=== PATIENT | male | born 1945 | race African-American/Black ===

== ENCOUNTER 2017-12-16 19:40 | Inpatient (IN) | payer MEDICARE, MEDICAID ==
[~2017-12-16] VITALS: Ht 182.9 cm; Wt 73.5 kg
[2017-12-16] MEDS ORDERED: HYDRALAZINE HCL10 MG GT (19:55)
[2017-12-16] MEDS ORDERED: VITAMIN C500 M1 GT (19:55)
[2017-12-16] MEDS ORDERED: MILK OF MA400 MG/51 GT (19:55)
[2017-12-16] MEDS ORDERED: DEPAKENE250 MG/5 M GT (19:55)
[2017-12-16] MEDS ORDERED: OMEPRAZOLE20 M2 ORAL (19:55)
[2017-12-16] MEDS ORDERED: HEPARIN SO5000 UNIT2 SUBQ (19:55)
[2017-12-16] MEDS ORDERED: LEVETIRACE100 MG/1 M GT (19:55)
[2017-12-16] MEDS ORDERED: CARVEDILOL6.25 MG GT (19:55)
[2017-12-16] MEDS ORDERED: FERROUS SU325 MG/5 M GT (19:55)
[2017-12-16] MEDS ORDERED: CATAPRES0.1 MG GT (19:55)
[2017-12-16 20:54] LABS: HEMATOCRIT 22.8 % (42.0-52.0); HEMOGLOBIN 7.7 G/DL (14.2-18.0); MEAN CORPUSCULAR VOLUME 92 FL (80-99); PLATELET COUNT 199 K/UL (150-450); RED BLOOD COUNT 2.48 M/UL (4.70-6.10); WHITE BLOOD COUNT 7.1 K/UL (4.8-10.8)
[2017-12-16 21:00] LABS: ANION GAP 6 mmol/L (5-15); BLOOD UREA NITROGEN 28 mg/dL (7-18); CALCIUM 9.2 MG/DL (8.5-10.1); CARBON DIOXIDE 30 MMOL/L (21-32); CHLORIDE 93 MMOL/L (98-107); CREATININE 0.6 MG/DL (0.55-1.30); INR 0.9 (0.9-1.1); POTASSIUM 4.9 MMOL/L (3.5-5.1); SODIUM 129 MMOL/L (136-145)
[2017-12-16 21:15] LABS: ALANINE AMINOTRANSFERASE 27 U/L (12-78); ALBUMIN 2.5 G/DL (3.4-5.0); ALBUMIN/GLOBULIN RATIO 0.5 (1.0-2.7); ALKALINE PHOSPHATASE 175 U/L (46-116); ASPARTATE AMINO TRANSFERASE 17 U/L (15-37); BILIRUBIN,TOTAL 0.3 MG/DL (0.2-1.0); CKMB 2.8 NG/ML (0.0-3.6); CREATINE KINASE 39 U/L (26-308); PHOSPHORUS 5.1 MG/DL (2.5-4.9)
[2017-12-16] MEDS ORDERED: Miralax 17gm pkt ORAL PRN (22:00)
[2017-12-16] MEDS ORDERED: Zolpidem 5mg tab ORAL PRN (22:00)
[2017-12-16] MEDS ORDERED: LORazepam Inj 2mg/ml 1ml IV PRN (22:00)
[2017-12-16] MEDS ORDERED: Mylanta II UD 30ml ORAL PRN (22:00)
--- NOTE | 2017-12-16 22:43 | Emergency Room Report ---
History of Present Illness General Chief Complaint: Abnormal Labs Present Illness HPI Patient is 72-year-old male brought in by EMS after the decreased hemoglobin. Patient was noted to have hemoglobin less than 8 he is chronically vent dependent. The patient was noted to have small amount increased blood from his tracheostomy. Patient is G-tube dependent. There is no reported fever Allergies: Coded Allergies: ACETAMINOPHEN (Verified Allergy, Unknown, 12/16/17) Patient History Past Medical History: see triage record Reviewed Nursing Documentation: PMH: Agreed; PSxH: Agreed Nursing Documentation-PMH Hx Hypertension: Yes - GERD Hx COPD: Yes - Hypoxic ischemic encephalopothy Hx Diabetes: Yes - DM II Review of Systems All Other Systems: limited - by mental status Physical Exam Vital Signs Date Time Temp Pulse Resp B/P (MAP) Pulse Ox O2 Delivery O2 Flow Rate FiO2 12/16/17 19:32 95.8 60 12 100/64 99 Trach Collar 5.0 95.7 12/16/17 21:08 40 General Appearance: alert, thin, Chronically Ill Head: atraumatic Eyes: bilateral eye EOMI ENT: moist mucus membranes Neck: limited range of motion Respiratory: chest non-tender, lungs clear, decreased breath sounds - right side Cardiovascular #1: edema - trace Gastrointestinal: non tender, soft, other - gtube stoma, c/d/i Rectal: heme positive stool - brown stool Genitourinary: normal inspection Neurologic: motor weakness, other - contracted Psychiatric: other - aphasic Medical Decision Making Diagnostic Impression: Primary Impression: Symptomatic anemia Additional Impressions: Pleural effusion, right Ventilator dependent ER Course Patient presented for anemia. Differential diagnosis included was not limited to GI bleed, hemothorax, hemolysis, laboratory error among others.Because of complexity of patient's case laboratory testing and imaging studies were ordered. The patient was started on IV acid blockers. A chest x-ray one view interpreted by me showed large right pleural effusion Dr. Giana Diaz was contacted for inpatient managment due to primary care physician. Labs Test 12/16/17 20:25 12/16/17 20:29 Arterial Blood pH 7.418 (7.350-7.450) Arterial Blood Partial Pressure CO2 43.3 mmHg (35.0-45.0) Arterial Blood Partial Pressure O2 97.7 mmHg (75.0-100.0) Arterial Blood HCO3 27.3 mmol/L (22.0-26.0) Arterial Blood Oxygen Saturation 97.9 % (92.0-98.0) Arterial Blood Base Excess 2.5 Hector Test Positive White Blood Count 7.1 K/UL (4.8-10.8) Red Blood Count 2.48 M/UL (4.70-6.10) Hemoglobin 7.7 G/DL (14.2-18.0) Hematocrit 22.8 % (42.0-52.0) Mean Corpuscular Volume 92 FL (80-99) Mean Corpuscular Hemoglobin 30.9 PG (27.0-31.0) Mean Corpuscular Hemoglobin Concent 33.7 G/DL (32.0-36.0) Red Cell Distribution Width 15.0 % (11.6-14.8) Platelet Count 199 K/UL (150-450) Mean Platelet Volume 7.6 FL (6.5-10.1) Neutrophils (%) (Auto) % (45.0-75.0) Lymphocytes (%) (Auto) % (20.0-45.0) Monocytes (%) (Auto) % (1.0-10.0) Eosinophils (%) (Auto) % (0.0-3.0) Basophils (%) (Auto) % (0.0-2.0) Differential Total Cells Counted 100 Neutrophils % (Manual) 73 % (45-75) Lymphocytes % (Manual) 17 % (20-45) Monocytes % (Manual) 7 % (1-10) Eosinophils % (Manual) 3 % (0-3) Basophils % (Manual) 0 % (0-2) Band Neutrophils 0 % (0-8) Platelet Estimate Adequate Platelet Morphology Normal Hypochromasia 1+ Anisocytosis 1+ Prothrombin Time 9.6 SEC (9.30-11.50) Prothromb Time International Ratio 0.9 (0.9-1.1) Activated Partial Thromboplast Time 35 SEC (23-33) Sodium Level 129 MMOL/L (136-145) Potassium Level 4.9 MMOL/L (3.5-5.1) Chloride Level 93 MMOL/L (98-107) Carbon Dioxide Level 30 MMOL/L (21-32) Anion Gap 6 mmol/L (5-15) Blood Urea Nitrogen 28 mg/dL (7-18) Creatinine 0.6 MG/DL (0.55-1.30) Estimat Glomerular Filtration Rate > 60 mL/min (>60) Glucose Level 91 MG/DL (74-106) Lactic Acid Level 0.30 mmol/L (0.66-2.22) Calcium Level 9.2 MG/DL (8.5-10.1) Phosphorus Level 5.1 MG/DL (2.5-4.9) Magnesium Level 2.3 MG/DL (1.8-2.4) Total Bilirubin 0.3 MG/DL (0.2-1.0) Aspartate Amino Transf (AST/SGOT) 17 U/L (15-37) Alanine Aminotransferase (ALT/SGPT) 27 U/L (12-78) Alkaline Phosphatase 175 U/L (46-116) Total Creatine Kinase 39 U/L (26-308) Creatine Kinase MB 2.8 NG/ML (0.0-3.6) Creatine Kinase MB Relative Index 7.1 Troponin I 0.000 ng/mL (0.000-0.056) Total Protein 7.1 G/DL (6.4-8.2) Albumin 2.5 G/DL (3.4-5.0) Globulin 4.6 g/dL Albumin/Globulin Ratio 0.5 (1.0-2.7) EKG Diagnostic Results Rate: normal, other Rhythm: NSR ST Segments: other - low voltage Last Vital Signs Date Time Temp Pulse Resp B/P (MAP) Pulse Ox O2 Delivery O2 Flow Rate FiO2 12/16/17 21:08 81 27 40 12/16/17 19:32 95.8 100/64 99 Trach Collar 5.0 95.7 Status: unchanged Disposition: ADMITTED INPATIENT Condition: Serious Referrals: GIANA DIAZ (PCP) Jerel Morales Dec 16, 2017 22:43
[2017-12-16] MEDS ORDERED: Morphine Sulfate 4mg/ml Inj IVP PRN (22:45)
[2017-12-16 23:01] VITALS: BP 100/64
[2017-12-16 23:30] VITALS: BP 123/73
[2017-12-17] VITALS (12 sets, daily range): BP systolic 100–142; BP diastolic 50–95
[2017-12-17 06:25] LABS: BASOPHILS % (AUTO) 0.3 % (0.0-2.0); HEMOGLOBIN 8.7 G/DL (14.2-18.0); MEAN CORPUSCULAR VOLUME 90 FL (80-99); MONOCYTES % (AUTO) 6.7 % (1.0-10.0); PLATELET COUNT 180 K/UL (150-450); RED BLOOD COUNT 2.78 M/UL (4.70-6.10); RED CELL DISTRIBUTION WIDTH 14.7 % (11.6-14.8); WHITE BLOOD COUNT 8.1 K/UL (4.8-10.8)
[2017-12-17 07:06] LABS: ALANINE AMINOTRANSFERASE 25 U/L (12-78); ALBUMIN 2.6 G/DL (3.4-5.0); ALBUMIN/GLOBULIN RATIO 0.6 (1.0-2.7); ALKALINE PHOSPHATASE 172 U/L (46-116); ANION GAP 7 mmol/L (5-15); ASPARTATE AMINO TRANSFERASE 13 U/L (15-37); BILIRUBIN,TOTAL 0.5 MG/DL (0.2-1.0); BLOOD UREA NITROGEN 25 mg/dL (7-18); CALCIUM 9.4 MG/DL (8.5-10.1); CARBON DIOXIDE 28 MMOL/L (21-32); CHLORIDE 95 MMOL/L (98-107); CREATININE 0.6 MG/DL (0.55-1.30); POTASSIUM 4.6 MMOL/L (3.5-5.1); SODIUM 130 MMOL/L (136-145)
[2017-12-17 07:14] LABS: LACTATE DEHYDROGENASE 116 U/L (81-234)
[2017-12-17 07:31] LABS: INR 0.9 (0.9-1.1)
[2017-12-17 07:47] LABS: % IRON SATURATION 14 % (15-50); IRON 39 ug/dL (50-175); TOTAL IRON BINDING CAPACITY 280 ug/dL (250-450)
--- NOTE | 2017-12-17 09:04 | Diagnostic Imaging Report ---
Indication: Shortness of breath Technique: One view of the chest Comparison: none Findings: There is a large right pleural effusion, occupies over half of the right hemithorax. There is consolidation in the retrocardiac region with air bronchograms. There may be some pleural fluid on the left. There is a tracheostomy. Surgical clips are seen in the epigastric region Impression: Large right pleural effusion Left lower lobe consolidation possible left pleural effusion Tracheostomy
[2017-12-17] MEDS: Carvedilol 6.25mg Tab GT SCH ×2 (11:23→21:38)
[2017-12-17] MEDS: HydrALAZINE 10mg Tab GT SCH ×2 (11:23→19:58)
[2017-12-17] MEDS: levETIRAcetam 500mg/5ml Liquid GT SCH ×2 (11:24→19:59)
--- NOTE | 2017-12-17 11:26 | Consultation ---
History of Present Illness General Date patient seen: Dec 17, 2017 Chief Complaint: Abnormal Labs Present Illness HPI 72-year-old male with hx of vegetative state, s/p Trach/ PEG, bed bound, [facility] resident brought in by EMS with CC of the decreased hemoglobin. Patient was noted to have hemoglobin less than 8. . The patient was noted to have small amount increased blood from his tracheostomy. Initial evaluation revealed that pt also has large pleural effusion. Allergies: Coded Allergies: ACETAMINOPHEN (Verified Allergy, Unknown, 12/16/17) Medication History Scheduled Ascorbic Acid* (Vitamin C*), 500 MG GT DAILY, (Reported) Carvedilol* (Carvedilol*), 6.25 MG GT EVERY 12 HOURS, (Reported) Heparin Sod (Porcine) (Heparin Sodium*), 5,000 UNITS SUBQ EVERY 12 HOURS, ( Reported) Hydralazine Hcl* (Hydralazine Hcl*), 10 MG GT BID, (Reported) Levetiracetam* (Levetiracetam*), 1,000 MG GT BID, (Reported) Magnesium Hydroxide* (Milk Of Magnesia*), 30 ML GT DAILY, (Reported) Omeprazole (Omeprazole), Unknown Dose ORAL DAILY, (Reported) Valproate Sodium (Depakene), 250 MG GT BID, (Reported) Scheduled PRN Clonidine Hcl* (Catapres*), 0.1 MG GT EVERY 6 HOURS PRN for For High Blood Pressure, (Reported) Miscellaneous Medications Ferrous Sulfate (Ferrous Sulfate), 325 MG GT, (Reported) 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[employer] Resuscitation status Full Code Advanced Directive on File No Past Medical/Surgical History Past Medical/Surgical History: (1) Feeding by G-tube (2) Vegetative state (3) Ventilator dependent (4) Seizure disorder (5) Hypertension Review of Systems All Other Systems: negative except mentioned in HPI Physical Exam General Appearance: cachetic Lines, tubes and drains: peripheral HEENT: normocephalic, atraumatic Neck: non-tender, normal alignment, supple Respiratory/Chest: chest wall non-tender, lungs clear Breasts: no masses Cardiovascular/Chest: normal peripheral pulses, normal rate Abdomen: normal bowel sounds, non tender Genitourinary/Rectal: normal genital exam, normal rectal exam Extremities: normal range of motion, normal inspection Skin Exam: normal pigmentation Neurologic: tilting head band sawyer II-XII grossly normal Lymphatic: anterior cervical Last 24 Hour Vital Signs Date Time Temp Pulse Resp B/P (MAP) Pulse Ox O2 Delivery O2 Flow Rate FiO2 12/17/17 08:58 64 12 40 12/17/17 08:00 97.9 75 16 121/58 100 Mechanical Ventilator 40 97.9 12/17/17 07:00 97.5 73 16 112/64 96 Mechanical Ventilator 40 97.5 12/17/17 06:58 67 14 40 12/17/17 06:00 70 16 101/50 97 Mechanical Ventilator 40 12/17/17 05:00 73 18 102/56 98 Mechanical Ventilator 40 12/17/17 04:35 71 12 40 12/17/17 04:00 5.0 40 12/17/17 04:00 97.3 73 17 142/95 98 Mechanical Ventilator 40 97.3 12/17/17 04:00 69 12/17/17 03:30 79 19 40 12/17/17 03:00 65 17 109/62 98 Mechanical Ventilator 40 12/17/17 02:00 65 16 110/61 98 Mechanical Ventilator 40 12/17/17 01:47 66 14 Mechanical Ventilator 40 12/17/17 01:30 69 13 40 12/17/17 01:00 68 19 100/67 98 Mechanical Ventilator 40 12/17/17 00:00 95.0 67 19 110/57 98 Mechanical Ventilator 40 95.0 12/16/17 23:44 5.0 40 12/16/17 23:39 139/89 12/16/17 23:30 75 12/16/17 23:30 76 22 123/73 99 Mechanical Ventilator 40 12/16/17 23:01 95.7 27 100/64 99 Trach Collar 5.0 40 95.7 12/16/17 21:08 81 27 40 12/16/17 19:32 95.8 60 12 100/64 99 Trach Collar 5.0 95.7 Intake and Output 12/16/17 12/17/17 19:00 07:00 Intake Total 300 ml Output Total 300 ml Balance 0 ml Intake Oral 0 ml Blood Product 300 ml Output Urine Total 300 ml Laboratory Tests Test 12/16/17 20:25 12/16/17 20:29 12/17/17 06:00 Arterial Blood pH 7.418 (7.350-7.450) Arterial Blood Partial Pressure CO2 43.3 mmHg (35.0-45.0) Arterial Blood Partial Pressure O2 97.7 mmHg (75.0-100.0) Arterial Blood HCO3 27.3 mmol/L (22.0-26.0) H Arterial Blood Oxygen Saturation 97.9 % (92.0-98.0) Arterial Blood Base Excess 2.5 Hector Test Positive White Blood Count 7.1 K/UL (4.8-10.8) 8.1 K/UL (4.8-10.8) Red Blood Count 2.48 M/UL (4.70-6.10) L 2.78 M/UL (4.70-6.10) L Hemoglobin 7.7 G/DL (14.2-18.0) L 8.7 G/DL (14.2-18.0) L Hematocrit 22.8 % (42.0-52.0) L 25.0 % (42.0-52.0) L Mean Corpuscular Volume 92 FL (80-99) 90 FL (80-99) Mean Corpuscular Hemoglobin 30.9 PG (27.0-31.0) 31.3 PG (27.0-31.0) H Mean Corpuscular Hemoglobin Concent 33.7 G/DL (32.0-36.0) 34.8 G/DL (32.0-36.0) Red Cell Distribution Width 15.0 % (11.6-14.8) H 14.7 % (11.6-14.8) Platelet Count 199 K/UL (150-450) 180 K/UL (150-450) Mean Platelet Volume 7.6 FL (6.5-10.1) 7.0 FL (6.5-10.1) Neutrophils (%) (Auto) % (45.0-75.0) 80.0 % (45.0-75.0) H Lymphocytes (%) (Auto) % (20.0-45.0) 12.0 % (20.0-45.0) L Monocytes (%) (Auto) % (1.0-10.0) 6.7 % (1.0-10.0) Eosinophils (%) (Auto) % (0.0-3.0) 1.0 % (0.0-3.0) Basophils (%) (Auto) % (0.0-2.0) 0.3 % (0.0-2.0) Differential Total Cells Counted 100 100 Neutrophils % (Manual) 73 % (45-75) 77 % (45-75) H Lymphocytes % (Manual) 17 % (20-45) L 10 % (20-45) L Monocytes % (Manual) 7 % (1-10) 10 % (1-10) Eosinophils % (Manual) 3 % (0-3) 3 % (0-3) Basophils % (Manual) 0 % (0-2) 0 % (0-2) Band Neutrophils 0 % (0-8) 0 % (0-8) Platelet Estimate Adequate Adequate Platelet Morphology Normal Normal Hypochromasia 1+ 1+ Anisocytosis 1+ 1+ Prothrombin Time 9.6 SEC (9.30-11.50) 9.8 SEC (9.30-11.50) Prothromb Time International Ratio 0.9 (0.9-1.1) 0.9 (0.9-1.1) Activated Partial Thromboplast Time 35 SEC (23-33) H 35 SEC (23-33) H Sodium Level 129 MMOL/L (136-145) L 130 MMOL/L (136-145) L Potassium Level 4.9 MMOL/L (3.5-5.1) 4.6 MMOL/L (3.5-5.1) Chloride Level 93 MMOL/L (98-107) L 95 MMOL/L (98-107) L Carbon Dioxide Level 30 MMOL/L (21-32) 28 MMOL/L (21-32) Anion Gap 6 mmol/L (5-15) 7 mmol/L (5-15) Blood Urea Nitrogen 28 mg/dL (7-18) H 25 mg/dL (7-18) H Creatinine 0.6 MG/DL (0.55-1.30) 0.6 MG/DL (0.55-1.30) Estimat Glomerular Filtration Rate > 60 mL/min (>60) > 60 mL/min (>60) Glucose Level 91 MG/DL (74-106) 85 MG/DL (74-106) Lactic Acid Level 0.30 mmol/L (0.66-2.22) L Calcium Level 9.2 MG/DL (8.5-10.1) 9.4 MG/DL (8.5-10.1) Phosphorus Level 5.1 MG/DL (2.5-4.9) H Magnesium Level 2.3 MG/DL (1.8-2.4) Total Bilirubin 0.3 MG/DL (0.2-1.0) 0.5 MG/DL (0.2-1.0) Aspartate Amino Transf (AST/SGOT) 17 U/L (15-37) 13 U/L (15-37) L Alanine Aminotransferase (ALT/SGPT) 27 U/L (12-78) 25 U/L (12-78) Alkaline Phosphatase 175 U/L (46-116) H 172 U/L (46-116) H Total Creatine Kinase 39 U/L (26-308) Creatine Kinase MB 2.8 NG/ML (0.0-3.6) Creatine Kinase MB Relative Index 7.1 Troponin I 0.000 ng/mL (0.000-0.056) Total Protein 7.1 G/DL (6.4-8.2) 7.0 G/DL (6.4-8.2) Albumin 2.5 G/DL (3.4-5.0) L 2.6 G/DL (3.4-5.0) L Globulin 4.6 g/dL 4.4 g/dL Albumin/Globulin Ratio 0.5 (1.0-2.7) L 0.6 (1.0-2.7) L Erythrocyte Sedimentation Rate 124 MM/HR (0-20) H Reticulocyte Count 1.5 % (0.0-2.0) Iron Level 39 ug/dL (50-175) L Total Iron Binding Capacity 280 ug/dL (250-450) Percent Iron Saturation 14 % (15-50) L Unsaturated Iron Binding 241 ug/dL (112-346) Lactate Dehydrogenase 116 U/L (81-234) Folate 18.2 NG/ML (8.6-58.9) Thyroid Stimulating Hormone (TSH) 2.606 uiU/mL (0.358-3.740) Height (Feet): 6 Weight (Pounds): 162 Medications Current Medications Medications (Trade) Dose Ordered Sig/Marciano Route PRN Reason Start Time Stop Time Status Last Admin Dose Admin Acetaminophen (Tylenol) 650 mg Q4H PRN ORAL fever 12/16/17 22:00 01/15/18 21:59 Al Hydroxide/Mg Hydroxide (Mylanta II) 30 ml Q6H PRN ORAL dyspepsia 12/16/17 22:00 01/15/18 21:59 Carvedilol (Coreg) 6.25 mg EVERY 12 HOURS GT 12/17/17 09:00 01/16/18 08:59 Clonidine HCl (Catapres Tab) 0.1 mg EVERY 6 HOURS PRN GT For High Blood Pressure 12/16/17 22:00 01/15/18 21:59 Dextrose (Dextrose 50%) STAT PRN IV Hypoglycemia 12/16/17 22:00 01/15/18 21:59 Hydralazine HCl (Apresoline) 10 mg BID GT 12/17/17 09:00 01/16/18 08:59 Levetiracetam (Keppra) 1,000 mg BID GT 12/17/17 09:00 01/16/18 08:59 Lorazepam (Ativan 2mg/ml 1ml) 0.5 mg Q4H PRN IV For Anxiety 12/16/17 22:00 12/23/17 21:59 Morphine Sulfate (Morphine Sulfate) 1 mg Q4H PRN IVP For Pain 12/16/17 22:45 12/23/17 22:44 Ondansetron HCl (Zofran) 4 mg Q6H PRN IVP Nausea & Vomiting 12/16/17 22:00 01/15/18 21:59 Polyethylene Glycol (Miralax) 17 gm HSPRN PRN ORAL Constipation 12/16/17 22:00 01/15/18 21:59 Zolpidem Tartrate (Ambien) 5 mg HSPRN PRN ORAL Insomnia 12/16/17 22:00 12/23/17 21:59 Assessment/Plan Problem List: (1) Pleural effusion, right ICD Codes: J90 - Pleural effusion, not elsewhere classified SNOMED: 39197086 (2) Symptomatic anemia ICD Codes: D64.9 - Anemia, unspecified SNOMED: 887344133 (3) Ventilator dependent ICD Codes: Z99.11 - Dependence on respirator [ventilator] status SNOMED: 461370979 (4) Vegetative state ICD Codes: R40.3 - Persistent vegetative state SNOMED: 53681818 (5) Feeding by G-tube ICD Codes: Z93.1 - Gastrostomy status SNOMED: 826463309, 856866878 (6) Seizure disorder ICD Codes: G40.909 - Epilepsy, unspecified, not intractable, without status epilepticus SNOMED: 197947910 (7) Hypertension ICD Codes: I10 - Essential (primary) hypertension SNOMED: 24238588 Assessment/Plan anemia w/u prbc prn rule out GI loss thoracentesis echo to evaluate cardiac function continue gtube feeding dvt prophylaxis family called to obtain consent for thoracentesis. voice message left. Leodan Bojorquez MD Dec 17, 2017 11:26
[2017-12-17 13:10] LABS: INR 0.9 (0.9-1.1)
[2017-12-17] MEDS ORDERED: Tubing IV Blood Pump IV ONE (14:05)
[2017-12-17] MEDS: Lidocaine 1% Plain 30 ml INJ SCH (16:00)
--- NOTE | 2017-12-17 16:23 | Cardiology Report ---
APPROVED REPORT EXAM: Two-dimensional and M-mode echocardiogram with Doppler and color Doppler. INDICATION Left ventricular function M-Mode DIMENSIONS IVSd1.4 (0.7-1.1cm)Left Atrium (MM)4.3 (1.6-4.0cm) LVDd5.0 (3.5-5.6cm)Aortic Root2.7 (2.0-3.7cm) PWd0.8 (0.7-1.1cm)Aortic Cusp Exc.2.0 (1.5-2.0cm) LVDs2.5 (2.5-4.0cm) PWs1.8 cm Normal left ventricular chamber size, systolic function and wall motion. Left ventricular ejection fraction estimated to be 55 %. Mild left ventricular hypertrophy. Trivial pericardial effusion. Large posterior pleural effusion. Mild left atrial enlargement. Right cardiac chamber sizes are within normal limits. Focal aortic valve sclerosis with adequate cusp excursion. Mildly thickened mitral valve leaflets with normal excursion. Mild mitral annulus and aortic root calcification. Normal pulmonic valve structure. Normal tricuspid valve structure. IVC measures at 1.7 with physiological collapse. A color flow and spectral Doppler study was performed and revealed: Mild aortic insufficiency. Trace mitral regurgitation. Mitral diastolic velocities suggest mild left ventricular diastolic dysfunction (Grade I). Mild tricuspid regurgitation. Tricuspid systolic velocities suggests peak right ventricular systolic pressure of 33 mmHg. No pulmonic regurgitation present.
--- NOTE | 2017-12-17 17:41 | Cardiology Report ---
APPROVED REPORT EKG Measurement Heart [id number] Sinus rhythm with 1st degree AV block Low voltage QRS Borderline ECG
--- NOTE | 2017-12-17 21:01 | History and Physical Report ---
DATE OF ADMISSION: 12/16/2017 TIME: 4 p.m. ANALYTICAL RESEARCH PROGRAM MANAGER: Leodan Bojorquez M.D. CHIEF COMPLAINT: Respiratory failure, severe anemia and right pleural effusion. BRIEF HISTORY: The patient is a 72-year-old female from [facility] presented with above-mentioned diagnosis. Hemoglobin was found 7.4. The patient was admitted to [facility]. Currently, calm, lethargic in bed, trach , altered, lethargic in bed and nonverbal. PAST MEDICAL HISTORY: Respiratory failure, seizure and hypertension. PAST SURGICAL HISTORY: G-tube. MEDICATIONS: Coreg, Apresoline, Keppra, morphine, Catapres, Tylenol, MiraLAX, Zofran, Ativan, Ambien and Mylanta. ALLERGIES: Tylenol. SOCIAL HISTORY: No smoking. No alcohol. No intravenous drug abuse. FAMILY HISTORY: Noncontributory. REVIEW OF SYSTEMS: Unavailable. PHYSICAL EXAMINATION: GENERAL: Lethargic in bed, nonverbal, trach, vent. VITAL SIGNS: Temperature is 97 degrees, pulse 77, respiratory rate 15, and blood pressure 101/58. CARDIOVASCULAR: No murmur. LUNGS: Poor air exchange. ABDOMEN: Bowel sound distant. EXTREMITIES: No cyanosis or edema. NEUROLOGIC: The patient is lethargic in bed, not following directions. LABORATORY AND DIAGNOSTIC DATA: Initially, hemoglobin 7.7, now it is 8.7, otherwise CBC is normal. is 124. BMP shows sodium 130, hyponatremia and chloride 95, and BUN 25. INR is 0.9 and PTT is 31. ASSESSMENT: 1. Respiratory failure, trach vent. 2. Anemia. 3. Right pleural effusion. 4. Seizure. 5. Hypertension. 6. Hyponatremia. PLAN: Continue premedications. O2 and pulmonary treatment. Antibiotics per Infectious Disease. Transfuse p.r.n. Dr. Bojorquez and Dr. Kong to consult. We will continue to follow this patient medically. Yosef Garcia D.O. DR: MAIKEL JOB#: [id number] CC:
--- NOTE | 2017-12-17 23:02 | Consultation ---
DATE OF CONSULTATION: 12/17/2017 NEPHROLOGY CONSULTATION CONSULTING PHYSICIAN: Tonia Kong M.D. REFERRING PHYSICIAN: Yosef Garcia D.O. REASON FOR CONSULTATION: Hyponatremia. HISTORY OF PRESENT ILLNESS: The patient is an unfortunate 72-year-old male with past medical history significant for history of encephalopathy. As a result of that, the patient is being on trach and PEG and he is in halfway and bedbound. The patient found to have hemoglobin of less than 8 and was sent to emergency room at [facility]. Upon initial evaluation, the patient found to have hemoglobin of 7 and also found to have sodium of 129. The patient consequently was admitted in [facility] on monitored bed. I was called for management of renal disease and electrolyte imbalance. HOME MEDICATIONS: Includin. Ascorbic acid 500 mg daily. 2. Carvedilol 6.25. 3. Hydralazine 10 mg via G-tube b.i.d. 4. Levetiracetam 1000 mg b.i.d. 5. Milk of magnesia 30 mL. 6. Omeprazole 30 mg daily. 7. Valproic acid or Depakote 250 mg p.o. b.i.d. 8. Clonidine 0.1 mg p.r.n. PAST SURGICAL HISTORY: History of trach and PEG placement. PAST MEDICAL HISTORY: Includin. History of hypertension. 2. History of respiratory failure. 3. History of GERD. 4. History of seizure disorder. 5. History of encephalopathy. REVIEW OF SYSTEMS: Unable to obtain due to the patient's condition and mental status. PHYSICAL EXAMINATION: VITAL SIGNS: The patient had temperature of 97, pulse rate of 75, respiratory rate of 14, blood pressure 125/58, O2 saturation of 100%. GENERAL: The patient is a male, in no acute distress. HEAD AND NECK: ET tube is in place. Head is atraumatic and normocephalic. Extraocular movements intact. Pupils are reactive to light and accommodation. LUNGS: Decreased breathing sounds on both sides, right more than left. CARDIAC: Regular rate and rhythm. S1, S2. No murmur. No rub. ABDOMEN: Soft, nontender, nondistended. EXTREMITIES: A 1+ edema. No clubbing. No cyanosis. LABORATORY AND DIAGNOSTIC DATA: On admission, the patient had WBC count of 7.7, hemoglobin of 7.7, hematocrit of 22, platelet count was only 100,000. Chemistry reveals sodium 130, potassium 4.6, chloride 95, bicarbonate 25, BUN of 25, creatinine of 0.6, glucose of 85. The patient has an iron of 39 and saturation of 14%. AST of 13, ALT of 25, alkaline phosphatase of 172. The patient has total protein of 7, albumin of 2.6. TSH within normal limits. No UA. ASSESSMENT: 1. Isovolemic hyponatremia, most likely as a result of antiseizure medication. 2. Prerenal azotemia and elevation of BUN/creatinine ratio. 3. Asymptomatic anemia. 4. History of respiratory failure. 5. History of PEG placement. 6. History of hypertension. PLAN: 1. Obtain UA. 2. Check urine osmolality, serum osmolality. 3. Check TSH level. 4. Mix all IV piggyback with normal saline. 5. Free water restriction. 6. Avoid any NSAID and nephrotoxic. Again, I would like to thank Dr. Yosef Garcia for allowing me to participate in the care of this patient. Raj Ortega JOB#: [id number] CC:
[2017-12-18] VITALS (7 sets, daily range): BP systolic 95–119; BP diastolic 48–65
--- NOTE | 2017-12-18 07:56 | Nephrology Progress Note ---
Assessment/Plan Assessment 1. Isovolemic hyponatremia, most likely as a result of antiseizure medication. 2. Prerenal azotemia and elevation of BUN/creatinine ratio. 3. Asymptomatic anemia. 4. History of respiratory failure. 5. History of PEG placement. 6. History of hypertension. Plan plan to continue current iv monitoring renal function and electrolyte mix all ivpb with ns .9 fallow up with urine study Subjective ROS Limited/Unobtainable: Yes Constitutional: Reports: no symptoms HEENT: Reports: no symptoms Genitourinary: Reports: no symptoms Neurologic/Psychiatric: Reports: no symptoms Subjective no acute events Objective Objective Last 24 Hour Vital Signs Date Time Temp Pulse Resp B/P (MAP) Pulse Ox O2 Delivery O2 Flow Rate FiO2 12/18/17 06:54 72 6 40 12/18/17 05:20 66 12 40 12/18/17 04:00 97.5 70 19 106/57 97 Mechanical Ventilator 40 97.5 12/18/17 04:00 71 12/18/17 04:00 5.0 40 12/18/17 03:38 68 13 40 12/18/17 02:01 70 13 40 12/18/17 00:00 73 12/18/17 00:00 97.4 65 14 119/60 99 Mechanical Ventilator 40 97.4 12/18/17 00:00 5.0 40 12/18/17 00:00 65 13 40 12/17/17 21:38 67 111/61 12/17/17 21:29 71 12 40 12/17/17 20:00 60 12/17/17 20:00 5.0 40 12/17/17 20:00 97.9 67 14 111/61 99 Mechanical Ventilator 40 97.9 12/17/17 19:58 113/66 12/17/17 19:54 63 13 40 12/17/17 16:40 76 27 40 12/17/17 16:00 77 12/17/17 16:00 97.5 76 18 113/66 95 Mechanical Ventilator 40 97.5 12/17/17 16:00 5.0 40 12/17/17 15:04 77 15 40 12/17/17 12:53 71 20 40 12/17/17 12:00 5.0 40 12/17/17 12:00 97.5 75 14 101/58 96 Mechanical Ventilator 40 97.5 12/17/17 11:39 73 12/17/17 11:23 121/58 12/17/17 11:23 77 121/58 12/17/17 10:58 77 20 40 12/17/17 08:58 64 12 40 12/17/17 08:00 97.9 75 16 121/58 100 Mechanical Ventilator 40 97.9 12/17/17 08:00 5.0 40 Intake and Output 12/17/17 12/18/17 19:00 07:00 Intake Total 315 ml Output Total 600 ml 300 ml Balance -600 ml 15 ml Free Water 40 ml Tube Feeding 275 ml Output Urine Total 600 ml 300 ml # Bowel Movements 1 Laboratory Tests 12/17/17 12:45: Prothrombin Time 9.7, Prothromb Time International Ratio 0.9, Activated Partial Thromboplast Time 31 12/17/17 22:00: Urine Eosinophils [Pending], Urine Osmolality [Pending], Urine Random Sodium 97 , Urine Creatinine 89.3 Height (Feet): 6 Weight (Pounds): 162 Objective GENERAL: The patient is a chronic ill looking male, in no acute distress. HEAD AND NECK: ET tube is in place. Head is atraumatic and normocephalic. Extraocular movements intact. Pupils are reactive to light and accommodation. LUNGS: Decreased breathing sounds on both sides, right more than left. CARDIAC: Regular rate and rhythm. S1, S2. No murmur. No rub. ABDOMEN: Soft, nontender, nondistended. EXTREMITIES: A 1+ edema. No clubbing. No cyanosis. SANDRA RODRIGUEZ Dec 18, 2017 07:56
[2017-12-18] MEDS: HydrALAZINE 10mg Tab GT SCH ×2 (08:59→18:00)
[2017-12-18] MEDS: Carvedilol 6.25mg Tab GT SCH ×2 (08:59→20:09)
[2017-12-18] MEDS: levETIRAcetam 500mg/5ml Liquid GT SCH ×2 (09:00→18:27)
--- NOTE | 2017-12-18 10:30 | Diagnostic Imaging Report ---
Indication: Status post thoracentesis Comparison: 12/16/2017 A single view chest radiograph was obtained. Findings: No pneumothorax seen. Right pleural effusion appears resolved or nearly resolved. Heart is stable. Tracheostomy again noted. IMPRESSION: No pneumothorax seen following right-sided thoracentesis
--- NOTE | 2017-12-18 10:56 | Pulmonolgy Critical Care Note ---
Critical Care - Asmt/Plan Problems: (1) Pleural effusion, right (2) Symptomatic anemia (3) Seizure disorder (4) Hypertension (5) Ventilator dependent (6) Feeding by G-tube Respiratory: adjust tidal volume, monitor respiratory rate, adjust FIO2, other - cxr after thoracentesis, cleared Cardiac: continue to monitor HR/BP Renal: F/U I&O, keep IV fluid Infectious Disease: check cultures Gastrointestinal: continue feedings/current rate Endocrine: monitor blood sugar, check HgA1C, continue sliding scale insulin Hematologic: monitor H/H, transfuse if hgb<8.5 Neurologic: PRN Morphine, keep patient comfortable Affect: PRN ativan Prophylaxis: Protonix, Heparin Notes Reviewed: coil maker, cardio, 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 with: geriatric case managerabstract manager - Objective Last 24 Hour Vital Signs Date Time Temp Pulse Resp B/P (MAP) Pulse Ox O2 Delivery O2 Flow Rate FiO2 12/18/17 10:44 75 13 40 12/18/17 09:10 79 21 40 12/18/17 08:59 114/65 12/18/17 08:59 70 114/65 12/18/17 08:00 69 12/18/17 08:00 5.0 40 12/18/17 08:00 97.8 70 14 114/65 99 Mechanical Ventilator 40 97.8 12/18/17 06:54 72 6 40 12/18/17 05:20 66 12 40 12/18/17 04:00 97.5 70 19 106/57 97 Mechanical Ventilator 40 97.5 12/18/17 04:00 71 12/18/17 04:00 5.0 40 12/18/17 03:38 68 13 40 12/18/17 02:01 70 13 40 12/18/17 00:00 73 12/18/17 00:00 97.4 65 14 119/60 99 Mechanical Ventilator 40 97.4 12/18/17 00:00 5.0 40 12/18/17 00:00 65 13 40 12/17/17 21:38 67 111/61 12/17/17 21:29 71 12 40 12/17/17 20:00 60 12/17/17 20:00 5.0 40 12/17/17 20:00 97.9 67 14 111/61 99 Mechanical Ventilator 40 97.9 12/17/17 19:58 113/66 12/17/17 19:54 63 13 40 12/17/17 16:40 76 27 40 12/17/17 16:00 77 12/17/17 16:00 97.5 76 18 113/66 95 Mechanical Ventilator 40 97.5 12/17/17 16:00 5.0 40 12/17/17 15:04 77 15 40 12/17/17 12:53 71 20 40 12/17/17 12:00 5.0 40 12/17/17 12:00 97.5 75 14 101/58 96 Mechanical Ventilator 40 97.5 12/17/17 11:39 73 12/17/17 11:23 121/58 12/17/17 11:23 77 121/58 12/17/17 10:58 77 20 40 Status: awake Condition: critical Lungs: clear Heart: HR/BP stable, regular Abdomen: non-tender, feeding tube Extremities: no C/C/E Decubiti: location Micro: Microbiology Date/Time Source Procedure Growth Status 12/16/17 20:29 Blood Blood Culture - Preliminary NO GROWTH AFTER 24 HOURS Resulted Critical Care - Subjective ROS Limited/Unobtainable: Yes Intubation Day: chronic trach EKG Rhythm: V-Paced FI02: 40 Vent Support Breath Rate: 8 Vent Support Mode: IMV/SIMV Vent Tidal Volume: 450 Sputum Amount: Scant PEEP: 5.0 PIP: 20 Fluids: none Tube Feeding Amount: 35 I&O: Intake and Output 12/17/17 12/18/17 19:00 07:00 Intake Total 315 ml Output Total 600 ml 300 ml Balance -600 ml 15 ml Free Water 40 ml Tube Feeding 275 ml Output Urine Total 600 ml 300 ml # Bowel Movements 1 CXR: cxr, pleural effusion cleared. Labs: Laboratory Tests Test 12/17/17 12:45 12/17/17 22:00 12/18/17 09:36 Prothrombin Time 9.7 SEC (9.30-11.50) Prothromb Time International Ratio 0.9 (0.9-1.1) Activated Partial Thromboplast Time 31 SEC (23-33) Urine Eosinophils None seen Urine Osmolality 636 mOsm/kg (429-449) H Urine Random Sodium 97 mmol/L (20-110) Urine Creatinine 89.3 MG/DL (30.0-125.0) Body Fluid Source Pending Body Fluid Volume Pending Body Fluid Appearance Pending Body Fluid RBC Pending Body Fluid Total Nucleated Cells Pending Body Fluid Albumin Pending Leodan Bojorquez MD Dec 18, 2017 10:56
--- NOTE | 2017-12-18 12:11 | Diagnostic Imaging Report ---
Indications: Pleural effusion Technique: Ultrasound used to localize optimal puncture site. Sterile prepping and draping of the lower chest performed. Local anesthesia with 1% lidocaine. Dermatotomy made. Puncture of the pleural space using thoracentesis needle. Stylet removed. Catheter placed to vacuum bottle suction. Fluid was aspirated. Patient tolerated procedure well, without immediate complication. Fluid was sent for studies as requested. Findings: Followup sonography demonstrates complete resolution of pleural fluid. Followup chest x-ray is pending. Impression: Successful ultrasound-guided right thoracentesis, yielding 1.5 liters of fluid
--- NOTE | 2017-12-18 14:49 | General Progress Note ---
Assessment/Plan Problem List: (1) Ventilator dependent ICD Codes: Z99.11 - Dependence on respirator [ventilator] status SNOMED: 072545229 (2) Pleural effusion, right ICD Codes: J90 - Pleural effusion, not elsewhere classified SNOMED: 65631948 (3) Hypertension ICD Codes: I10 - Essential (primary) hypertension SNOMED: 70030351 (4) Seizure disorder ICD Codes: G40.909 - Epilepsy, unspecified, not intractable, without status epilepticus SNOMED: 558111872 (5) Symptomatic anemia ICD Codes: D64.9 - Anemia, unspecified SNOMED: 546284176 Status: unchanged Assessment/Plan vetn ot pt diet cbc bmp am Subjective Constitutional: Reports: weakness Allergies: Coded Allergies: ACETAMINOPHEN (Verified Allergy, Unknown, 12/16/17) All Systems: reviewed and negative except above Subjective trach vent altered calm Objective Last 24 Hour Vital Signs Date Time Temp Pulse Resp B/P (MAP) Pulse Ox O2 Delivery O2 Flow Rate FiO2 12/18/17 12:45 69 16 40 12/18/17 12:00 71 12/18/17 12:00 5.0 40 12/18/17 12:00 97.6 68 17 95/48 100 Mechanical Ventilator 40 97.6 12/18/17 10:44 75 13 40 12/18/17 09:10 79 21 40 12/18/17 08:59 114/65 12/18/17 08:59 70 114/65 12/18/17 08:00 69 12/18/17 08:00 5.0 40 12/18/17 08:00 97.8 70 14 114/65 99 Mechanical Ventilator 40 97.8 12/18/17 06:54 72 6 40 12/18/17 05:20 66 12 40 12/18/17 04:00 97.5 70 19 106/57 97 Mechanical Ventilator 40 97.5 12/18/17 04:00 71 12/18/17 04:00 5.0 40 12/18/17 03:38 68 13 40 12/18/17 02:01 70 13 40 12/18/17 00:00 73 12/18/17 00:00 97.4 65 14 119/60 99 Mechanical Ventilator 40 97.4 12/18/17 00:00 5.0 40 12/18/17 00:00 65 13 40 12/17/17 21:38 67 111/61 12/17/17 21:29 71 12 40 12/17/17 20:00 60 12/17/17 20:00 5.0 40 12/17/17 20:00 97.9 67 14 111/61 99 Mechanical Ventilator 40 97.9 12/17/17 19:58 113/66 12/17/17 19:54 63 13 40 12/17/17 16:40 76 27 40 12/17/17 16:00 77 12/17/17 16:00 97.5 76 18 113/66 95 Mechanical Ventilator 40 97.5 12/17/17 16:00 5.0 40 12/17/17 15:04 77 15 40 Intake and Output 12/17/17 12/18/17 19:00 07:00 Intake Total 315 ml Output Total 600 ml 300 ml Balance -600 ml 15 ml Free Water 40 ml Tube Feeding 275 ml Output Urine Total 600 ml 300 ml # Bowel Movements 1 Laboratory Tests 12/17/17 22:00: Urine Eosinophils None seen, Urine Osmolality 636H, Urine Random Sodium 97, Urine Creatinine 89.3 12/18/17 09:36: Body Fluid Source Thoracentesis, Body Fluid Volume 8, Body Fluid Appearance Slightly hazy, [place] [address], Body Fluid Total Nucleated Cells 625, Body Fluid Polynuclear WBCs (%) 3, Body Fluid Mononuclear WBCs (%) 89, Body Fluid Mesothelial Cells (%) 8, Body Fluid Albumin [Pending] Height (Feet): 6 Weight (Pounds): 162 General Appearance: lethargic EENT: normal ENT inspection Neck: normal alignment Cardiovascular: normal peripheral pulses, normal rate, regular rhythm Respiratory/Chest: chest wall non-tender, lungs clear, normal breath sounds Abdomen: normal bowel sounds, non tender, soft Extremities: normal inspection Edema: no edema noted Arm (L), no edema noted Arm (R), no edema noted Leg (L), no edema noted Leg (R), no edema noted Pedal (L), no edema noted Pedal (R), no edema noted Generalized Neurologic: motor weakness Skin: normal pigmentation, warm/dry GIANA DIAZ Dec 18, 2017 14:49
[2017-12-18] MEDS: Lidocaine 1% Plain 30 ml INJ SCH (16:00)
[2017-12-18] MEDS: Iron Sucrose 100 MG in NS 110 ML IV SCH (20:23)
[2017-12-18] MEDS ORDERED: NS 275ml ONE (22:06)
[2017-12-19] VITALS: BP 111/55
[2017-12-19 04:00] VITALS: BP 104/56
[2017-12-19 07:36] LABS: BASOPHILS % (AUTO) 0.8 % (0.0-2.0); HEMATOCRIT 24.7 % (42.0-52.0); HEMOGLOBIN 8.2 G/DL (14.2-18.0); MEAN CORPUSCULAR VOLUME 91 FL (80-99); MONOCYTES % (AUTO) 6.9 % (1.0-10.0); NEUTROPHILS % (AUTO) 81.2 % (45.0-75.0); PLATELET COUNT 238 K/UL (150-450); RED BLOOD COUNT 2.71 M/UL (4.70-6.10); RED CELL DISTRIBUTION WIDTH 14.6 % (11.6-14.8); WHITE BLOOD COUNT 11.4 K/UL (4.8-10.8)
[2017-12-19 07:49] LABS: ALANINE AMINOTRANSFERASE 23 U/L (12-78); ALBUMIN 2.5 G/DL (3.4-5.0); ALBUMIN/GLOBULIN RATIO 0.6 (1.0-2.7); ALKALINE PHOSPHATASE 177 U/L (46-116); ANION GAP 4 mmol/L (5-15); ASPARTATE AMINO TRANSFERASE 12 U/L (15-37); BILIRUBIN,TOTAL 0.3 MG/DL (0.2-1.0); BLOOD UREA NITROGEN 21 mg/dL (7-18); CALCIUM 9.3 MG/DL (8.5-10.1); CARBON DIOXIDE 29 MMOL/L (21-32); CHLORIDE 97 MMOL/L (98-107); CREATININE 0.7 MG/DL (0.55-1.30); POTASSIUM 4.9 MMOL/L (3.5-5.1); SODIUM 130 MMOL/L (136-145)
--- NOTE | 2017-12-19 08:12 | Diagnostic Imaging Report ---
APPROVED REPORT CPT Code: 62195 Present Symptoms Shortness of breath Comments: R/O DVT Comments Technically difficult study due to BLE contracture of hip and knee. BILATERAL: Imaging reveals a patent deep venous system bilaterally. There is no evidence of thrombus within the femoral, popliteal or tibial segments. The greater saphenous veins are also within normal limits. Doppler indicates normal spontaneous flow within these segments.
[2017-12-19 08:26] VITALS: BP 109/54
--- NOTE | 2017-12-19 08:47 | Nephrology Progress Note ---
Assessment/Plan Assessment 1. Isovolemic hyponatremia, most likely as a result of antiseizure medication. 2. Prerenal azotemia and elevation of BUN/creatinine ratio. 3. Asymptomatic anemia. 4. History of respiratory failure. 5. History of PEG placement. 6. History of hypertension. Plan plan start him on salt tab to continue current iv monitoring renal function and electrolyte mix all ivpb with ns .9 fallow up with urine study Subjective ROS Limited/Unobtainable: Yes Constitutional: Reports: no symptoms HEENT: Reports: no symptoms Neurologic/Psychiatric: Reports: no symptoms Subjective no acute events Objective Objective Last 24 Hour Vital Signs Date Time Temp Pulse Resp B/P (MAP) Pulse Ox O2 Delivery O2 Flow Rate FiO2 12/19/17 08:28 40 12/19/17 08:26 99.4 72 15 109/54 100 Mechanical Ventilator 40 99.4 12/19/17 06:55 74 18 40 12/19/17 04:47 75 20 40 12/19/17 04:00 71 12/19/17 04:00 98.3 79 19 104/56 100 Mechanical Ventilator 40 98.3 12/19/17 04:00 5.0 40 12/19/17 03:17 74 16 40 12/19/17 01:22 77 16 40 12/19/17 00:00 98.0 71 20 111/55 100 Mechanical Ventilator 40 98.0 12/19/17 00:00 5.0 40 12/19/17 00:00 70 12/18/17 23:25 71 16 40 12/18/17 21:12 71 17 40 12/18/17 20:09 71 107/73 12/18/17 20:00 5.0 40 12/18/17 20:00 67 12/18/17 20:00 98.6 71 18 107/53 100 Mechanical Ventilator 40 98.6 12/18/17 18:50 74 16 40 12/18/17 18:00 106/64 12/18/17 16:47 74 6 40 12/18/17 16:00 5.0 40 12/18/17 16:00 97.7 73 18 106/64 100 Mechanical Ventilator 40 97.7 12/18/17 16:00 73 12/18/17 14:50 68 12 40 12/18/17 12:45 69 16 40 12/18/17 12:00 71 12/18/17 12:00 5.0 40 12/18/17 12:00 97.6 68 17 95/48 100 Mechanical Ventilator 40 97.6 12/18/17 10:44 75 13 40 12/18/17 09:10 79 21 40 12/18/17 08:59 114/65 12/18/17 08:59 70 114/65 Intake and Output 12/18/17 12/19/17 19:00 07:00 Intake Total 675 ml 1315 ml Output Total 100 ml 1750 ml Balance 575 ml -435 ml Free Water 150 ml 90 ml IV Total 460 ml Tube Feeding 525 ml 765 ml Output Urine Total 100 ml 250 ml Other 1500 ml # Voids 1 # Bowel Movements 1 2 Laboratory Tests 12/18/17 09:36: Body Fluid Source Thoracentesis, Body Fluid Volume 8, Body Fluid Appearance Slightly hazy, [place] [address], Body Fluid Total Nucleated Cells 625, Body Fluid Polynuclear WBCs (%) 3, Body Fluid Mononuclear WBCs (%) 89, Body Fluid Mesothelial Cells (%) 8, Body Fluid Albumin [Pending] 12/18/17 19:00: Ferritin 333 12/19/17 06:00: White Blood Count 11.4H, Red Blood Count 2.71L, Hemoglobin 8.2L, Hematocrit 24.7L, Mean Corpuscular Volume 91, Mean Corpuscular Hemoglobin 30.3, Mean Corpuscular Hemoglobin Concent 33.2, Red Cell Distribution Width 14.6, Platelet Count 238, Mean Platelet Volume 6.8, Neutrophils (%) (Auto) 81.2H, Lymphocytes ( %) (Auto) 10.0L, Monocytes (%) (Auto) 6.9, Eosinophils (%) (Auto) 1.0, Basophils (%) (Auto) 0.8, Sodium Level 130L, Potassium Level 4.9, Chloride Level 97L, Carbon Dioxide Level 29, Anion Gap 4L, Blood Urea Nitrogen 21H, Creatinine 0.7, Estimat Glomerular Filtration Rate > 60, Glucose Level 112H, Calcium Level 9.3, Total Bilirubin 0.3, Aspartate Amino Transf (AST/SGOT) 12L, Alanine Aminotransferase (ALT/SGPT) 23, Alkaline Phosphatase 177H, Pro-B-Type Natriuretic Peptide 233H, Total Protein 7.0, Albumin 2.5L, Globulin 4.5, Albumin /Globulin Ratio 0.6L Height (Feet): 6 Weight (Pounds): 162 Objective GENERAL: The patient is a chronic ill looking male, in no acute distress. HEAD AND NECK: ET tube is in place. Head is atraumatic and normocephalic. Extraocular movements intact. Pupils are reactive to light and accommodation. LUNGS: Decreased breathing sounds on both sides, right more than left. CARDIAC: Regular rate and rhythm. S1, S2. No murmur. No rub. ABDOMEN: Soft, nontender, nondistended. EXTREMITIES: A 1+ edema. No clubbing. No cyanosis. SANDRA RODRIGUEZ Dec 19, 2017 08:47
[2017-12-19] MEDS: levETIRAcetam 500mg/5ml Liquid GT SCH ×2 (09:21→17:51)
[2017-12-19] MEDS: Carvedilol 6.25mg Tab GT SCH ×2 (09:22→20:52)
[2017-12-19] MEDS: HydrALAZINE 10mg Tab GT SCH ×2 (09:22→17:25)
[2017-12-19 12:00] VITALS: BP 100/49
--- NOTE | 2017-12-19 12:15 | Pulmonolgy Critical Care Note ---
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 - Objective Last 24 Hour Vital Signs Date Time Temp Pulse Resp B/P (MAP) Pulse Ox O2 Delivery O2 Flow Rate FiO2 12/19/17 11:48 72 12/19/17 11:07 80 15 40 12/19/17 09:22 109/54 12/19/17 09:22 67 109/54 12/19/17 08:51 67 15 40 12/19/17 08:28 40 12/19/17 08:26 99.4 72 15 109/54 100 Mechanical Ventilator 40 99.4 12/19/17 08:00 79 12/19/17 06:55 74 18 40 12/19/17 04:47 75 20 40 12/19/17 04:00 71 12/19/17 04:00 98.3 79 19 104/56 100 Mechanical Ventilator 40 98.3 12/19/17 04:00 5.0 40 12/19/17 03:17 74 16 40 12/19/17 01:22 77 16 40 12/19/17 00:00 98.0 71 20 111/55 100 Mechanical Ventilator 40 98.0 12/19/17 00:00 5.0 40 12/19/17 00:00 70 12/18/17 23:25 71 16 40 12/18/17 21:12 71 17 40 12/18/17 20:09 71 107/73 12/18/17 20:00 5.0 40 12/18/17 20:00 67 12/18/17 20:00 98.6 71 18 107/53 100 Mechanical Ventilator 40 98.6 12/18/17 18:50 74 16 40 12/18/17 18:00 106/64 12/18/17 16:47 74 6 40 12/18/17 16:00 5.0 40 12/18/17 16:00 97.7 73 18 106/64 100 Mechanical Ventilator 40 97.7 12/18/17 16:00 73 12/18/17 14:50 68 12 40 12/18/17 12:45 69 16 40 Status: somnolent Condition: critical Neck: full ROM Heart: HR/BP stable, HR/BP unstable Abdomen: soft, active bowel sounds, feeding tube Extremities: edema Decubiti: location, stage Micro: Microbiology Date/Time Source Procedure Growth Status 12/16/17 20:40 Blood Blood Culture - Preliminary Staphylococcus Species Resulted 12/16/17 20:29 Blood Blood Culture - Preliminary NO GROWTH AFTER 48 HOURS Resulted 12/17/17 06:00 Wound Gram Stain - Final Resulted 12/17/17 06:00 Wound Culture - Preliminary Gram Negative Bacillus 1 Gram Negative Bacillus 2 Gram Positive Cocci Resulted Critical Care - Subjective ROS Limited/Unobtainable: Yes Condition: critical FI02: 40 Vent Support Breath Rate: 8 Vent Support Mode: IMV/SIMV Vent Tidal Volume: 450 Sputum Amount: Small PEEP: 5.0 PIP: 29 Tube Feeding Amount: 75 I&O: Intake and Output 12/18/17 12/19/17 19:00 07:00 Intake Total 675 ml 1315 ml Output Total 100 ml 1750 ml Balance 575 ml -435 ml Free Water 150 ml 90 ml IV Total 460 ml Tube Feeding 525 ml 765 ml Output Urine Total 100 ml 250 ml Other 1500 ml # Voids 1 # Bowel Movements 1 2 CXR: trach intact, right chest clear Labs: Laboratory Tests Test 12/18/17 19:00 12/19/17 06:00 Ferritin 333 NG/ML (8-388) White Blood Count 11.4 K/UL (4.8-10.8) H Red Blood Count 2.71 M/UL (4.70-6.10) L Hemoglobin 8.2 G/DL (14.2-18.0) L Hematocrit 24.7 % (42.0-52.0) L Mean Corpuscular Volume 91 FL (80-99) Mean Corpuscular Hemoglobin 30.3 PG (27.0-31.0) Mean Corpuscular Hemoglobin Concent 33.2 G/DL (32.0-36.0) Red Cell Distribution Width 14.6 % (11.6-14.8) Platelet Count 238 K/UL (150-450) Mean Platelet Volume 6.8 FL (6.5-10.1) Neutrophils (%) (Auto) 81.2 % (45.0-75.0) H Lymphocytes (%) (Auto) 10.0 % (20.0-45.0) L Monocytes (%) (Auto) 6.9 % (1.0-10.0) Eosinophils (%) (Auto) 1.0 % (0.0-3.0) Basophils (%) (Auto) 0.8 % (0.0-2.0) Sodium Level 130 MMOL/L (136-145) L Potassium Level 4.9 MMOL/L (3.5-5.1) Chloride Level 97 MMOL/L (98-107) L Carbon Dioxide Level 29 MMOL/L (21-32) Anion Gap 4 mmol/L (5-15) L Blood Urea Nitrogen 21 mg/dL (7-18) H Creatinine 0.7 MG/DL (0.55-1.30) Estimat Glomerular Filtration Rate > 60 mL/min (>60) Glucose Level 112 MG/DL (74-106) H Calcium Level 9.3 MG/DL (8.5-10.1) Total Bilirubin 0.3 MG/DL (0.2-1.0) Aspartate Amino Transf (AST/SGOT) 12 U/L (15-37) L Alanine Aminotransferase (ALT/SGPT) 23 U/L (12-78) Alkaline Phosphatase 177 U/L (46-116) H Pro-B-Type Natriuretic Peptide 233 pg/mL (0-125) H Total Protein 7.0 G/DL (6.4-8.2) Albumin 2.5 G/DL (3.4-5.0) L Globulin 4.5 g/dL Albumin/Globulin Ratio 0.6 (1.0-2.7) L Leodan Bojorquez MD Dec 19, 2017 12:15
--- NOTE | 2017-12-19 13:05 | General Progress Note ---
Assessment/Plan Problem List: (1) Ventilator dependent ICD Codes: Z99.11 - Dependence on respirator [ventilator] status SNOMED: 770238256 (2) Pleural effusion, right ICD Codes: J90 - Pleural effusion, not elsewhere classified SNOMED: 66959786 (3) Hypertension ICD Codes: I10 - Essential (primary) hypertension SNOMED: 01044789 (4) Seizure disorder ICD Codes: G40.909 - Epilepsy, unspecified, not intractable, without status epilepticus SNOMED: 491899442 (5) Symptomatic anemia ICD Codes: D64.9 - Anemia, unspecified SNOMED: 799422652 Status: unchanged Assessment/Plan vetn ot pt diet cbc bmp am ltach eval Subjective Constitutional: Reports: weakness Allergies: Coded Allergies: ACETAMINOPHEN (Verified Allergy, Unknown, 12/16/17) All Systems: reviewed and negative except above Subjective trach vent altered calm Objective Last 24 Hour Vital Signs Date Time Temp Pulse Resp B/P (MAP) Pulse Ox O2 Delivery O2 Flow Rate FiO2 12/19/17 13:00 90 21 40 12/19/17 12:00 40 12/19/17 12:00 99.1 72 11 100/49 99 Mechanical Ventilator 40 99.1 12/19/17 11:48 72 12/19/17 11:07 80 15 40 12/19/17 09:22 109/54 12/19/17 09:22 67 109/54 12/19/17 08:51 67 15 40 12/19/17 08:28 40 12/19/17 08:26 99.4 72 15 109/54 100 Mechanical Ventilator 40 99.4 12/19/17 08:00 79 12/19/17 06:55 74 18 40 12/19/17 04:47 75 20 40 12/19/17 04:00 71 12/19/17 04:00 98.3 79 19 104/56 100 Mechanical Ventilator 40 98.3 12/19/17 04:00 5.0 40 12/19/17 03:17 74 16 40 12/19/17 01:22 77 16 40 12/19/17 00:00 98.0 71 20 111/55 100 Mechanical Ventilator 40 98.0 12/19/17 00:00 5.0 40 12/19/17 00:00 70 12/18/17 23:25 71 16 40 12/18/17 21:12 71 17 40 12/18/17 20:09 71 107/73 12/18/17 20:00 5.0 40 12/18/17 20:00 67 12/18/17 20:00 98.6 71 18 107/53 100 Mechanical Ventilator 40 98.6 12/18/17 18:50 74 16 40 12/18/17 18:00 106/64 12/18/17 16:47 74 6 40 12/18/17 16:00 5.0 40 12/18/17 16:00 97.7 73 18 106/64 100 Mechanical Ventilator 40 97.7 12/18/17 16:00 73 12/18/17 14:50 68 12 40 Intake and Output 12/18/17 12/19/17 19:00 07:00 Intake Total 675 ml 1315 ml Output Total 100 ml 1750 ml Balance 575 ml -435 ml Free Water 150 ml 90 ml IV Total 460 ml Tube Feeding 525 ml 765 ml Output Urine Total 100 ml 250 ml Other 1500 ml # Voids 1 # Bowel Movements 1 2 Laboratory Tests 12/18/17 19:00: Ferritin 333 12/19/17 06:00: White Blood Count 11.4H, Red Blood Count 2.71L, Hemoglobin 8.2L, Hematocrit 24.7L, Mean Corpuscular Volume 91, Mean Corpuscular Hemoglobin 30.3, Mean Corpuscular Hemoglobin Concent 33.2, Red Cell Distribution Width 14.6, Platelet Count 238, Mean Platelet Volume 6.8, Neutrophils (%) (Auto) 81.2H, Lymphocytes ( %) (Auto) 10.0L, Monocytes (%) (Auto) 6.9, Eosinophils (%) (Auto) 1.0, Basophils (%) (Auto) 0.8, Sodium Level 130L, Potassium Level 4.9, Chloride Level 97L, Carbon Dioxide Level 29, Anion Gap 4L, Blood Urea Nitrogen 21H, Creatinine 0.7, Estimat Glomerular Filtration Rate > 60, Glucose Level 112H, Calcium Level 9.3, Total Bilirubin 0.3, Aspartate Amino Transf (AST/SGOT) 12L, Alanine Aminotransferase (ALT/SGPT) 23, Alkaline Phosphatase 177H, Pro-B-Type Natriuretic Peptide 233H, Total Protein 7.0, Albumin 2.5L, Globulin 4.5, Albumin /Globulin Ratio 0.6L Height (Feet): 6 Weight (Pounds): 162 General Appearance: lethargic EENT: normal ENT inspection Neck: normal alignment Cardiovascular: normal peripheral pulses, normal rate, regular rhythm Respiratory/Chest: chest wall non-tender, lungs clear, normal breath sounds Abdomen: normal bowel sounds, non tender, soft Extremities: normal inspection Edema: no edema noted Arm (L), no edema noted Arm (R), no edema noted Leg (L), no edema noted Leg (R), no edema noted Pedal (L), no edema noted Pedal (R), no edema noted Generalized Neurologic: motor weakness Skin: normal pigmentation, warm/dry GIANA DIAZ Dec 19, 2017 13:05
--- NOTE | 2017-12-19 13:15 | Consultation ---
DATE OF CONSULTATION: 12/19/2017 GASTROENTEROLOGY CONSULTATION CONSULTING PHYSICIAN: Dago Coulter M.D. REFERRING PHYSICIAN: Yosef Garcia D.O. CHIEF COMPLAINT: Anemia. HISTORY OF PRESENT ILLNESS: Most of history per chart. The patient is intubated with chronic respiratory failure with trach and PEG, so he cannot give any history. prison patient, who was admitted to the hospital with profound anemia, hyponatremia, pleural effusions. GI consult requested for evaluation of anemia. According to the nursing at the bedside, the patient does not have any evidence of hematochezia or melena. The patient had thoracentesis yesterday. PAST MEDICAL HISTORY: 1. Respiratory failure with trach. 2. Dysphagia with PEG. 3. Hypertension. 4. Constipation. 5. Seizure. 6. GERD. 7. Encephalopathy. PAST SURGICAL HISTORY: Tracheostomy. SOCIAL HISTORY: Currently lives in a [place] [facility]. No recent history of tobacco, alcohol, or drug abuse. FAMILY HISTORY: Noncontributory. REVIEW OF SYSTEMS: Unable to obtain. MEDICATIONS: Please see medication reconciliation list. ALLERGIES: To acetaminophen. PHYSICAL EXAMINATION: VITAL SIGNS: Temperature is 99.4, pulse is 72, respirations 16, blood pressure is 109/54. HEENT: Normocephalic and atraumatic. Mildly pale conjunctivae. NECK: Supple. There is a trach in place. LUNGS: Decreased breath sounds bilaterally diffusely. CARDIOVASCULAR: Regular rhythm. Plus S1, S2. ABDOMEN: Positive bowel sounds. Soft. G-tube in place. No rebound. No guarding. No peritoneal sign. EXTREMITIES: No cyanosis, no clubbing, no edema. LABORATORY DATA: White count is at the time of admission 7.1, hemoglobin 7.7, hematocrit 22.8, platelet count is 199,000. Chem-7, sodium 130, potassium 4.9, BUN is 21, creatinine 0.7. Iron saturation 14%. ASSESSMENT: 1. Iron-deficiency anemia. 2. Respiratory failure, chronic. 3. Dysphagia with G-tube. 4. Pleural effusion, status post thoracentesis. PLAN: Start the patient on PPI daily. Monitor hemoglobin and hematocrit and transfuse as needed. Send stool for OB. Consider doing endoscopy if the stool OB comes back positive. I want to thank Dr. Yosef Garcia for this kind referral. Dagojewel Coulter M.D. DR: Ale JOB#: [id number] CC: Yosef Garcia D.O.
[2017-12-19 16:00] VITALS: BP 135/76
[2017-12-19] MEDS: Sodium Chloride 1gm Tab ORAL SCH (17:24)
--- NOTE | 2017-12-19 17:24 | Diagnostic Imaging Report ---
Indication: Dyspnea Technique: XRAY Chest 1v Comparison: One day prior Findings: Patient rotated and leaning to the left. Suggest made to place. Heart size and mediastinal contours are stable. Apparent increased opacity at the right base possibly related to increased pleural fluid. No definite pneumothorax. Osseous structures stable. Impression: Limited exam given patient rotation. Possible slight increase in right-sided basilar opacities possibly reflecting increased pleural fluid and/or atelectasis/consolidation. Follow-up exam recommended.
[2017-12-19] MEDS: Vancomycin 1gm in Dextrose 275ml IVPB SCH ×2 (17:25→23:27)
[2017-12-19 20:00] VITALS: BP 111/57
[2017-12-19] MEDS: Iron Sucrose 100 MG in NS 110 ML IV SCH (20:53)
--- NOTE | 2017-12-19 20:53 | Consultation ---
Consult Note Consult Note ID DI # [id number] Emery Mendez MD Dec 19, 2017 20:53
--- NOTE | 2017-12-19 21:05 | Wound Care Consultation ---
Wound Assessment Wound Assessment #1: Wound Number: 1 Wound Present on Admission: Yes New Wound: No Status Change of Wound: No Wound Location Body Site Modif: mid Wound Location Body Site: sacral Wound Type: pressure ulcer Carmen Test: Does not Carmen Pressure Ulcer Stage: Unstageable Wound Thickness: Full Thickness Wound Length: 3.0 Wound Width: 2.5 Wound Depth: utd Percent of Wound Bed Yellow/Wh: 100 Wound Drainage Description: Serosanguineous Wound Drainage Amount: Scant Wound Drainage Odor: None/Absent Tissue Surrounding Wound: Macerated Wound General Appearance: Reddened - yellow, Draining Wound Assessment #2: Wound Number: 2 Wound Present on Admission: Yes New Wound: No Status Change of Wound: No Wound Location Body Site Modif: right Wound Location Body Site: heel Wound Type: pressure ulcer Carmen Test: Does not Carmen Pressure Ulcer Stage: Unstageable Wound Thickness: Full Thickness Wound Length: 0.8 Wound Width: 0.8 Wound Depth: utd Percent of Wound Bed Yellow/Wh: 100 - dry scab Wound Drainage Amount: None Wound Drainage Odor: None/Absent Tissue Surrounding Wound: Intact Wound General Appearance: Asymptomatic Wound Comment #1 Mid sacral unstageable pressure ulcer #2 Right trochanter full thickness scar tissue #3 Right heel unstageable pressure ulcer. Wound bed dry yellow scab Recommendation -Local wound care per protocol -Offload both heels -Heel protector on both heels -Optimize nutrition -Low air loss mattress -Keep clean and dry -Turn and reposition -Assess and f/u accordingly for any changes RISA CANTU RN Dec 19, 2017 21:05
--- NOTE | 2017-12-19 21:30 | Consultation ---
DATE OF CONSULTATION: 12/19/2017 INFECTIOUS DISEASES CONSULTATION CONSULTING PHYSICIAN: Emery Mendez M.D. REFERRING PHYSICIAN: Yosef Garcia D.O. REASON FOR CONSULTATION: Evaluation of the patient for bacteremia, antibiotic management. HISTORY OF PRESENT ILLNESS: The patient is a 72-year-old male with multiple medical problems who was admitted through the emergency room to this medical center for anemia. The patient has PICC line at the time of admission, now the patient's blood cultures growing gram-positive cocci. Infectious Diseases consultation has been requested for further evaluation of the patient and antibiotic management PAST MEDICAL HISTORY: 1. Hypoxic encephalopathy. 2. History of cardiac arrest. 3. Hypertension. 4. COPD. 5. History of possible trach. 6. Status post G-tube placement. 7. History of contracture of extremities. 8. Diabetes. 9. Anemia. ALLERGIES: Acetaminophen. MEDICATIONS: The patient was on IV vancomycin today. FAMILY HISTORY: Not contributing. SOCIAL HISTORY: The patient lives in a fci. PHYSICAL EXAMINATION: VITAL SIGNS: Temperature 98 degrees, blood pressure 111/57, pulse 86, respiratory rate 18. HEENT: No pale conjunctivae. No icterus. NECK: No lymphadenopathy. CHEST: Clear. HEART: S1 and S2. ABDOMEN: Soft. G-tube in place. EXTREMITIES: No cyanosis. NEUROLOGIC: Nonverbal. SKIN: Stage II decubitus in sacral area. LABORATORY DATA: White blood cells 11, hemoglobin 8, platelets 237. Thoracocentesis show 625 white blood cells, 89% mononuclear, 8% mesothelial cells. BUN 21, creatinine 0.7. ALT and AST unremarkable, alkaline phosphatase 177. Wound culture is growing mixed organism. Blood culture growing Staphylococcus species, 2/2 sets. culture is pending. ASSESSMENT: The patient is a 72-year-old male with: 1. Mild leukocytosis. 2. Afebrile. 3. Positive blood culture growing gram-positive cocci, most likely due to PICC line infection(present at the time of admission). 4. status post thoracocentesis. 5. Anemia. 6. Wound culture is a colonizer. PLAN: 1. We will continue the patient on IV vancomycin. 2. Monitor CBC. 3. Monitor BMP. 4. Instructed the nurse to remove PICC line and send for culture. 5. We will insert a new PICC line. 6. Repeat two more sets of blood culture. 7. Based on patient's clinical course and labs, we will do further recommendations. Thank you, Dr. Yosef Garcia, for allowing me to participate in the care of this patient. I will follow the patient with you during this hospitalization. Emery Mendez M.D. DR: Terese JOB#: [id number] CC:
[2017-12-19] MEDS: Dyna-Hex 2% Top Sol 2oz TOPIC SCH (21:58)
[2017-12-20] VITALS: BP 116/58
[2017-12-20 04:00] VITALS: BP 139/69
[2017-12-20 05:27] LABS: BASOPHILS % (AUTO) 0.8 % (0.0-2.0); EOSINOPHILS % (AUTO) 1.8 % (0.0-3.0); HEMATOCRIT 24.2 % (42.0-52.0); HEMOGLOBIN 8.1 G/DL (14.2-18.0); LYMPHOCYTES % (AUTO) 14.6 % (20.0-45.0); MEAN CORPUSCULAR VOLUME 91 FL (80-99); NEUTROPHILS % (AUTO) 72.7 % (45.0-75.0); PLATELET COUNT 260 K/UL (150-450); RED BLOOD COUNT 2.65 M/UL (4.70-6.10); RED CELL DISTRIBUTION WIDTH 14.6 % (11.6-14.8); WHITE BLOOD COUNT 10.3 K/UL (4.8-10.8)
[2017-12-20 05:34] LABS: INR 0.9 (0.9-1.1)
[2017-12-20 05:38] LABS: ALANINE AMINOTRANSFERASE 23 U/L (12-78); ALBUMIN 2.6 G/DL (3.4-5.0); ALBUMIN/GLOBULIN RATIO 0.6 (1.0-2.7); ALKALINE PHOSPHATASE 176 U/L (46-116); ANION GAP 7 mmol/L (5-15); ASPARTATE AMINO TRANSFERASE 13 U/L (15-37); BILIRUBIN,TOTAL 0.3 MG/DL (0.2-1.0); BLOOD UREA NITROGEN 20 mg/dL (7-18); CALCIUM 9.3 MG/DL (8.5-10.1); CARBON DIOXIDE 26 MMOL/L (21-32); CHLORIDE 96 MMOL/L (98-107); CREATININE 0.7 MG/DL (0.55-1.30); POTASSIUM 4.9 MMOL/L (3.5-5.1); SODIUM 129 MMOL/L (136-145)
[2017-12-20] MEDS ORDERED: Lidocaine 1% Plain 30 ml INJ SCH (06:00)
[2017-12-20] MEDS ORDERED: Heparin 2000 units/Ns 1000ml INJ SCH (06:00)
[2017-12-20] MEDS: Sodium Chloride 1gm Tab ORAL SCH ×2 (06:29→16:41)
[2017-12-20 08:00] VITALS: BP 116/57
--- NOTE | 2017-12-20 08:15 | Consultation ---
DATE OF CONSULTATION: 12/18/2017 HEMATOLOGY ONCOLOGY CONSULTATION CONSULTING PHYSICIAN: Fermín Alberto MD REFERRING PHYSICIAN: Yosef Garcia D.O. REASON FOR CONSULTATION: Evaluation of ongoing anemia . IDENTIFICATION: Dear Dr. Yosef Garcia, The patient is a pleasant 72-year-old male with past medical history significant for encephalopathy, hypertension, and dysphagia, status post PEG tube, lives in alf, bedbound. Hemoglobin initially found to be less than 8 and that is why the patient was admitted to [facility]. Upon further workup, he was found to have sodium of 129, consequently admitted to [facility] to the monitored bed. Nephrology service as well as Pulmonary team was consulted for further evaluation and care. The patient's anemia currently approximately at 7 to 8 range, and I appreciate the consultation. PAST MEDICAL HISTORY: Respiratory failure, status post vent, trach, and PEG. PAST SURGICAL HISTORY: Status post G-tube. MEDICATIONS: Ferrous sulfate. ALLERGIES: Tylenol. REVIEW OF SYSTEMS: CONSTITUTIONAL: No fever, chills, or night sweats. SKIN: No rashes, bumps, or itching. HEENT: No headache, hearing or vision changes. Otherwise difficult to obtain given mental status. PHYSICAL EXAMINATION: VITAL SIGNS: Reviewed. GENERAL: No distress. HEAD AND NECK: ET tube in place. PULMONARY: Decreased breath sounds. CARDIOVASCULAR: Regular rate. No S3 or S4. ABDOMEN: Soft, nontender, and nondistended. Positive PEG tube. EXTREMITIES: No cyanosis, swelling, or edema. LABORATORY DATA: WBC 7.7, hemoglobin 7.7, hematocrit 22, and platelet count 100,000. BUN of 25 and creatinine 0.6. ASSESSMENT AND RECOMMENDATIONS: 1. Anemia due to underlying chronic disease. Continue to closely monitor. Monitor for improvement. Obtain anemia workup, which has been ordered. Appears to have anemia of iron deficiency as well. Will be started on IV iron. 2. Anemia of iron deficiency. We will begin the patient on IV iron at this time. 3. Coagulopathy, likely secondary to reactive process. Closely monitor. Administer vitamin K as needed. 4. potentially secondary to infection. Management per ID. infection noted. 5. Dysphagia, status post gastrostomy tube. 6. Respiratory failure, status post vent and trach. 7. Hypertension. Systolic blood pressure goal less than 140. 8. Pleural effusion, status post thoracentesis. Pulmonary evaluation. I appreciate the consultation. Fermín Alberto M.D. DR: Lucero JOB#: [id number] CC:
[2017-12-20] MEDS: Vancomycin 1gm in Dextrose 275ml IVPB SCH ×2 (08:16→21:40)
[2017-12-20] MEDS: Carvedilol 6.25mg Tab GT SCH ×2 (09:20→21:01)
[2017-12-20] MEDS: HydrALAZINE 10mg Tab GT SCH ×2 (09:20→18:03)
[2017-12-20] MEDS: Ascorbic Acid 500mg tab GT SCH (09:20)
[2017-12-20] MEDS: levETIRAcetam 500mg/5ml Liquid GT SCH ×2 (09:21→18:03)
--- NOTE | 2017-12-20 11:29 | General Progress Note ---
Assessment/Plan Problem List: (1) Anemia ICD Codes: D64.9 - Anemia, unspecified SNOMED: 751036378 (2) Iron deficiency anemia ICD Codes: D50.9 - Iron deficiency anemia, unspecified SNOMED: 55186771 (3) Hypertension ICD Codes: I10 - Essential (primary) hypertension SNOMED: 60208027 (4) Seizure disorder ICD Codes: G40.909 - Epilepsy, unspecified, not intractable, without status epilepticus SNOMED: 508672275 (5) Feeding by G-tube ICD Codes: Z93.1 - Gastrostomy status SNOMED: 588048960, 101535172 (6) Vegetative state ICD Codes: R40.3 - Persistent vegetative state SNOMED: 46104137 (7) Pleural effusion, right ICD Codes: J90 - Pleural effusion, not elsewhere classified SNOMED: 28404393 (8) Ventilator dependent ICD Codes: Z99.11 - Dependence on respirator [ventilator] status SNOMED: 290741453 Assessment/Plan iv iron GTF fu H&H ppi GI procedures on hold Subjective ROS Limited/Unobtainable: No Allergies: Coded Allergies: ACETAMINOPHEN (Verified Allergy, Unknown, 12/16/17) Objective Last 24 Hour Vital Signs Date Time Temp Pulse Resp B/P (MAP) Pulse Ox O2 Delivery O2 Flow Rate FiO2 12/20/17 09:20 116/57 12/20/17 09:20 65 116/57 12/20/17 09:19 79 20 40 12/20/17 08:00 40 12/20/17 08:00 57 12/20/17 08:00 97.9 65 20 116/57 100 Mechanical Ventilator 40 97.9 12/20/17 07:20 54 15 40 12/20/17 05:11 61 14 40 12/20/17 04:00 97.2 67 20 139/69 100 Mechanical Ventilator 40 97.2 12/20/17 04:00 61 12/20/17 04:00 40 12/20/17 03:02 72 17 40 12/20/17 01:16 71 18 40 12/20/17 00:00 69 12/20/17 00:00 97.2 71 20 116/58 100 Mechanical Ventilator 40 97.2 12/19/17 23:08 70 20 40 12/19/17 21:30 81 21 40 12/19/17 20:52 86 111/57 12/19/17 20:00 98.1 81 20 111/57 100 Mechanical Ventilator 40 98.1 12/19/17 20:00 40 12/19/17 20:00 86 12/19/17 19:25 79 21 40 12/19/17 19:20 78 12/19/17 17:25 136/69 12/19/17 16:54 81 17 40 12/19/17 16:00 97.7 97 18 135/76 100 Mechanical Ventilator 40 97.7 12/19/17 16:00 90 12/19/17 16:00 40 12/19/17 14:50 84 20 40 12/19/17 13:00 90 21 40 12/19/17 12:00 40 12/19/17 12:00 99.1 72 11 100/49 99 Mechanical Ventilator 40 99.1 12/19/17 11:48 72 Intake and Output 12/19/17 12/20/17 19:00 07:00 Intake Total 1295.000 ml 1430.000 ml Output Total 550 ml 500 ml Balance 745.000 ml 930.000 ml Free Water 40 ml 120 ml IV Total 275.000 ml 735.000 ml Tube Feeding 900 ml 525 ml Other 80 ml 50 ml Output Urine Total 550 ml 500 ml # Voids 1 1 Laboratory Tests 12/20/17 03:25: White Blood Count 10.3, Red Blood Count 2.65L, Hemoglobin 8.1L, Hematocrit 24.2L , Mean Corpuscular Volume 91, Mean Corpuscular Hemoglobin 30.5, Mean Corpuscular Hemoglobin Concent 33.5, Red Cell Distribution Width 14.6, Platelet Count 260, Mean Platelet Volume 7.2, Neutrophils (%) (Auto) 72.7, Lymphocytes (% ) (Auto) 14.6L, Monocytes (%) (Auto) 10.0, Eosinophils (%) (Auto) 1.8, Basophils (%) (Auto) 0.8, Prothrombin Time 9.9, Prothromb Time International Ratio 0.9, Sodium Level 129L, Potassium Level 4.9, Chloride Level 96L, Carbon Dioxide Level 26, Anion Gap 7, Blood Urea Nitrogen 20H, Creatinine 0.7, Estimat Glomerular Filtration Rate > 60, Glucose Level 94, Calcium Level 9.3, Phosphorus Level 4.0, Magnesium Level 1.8, Total Bilirubin 0.3, Aspartate Amino Transf (AST/SGOT) 13L, Alanine Aminotransferase (ALT/SGPT) 23, Alkaline Phosphatase 176H, Total Protein 7.2, Albumin 2.6L, Globulin 4.6, Albumin/ Globulin Ratio 0.6L Height (Feet): 6 Weight (Pounds): 162 General Appearance: lethargic EENT: normal ENT inspection Neck: supple Cardiovascular: normal rate Respiratory/Chest: decreased breath sounds Abdomen: normal bowel sounds, non tender, soft Extremities: non-tender ONEL ROGERS Dec 20, 2017 11:29
--- NOTE | 2017-12-20 11:34 | Nephrology Progress Note ---
Assessment/Plan Assessment 1. Isovolemic hyponatremia, most likely as a result of antiseizure medication. 2. Prerenal azotemia and elevation of BUN/creatinine ratio. 3. Asymptomatic anemia. 4. History of respiratory failure. 5. History of PEG placement. 6. History of hypertension. Plan plan start him on salt tab to continue current iv monitoring renal function and electrolyte mix all ivpb with ns .9 fallow up with urine study Subjective ROS Limited/Unobtainable: Yes Constitutional: Reports: no symptoms HEENT: Reports: no symptoms Genitourinary: Reports: no symptoms Neurologic/Psychiatric: Reports: no symptoms Subjective no acute events Objective Objective Last 24 Hour Vital Signs Date Time Temp Pulse Resp B/P (MAP) Pulse Ox O2 Delivery O2 Flow Rate FiO2 12/20/17 09:20 116/57 12/20/17 09:20 65 116/57 12/20/17 09:19 79 20 40 12/20/17 08:00 40 12/20/17 08:00 57 12/20/17 08:00 97.9 65 20 116/57 100 Mechanical Ventilator 40 97.9 12/20/17 07:20 54 15 40 12/20/17 05:11 61 14 40 12/20/17 04:00 97.2 67 20 139/69 100 Mechanical Ventilator 40 97.2 12/20/17 04:00 61 12/20/17 04:00 40 12/20/17 03:02 72 17 40 12/20/17 01:16 71 18 40 12/20/17 00:00 69 12/20/17 00:00 97.2 71 20 116/58 100 Mechanical Ventilator 40 97.2 12/19/17 23:08 70 20 40 12/19/17 21:30 81 21 40 12/19/17 20:52 86 111/57 12/19/17 20:00 98.1 81 20 111/57 100 Mechanical Ventilator 40 98.1 12/19/17 20:00 40 12/19/17 20:00 86 12/19/17 19:25 79 21 40 12/19/17 19:20 78 12/19/17 17:25 136/69 12/19/17 16:54 81 17 40 12/19/17 16:00 97.7 97 18 135/76 100 Mechanical Ventilator 40 97.7 12/19/17 16:00 90 12/19/17 16:00 40 12/19/17 14:50 84 20 40 12/19/17 13:00 90 21 40 12/19/17 12:00 40 12/19/17 12:00 99.1 72 11 100/49 99 Mechanical Ventilator 40 99.1 12/19/17 11:48 72 Intake and Output 12/19/17 12/20/17 19:00 07:00 Intake Total 1295.000 ml 1430.000 ml Output Total 550 ml 500 ml Balance 745.000 ml 930.000 ml Free Water 40 ml 120 ml IV Total 275.000 ml 735.000 ml Tube Feeding 900 ml 525 ml Other 80 ml 50 ml Output Urine Total 550 ml 500 ml # Voids 1 1 Laboratory Tests 12/20/17 03:25: White Blood Count 10.3, Red Blood Count 2.65L, Hemoglobin 8.1L, Hematocrit 24.2L , Mean Corpuscular Volume 91, Mean Corpuscular Hemoglobin 30.5, Mean Corpuscular Hemoglobin Concent 33.5, Red Cell Distribution Width 14.6, Platelet Count 260, Mean Platelet Volume 7.2, Neutrophils (%) (Auto) 72.7, Lymphocytes (% ) (Auto) 14.6L, Monocytes (%) (Auto) 10.0, Eosinophils (%) (Auto) 1.8, Basophils (%) (Auto) 0.8, Prothrombin Time 9.9, Prothromb Time International Ratio 0.9, Sodium Level 129L, Potassium Level 4.9, Chloride Level 96L, Carbon Dioxide Level 26, Anion Gap 7, Blood Urea Nitrogen 20H, Creatinine 0.7, Estimat Glomerular Filtration Rate > 60, Glucose Level 94, Calcium Level 9.3, Phosphorus Level 4.0, Magnesium Level 1.8, Total Bilirubin 0.3, Aspartate Amino Transf (AST/SGOT) 13L, Alanine Aminotransferase (ALT/SGPT) 23, Alkaline Phosphatase 176H, Total Protein 7.2, Albumin 2.6L, Globulin 4.6, Albumin/ Globulin Ratio 0.6L Height (Feet): 6 Weight (Pounds): 162 Objective GENERAL: The patient is a chronic ill looking male, in no acute distress. HEAD AND NECK: ET tube is in place. Head is atraumatic and normocephalic. Extraocular movements intact. Pupils are reactive to light and accommodation. LUNGS: Decreased breathing sounds on both sides, right more than left. CARDIAC: Regular rate and rhythm. S1, S2. No murmur. No rub. ABDOMEN: Soft, nontender, nondistended. EXTREMITIES: A 1+ edema. No clubbing. No cyanosis. SANDRA RODRIGUEZ Dec 20, 2017 11:34
--- NOTE | 2017-12-20 11:55 | Pulmonolgy Critical Care Note ---
Critical Care - Asmt/Plan Problems: (1) Pleural effusion, right (2) Symptomatic anemia (3) Seizure disorder (4) Hypertension (5) Ventilator dependent (6) Feeding by G-tube Respiratory: monitor respiratory rate, adjust FIO2, CXR Cardiac: continue to monitor HR/BP Renal: F/U I&O, check electrolytes Infectious Disease: check cultures, continue antibiotics Gastrointestinal: continue feedings/current rate Endocrine: monitor blood sugar, check HgA1C, continue sliding scale insulin Hematologic: transfuse if hgb<8.5 Neurologic: keep patient comfortable Prophylaxis: Protonix, Heparin Time Spent (Minutes): 40 Notes 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, ID Discussed with: nurses, consultants, renal case managerinformation security manager - Objective Last 24 Hour Vital Signs Date Time Temp Pulse Resp B/P (MAP) Pulse Ox O2 Delivery O2 Flow Rate FiO2 12/20/17 09:20 116/57 12/20/17 09:20 65 116/57 12/20/17 09:19 79 20 40 12/20/17 08:00 40 12/20/17 08:00 57 12/20/17 08:00 97.9 65 20 116/57 100 Mechanical Ventilator 40 97.9 12/20/17 07:20 54 15 40 12/20/17 05:11 61 14 40 12/20/17 04:00 97.2 67 20 139/69 100 Mechanical Ventilator 40 97.2 12/20/17 04:00 61 12/20/17 04:00 40 12/20/17 03:02 72 17 40 12/20/17 01:16 71 18 40 12/20/17 00:00 69 12/20/17 00:00 97.2 71 20 116/58 100 Mechanical Ventilator 40 97.2 12/19/17 23:08 70 20 40 12/19/17 21:30 81 21 40 12/19/17 20:52 86 111/57 12/19/17 20:00 98.1 81 20 111/57 100 Mechanical Ventilator 40 98.1 12/19/17 20:00 40 12/19/17 20:00 86 12/19/17 19:25 79 21 40 12/19/17 19:20 78 12/19/17 17:25 136/69 12/19/17 16:54 81 17 40 12/19/17 16:00 97.7 97 18 135/76 100 Mechanical Ventilator 40 97.7 12/19/17 16:00 90 12/19/17 16:00 40 12/19/17 14:50 84 20 40 12/19/17 13:00 90 21 40 12/19/17 12:00 40 12/19/17 12:00 99.1 72 11 100/49 99 Mechanical Ventilator 40 99.1 Status: awake Condition: critical HEENT: atraumatic Lungs: chest wall tender Heart: HR/BP stable, regular Abdomen: non-tender, active bowel sounds Extremities: no C/C/E, edema Micro: Microbiology Date/Time Source Procedure Growth Status 12/18/17 09:36 Ascities Fluid Gram Stain - Final Resulted 12/18/17 09:36 Ascities Fluid Body Fluid Culture Pending Resulted Critical Care - Subjective ROS Limited/Unobtainable: No Condition: critical EKG Rhythm: Sinus Rhythm FI02: 40 Vent Support Breath Rate: 8 Vent Support Mode: IMV/SIMV Vent Tidal Volume: 450 Sputum Amount: Small PEEP: 5.0 PIP: 19 Tube Feeding Amount: 75 I&O: Intake and Output 12/19/17 12/20/17 19:00 07:00 Intake Total 1295.000 ml 1430.000 ml Output Total 550 ml 500 ml Balance 745.000 ml 930.000 ml Free Water 40 ml 120 ml IV Total 275.000 ml 735.000 ml Tube Feeding 900 ml 525 ml Other 80 ml 50 ml Output Urine Total 550 ml 500 ml # Voids 1 1 CXR: RLL atelectasis Labs: Laboratory Tests Test 12/20/17 03:25 White Blood Count 10.3 K/UL (4.8-10.8) Red Blood Count 2.65 M/UL (4.70-6.10) L Hemoglobin 8.1 G/DL (14.2-18.0) L Hematocrit 24.2 % (42.0-52.0) L Mean Corpuscular Volume 91 FL (80-99) Mean Corpuscular Hemoglobin 30.5 PG (27.0-31.0) Mean Corpuscular Hemoglobin Concent 33.5 G/DL (32.0-36.0) Red Cell Distribution Width 14.6 % (11.6-14.8) Platelet Count 260 K/UL (150-450) Mean Platelet Volume 7.2 FL (6.5-10.1) Neutrophils (%) (Auto) 72.7 % (45.0-75.0) Lymphocytes (%) (Auto) 14.6 % (20.0-45.0) L Monocytes (%) (Auto) 10.0 % (1.0-10.0) Eosinophils (%) (Auto) 1.8 % (0.0-3.0) Basophils (%) (Auto) 0.8 % (0.0-2.0) Prothrombin Time 9.9 SEC (9.30-11.50) Prothromb Time International Ratio 0.9 (0.9-1.1) Sodium Level 129 MMOL/L (136-145) L Potassium Level 4.9 MMOL/L (3.5-5.1) Chloride Level 96 MMOL/L (98-107) L Carbon Dioxide Level 26 MMOL/L (21-32) Anion Gap 7 mmol/L (5-15) Blood Urea Nitrogen 20 mg/dL (7-18) H Creatinine 0.7 MG/DL (0.55-1.30) Estimat Glomerular Filtration Rate > 60 mL/min (>60) Glucose Level 94 MG/DL (74-106) Calcium Level 9.3 MG/DL (8.5-10.1) Phosphorus Level 4.0 MG/DL (2.5-4.9) Magnesium Level 1.8 MG/DL (1.8-2.4) Total Bilirubin 0.3 MG/DL (0.2-1.0) Aspartate Amino Transf (AST/SGOT) 13 U/L (15-37) L Alanine Aminotransferase (ALT/SGPT) 23 U/L (12-78) Alkaline Phosphatase 176 U/L (46-116) H Total Protein 7.2 G/DL (6.4-8.2) Albumin 2.6 G/DL (3.4-5.0) L Globulin 4.6 g/dL Albumin/Globulin Ratio 0.6 (1.0-2.7) L Leodan Bojorquez MD Dec 20, 2017 11:55
[2017-12-20 12:00] VITALS: BP 132/58
--- NOTE | 2017-12-20 12:56 | General Progress Note ---
Assessment/Plan Problem List: (1) Ventilator dependent ICD Codes: Z99.11 - Dependence on respirator [ventilator] status SNOMED: 565179399 (2) Pleural effusion, right ICD Codes: J90 - Pleural effusion, not elsewhere classified SNOMED: 47723175 (3) Hypertension ICD Codes: I10 - Essential (primary) hypertension SNOMED: 51999774 (4) Seizure disorder ICD Codes: G40.909 - Epilepsy, unspecified, not intractable, without status epilepticus SNOMED: 566205851 (5) Symptomatic anemia ICD Codes: D64.9 - Anemia, unspecified SNOMED: 544224407 Status: unchanged Assessment/Plan vetn ot pt diet cbc bmp am ltach eval Subjective Allergies: Coded Allergies: ACETAMINOPHEN (Verified Allergy, Unknown, 12/16/17) All Systems: reviewed and negative except above Subjective trach vent altered calm Objective Last 24 Hour Vital Signs Date Time Temp Pulse Resp B/P (MAP) Pulse Ox O2 Delivery O2 Flow Rate FiO2 12/20/17 09:20 116/57 12/20/17 09:20 65 116/57 12/20/17 09:19 79 20 40 12/20/17 08:00 40 12/20/17 08:00 57 12/20/17 08:00 97.9 65 20 116/57 100 Mechanical Ventilator 40 97.9 12/20/17 07:20 54 15 40 12/20/17 05:11 61 14 40 12/20/17 04:00 97.2 67 20 139/69 100 Mechanical Ventilator 40 97.2 12/20/17 04:00 61 12/20/17 04:00 40 12/20/17 03:02 72 17 40 12/20/17 01:16 71 18 40 12/20/17 00:00 69 12/20/17 00:00 97.2 71 20 116/58 100 Mechanical Ventilator 40 97.2 12/19/17 23:08 70 20 40 12/19/17 21:30 81 21 40 12/19/17 20:52 86 111/57 12/19/17 20:00 98.1 81 20 111/57 100 Mechanical Ventilator 40 98.1 12/19/17 20:00 40 12/19/17 20:00 86 12/19/17 19:25 79 21 40 12/19/17 19:20 78 12/19/17 17:25 136/69 12/19/17 16:54 81 17 40 12/19/17 16:00 97.7 97 18 135/76 100 Mechanical Ventilator 40 97.7 12/19/17 16:00 90 12/19/17 16:00 40 12/19/17 14:50 84 20 40 12/19/17 13:00 90 21 40 Intake and Output 12/19/17 12/20/17 19:00 07:00 Intake Total 1295.000 ml 1430.000 ml Output Total 550 ml 500 ml Balance 745.000 ml 930.000 ml Free Water 40 ml 120 ml IV Total 275.000 ml 735.000 ml Tube Feeding 900 ml 525 ml Other 80 ml 50 ml Output Urine Total 550 ml 500 ml # Voids 1 1 Laboratory Tests 12/20/17 03:25: White Blood Count 10.3, Red Blood Count 2.65L, Hemoglobin 8.1L, Hematocrit 24.2L , Mean Corpuscular Volume 91, Mean Corpuscular Hemoglobin 30.5, Mean Corpuscular Hemoglobin Concent 33.5, Red Cell Distribution Width 14.6, Platelet Count 260, Mean Platelet Volume 7.2, Neutrophils (%) (Auto) 72.7, Lymphocytes (% ) (Auto) 14.6L, Monocytes (%) (Auto) 10.0, Eosinophils (%) (Auto) 1.8, Basophils (%) (Auto) 0.8, Prothrombin Time 9.9, Prothromb Time International Ratio 0.9, Sodium Level 129L, Potassium Level 4.9, Chloride Level 96L, Carbon Dioxide Level 26, Anion Gap 7, Blood Urea Nitrogen 20H, Creatinine 0.7, Estimat Glomerular Filtration Rate > 60, Glucose Level 94, Calcium Level 9.3, Phosphorus Level 4.0, Magnesium Level 1.8, Total Bilirubin 0.3, Aspartate Amino Transf (AST/SGOT) 13L, Alanine Aminotransferase (ALT/SGPT) 23, Alkaline Phosphatase 176H, Total Protein 7.2, Albumin 2.6L, Globulin 4.6, Albumin/ Globulin Ratio 0.6L Height (Feet): 6 Weight (Pounds): 162 General Appearance: lethargic EENT: normal ENT inspection Neck: normal alignment Cardiovascular: normal peripheral pulses, normal rate, regular rhythm Respiratory/Chest: chest wall non-tender, lungs clear, normal breath sounds Abdomen: normal bowel sounds, non tender, soft Extremities: normal inspection Edema: no edema noted Arm (L), no edema noted Arm (R), no edema noted Leg (L), no edema noted Leg (R), no edema noted Pedal (L), no edema noted Pedal (R), no edema noted Generalized Neurologic: motor weakness Skin: normal pigmentation, warm/dry GIANA DIAZ Dec 20, 2017 12:56
--- NOTE | 2017-12-20 14:15 | Diagnostic Imaging Report ---
Indications: Needs long-term IV access Technique: Procedure performed at bedside. Procedural timeout performed. Ultrasound confirms patent compressible endotracheal vein. Total sterile technique, including sterile probe cover and sterile gel, sterile gloves, hand hygiene, hat, mask,, sterile gown, large sterile drape, and preparation with 2% chlorhexidine utilized. Local anesthesia with 1% lidocaine. Under real-time ultrasound guidance, puncture great vein using 21-gauge needle, passage 0.018 guidewire, exchange for 5 Polish peel-away sheath. 5 Polish Bard dual-lumen power PICC cut to 42 cm. It was inserted through the peel-away sheath. Peel-away sheath and guidewire removed. Catheter fixed to the skin. Both catheter ports aspirated and flushed. Patient tolerated procedure well, without immediate complication. Followup chest x-ray obtained, documents catheter tip position at the mid superior vena cava Impression: Successful bedside placement of right arm PICC under sonographic guidance, as described above.
[2017-12-20 16:00] VITALS: BP 136/68
[2017-12-20] MEDS: Dyna-Hex 2% Top Sol 2oz TOPIC SCH (19:59)
[2017-12-20 20:00] VITALS: BP 105/66
--- NOTE | 2017-12-20 20:43 | Infectious Diseases Prog Note ---
Assessment/Plan Assessment/Plan ASSESSMENT: The patient is a 72-year-old male with: Mild leukocytosis, SP Afebrile. Positive blood culture growing gram-positive cocci, most likely due to PICC line infection(present at the time of admission) , Cath tip 12/20 : P SP removal of PICC and insertion of new PICC 12/20 status post thoracocentesis: extubate no evid of infectious process ( doubt TB , [place] > 4% and low WBC count ) Wound culture: mixed growth : colonizer Anemia Hypoxic encephalopathy. History of cardiac arrest. Hypertension. COPD. History of possible trach. status post G-tube placement. History of contracture of extremities. Diabetes. Anemia. PLAN: continue the patient on IV vancomycin d# 2 Monitor CBC. Monitor BMP. Instructed the nurse to remove PICC line and send for culture. We will insert a new PICC line. Repeat blood culture ( blood) Subjective Allergies: Coded Allergies: ACETAMINOPHEN (Verified Allergy, Unknown, 12/16/17) Subjective Afebrile Objective Vital Signs Last 24 Hour Vital Signs Date Time Temp Pulse Resp B/P (MAP) Pulse Ox O2 Delivery O2 Flow Rate FiO2 12/20/17 20:00 97.6 64 14 105/66 100 Mechanical Ventilator 40 97.6 12/20/17 19:40 66 12 40 12/20/17 18:03 136/62 12/20/17 17:20 62 12 40 12/20/17 16:00 97.4 63 17 136/68 100 Mechanical Ventilator 40 97.4 12/20/17 16:00 60 12/20/17 16:00 40 12/20/17 12:00 40 12/20/17 12:00 97.4 69 16 132/58 97 Mechanical Ventilator 40 97.4 12/20/17 12:00 71 12/20/17 10:49 68 24 40 12/20/17 09:20 116/57 12/20/17 09:20 65 116/57 12/20/17 09:19 79 20 40 12/20/17 08:00 40 12/20/17 08:00 57 12/20/17 08:00 97.9 65 20 116/57 100 Mechanical Ventilator 40 97.9 12/20/17 07:20 54 15 40 12/20/17 05:11 61 14 40 12/20/17 04:00 97.2 67 20 139/69 100 Mechanical Ventilator 40 97.2 12/20/17 04:00 61 12/20/17 04:00 40 12/20/17 03:02 72 17 40 12/20/17 01:16 71 18 40 12/20/17 00:00 69 12/20/17 00:00 97.2 71 20 116/58 100 Mechanical Ventilator 40 97.2 12/19/17 23:08 70 20 40 12/19/17 21:30 81 21 40 12/19/17 20:52 86 111/57 Height (Feet): 6 Weight (Pounds): 162 HEENT: anicteric Respiratory/Chest: normal breath sounds Cardiovascular: normal rate Abdomen: no organomegaly Microbiology Date/Time Source Procedure Growth Status 12/18/17 09:36 Ascities Fluid Gram Stain - Final Resulted 12/18/17 09:36 Ascities Fluid Body Fluid Culture - Preliminary NO GROWTH AFTER 24 HOURS Resulted Laboratory Tests Test 12/20/17 03:25 12/20/17 15:00 12/20/17 18:00 White Blood Count 10.3 K/UL (4.8-10.8) Red Blood Count 2.65 M/UL (4.70-6.10) L Hemoglobin 8.1 G/DL (14.2-18.0) L Hematocrit 24.2 % (42.0-52.0) L Mean Corpuscular Volume 91 FL (80-99) Mean Corpuscular Hemoglobin 30.5 PG (27.0-31.0) Mean Corpuscular Hemoglobin Concent 33.5 G/DL (32.0-36.0) Red Cell Distribution Width 14.6 % (11.6-14.8) Platelet Count 260 K/UL (150-450) Mean Platelet Volume 7.2 FL (6.5-10.1) Neutrophils (%) (Auto) 72.7 % (45.0-75.0) Lymphocytes (%) (Auto) 14.6 % (20.0-45.0) L Monocytes (%) (Auto) 10.0 % (1.0-10.0) Eosinophils (%) (Auto) 1.8 % (0.0-3.0) Basophils (%) (Auto) 0.8 % (0.0-2.0) Prothrombin Time 9.9 SEC (9.30-11.50) Prothromb Time International Ratio 0.9 (0.9-1.1) Sodium Level 129 MMOL/L (136-145) L Potassium Level 4.9 MMOL/L (3.5-5.1) Chloride Level 96 MMOL/L (98-107) L Carbon Dioxide Level 26 MMOL/L (21-32) Anion Gap 7 mmol/L (5-15) Blood Urea Nitrogen 20 mg/dL (7-18) H Creatinine 0.7 MG/DL (0.55-1.30) Estimat Glomerular Filtration Rate > 60 mL/min (>60) Glucose Level 94 MG/DL (74-106) Calcium Level 9.3 MG/DL (8.5-10.1) Phosphorus Level 4.0 MG/DL (2.5-4.9) Magnesium Level 1.8 MG/DL (1.8-2.4) Total Bilirubin 0.3 MG/DL (0.2-1.0) Aspartate Amino Transf (AST/SGOT) 13 U/L (15-37) L Alanine Aminotransferase (ALT/SGPT) 23 U/L (12-78) Alkaline Phosphatase 176 U/L (46-116) H Total Protein 7.2 G/DL (6.4-8.2) Albumin 2.6 G/DL (3.4-5.0) L Globulin 4.6 g/dL Albumin/Globulin Ratio 0.6 (1.0-2.7) L Vancomycin Level Trough 25.9 ug/mL (5.0-12.0) H Urine Random Creatinine Pending Urine Random Microalbumin Pending Urine Microalbumin/Creatinine Ratio Pending Current Medications Medications (Trade) Dose Ordered Sig/Marciano Route PRN Reason Start Time Stop Time Status Last Admin Dose Admin Acetaminophen (Tylenol) 650 mg Q4H PRN ORAL fever 12/16/17 22:00 01/15/18 21:59 Al Hydroxide/Mg Hydroxide (Mylanta II) 30 ml Q6H PRN ORAL dyspepsia 12/16/17 22:00 01/15/18 21:59 Ascorbic Acid (Vitamin C) 500 mg DAILY GT 12/20/17 09:00 01/19/18 08:59 12/20/17 09:20 Carvedilol (Coreg) 6.25 mg EVERY 12 HOURS GT 12/17/17 09:00 01/16/18 08:59 12/20/17 09:20 Chlorhexidine Gluconate (Nancy-Hex 2%) 1 applic DAILY@2000 TOPIC 12/19/17 21:30 01/18/18 21:29 12/20/17 19:59 Clonidine HCl (Catapres Tab) 0.1 mg EVERY 6 HOURS PRN GT For High Blood Pressure 12/16/17 22:00 01/15/18 21:59 Dextrose (Dextrose 50%) 25 ml STAT PRN IV HYPOGLYCEMIA 12/18/17 08:45 01/17/18 08:44 Dextrose (Dextrose 50%) 50 ml STAT PRN IV Hypoglycemia 12/18/17 08:45 01/15/18 21:59 Heparin Sodium/ Sodium Chloride (Heparin 2000 units/Ns 1000ml premix) 2,000 unit ONCE INJ 12/20/17 06:00 12/20/17 23:59 Hydralazine HCl (Apresoline) 10 mg BID GT 12/17/17 09:00 01/16/18 08:59 12/20/17 18:03 Iron Sucrose 100 mg/Sodium Chloride 115 ml @ 460 mls/hr BEDTIME IV 12/18/17 21:00 12/22/17 21:14 12/19/17 20:53 Levetiracetam (Keppra) 1,000 mg BID GT 12/17/17 09:00 01/16/18 08:59 12/20/17 18:03 Lidocaine HCl (Xylocaine 1% 30ml) 30 ml ONCE INJ 12/20/17 06:00 12/20/17 23:59 Lorazepam (Ativan 2mg/ml 1ml) 0.5 mg Q4H PRN IV For Anxiety 12/16/17 22:00 12/23/17 21:59 Morphine Sulfate (Morphine Sulfate) 1 mg Q4H PRN IVP For Pain 12/16/17 22:45 12/23/17 22:44 Ondansetron HCl (Zofran) 4 mg Q6H PRN IVP Nausea & Vomiting 12/16/17 22:00 01/15/18 21:59 Pantoprazole (Protonix) 40 mg DAILY ORAL 12/20/17 09:00 01/19/18 08:59 12/20/17 09:20 Polyethylene Glycol (Miralax) 17 gm HSPRN PRN ORAL Constipation 12/16/17 22:00 01/15/18 21:59 Sodium Chloride (NaCl) 1 gm BIAC ORAL 12/19/17 16:30 01/18/18 16:29 12/20/17 16:41 Vancomycin HCl (Vanco rx to dose) 1 ea DAILYPRN PRN MISC Per rx protocol 12/19/17 13:30 01/18/18 13:29 Vancomycin HCl 1 gm/Dextrose 275 ml @ 183.708 mls/hr Q12HR IVPB 12/20/17 21:00 12/25/17 20:59 Zolpidem Tartrate (Ambien) 5 mg HSPRN PRN ORAL Insomnia 12/16/17 22:00 12/23/17 21:59 Emery Mendez MD Dec 20, 2017 20:43
[2017-12-20] MEDS: Iron Sucrose 100 MG in NS 110 ML IV SCH (20:51)
[2017-12-21] VITALS: BP 107/63
--- NOTE | 2017-12-21 01:42 | General Progress Note ---
Assessment/Plan Assessment/Plan 1. Anemia due to underlying chronic disease. --> Continue to closely monitor. Monitor for improvement. --> Anemia workup reviewed. Iron 39, TIBC 280, Ferritin 241, Folate 18.2, TSH 2.6 --> Appears to have anemia of iron deficiency as well. Will be started on IV iron. 2. Anemia of iron deficiency. We will begin the patient on IV iron at this time. 3. Coagulopathy, likely secondary to reactive process. --> Closely monitor. --> Administer vitamin K as needed. 4. Leukocytosis, potentially secondary to infection. --> Management per ID. --> On vancomycin. 5. Dysphagia, status post gastrostomy tube. 6. Respiratory failure, status post vent and trach. 7. Hypertension. Systolic blood pressure goal less than 140. 8. Pleural effusion, status post thoracentesis. Pulmonary evaluation. Subjective Date patient seen: Dec 19, 2017 Constitutional: Denies: no symptoms, chills, diaphoresis, fever, malaise, weakness, other HEENT: Denies: no symptoms, eye pain, blurred vision, tearing, double vision, ear pain, ear discharge, nose pain, nose congestion, throat pain, throat swelling, mouth pain, mouth swelling, other Cardiovascular: Denies: no symptoms, chest pain, edema, irregular heart rate, lightheadedness, palpitations, syncope, other Respiratory: Denies: no symptoms, cough, orthopnea, shortness of breath, SOB with excertion, SOB at rest, sputum, stridor, wheezing, other Gastrointestinal/Abdominal: Denies: no symptoms, abdomen distended, abdominal pain, black stools, tarry stools, blood in stool, constipated, diarrhea, difficulty swallowing, nausea, poor appetite, poor fluid intake, rectal bleeding , vomiting, other Genitourinary: Denies: no symptoms, burning, discharge, frequency, flank pain, hematuria, incontinence, pain, urgency, other Neurologic/Psychiatric: Denies: no symptoms, anxiety, depressed, emotional problems, headache, numbness, paresthesia, pre-existing deficit, seizure, tingling, tremors, weakness, other Hematologic/Lymphatic: Reports: anemia Allergies: Coded Allergies: ACETAMINOPHEN (Verified Allergy, Unknown, 12/16/17) Subjective On antibiotic treatment. No fever or chills. Objective Last 24 Hour Vital Signs Date Time Temp Pulse Resp B/P (MAP) Pulse Ox O2 Delivery O2 Flow Rate FiO2 12/21/17 00:43 68 18 40 12/21/17 00:00 97.5 62 14 107/63 100 Mechanical Ventilator 40 97.5 12/21/17 00:00 40 12/20/17 23:53 84 23 40 12/20/17 23:36 64 12/20/17 21:28 63 13 40 12/20/17 21:01 64 105/66 12/20/17 20:00 40 12/20/17 20:00 97.6 64 14 105/66 100 Mechanical Ventilator 40 97.6 12/20/17 19:44 61 12/20/17 19:40 66 12 40 12/20/17 18:03 136/62 12/20/17 17:20 62 12 40 12/20/17 16:00 97.4 63 17 136/68 100 Mechanical Ventilator 40 97.4 12/20/17 16:00 60 12/20/17 16:00 40 12/20/17 12:00 40 12/20/17 12:00 97.4 69 16 132/58 97 Mechanical Ventilator 40 97.4 12/20/17 12:00 71 12/20/17 10:49 68 24 40 12/20/17 09:20 116/57 12/20/17 09:20 65 116/57 12/20/17 09:19 79 20 40 12/20/17 08:00 40 12/20/17 08:00 57 12/20/17 08:00 97.9 65 20 116/57 100 Mechanical Ventilator 40 97.9 12/20/17 07:20 54 15 40 12/20/17 05:11 61 14 40 12/20/17 04:00 97.2 67 20 139/69 100 Mechanical Ventilator 40 97.2 12/20/17 04:00 61 12/20/17 04:00 40 12/20/17 03:02 72 17 40 Intake and Output 12/20/17 12/21/17 19:00 07:00 Intake Total 960 ml 235 ml Balance 960 ml 235 ml IV Total 235 ml Tube Feeding 900 ml Other 60 ml Laboratory Tests 12/20/17 03:25: White Blood Count 10.3, Red Blood Count 2.65L, Hemoglobin 8.1L, Hematocrit 24.2L , Mean Corpuscular Volume 91, Mean Corpuscular Hemoglobin 30.5, Mean Corpuscular Hemoglobin Concent 33.5, Red Cell Distribution Width 14.6, Platelet Count 260, Mean Platelet Volume 7.2, Neutrophils (%) (Auto) 72.7, Lymphocytes (% ) (Auto) 14.6L, Monocytes (%) (Auto) 10.0, Eosinophils (%) (Auto) 1.8, Basophils (%) (Auto) 0.8, Prothrombin Time 9.9, Prothromb Time International Ratio 0.9, Sodium Level 129L, Potassium Level 4.9, Chloride Level 96L, Carbon Dioxide Level 26, Anion Gap 7, Blood Urea Nitrogen 20H, Creatinine 0.7, Estimat Glomerular Filtration Rate > 60, Glucose Level 94, Calcium Level 9.3, Phosphorus Level 4.0, Magnesium Level 1.8, Total Bilirubin 0.3, Aspartate Amino Transf (AST/SGOT) 13L, Alanine Aminotransferase (ALT/SGPT) 23, Alkaline Phosphatase 176H, Total Protein 7.2, Albumin 2.6L, Globulin 4.6, Albumin/ Globulin Ratio 0.6L 12/20/17 15:00: Vancomycin Level Trough 25.9H 12/20/17 18:00: Urine Random Creatinine [Pending], Urine Random Microalbumin [Pending], Urine Microalbumin/Creatinine Ratio [Pending] Height (Feet): 6 Weight (Pounds): 162 General Appearance: no apparent distress EENT: normal ENT inspection Cardiovascular: normal rate Respiratory/Chest: lungs clear Fermín Alberto MD Dec 21, 2017 01:42
--- NOTE | 2017-12-21 01:43 | General Progress Note ---
Assessment/Plan Assessment/Plan 1. Anemia due to underlying chronic disease. --> Continue to closely monitor. Monitor for improvement. --> Anemia workup reviewed. Iron 39, TIBC 280, Ferritin 241, Folate 18.2, TSH 2.6 --> Appears to have anemia of iron deficiency as well. Will be started on IV iron. 2. Anemia of iron deficiency. --> We will begin the patient on IV iron at this time. --> Monitor and trend cbc. 3. Coagulopathy, likely secondary to reactive process. --> Closely monitor. --> Administer vitamin K as needed. 4. Leukocytosis, potentially secondary to infection. --> Management per ID. --> On vancomycin. 5. Dysphagia, status post gastrostomy tube. 6. Respiratory failure, status post vent and trach. 7. Hypertension. Systolic blood pressure goal less than 140. 8. Pleural effusion, status post thoracentesis. Pulmonary evaluation. Subjective Date patient seen: Dec 21, 2017 Constitutional: Denies: no symptoms, chills, diaphoresis, fever, malaise, weakness, other HEENT: Denies: no symptoms, eye pain, blurred vision, tearing, double vision, ear pain, ear discharge, nose pain, nose congestion, throat pain, throat swelling, mouth pain, mouth swelling, other Cardiovascular: Denies: no symptoms, chest pain, edema, irregular heart rate, lightheadedness, palpitations, syncope, other Respiratory: Denies: no symptoms, cough, orthopnea, shortness of breath, SOB with excertion, SOB at rest, sputum, stridor, wheezing, other Gastrointestinal/Abdominal: Denies: no symptoms, abdomen distended, abdominal pain, black stools, tarry stools, blood in stool, constipated, diarrhea, difficulty swallowing, nausea, poor appetite, poor fluid intake, rectal bleeding , vomiting, other Genitourinary: Denies: no symptoms, burning, discharge, frequency, flank pain, hematuria, incontinence, pain, urgency, other Neurologic/Psychiatric: Denies: no symptoms, anxiety, depressed, emotional problems, headache, numbness, paresthesia, pre-existing deficit, seizure, tingling, tremors, weakness, other Hematologic/Lymphatic: Reports: anemia Allergies: Coded Allergies: ACETAMINOPHEN (Verified Allergy, Unknown, 12/16/17) Subjective Leukocytosis improved. No acute events overnight. Objective Last 24 Hour Vital Signs Date Time Temp Pulse Resp B/P (MAP) Pulse Ox O2 Delivery O2 Flow Rate FiO2 12/21/17 00:43 68 18 40 12/21/17 00:00 97.5 62 14 107/63 100 Mechanical Ventilator 40 97.5 12/21/17 00:00 40 12/20/17 23:53 84 23 40 12/20/17 23:36 64 12/20/17 21:28 63 13 40 12/20/17 21:01 64 105/66 12/20/17 20:00 40 12/20/17 20:00 97.6 64 14 105/66 100 Mechanical Ventilator 40 97.6 12/20/17 19:44 61 12/20/17 19:40 66 12 40 12/20/17 18:03 136/62 12/20/17 17:20 62 12 40 12/20/17 16:00 97.4 63 17 136/68 100 Mechanical Ventilator 40 97.4 12/20/17 16:00 60 12/20/17 16:00 40 12/20/17 12:00 40 12/20/17 12:00 97.4 69 16 132/58 97 Mechanical Ventilator 40 97.4 12/20/17 12:00 71 12/20/17 10:49 68 24 40 12/20/17 09:20 116/57 12/20/17 09:20 65 116/57 12/20/17 09:19 79 20 40 12/20/17 08:00 40 12/20/17 08:00 57 12/20/17 08:00 97.9 65 20 116/57 100 Mechanical Ventilator 40 97.9 12/20/17 07:20 54 15 40 12/20/17 05:11 61 14 40 12/20/17 04:00 97.2 67 20 139/69 100 Mechanical Ventilator 40 97.2 12/20/17 04:00 61 12/20/17 04:00 40 12/20/17 03:02 72 17 40 Intake and Output 12/20/17 12/21/17 19:00 07:00 Intake Total 960 ml 235 ml Balance 960 ml 235 ml IV Total 235 ml Tube Feeding 900 ml Other 60 ml Laboratory Tests 12/20/17 03:25: White Blood Count 10.3, Red Blood Count 2.65L, Hemoglobin 8.1L, Hematocrit 24.2L , Mean Corpuscular Volume 91, Mean Corpuscular Hemoglobin 30.5, Mean Corpuscular Hemoglobin Concent 33.5, Red Cell Distribution Width 14.6, Platelet Count 260, Mean Platelet Volume 7.2, Neutrophils (%) (Auto) 72.7, Lymphocytes (% ) (Auto) 14.6L, Monocytes (%) (Auto) 10.0, Eosinophils (%) (Auto) 1.8, Basophils (%) (Auto) 0.8, Prothrombin Time 9.9, Prothromb Time International Ratio 0.9, Sodium Level 129L, Potassium Level 4.9, Chloride Level 96L, Carbon Dioxide Level 26, Anion Gap 7, Blood Urea Nitrogen 20H, Creatinine 0.7, Estimat Glomerular Filtration Rate > 60, Glucose Level 94, Calcium Level 9.3, Phosphorus Level 4.0, Magnesium Level 1.8, Total Bilirubin 0.3, Aspartate Amino Transf (AST/SGOT) 13L, Alanine Aminotransferase (ALT/SGPT) 23, Alkaline Phosphatase 176H, Total Protein 7.2, Albumin 2.6L, Globulin 4.6, Albumin/ Globulin Ratio 0.6L 12/20/17 15:00: Vancomycin Level Trough 25.9H 12/20/17 18:00: Urine Random Creatinine [Pending], Urine Random Microalbumin [Pending], Urine Microalbumin/Creatinine Ratio [Pending] Height (Feet): 6 Weight (Pounds): 162 General Appearance: no apparent distress Cardiovascular: normal rate Respiratory/Chest: lungs clear Abdomen: soft Skin: warm/dry Fermín Alberto MD Dec 21, 2017 01:43
[2017-12-21 04:00] VITALS: BP 111/69
[2017-12-21] MEDS: Sodium Chloride 1gm Tab ORAL SCH ×2 (05:47→17:53)
[2017-12-21 05:52] LABS: BASOPHILS % (AUTO) 0.6 % (0.0-2.0); EOSINOPHILS % (AUTO) 2.8 % (0.0-3.0); HEMOGLOBIN 8.2 G/DL (14.2-18.0); LYMPHOCYTES % (AUTO) 14.2 % (20.0-45.0); MEAN CORPUSCULAR VOLUME 91 FL (80-99); MONOCYTES % (AUTO) 8.6 % (1.0-10.0); NEUTROPHILS % (AUTO) 73.8 % (45.0-75.0); PLATELET COUNT 243 K/UL (150-450); RED BLOOD COUNT 2.62 M/UL (4.70-6.10); RED CELL DISTRIBUTION WIDTH 15.1 % (11.6-14.8); WHITE BLOOD COUNT 8.6 K/UL (4.8-10.8)
[2017-12-21 05:58] LABS: ALANINE AMINOTRANSFERASE 25 U/L (12-78); ALBUMIN 2.5 G/DL (3.4-5.0); ALBUMIN/GLOBULIN RATIO 0.6 (1.0-2.7); ALKALINE PHOSPHATASE 165 U/L (46-116); ANION GAP 5 mmol/L (5-15); ASPARTATE AMINO TRANSFERASE 16 U/L (15-37); BILIRUBIN,TOTAL 0.3 MG/DL (0.2-1.0); BLOOD UREA NITROGEN 16 mg/dL (7-18); CALCIUM 8.9 MG/DL (8.5-10.1); CARBON DIOXIDE 28 MMOL/L (21-32); CHLORIDE 96 MMOL/L (98-107); CREATININE 0.6 MG/DL (0.55-1.30); PHOSPHORUS 3.5 MG/DL (2.5-4.9); POTASSIUM 4.3 MMOL/L (3.5-5.1); SODIUM 129 MMOL/L (136-145)
[2017-12-21 08:00] VITALS: BP 135/60
[2017-12-21] MEDS: Carvedilol 6.25mg Tab GT SCH ×2 (09:45→21:14)
[2017-12-21] MEDS: HydrALAZINE 10mg Tab GT SCH ×2 (09:45→17:53)
[2017-12-21] MEDS: Ascorbic Acid 500mg tab GT SCH (09:47)
[2017-12-21] MEDS: levETIRAcetam 500mg/5ml Liquid GT SCH ×2 (09:47→17:53)
--- NOTE | 2017-12-21 10:02 | General Progress Note ---
Assessment/Plan Problem List: (1) Ventilator dependent ICD Codes: Z99.11 - Dependence on respirator [ventilator] status SNOMED: 168941504 (2) Pleural effusion, right ICD Codes: J90 - Pleural effusion, not elsewhere classified SNOMED: 41298417 (3) Hypertension ICD Codes: I10 - Essential (primary) hypertension SNOMED: 34687443 (4) Seizure disorder ICD Codes: G40.909 - Epilepsy, unspecified, not intractable, without status epilepticus SNOMED: 441754361 (5) Symptomatic anemia ICD Codes: D64.9 - Anemia, unspecified SNOMED: 624620640 Status: unchanged Assessment/Plan vetn ot pt diet cbc bmp am ltach eval Subjective Constitutional: Reports: weakness Allergies: Coded Allergies: ACETAMINOPHEN (Verified Allergy, Unknown, 12/16/17) All Systems: reviewed and negative except above Subjective trach vent altered calm Objective Last 24 Hour Vital Signs Date Time Temp Pulse Resp B/P (MAP) Pulse Ox O2 Delivery O2 Flow Rate FiO2 12/21/17 09:45 135/60 12/21/17 09:45 67 135/60 12/21/17 08:00 97.4 67 18 135/60 100 Mechanical Ventilator 40 97.4 12/21/17 07:09 65 11 40 12/21/17 05:21 70 12 40 12/21/17 04:00 40 12/21/17 04:00 97.0 68 15 111/69 100 Mechanical Ventilator 40 97.0 12/21/17 03:38 71 18 40 12/21/17 03:37 67 12/21/17 00:43 68 18 40 12/21/17 00:00 97.5 62 14 107/63 100 Mechanical Ventilator 40 97.5 12/21/17 00:00 40 12/20/17 23:53 84 23 40 12/20/17 23:36 64 12/20/17 21:28 63 13 40 12/20/17 21:01 64 105/66 12/20/17 20:00 40 12/20/17 20:00 97.6 64 14 105/66 100 Mechanical Ventilator 40 97.6 12/20/17 19:44 61 12/20/17 19:40 66 12 40 12/20/17 18:03 136/62 12/20/17 17:20 62 12 40 12/20/17 16:00 97.4 63 17 136/68 100 Mechanical Ventilator 40 97.4 12/20/17 16:00 60 12/20/17 16:00 40 12/20/17 12:00 40 12/20/17 12:00 97.4 69 16 132/58 97 Mechanical Ventilator 40 97.4 12/20/17 12:00 71 12/20/17 10:49 68 24 40 Intake and Output 12/20/17 12/21/17 19:00 07:00 Intake Total 960 ml 1030 ml Output Total 500 ml Balance 960 ml 530 ml Free Water 40 ml IV Total 390 ml Tube Feeding 900 ml 600 ml Other 60 ml Output Urine Total 500 ml Laboratory Tests 12/20/17 15:00: Vancomycin Level Trough 25.9H 12/20/17 18:00: Urine Random Creatinine [Pending], Urine Random Microalbumin [Pending], Urine Microalbumin/Creatinine Ratio [Pending] 12/21/17 03:40: White Blood Count 8.6, Red Blood Count 2.62L, Hemoglobin 8.2L, Hematocrit 24.0L , Mean Corpuscular Volume 91, Mean Corpuscular Hemoglobin 31.5H, Mean Corpuscular Hemoglobin Concent 34.4, Red Cell Distribution Width 15.1H, Platelet Count 243, Mean Platelet Volume 6.5, Neutrophils (%) (Auto) 73.8, Lymphocytes (%) (Auto) 14.2L, Monocytes (%) (Auto) 8.6, Eosinophils (%) (Auto) 2.8, Basophils (%) (Auto) 0.6, Sodium Level 129L, Potassium Level 4.3, Chloride Level 96L, Carbon Dioxide Level 28, Anion Gap 5, Blood Urea Nitrogen 16, Creatinine 0.6, Estimat Glomerular Filtration Rate > 60, Glucose Level 117H, Calcium Level 8.9, Phosphorus Level 3.5, Magnesium Level 1.6L, Total Bilirubin 0.3, Aspartate Amino Transf (AST/SGOT) 16, Alanine Aminotransferase (ALT/SGPT) 25, Alkaline Phosphatase 165H, Total Protein 6.8, Albumin 2.5L, Globulin 4.3, Albumin/Globulin Ratio 0.6L Height (Feet): 6 Weight (Pounds): 162 General Appearance: lethargic EENT: normal ENT inspection Neck: normal alignment Cardiovascular: normal peripheral pulses, normal rate, regular rhythm Respiratory/Chest: chest wall non-tender, lungs clear, normal breath sounds Abdomen: normal bowel sounds, non tender, soft Extremities: normal inspection Edema: no edema noted Arm (L), no edema noted Arm (R), no edema noted Leg (L), no edema noted Leg (R), no edema noted Pedal (L), no edema noted Pedal (R), no edema noted Generalized Neurologic: motor weakness Skin: normal pigmentation, warm/dry GIANA DIAZ Dec 21, 2017 10:02
[2017-12-21] MEDS: Vancomycin 1gm in Dextrose 275ml IVPB SCH ×2 (10:05→22:16)
--- NOTE | 2017-12-21 10:20 | Pulmonolgy Critical Care Note ---
Critical Care - Asmt/Plan Problems: (1) Acute on chronic respiratory failure (2) Aspiration pneumonia (3) Pleural effusion, right (4) Symptomatic anemia (5) Seizure disorder (6) Hypertension (7) Ventilator dependent (8) Feeding by G-tube Respiratory: monitor respiratory rate, adjust FIO2, CXR Cardiac: continue to monitor HR/BP Renal: F/U I&O, keep IV fluid, check electrolytes Infectious Disease: check cultures Gastrointestinal: continue feedings/current rate Endocrine: monitor blood sugar, continue sliding scale insulin Hematologic: monitor H/H, transfuse if hgb<8.5 Neurologic: PRN Ativan, PRN Morphine, keep patient comfortable Notes Reviewed: visual educator Discussed with: nurses, consultants, bilingual patient support caseworkerrecruitment advertising manager - Objective Last 24 Hour Vital Signs Date Time Temp Pulse Resp B/P (MAP) Pulse Ox O2 Delivery O2 Flow Rate FiO2 12/21/17 09:45 135/60 12/21/17 09:45 67 135/60 12/21/17 08:00 97.4 67 18 135/60 100 Mechanical Ventilator 40 97.4 12/21/17 07:09 65 11 40 12/21/17 05:21 70 12 40 12/21/17 04:00 40 12/21/17 04:00 97.0 68 15 111/69 100 Mechanical Ventilator 40 97.0 12/21/17 03:38 71 18 40 12/21/17 03:37 67 12/21/17 00:43 68 18 40 12/21/17 00:00 97.5 62 14 107/63 100 Mechanical Ventilator 40 97.5 12/21/17 00:00 40 12/20/17 23:53 84 23 40 12/20/17 23:36 64 12/20/17 21:28 63 13 40 12/20/17 21:01 64 105/66 12/20/17 20:00 40 12/20/17 20:00 97.6 64 14 105/66 100 Mechanical Ventilator 40 97.6 12/20/17 19:44 61 12/20/17 19:40 66 12 40 12/20/17 18:03 136/62 12/20/17 17:20 62 12 40 12/20/17 16:00 97.4 63 17 136/68 100 Mechanical Ventilator 40 97.4 12/20/17 16:00 60 12/20/17 16:00 40 12/20/17 12:00 40 12/20/17 12:00 97.4 69 16 132/58 97 Mechanical Ventilator 40 97.4 12/20/17 12:00 71 12/20/17 10:49 68 24 40 Status: awake Condition: critical HEENT: atraumatic Lungs: clear Heart: HR/BP stable, HR/BP unstable Abdomen: soft, active bowel sounds Extremities: no C/C/E, edema Decubiti: location, stage Micro: Microbiology Date/Time Source Procedure Growth Status 12/19/17 18:30 Blood Blood Culture - Preliminary NO GROWTH AFTER 24 HOURS Resulted 12/19/17 18:15 Blood Blood Culture - Preliminary NO GROWTH AFTER 24 HOURS Resulted 12/20/17 15:50 Arm Left Catheter Tip Culture - Preliminary NO GROWTH AFTER 24 HOURS Resulted Critical Care - Subjective ROS Limited/Unobtainable: Yes Condition: critical, improving EKG Rhythm: Sinus Rhythm FI02: 40 Vent Support Breath Rate: 8 Vent Support Mode: IMV/SIMV Vent Tidal Volume: 450 Sputum Amount: Small PEEP: 5.0 PIP: 24 Tube Feeding Amount: 75 I&O: Intake and Output 12/20/17 12/21/17 19:00 07:00 Intake Total 960 ml 1030 ml Output Total 500 ml Balance 960 ml 530 ml Free Water 40 ml IV Total 390 ml Tube Feeding 900 ml 600 ml Other 60 ml Output Urine Total 500 ml CXR: RLL infiltrate Labs: Laboratory Tests Test 12/20/17 15:00 12/20/17 18:00 12/21/17 03:40 Vancomycin Level Trough 25.9 ug/mL (5.0-12.0) H Urine Random Creatinine Pending Urine Random Microalbumin Pending Urine Microalbumin/Creatinine Ratio Pending White Blood Count 8.6 K/UL (4.8-10.8) Red Blood Count 2.62 M/UL (4.70-6.10) L Hemoglobin 8.2 G/DL (14.2-18.0) L Hematocrit 24.0 % (42.0-52.0) L Mean Corpuscular Volume 91 FL (80-99) Mean Corpuscular Hemoglobin 31.5 PG (27.0-31.0) H Mean Corpuscular Hemoglobin Concent 34.4 G/DL (32.0-36.0) Red Cell Distribution Width 15.1 % (11.6-14.8) H Platelet Count 243 K/UL (150-450) Mean Platelet Volume 6.5 FL (6.5-10.1) Neutrophils (%) (Auto) 73.8 % (45.0-75.0) Lymphocytes (%) (Auto) 14.2 % (20.0-45.0) L Monocytes (%) (Auto) 8.6 % (1.0-10.0) Eosinophils (%) (Auto) 2.8 % (0.0-3.0) Basophils (%) (Auto) 0.6 % (0.0-2.0) Sodium Level 129 MMOL/L (136-145) L Potassium Level 4.3 MMOL/L (3.5-5.1) Chloride Level 96 MMOL/L (98-107) L Carbon Dioxide Level 28 MMOL/L (21-32) Anion Gap 5 mmol/L (5-15) Blood Urea Nitrogen 16 mg/dL (7-18) Creatinine 0.6 MG/DL (0.55-1.30) Estimat Glomerular Filtration Rate > 60 mL/min (>60) Glucose Level 117 MG/DL (74-106) H Calcium Level 8.9 MG/DL (8.5-10.1) Phosphorus Level 3.5 MG/DL (2.5-4.9) Magnesium Level 1.6 MG/DL (1.8-2.4) L Total Bilirubin 0.3 MG/DL (0.2-1.0) Aspartate Amino Transf (AST/SGOT) 16 U/L (15-37) Alanine Aminotransferase (ALT/SGPT) 25 U/L (12-78) Alkaline Phosphatase 165 U/L (46-116) H Total Protein 6.8 G/DL (6.4-8.2) Albumin 2.5 G/DL (3.4-5.0) L Globulin 4.3 g/dL Albumin/Globulin Ratio 0.6 (1.0-2.7) L Leodan Bojorquez MD Dec 21, 2017 10:20
[2017-12-21 12:00] VITALS: BP 143/60
--- NOTE | 2017-12-21 14:26 | General Progress Note ---
Assessment/Plan Assessment/Plan Assessment (1) Anemia ICD Codes: D64.9 - Anemia, unspecified SNOMED: 552265680 (2) Iron deficiency anemia ICD Codes: D50.9 - Iron deficiency anemia, unspecified SNOMED: 37787303 (3) Hypertension ICD Codes: I10 - Essential (primary) hypertension SNOMED: 79225690 (4) Seizure disorder ICD Codes: G40.909 - Epilepsy, unspecified, not intractable, without status epilepticus SNOMED: 436351083 (5) Feeding by G-tube ICD Codes: Z93.1 - Gastrostomy status SNOMED: 196066371, 089987615 (6) Vegetative state ICD Codes: R40.3 - Persistent vegetative state SNOMED: 32865524 (7) Pleural effusion, right ICD Codes: J90 - Pleural effusion, not elsewhere classified SNOMED: 42051252 (8) Ventilator dependent ICD Codes: Z99.11 - Dependence on respirator [ventilator] status SNOMED: 721415042 Assessment/Plan iv iron GTF fu H&H ppi GI procedures on hold Subjective Allergies: Coded Allergies: ACETAMINOPHEN (Verified Allergy, Unknown, 12/16/17) Subjective Non verbal tolerting TF above noted Objective Last 24 Hour Vital Signs Date Time Temp Pulse Resp B/P (MAP) Pulse Ox O2 Delivery O2 Flow Rate FiO2 12/21/17 12:00 40 12/21/17 12:00 97.4 62 14 143/60 100 Mechanical Ventilator 40 97.4 12/21/17 11:06 62 13 40 12/21/17 09:45 135/60 12/21/17 09:45 67 135/60 12/21/17 08:59 69 14 40 12/21/17 08:00 40 12/21/17 08:00 97.4 67 18 135/60 100 Mechanical Ventilator 40 97.4 12/21/17 07:34 66 12/21/17 07:09 65 11 40 12/21/17 05:21 70 12 40 12/21/17 04:00 40 12/21/17 04:00 97.0 68 15 111/69 100 Mechanical Ventilator 40 97.0 12/21/17 03:38 71 18 40 12/21/17 03:37 67 12/21/17 00:43 68 18 40 12/21/17 00:00 97.5 62 14 107/63 100 Mechanical Ventilator 40 97.5 12/21/17 00:00 40 12/20/17 23:53 84 23 40 12/20/17 23:36 64 12/20/17 21:28 63 13 40 12/20/17 21:01 64 105/66 12/20/17 20:00 40 12/20/17 20:00 97.6 64 14 105/66 100 Mechanical Ventilator 40 97.6 12/20/17 19:44 61 12/20/17 19:40 66 12 40 12/20/17 18:03 136/62 12/20/17 17:20 62 12 40 12/20/17 16:00 97.4 63 17 136/68 100 Mechanical Ventilator 40 97.4 12/20/17 16:00 60 12/20/17 16:00 40 Intake and Output 12/20/17 12/21/17 19:00 07:00 Intake Total 960 ml 1030 ml Output Total 500 ml Balance 960 ml 530 ml Free Water 40 ml IV Total 390 ml Tube Feeding 900 ml 600 ml Other 60 ml Output Urine Total 500 ml Laboratory Tests 12/20/17 15:00: Vancomycin Level Trough 25.9H 12/20/17 18:00: Urine Random Creatinine [Pending], Urine Random Microalbumin [Pending], Urine Microalbumin/Creatinine Ratio [Pending] 12/21/17 03:40: White Blood Count 8.6, Red Blood Count 2.62L, Hemoglobin 8.2L, Hematocrit 24.0L , Mean Corpuscular Volume 91, Mean Corpuscular Hemoglobin 31.5H, Mean Corpuscular Hemoglobin Concent 34.4, Red Cell Distribution Width 15.1H, Platelet Count 243, Mean Platelet Volume 6.5, Neutrophils (%) (Auto) 73.8, Lymphocytes (%) (Auto) 14.2L, Monocytes (%) (Auto) 8.6, Eosinophils (%) (Auto) 2.8, Basophils (%) (Auto) 0.6, Sodium Level 129L, Potassium Level 4.3, Chloride Level 96L, Carbon Dioxide Level 28, Anion Gap 5, Blood Urea Nitrogen 16, Creatinine 0.6, Estimat Glomerular Filtration Rate > 60, Glucose Level 117H, Calcium Level 8.9, Phosphorus Level 3.5, Magnesium Level 1.6L, Total Bilirubin 0.3, Aspartate Amino Transf (AST/SGOT) 16, Alanine Aminotransferase (ALT/SGPT) 25, Alkaline Phosphatase 165H, Total Protein 6.8, Albumin 2.5L, Globulin 4.3, Albumin/Globulin Ratio 0.6L Height (Feet): 6 Weight (Pounds): 162 Objective Debilitated NCAT (+) Trach coarse BS RR soft NT ND no edema OBS CYNDI CRESPO Dec 21, 2017 14:26
--- NOTE | 2017-12-21 15:14 | Nephrology Progress Note ---
Assessment/Plan Assessment 1. Isovolemic hyponatremia, most likely as a result of antiseizure medication. 2. Prerenal azotemia and elevation of BUN/creatinine ratio. 3. Asymptomatic anemia. 4. History of respiratory failure. 5. History of PEG placement. 6. History of hypertension. Plan plan continue salt tab to continue current iv monitoring renal function and electrolyte mix all ivpb with ns .9 fallow up with urine study Subjective Constitutional: Reports: no symptoms HEENT: Reports: no symptoms Genitourinary: Reports: no symptoms Neurologic/Psychiatric: Reports: no symptoms Subjective no acute events Objective Objective Last 24 Hour Vital Signs Date Time Temp Pulse Resp B/P (MAP) Pulse Ox O2 Delivery O2 Flow Rate FiO2 12/21/17 13:10 64 11 40 12/21/17 12:00 40 12/21/17 12:00 97.4 62 14 143/60 100 Mechanical Ventilator 40 97.4 12/21/17 11:37 64 12/21/17 11:06 62 13 40 12/21/17 09:45 135/60 12/21/17 09:45 67 135/60 12/21/17 08:59 69 14 40 12/21/17 08:00 40 12/21/17 08:00 97.4 67 18 135/60 100 Mechanical Ventilator 40 97.4 12/21/17 07:34 66 12/21/17 07:09 65 11 40 12/21/17 05:21 70 12 40 12/21/17 04:00 40 12/21/17 04:00 97.0 68 15 111/69 100 Mechanical Ventilator 40 97.0 12/21/17 03:38 71 18 40 12/21/17 03:37 67 12/21/17 00:43 68 18 40 12/21/17 00:00 97.5 62 14 107/63 100 Mechanical Ventilator 40 97.5 12/21/17 00:00 40 12/20/17 23:53 84 23 40 12/20/17 23:36 64 12/20/17 21:28 63 13 40 12/20/17 21:01 64 105/66 12/20/17 20:00 40 12/20/17 20:00 97.6 64 14 105/66 100 Mechanical Ventilator 40 97.6 12/20/17 19:44 61 12/20/17 19:40 66 12 40 12/20/17 18:03 136/62 12/20/17 17:20 62 12 40 12/20/17 16:00 97.4 63 17 136/68 100 Mechanical Ventilator 40 97.4 12/20/17 16:00 60 12/20/17 16:00 40 Intake and Output 12/20/17 12/21/17 19:00 07:00 Intake Total 960 ml 1030 ml Output Total 500 ml Balance 960 ml 530 ml Free Water 40 ml IV Total 390 ml Tube Feeding 900 ml 600 ml Other 60 ml Output Urine Total 500 ml Laboratory Tests 12/20/17 18:00: Urine Random Creatinine [Pending], Urine Random Microalbumin [Pending], Urine Microalbumin/Creatinine Ratio [Pending] 12/21/17 03:40: White Blood Count 8.6, Red Blood Count 2.62L, Hemoglobin 8.2L, Hematocrit 24.0L , Mean Corpuscular Volume 91, Mean Corpuscular Hemoglobin 31.5H, Mean Corpuscular Hemoglobin Concent 34.4, Red Cell Distribution Width 15.1H, Platelet Count 243, Mean Platelet Volume 6.5, Neutrophils (%) (Auto) 73.8, Lymphocytes (%) (Auto) 14.2L, Monocytes (%) (Auto) 8.6, Eosinophils (%) (Auto) 2.8, Basophils (%) (Auto) 0.6, Sodium Level 129L, Potassium Level 4.3, Chloride Level 96L, Carbon Dioxide Level 28, Anion Gap 5, Blood Urea Nitrogen 16, Creatinine 0.6, Estimat Glomerular Filtration Rate > 60, Glucose Level 117H, Calcium Level 8.9, Phosphorus Level 3.5, Magnesium Level 1.6L, Total Bilirubin 0.3, Aspartate Amino Transf (AST/SGOT) 16, Alanine Aminotransferase (ALT/SGPT) 25, Alkaline Phosphatase 165H, Total Protein 6.8, Albumin 2.5L, Globulin 4.3, Albumin/Globulin Ratio 0.6L Height (Feet): 6 Weight (Pounds): 162 Objective GENERAL: The patient is a chronic ill looking male, in no acute distress. HEAD AND NECK: ET tube is in place. Head is atraumatic and normocephalic. Extraocular movements intact. Pupils are reactive to light and accommodation. LUNGS: Decreased breathing sounds on both sides, right more than left. CARDIAC: Regular rate and rhythm. S1, S2. No murmur. No rub. ABDOMEN: Soft, nontender, nondistended. EXTREMITIES: A 1+ edema. No clubbing. No cyanosis. SANDRA RODRIGUEZ Dec 21, 2017 15:14
[2017-12-21 16:00] VITALS: BP 107/46
[2017-12-21 20:00] VITALS: BP 117/63
[2017-12-21] MEDS: Dyna-Hex 2% Top Sol 2oz TOPIC SCH (21:14)
[2017-12-21] MEDS: Iron Sucrose 100 MG in NS 110 ML IV SCH (21:15)
[2017-12-22] VITALS: BP 111/63
--- NOTE | 2017-12-22 00:27 | General Progress Note ---
Assessment/Plan Assessment/Plan 1. Anemia due to underlying chronic disease. --> Continue to closely monitor. Monitor for improvement. --> Anemia workup reviewed. Iron 39, TIBC 280, Ferritin 241, Folate 18.2, TSH 2.6 --> Appears to have anemia of iron deficiency as well. Will be started on IV iron. --> Blood transfusion not needed unless symptomatic or hgb <7 2. Anemia of iron deficiency. --> We will begin the patient on IV iron at this time. --> Monitor and trend cbc. 3. Coagulopathy, likely secondary to reactive process. --> Closely monitor. --> Administer vitamin K as needed. 4. Leukocytosis, potentially secondary to infection. --> Management per ID. --> On vancomycin. Improved. 5. Dysphagia, status post gastrostomy tube. 6. Respiratory failure, status post vent and trach. 7. Hypertension. Systolic blood pressure goal less than 140. 8. Pleural effusion, status post thoracentesis. Pulmonary evaluation. Subjective Date patient seen: Dec 21, 2017 Constitutional: Denies: no symptoms, chills, diaphoresis, fever, malaise, weakness, other HEENT: Denies: no symptoms, eye pain, blurred vision, tearing, double vision, ear pain, ear discharge, nose pain, nose congestion, throat pain, throat swelling, mouth pain, mouth swelling, other Cardiovascular: Denies: no symptoms, chest pain, edema, irregular heart rate, lightheadedness, palpitations, syncope, other Respiratory: Denies: no symptoms, cough, orthopnea, shortness of breath, SOB with excertion, SOB at rest, sputum, stridor, wheezing, other Gastrointestinal/Abdominal: Denies: no symptoms, abdomen distended, abdominal pain, black stools, tarry stools, blood in stool, constipated, diarrhea, difficulty swallowing, nausea, poor appetite, poor fluid intake, rectal bleeding , vomiting, other Genitourinary: Denies: no symptoms, burning, discharge, frequency, flank pain, hematuria, incontinence, pain, urgency, other Neurologic/Psychiatric: Denies: no symptoms, anxiety, depressed, emotional problems, headache, numbness, paresthesia, pre-existing deficit, seizure, tingling, tremors, weakness, other Hematologic/Lymphatic: Reports: anemia Allergies: Coded Allergies: ACETAMINOPHEN (Verified Allergy, Unknown, 12/16/17) Subjective On vent. H/H stable. NAD. Objective Last 24 Hour Vital Signs Date Time Temp Pulse Resp B/P (MAP) Pulse Ox O2 Delivery O2 Flow Rate FiO2 12/21/17 23:20 91 15 60 12/21/17 21:20 88 22 60 12/21/17 21:20 60 12/21/17 21:14 75 117/63 12/21/17 20:00 98.1 75 12 117/63 100 Mechanical Ventilator 40 98.1 12/21/17 20:00 60 12/21/17 20:00 78 12/21/17 19:51 81 21 40 12/21/17 17:53 140/74 12/21/17 17:05 67 14 40 12/21/17 16:00 97.6 66 12 107/46 100 Mechanical Ventilator 40 97.6 12/21/17 16:00 40 12/21/17 16:00 70 12/21/17 15:15 64 14 40 12/21/17 13:10 64 11 40 12/21/17 12:00 40 12/21/17 12:00 97.4 62 14 143/60 100 Mechanical Ventilator 40 97.4 12/21/17 11:37 64 12/21/17 11:06 62 13 40 12/21/17 09:45 135/60 12/21/17 09:45 67 135/60 12/21/17 08:59 69 14 40 12/21/17 08:00 40 12/21/17 08:00 97.4 67 18 135/60 100 Mechanical Ventilator 40 97.4 12/21/17 07:34 66 12/21/17 07:09 65 11 40 12/21/17 05:21 70 12 40 12/21/17 04:00 40 12/21/17 04:00 97.0 68 15 111/69 100 Mechanical Ventilator 40 97.0 12/21/17 03:38 71 18 40 12/21/17 03:37 67 12/21/17 00:43 68 18 40 Intake and Output 12/21/17 12/22/17 19:00 07:00 Intake Total 1130.000 ml Output Total 600 ml Balance 530.000 ml IV Total 275.000 ml Tube Feeding 825 ml Other 30 ml Output Urine Total 600 ml # Voids 1 Laboratory Tests 12/21/17 03:40: White Blood Count 8.6, Red Blood Count 2.62L, Hemoglobin 8.2L, Hematocrit 24.0L , Mean Corpuscular Volume 91, Mean Corpuscular Hemoglobin 31.5H, Mean Corpuscular Hemoglobin Concent 34.4, Red Cell Distribution Width 15.1H, Platelet Count 243, Mean Platelet Volume 6.5, Neutrophils (%) (Auto) 73.8, Lymphocytes (%) (Auto) 14.2L, Monocytes (%) (Auto) 8.6, Eosinophils (%) (Auto) 2.8, Basophils (%) (Auto) 0.6, Sodium Level 129L, Potassium Level 4.3, Chloride Level 96L, Carbon Dioxide Level 28, Anion Gap 5, Blood Urea Nitrogen 16, Creatinine 0.6, Estimat Glomerular Filtration Rate > 60, Glucose Level 117H, Calcium Level 8.9, Phosphorus Level 3.5, Magnesium Level 1.6L, Total Bilirubin 0.3, Aspartate Amino Transf (AST/SGOT) 16, Alanine Aminotransferase (ALT/SGPT) 25, Alkaline Phosphatase 165H, Total Protein 6.8, Albumin 2.5L, Globulin 4.3, Albumin/Globulin Ratio 0.6L Height (Feet): 6 Weight (Pounds): 162 General Appearance: confused Respiratory/Chest: decreased breath sounds Edema: trace edema Fermín Alberto MD Dec 22, 2017 00:27
[2017-12-22 04:00] VITALS: BP 118/71
[2017-12-22 05:24] LABS: BASOPHILS % (AUTO) 0.6 % (0.0-2.0); EOSINOPHILS % (AUTO) 1.9 % (0.0-3.0); HEMATOCRIT 25.5 % (42.0-52.0); HEMOGLOBIN 8.4 G/DL (14.2-18.0); LYMPHOCYTES % (AUTO) 10.6 % (20.0-45.0); MEAN CORPUSCULAR VOLUME 92 FL (80-99); MONOCYTES % (AUTO) 7.2 % (1.0-10.0); NEUTROPHILS % (AUTO) 79.7 % (45.0-75.0); PLATELET COUNT 262 K/UL (150-450); RED BLOOD COUNT 2.76 M/UL (4.70-6.10); WHITE BLOOD COUNT 11.8 K/UL (4.8-10.8)
[2017-12-22 05:56] LABS: ALANINE AMINOTRANSFERASE 21 U/L (12-78); ALBUMIN 2.5 G/DL (3.4-5.0); ALBUMIN/GLOBULIN RATIO 0.6 (1.0-2.7); ALKALINE PHOSPHATASE 175 U/L (46-116); ANION GAP 5 mmol/L (5-15); ASPARTATE AMINO TRANSFERASE 13 U/L (15-37); BILIRUBIN,TOTAL 0.3 MG/DL (0.2-1.0); BLOOD UREA NITROGEN 13 mg/dL (7-18); CALCIUM 8.8 MG/DL (8.5-10.1); CARBON DIOXIDE 29 MMOL/L (21-32); CHLORIDE 95 MMOL/L (98-107); CREATININE 0.6 MG/DL (0.55-1.30); PHOSPHORUS 3.4 MG/DL (2.5-4.9); POTASSIUM 4.4 MMOL/L (3.5-5.1); SODIUM 129 MMOL/L (136-145)
[2017-12-22] MEDS: Sodium Chloride 1gm Tab ORAL SCH ×2 (06:36→16:21)
[2017-12-22 08:00] VITALS: BP 106/60
[2017-12-22] MEDS: Ascorbic Acid 500mg tab GT SCH (08:38)
[2017-12-22] MEDS: levETIRAcetam 500mg/5ml Liquid GT SCH ×2 (08:38→17:46)
[2017-12-22] MEDS: HydrALAZINE 10mg Tab GT SCH ×2 (08:38→17:46)
[2017-12-22] MEDS: Carvedilol 6.25mg Tab GT SCH ×2 (08:39→21:00)
--- NOTE | 2017-12-22 09:00 | General Progress Note ---
Assessment/Plan Problem List: (1) Ventilator dependent ICD Codes: Z99.11 - Dependence on respirator [ventilator] status SNOMED: 826129546 (2) Pleural effusion, right ICD Codes: J90 - Pleural effusion, not elsewhere classified SNOMED: 59933031 (3) Hypertension ICD Codes: I10 - Essential (primary) hypertension SNOMED: 70851859 (4) Seizure disorder ICD Codes: G40.909 - Epilepsy, unspecified, not intractable, without status epilepticus SNOMED: 569817787 (5) Symptomatic anemia ICD Codes: D64.9 - Anemia, unspecified SNOMED: 261025567 Status: unchanged Assessment/Plan vetn ot pt diet cbc bmp am ltach eval Subjective Constitutional: Reports: weakness Allergies: Coded Allergies: ACETAMINOPHEN (Verified Allergy, Unknown, 12/16/17) All Systems: reviewed and negative except above Subjective trach vent altered calm Objective Last 24 Hour Vital Signs Date Time Temp Pulse Resp B/P (MAP) Pulse Ox O2 Delivery O2 Flow Rate FiO2 12/22/17 08:39 86 106/60 12/22/17 08:38 106/60 12/22/17 08:00 98.2 86 25 106/60 100 Mechanical Ventilator 60 98.2 12/22/17 07:28 99 21 60 12/22/17 05:31 104 22 60 12/22/17 04:00 97.5 96 21 118/71 94 Mechanical Ventilator 60 97.5 12/22/17 04:00 60 12/22/17 04:00 88 12/22/17 03:23 89 19 60 12/22/17 01:29 96 22 60 12/22/17 00:00 98.1 92 21 111/63 100 Mechanical Ventilator 60 98.1 12/22/17 00:00 60 12/21/17 23:20 91 15 60 12/21/17 23:16 89 12/21/17 21:20 88 22 60 12/21/17 21:20 60 12/21/17 21:14 75 117/63 12/21/17 20:00 98.1 75 12 117/63 100 Mechanical Ventilator 40 98.1 12/21/17 20:00 60 12/21/17 20:00 78 12/21/17 19:51 81 21 40 12/21/17 17:53 140/74 12/21/17 17:05 67 14 40 12/21/17 16:00 97.6 66 12 107/46 100 Mechanical Ventilator 40 97.6 12/21/17 16:00 40 12/21/17 16:00 70 12/21/17 15:15 64 14 40 12/21/17 13:10 64 11 40 12/21/17 12:00 40 12/21/17 12:00 97.4 62 14 143/60 100 Mechanical Ventilator 40 97.4 12/21/17 11:37 64 12/21/17 11:06 62 13 40 12/21/17 09:45 135/60 12/21/17 09:45 67 135/60 Intake and Output 12/21/17 12/22/17 19:00 07:00 Intake Total 1130.000 ml 1100.00 ml Output Total 600 ml 700 ml Balance 530.000 ml 400.00 ml Free Water 80 ml IV Total 275.000 ml 390.00 ml Tube Feeding 825 ml 600 ml Other 30 ml 30 ml Output Urine Total 600 ml 700 ml # Voids 1 1 Laboratory Tests 12/22/17 04:15: White Blood Count 11.8H, Red Blood Count 2.76L, Hemoglobin 8.4L, Hematocrit 25.5L, Mean Corpuscular Volume 92, Mean Corpuscular Hemoglobin 30.5, Mean Corpuscular Hemoglobin Concent 33.1, Red Cell Distribution Width 15.0H, Platelet Count 262, Mean Platelet Volume 6.2L, Neutrophils (%) (Auto) 79.7H, Lymphocytes (%) (Auto) 10.6L, Monocytes (%) (Auto) 7.2, Eosinophils (%) (Auto) 1.9, Basophils (%) (Auto) 0.6, Sodium Level 129L, Potassium Level 4.4, Chloride Level 95L, Carbon Dioxide Level 29, Anion Gap 5, Blood Urea Nitrogen 13, Creatinine 0.6, Estimat Glomerular Filtration Rate > 60, Glucose Level 112H, Calcium Level 8.8, Phosphorus Level 3.4, Magnesium Level 1.6L, Total Bilirubin 0.3, Aspartate Amino Transf (AST/SGOT) 13L, Alanine Aminotransferase (ALT/SGPT) 21, Alkaline Phosphatase 175H, Total Protein 6.8, Albumin 2.5L, Globulin 4.3, Albumin/Globulin Ratio 0.6L 12/22/17 08:30: Vancomycin Level Trough [Pending] Height (Feet): 6 Weight (Pounds): 162 General Appearance: lethargic EENT: normal ENT inspection Neck: normal alignment Cardiovascular: normal peripheral pulses, normal rate, regular rhythm Respiratory/Chest: chest wall non-tender, lungs clear, normal breath sounds Abdomen: normal bowel sounds, non tender, soft Extremities: normal inspection Edema: no edema noted Arm (L), no edema noted Arm (R), no edema noted Leg (L), no edema noted Leg (R), no edema noted Pedal (L), no edema noted Pedal (R), no edema noted Generalized Neurologic: motor weakness Skin: normal pigmentation, warm/dry GIANA DIAZ Dec 22, 2017 09:00
--- NOTE | 2017-12-22 09:41 | Pulmonolgy Critical Care Note ---
Critical Care - Asmt/Plan Problems: (1) Acute on chronic respiratory failure (2) Aspiration pneumonia (3) Pleural effusion, right (4) Symptomatic anemia (5) Seizure disorder (6) Hypertension (7) Ventilator dependent (8) Feeding by G-tube Respiratory: monitor respiratory rate, adjust FIO2 Cardiac: continue to monitor HR/BP Renal: F/U I&O, keep IV fluid, increase IV fluid Infectious Disease: check cultures, continue antibiotics Gastrointestinal: continue feedings/current rate Endocrine: monitor blood sugar, continue sliding scale insulin Hematologic: monitor H/H, transfuse if hgb<8.5 Neurologic: PRN Ativan, keep patient comfortable Affect: PRN ativan Prophylaxis: Protonix Notes 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, 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 with: 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, 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 - Objective Last 24 Hour Vital Signs Date Time Temp Pulse Resp B/P (MAP) Pulse Ox O2 Delivery O2 Flow Rate FiO2 12/22/17 09:09 99 19 60 12/22/17 09:08 98 12/22/17 08:39 86 106/60 12/22/17 08:38 106/60 12/22/17 08:00 60 12/22/17 08:00 98.2 86 25 106/60 100 Mechanical Ventilator 60 98.2 12/22/17 07:28 99 21 60 12/22/17 05:31 104 22 60 12/22/17 04:00 97.5 96 21 118/71 94 Mechanical Ventilator 60 97.5 12/22/17 04:00 60 12/22/17 04:00 88 12/22/17 03:23 89 19 60 12/22/17 01:29 96 22 60 12/22/17 00:00 98.1 92 21 111/63 100 Mechanical Ventilator 60 98.1 12/22/17 00:00 60 12/21/17 23:20 91 15 60 12/21/17 23:16 89 12/21/17 21:20 88 22 60 12/21/17 21:20 60 12/21/17 21:14 75 117/63 12/21/17 20:00 98.1 75 12 117/63 100 Mechanical Ventilator 40 98.1 12/21/17 20:00 60 12/21/17 20:00 78 12/21/17 19:51 81 21 40 12/21/17 17:53 140/74 12/21/17 17:05 67 14 40 12/21/17 16:00 97.6 66 12 107/46 100 Mechanical Ventilator 40 97.6 12/21/17 16:00 40 12/21/17 16:00 70 12/21/17 15:15 64 14 40 12/21/17 13:10 64 11 40 12/21/17 12:00 40 12/21/17 12:00 97.4 62 14 143/60 100 Mechanical Ventilator 40 97.4 12/21/17 11:37 64 12/21/17 11:06 62 13 40 12/21/17 09:45 135/60 12/21/17 09:45 67 135/60 Status: somnolent Condition: critical Neck: full ROM Lungs: clear Heart: HR/BP stable, regular Abdomen: non-tender, active bowel sounds, feeding tube Extremities: edema Decubiti: location, stage Micro: Microbiology Date/Time Source Procedure Growth Status 12/19/17 18:30 Blood Blood Culture - Preliminary NO GROWTH AFTER 48 HOURS Resulted 12/19/17 18:15 Blood Blood Culture - Preliminary NO GROWTH AFTER 48 HOURS Resulted 12/20/17 15:50 Arm Left Catheter Tip Culture - Preliminary NO GROWTH AFTER 24 HOURS Resulted Critical Care - Subjective ROS Limited/Unobtainable: No Condition: critical EKG Rhythm: Sinus Rhythm FI02: 60 Vent Support Breath Rate: 8 Vent Support Mode: IMV/SIMV Vent Tidal Volume: 450 Sputum Amount: Moderate PEEP: 5.0 PIP: 27 Tube Feeding Amount: 75 I&O: Intake and Output 12/21/17 12/22/17 18:59 06:59 Intake Total 1205.000 ml 1025.00 ml Output Total 600 ml 700 ml Balance 605.000 ml 325.00 ml Free Water 80 ml IV Total 275.000 ml 390.00 ml Tube Feeding 900 ml 525 ml Other 30 ml 30 ml Output Urine Total 600 ml 700 ml # Voids 1 1 CXR: no change Labs: Laboratory Tests Test 12/22/17 04:15 12/22/17 08:30 White Blood Count 11.8 K/UL (4.8-10.8) H Red Blood Count 2.76 M/UL (4.70-6.10) L Hemoglobin 8.4 G/DL (14.2-18.0) L Hematocrit 25.5 % (42.0-52.0) L Mean Corpuscular Volume 92 FL (80-99) Mean Corpuscular Hemoglobin 30.5 PG (27.0-31.0) Mean Corpuscular Hemoglobin Concent 33.1 G/DL (32.0-36.0) Red Cell Distribution Width 15.0 % (11.6-14.8) H Platelet Count 262 K/UL (150-450) Mean Platelet Volume 6.2 FL (6.5-10.1) L Neutrophils (%) (Auto) 79.7 % (45.0-75.0) H Lymphocytes (%) (Auto) 10.6 % (20.0-45.0) L Monocytes (%) (Auto) 7.2 % (1.0-10.0) Eosinophils (%) (Auto) 1.9 % (0.0-3.0) Basophils (%) (Auto) 0.6 % (0.0-2.0) Sodium Level 129 MMOL/L (136-145) L Potassium Level 4.4 MMOL/L (3.5-5.1) Chloride Level 95 MMOL/L (98-107) L Carbon Dioxide Level 29 MMOL/L (21-32) Anion Gap 5 mmol/L (5-15) Blood Urea Nitrogen 13 mg/dL (7-18) Creatinine 0.6 MG/DL (0.55-1.30) Estimat Glomerular Filtration Rate > 60 mL/min (>60) Glucose Level 112 MG/DL (74-106) H Calcium Level 8.8 MG/DL (8.5-10.1) Phosphorus Level 3.4 MG/DL (2.5-4.9) Magnesium Level 1.6 MG/DL (1.8-2.4) L Total Bilirubin 0.3 MG/DL (0.2-1.0) Aspartate Amino Transf (AST/SGOT) 13 U/L (15-37) L Alanine Aminotransferase (ALT/SGPT) 21 U/L (12-78) Alkaline Phosphatase 175 U/L (46-116) H Total Protein 6.8 G/DL (6.4-8.2) Albumin 2.5 G/DL (3.4-5.0) L Globulin 4.3 g/dL Albumin/Globulin Ratio 0.6 (1.0-2.7) L Vancomycin Level Trough 21.7 ug/mL (5.0-12.0) H Leodan Bojorquez MD Dec 22, 2017 09:41
[2017-12-22 12:00] VITALS: BP 122/74
[2017-12-22] MEDS: Vancomycin 750mg/NS 250ml IVPB SCH ×2 (12:01→23:38)
--- NOTE | 2017-12-22 13:43 | General Progress Note ---
Assessment/Plan Assessment/Plan Assessment (1) Anemia ICD Codes: D64.9 - Anemia, unspecified SNOMED: 016647472 (2) Iron deficiency anemia ICD Codes: D50.9 - Iron deficiency anemia, unspecified SNOMED: 09931838 (3) Hypertension ICD Codes: I10 - Essential (primary) hypertension SNOMED: 53323362 (4) Seizure disorder ICD Codes: G40.909 - Epilepsy, unspecified, not intractable, without status epilepticus SNOMED: 450992100 (5) Feeding by G-tube ICD Codes: Z93.1 - Gastrostomy status SNOMED: 982603943, 631764764 (6) Vegetative state ICD Codes: R40.3 - Persistent vegetative state SNOMED: 15917416 (7) Pleural effusion, right ICD Codes: J90 - Pleural effusion, not elsewhere classified SNOMED: 72754879 (8) Ventilator dependent ICD Codes: Z99.11 - Dependence on respirator [ventilator] status SNOMED: 074496571 Assessment/Plan iv iron GTF fu H&H ppi GI procedures on hold Subjective Allergies: Coded Allergies: ACETAMINOPHEN (Verified Allergy, Unknown, 12/16/17) Subjective Non verbal tolerting TF above noted Objective Last 24 Hour Vital Signs Date Time Temp Pulse Resp B/P (MAP) Pulse Ox O2 Delivery O2 Flow Rate FiO2 12/22/17 13:28 79 21 40 12/22/17 12:00 50 12/22/17 12:00 97.9 81 24 122/74 99 Mechanical Ventilator 50 97.9 12/22/17 10:54 92 26 50 12/22/17 09:09 99 19 60 12/22/17 09:08 98 12/22/17 08:39 86 106/60 12/22/17 08:38 106/60 12/22/17 08:00 60 12/22/17 08:00 84 12/22/17 08:00 98.2 86 25 106/60 100 Mechanical Ventilator 60 98.2 12/22/17 07:28 99 21 60 12/22/17 05:31 104 22 60 12/22/17 04:00 97.5 96 21 118/71 94 Mechanical Ventilator 60 97.5 12/22/17 04:00 60 12/22/17 04:00 88 12/22/17 03:23 89 19 60 12/22/17 01:29 96 22 60 12/22/17 00:00 98.1 92 21 111/63 100 Mechanical Ventilator 60 98.1 12/22/17 00:00 60 12/21/17 23:20 91 15 60 12/21/17 23:16 89 12/21/17 21:20 88 22 60 12/21/17 21:20 60 12/21/17 21:14 75 117/63 12/21/17 20:00 98.1 75 12 117/63 100 Mechanical Ventilator 40 98.1 12/21/17 20:00 60 12/21/17 20:00 78 12/21/17 19:51 81 21 40 12/21/17 17:53 140/74 12/21/17 17:05 67 14 40 12/21/17 16:00 97.6 66 12 107/46 100 Mechanical Ventilator 40 97.6 12/21/17 16:00 40 12/21/17 16:00 70 12/21/17 15:15 64 14 40 Intake and Output 12/21/17 12/22/17 19:00 07:00 Intake Total 1130.000 ml 1100.00 ml Output Total 600 ml 700 ml Balance 530.000 ml 400.00 ml Free Water 80 ml IV Total 275.000 ml 390.00 ml Tube Feeding 825 ml 600 ml Other 30 ml 30 ml Output Urine Total 600 ml 700 ml # Voids 1 1 Laboratory Tests 12/22/17 04:15: White Blood Count 11.8H, Red Blood Count 2.76L, Hemoglobin 8.4L, Hematocrit 25.5L, Mean Corpuscular Volume 92, Mean Corpuscular Hemoglobin 30.5, Mean Corpuscular Hemoglobin Concent 33.1, Red Cell Distribution Width 15.0H, Platelet Count 262, Mean Platelet Volume 6.2L, Neutrophils (%) (Auto) 79.7H, Lymphocytes (%) (Auto) 10.6L, Monocytes (%) (Auto) 7.2, Eosinophils (%) (Auto) 1.9, Basophils (%) (Auto) 0.6, Sodium Level 129L, Potassium Level 4.4, Chloride Level 95L, Carbon Dioxide Level 29, Anion Gap 5, Blood Urea Nitrogen 13, Creatinine 0.6, Estimat Glomerular Filtration Rate > 60, Glucose Level 112H, Calcium Level 8.8, Phosphorus Level 3.4, Magnesium Level 1.6L, Total Bilirubin 0.3, Aspartate Amino Transf (AST/SGOT) 13L, Alanine Aminotransferase (ALT/SGPT) 21, Alkaline Phosphatase 175H, Total Protein 6.8, Albumin 2.5L, Globulin 4.3, Albumin/Globulin Ratio 0.6L 12/22/17 08:30: Vancomycin Level Trough 21.7H Height (Feet): 6 Weight (Pounds): 162 Objective Debilitated NCAT (+) Trach coarse BS RR soft NT ND no edema OBS CYNDI CRESPO Dec 22, 2017 13:43
--- NOTE | 2017-12-22 13:57 | Infectious Diseases Prog Note ---
Assessment/Plan Assessment/Plan ASSESSMENT: The patient is a 72-year-old male with: Mild leukocytosis, SP Afebrile. Bacteremia CoNS , most likely due to PICC line infection(present at the time of admission) , Cath tip 12/20 : P , 12/19 BCx :GPC SP removal of PICC and insertion of new PICC 12/20 status post thoracocentesis: extubate no evid of infectious process ( doubt TB , [place] > 4% and low WBC count ) Wound culture: mixed growth : colonizer Anemia Hypoxic encephalopathy. History of cardiac arrest. Hypertension. COPD. History of possible trach. status post G-tube placement. History of contracture of extremities. Diabetes. Anemia. PLAN: continue the patient on IV vancomycin d# 4 Monitor CBC. Monitor BMP Repeat blood culture ( blood) in AM Cath tip Cx : P Subjective Allergies: Coded Allergies: ACETAMINOPHEN (Verified Allergy, Unknown, 12/16/17) Subjective Afebrile Objective Vital Signs Last 24 Hour Vital Signs Date Time Temp Pulse Resp B/P (MAP) Pulse Ox O2 Delivery O2 Flow Rate FiO2 12/22/17 13:28 79 21 40 12/22/17 12:00 50 12/22/17 12:00 97.9 81 24 122/74 99 Mechanical Ventilator 50 97.9 12/22/17 10:54 92 26 50 12/22/17 09:09 99 19 60 12/22/17 09:08 98 12/22/17 08:39 86 106/60 12/22/17 08:38 106/60 12/22/17 08:00 60 12/22/17 08:00 84 12/22/17 08:00 98.2 86 25 106/60 100 Mechanical Ventilator 60 98.2 12/22/17 07:28 99 21 60 12/22/17 05:31 104 22 60 12/22/17 04:00 97.5 96 21 118/71 94 Mechanical Ventilator 60 97.5 12/22/17 04:00 60 12/22/17 04:00 88 12/22/17 03:23 89 19 60 12/22/17 01:29 96 22 60 12/22/17 00:00 98.1 92 21 111/63 100 Mechanical Ventilator 60 98.1 12/22/17 00:00 60 12/21/17 23:20 91 15 60 12/21/17 23:16 89 12/21/17 21:20 88 22 60 12/21/17 21:20 60 12/21/17 21:14 75 117/63 12/21/17 20:00 98.1 75 12 117/63 100 Mechanical Ventilator 40 98.1 12/21/17 20:00 60 12/21/17 20:00 78 12/21/17 19:51 81 21 40 12/21/17 17:53 140/74 12/21/17 17:05 67 14 40 12/21/17 16:00 97.6 66 12 107/46 100 Mechanical Ventilator 40 97.6 12/21/17 16:00 40 12/21/17 16:00 70 12/21/17 15:15 64 14 40 Height (Feet): 6 Weight (Pounds): 162 HEENT: anicteric Respiratory/Chest: no respiratory distress Cardiovascular: regular rhythm Abdomen: no organomegaly Microbiology Date/Time Source Procedure Growth Status 12/19/17 18:30 Blood Blood Culture - Preliminary Resulted 12/19/17 18:15 Blood Blood Culture - Preliminary NO GROWTH AFTER 48 HOURS Resulted 12/20/17 15:50 Arm Left Catheter Tip Culture - Preliminary NO GROWTH AFTER 24 HOURS Resulted Laboratory Tests Test 12/22/17 04:15 12/22/17 08:30 White Blood Count 11.8 K/UL (4.8-10.8) H Red Blood Count 2.76 M/UL (4.70-6.10) L Hemoglobin 8.4 G/DL (14.2-18.0) L Hematocrit 25.5 % (42.0-52.0) L Mean Corpuscular Volume 92 FL (80-99) Mean Corpuscular Hemoglobin 30.5 PG (27.0-31.0) Mean Corpuscular Hemoglobin Concent 33.1 G/DL (32.0-36.0) Red Cell Distribution Width 15.0 % (11.6-14.8) H Platelet Count 262 K/UL (150-450) Mean Platelet Volume 6.2 FL (6.5-10.1) L Neutrophils (%) (Auto) 79.7 % (45.0-75.0) H Lymphocytes (%) (Auto) 10.6 % (20.0-45.0) L Monocytes (%) (Auto) 7.2 % (1.0-10.0) Eosinophils (%) (Auto) 1.9 % (0.0-3.0) Basophils (%) (Auto) 0.6 % (0.0-2.0) Sodium Level 129 MMOL/L (136-145) L Potassium Level 4.4 MMOL/L (3.5-5.1) Chloride Level 95 MMOL/L (98-107) L Carbon Dioxide Level 29 MMOL/L (21-32) Anion Gap 5 mmol/L (5-15) Blood Urea Nitrogen 13 mg/dL (7-18) Creatinine 0.6 MG/DL (0.55-1.30) Estimat Glomerular Filtration Rate > 60 mL/min (>60) Glucose Level 112 MG/DL (74-106) H Calcium Level 8.8 MG/DL (8.5-10.1) Phosphorus Level 3.4 MG/DL (2.5-4.9) Magnesium Level 1.6 MG/DL (1.8-2.4) L Total Bilirubin 0.3 MG/DL (0.2-1.0) Aspartate Amino Transf (AST/SGOT) 13 U/L (15-37) L Alanine Aminotransferase (ALT/SGPT) 21 U/L (12-78) Alkaline Phosphatase 175 U/L (46-116) H Total Protein 6.8 G/DL (6.4-8.2) Albumin 2.5 G/DL (3.4-5.0) L Globulin 4.3 g/dL Albumin/Globulin Ratio 0.6 (1.0-2.7) L Vancomycin Level Trough 21.7 ug/mL (5.0-12.0) H Current Medications Medications (Trade) Dose Ordered Sig/Marciano Route PRN Reason Start Time Stop Time Status Last Admin Dose Admin Acetaminophen (Tylenol) 650 mg Q4H PRN ORAL fever 12/16/17 22:00 01/15/18 21:59 Al Hydroxide/Mg Hydroxide (Mylanta II) 30 ml Q6H PRN ORAL dyspepsia 12/16/17 22:00 01/15/18 21:59 Ascorbic Acid (Vitamin C) 500 mg DAILY GT 12/20/17 09:00 01/19/18 08:59 12/22/17 08:38 Carvedilol (Coreg) 6.25 mg EVERY 12 HOURS GT 12/17/17 09:00 01/16/18 08:59 12/22/17 08:39 Chlorhexidine Gluconate (Nancy-Hex 2%) 1 applic DAILY@2000 TOPIC 12/19/17 21:30 01/18/18 21:29 12/21/17 21:14 Clonidine HCl (Catapres Tab) 0.1 mg EVERY 6 HOURS PRN GT For High Blood Pressure 12/16/17 22:00 01/15/18 21:59 Dextrose (Dextrose 50%) 25 ml STAT PRN IV HYPOGLYCEMIA 12/18/17 08:45 01/17/18 08:44 Dextrose (Dextrose 50%) 50 ml STAT PRN IV Hypoglycemia 12/18/17 08:45 01/15/18 21:59 Hydralazine HCl (Apresoline) 10 mg BID GT 12/17/17 09:00 01/16/18 08:59 12/22/17 08:38 Iron Sucrose 100 mg/Sodium Chloride 115 ml @ 460 mls/hr BEDTIME IV 12/18/17 21:00 12/22/17 21:14 12/21/17 21:15 Levetiracetam (Keppra) 1,000 mg BID GT 12/17/17 09:00 01/16/18 08:59 12/22/17 08:38 Lorazepam (Ativan 2mg/ml 1ml) 0.5 mg Q4H PRN IV For Anxiety 12/16/17 22:00 12/23/17 21:59 Morphine Sulfate (Morphine Sulfate) 1 mg Q4H PRN IVP For Pain 12/16/17 22:45 12/23/17 22:44 Ondansetron HCl (Zofran) 4 mg Q6H PRN IVP Nausea & Vomiting 12/16/17 22:00 01/15/18 21:59 Pantoprazole (Protonix) 40 mg DAILY ORAL 12/20/17 09:00 01/19/18 08:59 12/22/17 08:38 Polyethylene Glycol (Miralax) 17 gm HSPRN PRN ORAL Constipation 12/16/17 22:00 01/15/18 21:59 Sodium Chloride (NaCl) 1 gm BIAC ORAL 12/19/17 16:30 01/18/18 16:29 12/22/17 06:36 Vancomycin HCl (Vanco rx to dose) 1 ea DAILYPRN PRN MISC Per rx protocol 12/19/17 13:30 01/18/18 13:29 Vancomycin/Sodium Chloride 250 ml @ 166.667 mls/hr Q12H IVPB 12/22/17 12:00 12/27/17 11:59 12/22/17 12:01 Zolpidem Tartrate (Ambien) 5 mg HSPRN PRN ORAL Insomnia 12/16/17 22:00 12/23/17 21:59 Emery Mendez MD Dec 22, 2017 13:57
[2017-12-22 16:00] VITALS: BP 106/60
--- NOTE | 2017-12-22 16:02 | Nephrology Progress Note ---
Assessment/Plan Assessment 1. Isovolemic hyponatremia, most likely as a result of antiseizure medication. 2. Prerenal azotemia and elevation of BUN/creatinine ratio. 3. hypomagnesemia 4. History of respiratory failure. 5. History of PEG placement. 6. History of hypertension. Plan plan replace mg continue salt tab to continue current iv monitoring renal function and electrolyte mix all ivpb with ns .9 fallow up with urine study Subjective Constitutional: Reports: no symptoms HEENT: Reports: no symptoms Genitourinary: Reports: no symptoms Neurologic/Psychiatric: Reports: no symptoms Subjective no acute events Objective Objective Last 24 Hour Vital Signs Date Time Temp Pulse Resp B/P (MAP) Pulse Ox O2 Delivery O2 Flow Rate FiO2 12/22/17 15:05 72 20 40 12/22/17 13:28 79 21 40 12/22/17 12:00 50 12/22/17 12:00 97.9 81 24 122/74 99 Mechanical Ventilator 50 97.9 12/22/17 10:54 92 26 50 12/22/17 09:09 99 19 60 12/22/17 09:08 98 12/22/17 08:39 86 106/60 12/22/17 08:38 106/60 12/22/17 08:00 60 12/22/17 08:00 84 12/22/17 08:00 98.2 86 25 106/60 100 Mechanical Ventilator 60 98.2 12/22/17 07:28 99 21 60 12/22/17 05:31 104 22 60 12/22/17 04:00 97.5 96 21 118/71 94 Mechanical Ventilator 60 97.5 12/22/17 04:00 60 12/22/17 04:00 88 12/22/17 03:23 89 19 60 12/22/17 01:29 96 22 60 12/22/17 00:00 98.1 92 21 111/63 100 Mechanical Ventilator 60 98.1 12/22/17 00:00 60 12/21/17 23:20 91 15 60 12/21/17 23:16 89 12/21/17 21:20 88 22 60 12/21/17 21:20 60 12/21/17 21:14 75 117/63 12/21/17 20:00 98.1 75 12 117/63 100 Mechanical Ventilator 40 98.1 12/21/17 20:00 60 12/21/17 20:00 78 12/21/17 19:51 81 21 40 12/21/17 17:53 140/74 12/21/17 17:05 67 14 40 Intake and Output 12/21/17 12/22/17 19:00 07:00 Intake Total 1130.000 ml 1100.00 ml Output Total 600 ml 700 ml Balance 530.000 ml 400.00 ml Free Water 80 ml IV Total 275.000 ml 390.00 ml Tube Feeding 825 ml 600 ml Other 30 ml 30 ml Output Urine Total 600 ml 700 ml # Voids 1 1 Laboratory Tests 12/22/17 04:15: White Blood Count 11.8H, Red Blood Count 2.76L, Hemoglobin 8.4L, Hematocrit 25.5L, Mean Corpuscular Volume 92, Mean Corpuscular Hemoglobin 30.5, Mean Corpuscular Hemoglobin Concent 33.1, Red Cell Distribution Width 15.0H, Platelet Count 262, Mean Platelet Volume 6.2L, Neutrophils (%) (Auto) 79.7H, Lymphocytes (%) (Auto) 10.6L, Monocytes (%) (Auto) 7.2, Eosinophils (%) (Auto) 1.9, Basophils (%) (Auto) 0.6, Sodium Level 129L, Potassium Level 4.4, Chloride Level 95L, Carbon Dioxide Level 29, Anion Gap 5, Blood Urea Nitrogen 13, Creatinine 0.6, Estimat Glomerular Filtration Rate > 60, Glucose Level 112H, Calcium Level 8.8, Phosphorus Level 3.4, Magnesium Level 1.6L, Total Bilirubin 0.3, Aspartate Amino Transf (AST/SGOT) 13L, Alanine Aminotransferase (ALT/SGPT) 21, Alkaline Phosphatase 175H, Total Protein 6.8, Albumin 2.5L, Globulin 4.3, Albumin/Globulin Ratio 0.6L 12/22/17 08:30: Vancomycin Level Trough 21.7H Height (Feet): 6 Weight (Pounds): 162 Objective GENERAL: The patient is a chronic ill looking male, in no acute distress. HEAD AND NECK: ET tube is in place. Head is atraumatic and normocephalic. Extraocular movements intact. Pupils are reactive to light and accommodation. LUNGS: Decreased breathing sounds on both sides, right more than left. CARDIAC: Regular rate and rhythm. S1, S2. No murmur. No rub. ABDOMEN: Soft, nontender, nondistended. EXTREMITIES: A 1+ edema. No clubbing. No cyanosis. SANDRA RODRIGUEZ Dec 22, 2017 16:01
[2017-12-22 20:00] VITALS: BP 100/70
[2017-12-22] MEDS: Dyna-Hex 2% Top Sol 2oz TOPIC SCH (20:51)
[2017-12-22] MEDS: Iron Sucrose 100 MG in NS 110 ML IV SCH (21:26)
[2017-12-23] VITALS: BP 122/59
--- NOTE | 2017-12-23 01:15 | General Progress Note ---
Assessment/Plan Assessment/Plan #. Anemia due to underlying chronic disease. --> Continue to closely monitor. Monitor for improvement. --> Anemia workup reviewed. Iron 39, TIBC 280, Ferritin 241, Folate 18.2, TSH 2.6 --> Appears to have anemia of iron deficiency as well. Will be started on IV iron. --> Transfuse as needed. Hemoglobin goal >7 #. Anemia of iron deficiency. --> We will begin the patient on IV iron at this time. --> Monitor and trend cbc. #. Coagulopathy, likely secondary to reactive process. --> Closely monitor. --> Administer vitamin K as needed. #. Leukocytosis, potentially secondary to infection. --> Management per ID. Check cultures. --> On vancomycin. Improved. #. Dysphagia, status post gastrostomy tube. #. Respiratory failure, status post vent and trach. --> Ventilator dependent #. Hypertension. Systolic blood pressure goal less than 140. #. Pleural effusion, status post thoracentesis. Pulmonary evaluation. #. Seizure disorder. On [facility] Subjective Date patient seen: Dec 22, 2017 Constitutional: Denies: no symptoms, chills, diaphoresis, fever, malaise, weakness, other HEENT: Denies: no symptoms, eye pain, blurred vision, tearing, double vision, ear pain, ear discharge, nose pain, nose congestion, throat pain, throat swelling, mouth pain, mouth swelling, other Cardiovascular: Denies: no symptoms, chest pain, edema, irregular heart rate, lightheadedness, palpitations, syncope, other Respiratory: Denies: no symptoms, cough, orthopnea, shortness of breath, SOB with excertion, SOB at rest, sputum, stridor, wheezing, other Gastrointestinal/Abdominal: Denies: no symptoms, abdomen distended, abdominal pain, black stools, tarry stools, blood in stool, constipated, diarrhea, difficulty swallowing, nausea, poor appetite, poor fluid intake, rectal bleeding , vomiting, other Genitourinary: Denies: no symptoms, burning, discharge, frequency, flank pain, hematuria, incontinence, pain, urgency, other Neurologic/Psychiatric: Denies: no symptoms, anxiety, depressed, emotional problems, headache, numbness, paresthesia, pre-existing deficit, seizure, tingling, tremors, weakness, other Hematologic/Lymphatic: Reports: anemia Allergies: Coded Allergies: ACETAMINOPHEN (Verified Allergy, Unknown, 12/16/17) Subjective Mild leukocytosis. On vent. On tube feedings. Objective Last 24 Hour Vital Signs Date Time Temp Pulse Resp B/P (MAP) Pulse Ox O2 Delivery O2 Flow Rate FiO2 12/23/17 00:52 75 20 40 12/23/17 00:06 66 12/22/17 22:56 80 16 40 12/22/17 22:10 80 16 40 12/22/17 21:00 80 100/70 12/22/17 20:29 80 16 40 12/22/17 20:00 40 12/22/17 20:00 98.1 74 14 100/70 99 Mechanical Ventilator 40 98.1 12/22/17 19:48 73 12/22/17 17:46 133/55 12/22/17 16:59 75 16 40 12/22/17 16:46 72 12/22/17 16:00 40 12/22/17 16:00 98.2 81 22 106/60 100 Mechanical Ventilator 40 98.2 12/22/17 15:05 72 20 40 12/22/17 13:28 79 21 40 12/22/17 12:00 50 12/22/17 12:00 97.9 81 24 122/74 99 Mechanical Ventilator 50 97.9 12/22/17 11:48 72 12/22/17 10:54 92 26 50 12/22/17 09:09 99 19 60 12/22/17 09:08 98 12/22/17 08:39 86 106/60 12/22/17 08:38 106/60 12/22/17 08:00 60 12/22/17 08:00 84 12/22/17 08:00 98.2 86 25 106/60 100 Mechanical Ventilator 60 98.2 12/22/17 07:28 99 21 60 12/22/17 05:31 104 22 60 12/22/17 04:00 97.5 96 21 118/71 94 Mechanical Ventilator 60 97.5 12/22/17 04:00 60 12/22/17 04:00 88 12/22/17 03:23 89 19 60 12/22/17 01:29 96 22 60 Intake and Output 12/22/17 12/23/17 19:00 07:00 Intake Total 1410.000 ml 50 ml Output Total 525 ml Balance 885.000 ml 50 ml Free Water 20 ml 50 ml IV Total 450.000 ml Tube Feeding 900 ml 0 ml Other 40 ml Output Urine Total 525 ml # Voids 1 Laboratory Tests 12/22/17 04:15: White Blood Count 11.8H, Red Blood Count 2.76L, Hemoglobin 8.4L, Hematocrit 25.5L, Mean Corpuscular Volume 92, Mean Corpuscular Hemoglobin 30.5, Mean Corpuscular Hemoglobin Concent 33.1, Red Cell Distribution Width 15.0H, Platelet Count 262, Mean Platelet Volume 6.2L, Neutrophils (%) (Auto) 79.7H, Lymphocytes (%) (Auto) 10.6L, Monocytes (%) (Auto) 7.2, Eosinophils (%) (Auto) 1.9, Basophils (%) (Auto) 0.6, Sodium Level 129L, Potassium Level 4.4, Chloride Level 95L, Carbon Dioxide Level 29, Anion Gap 5, Blood Urea Nitrogen 13, Creatinine 0.6, Estimat Glomerular Filtration Rate > 60, Glucose Level 112H, Calcium Level 8.8, Phosphorus Level 3.4, Magnesium Level 1.6L, Total Bilirubin 0.3, Aspartate Amino Transf (AST/SGOT) 13L, Alanine Aminotransferase (ALT/SGPT) 21, Alkaline Phosphatase 175H, Total Protein 6.8, Albumin 2.5L, Globulin 4.3, Albumin/Globulin Ratio 0.6L 12/22/17 08:30: Vancomycin Level Trough 21.7H Height (Feet): 6 Weight (Pounds): 162 General Appearance: confused Respiratory/Chest: decreased breath sounds Fermín Alberto MD Dec 23, 2017 01:15
[2017-12-23 04:00] VITALS: BP 100/56
[2017-12-23 04:19] LABS: HEMOGLOBIN 7.6 G/DL (14.2-18.0); MEAN CORPUSCULAR VOLUME 93 FL (80-99); PLATELET COUNT 251 K/UL (150-450); RED BLOOD COUNT 2.48 M/UL (4.70-6.10)
[2017-12-23 04:42] LABS: ALANINE AMINOTRANSFERASE 23 U/L (12-78); ALBUMIN 2.3 G/DL (3.4-5.0); ALBUMIN/GLOBULIN RATIO 0.5 (1.0-2.7); ALKALINE PHOSPHATASE 159 U/L (46-116); ANION GAP 7 mmol/L (5-15); ASPARTATE AMINO TRANSFERASE 13 U/L (15-37); BILIRUBIN,TOTAL 0.3 MG/DL (0.2-1.0); BLOOD UREA NITROGEN 12 mg/dL (7-18); CALCIUM 8.7 MG/DL (8.5-10.1); CARBON DIOXIDE 28 MMOL/L (21-32); CHLORIDE 96 MMOL/L (98-107); CREATININE 0.6 MG/DL (0.55-1.30); POTASSIUM 4.4 MMOL/L (3.5-5.1); SODIUM 130 MMOL/L (136-145)
[2017-12-23] MEDS: Sodium Chloride 1gm Tab ORAL SCH ×2 (05:36→18:54)
[2017-12-23 08:00] VITALS: BP 139/74
--- NOTE | 2017-12-23 09:46 | Nephrology Progress Note ---
Assessment/Plan Assessment 1. Isovolemic hyponatremia, most likely as a result of antiseizure medication. 2. Prerenal azotemia and elevation of BUN/creatinine ratio. 3. hypomagnesemia 4. History of respiratory failure. 5. History of PEG placement. 6. History of hypertension. Plan plan replace mg continue salt tab to continue current iv monitoring renal function and electrolyte mix all ivpb with ns .9 fallow up with urine study Subjective ROS Limited/Unobtainable: Yes Constitutional: Reports: no symptoms HEENT: Reports: no symptoms Genitourinary: Reports: no symptoms Neurologic/Psychiatric: Reports: no symptoms Subjective no acute events Objective Objective Last 24 Hour Vital Signs Date Time Temp Pulse Resp B/P (MAP) Pulse Ox O2 Delivery O2 Flow Rate FiO2 12/23/17 08:00 98.2 70 20 139/74 100 Mechanical Ventilator 40 98.2 12/23/17 07:16 69 16 40 12/23/17 05:18 77 22 40 12/23/17 04:00 68 12/23/17 04:00 97.7 63 17 100/56 99 Mechanical Ventilator 40 97.7 12/23/17 04:00 40 12/23/17 02:48 75 20 40 12/23/17 00:52 75 20 40 12/23/17 00:06 66 12/23/17 00:00 40 12/23/17 00:00 97.3 66 12 122/59 99 Mechanical Ventilator 40 97.3 12/22/17 22:56 80 16 40 12/22/17 22:10 80 16 40 12/22/17 21:00 80 100/70 12/22/17 20:29 80 16 40 12/22/17 20:00 40 12/22/17 20:00 98.1 74 14 100/70 99 Mechanical Ventilator 40 98.1 12/22/17 19:48 73 12/22/17 17:46 133/55 12/22/17 16:59 75 16 40 12/22/17 16:46 72 12/22/17 16:00 40 12/22/17 16:00 98.2 81 22 106/60 100 Mechanical Ventilator 40 98.2 12/22/17 15:05 72 20 40 12/22/17 13:28 79 21 40 12/22/17 12:00 50 4/8/18 12:00 97.9 81 24 122/74 99 Mechanical Ventilator 50 97.9 12/22/17 11:48 72 12/22/17 10:54 92 26 50 Intake and Output 12/22/17 12/23/17 19:00 07:00 Intake Total 1410.000 ml 1468.334 ml Output Total 525 ml 1100 ml Balance 885.000 ml 368.334 ml Free Water 20 ml 150 ml IV Total 450.000 ml 793.334 ml Tube Feeding 900 ml 525 ml Other 40 ml Output Urine Total 525 ml 1100 ml # Voids 1 Laboratory Tests 12/23/17 04:00: White Blood Count 8.0, Red Blood Count 2.48L, Hemoglobin 7.6L, Hematocrit 23.0L , Mean Corpuscular Volume 93, Mean Corpuscular Hemoglobin 30.5, Mean Corpuscular Hemoglobin Concent 32.9, Red Cell Distribution Width 15.0H, Platelet Count 251, Mean Platelet Volume 6.3L, Neutrophils (%) (Auto) , Lymphocytes (%) (Auto) , Monocytes (%) (Auto) , Eosinophils (%) (Auto) , Basophils (%) (Auto) , Differential Total Cells Counted 100, Neutrophils % ( Manual) 74, Lymphocytes % (Manual) 16L, Monocytes % (Manual) 10, Eosinophils % ( Manual) 0, Basophils % (Manual) 0, Band Neutrophils 0, Platelet Estimate Adequate, Platelet Morphology Normal, Hypochromasia 1+, Basophilic Stippling 1+ , Anisocytosis 1+, Sodium Level 130L, Potassium Level 4.4, Chloride Level 96L, Carbon Dioxide Level 28, Anion Gap 7, Blood Urea Nitrogen 12, Creatinine 0.6, Estimat Glomerular Filtration Rate > 60, Glucose Level 112H, Calcium Level 8.7, Total Bilirubin 0.3, Aspartate Amino Transf (AST/SGOT) 13L, Alanine Aminotransferase (ALT/SGPT) 23, Alkaline Phosphatase 159H, Pro-B-Type Natriuretic Peptide 257H, Total Protein 6.5, Albumin 2.3L, Globulin 4.2, Albumin /Globulin Ratio 0.5L Height (Feet): 6 Weight (Pounds): 162 Objective GENERAL: The patient is a chronic ill looking male, in no acute distress. HEAD AND NECK: ET tube is in place. Head is atraumatic and normocephalic. Extraocular movements intact. Pupils are reactive to light and accommodation. LUNGS: Decreased breathing sounds on both sides, right more than left. CARDIAC: Regular rate and rhythm. S1, S2. No murmur. No rub. ABDOMEN: Soft, nontender, nondistended. EXTREMITIES: A 1+ edema. No clubbing. No cyanosis. SANDRA RODRIGUEZ Dec 23, 2017 09:45
[2017-12-23] MEDS: Ascorbic Acid 500mg tab GT SCH (09:51)
[2017-12-23] MEDS: HydrALAZINE 10mg Tab GT SCH ×2 (09:52→18:54)
[2017-12-23] MEDS: Carvedilol 6.25mg Tab GT SCH (09:52)
[2017-12-23] MEDS: levETIRAcetam 500mg/5ml Liquid GT SCH ×2 (09:53→18:54)
--- NOTE | 2017-12-23 10:34 | GI Progress Note ---
Assessment/Plan Problems: (1) Feeding by G-tube ICD Codes: Z93.1 - Gastrostomy status SNOMED: 119728332, 436395876 (2) Vegetative state ICD Codes: R40.3 - Persistent vegetative state SNOMED: 82791638 (3) Ventilator dependent ICD Codes: Z99.11 - Dependence on respirator [ventilator] status SNOMED: 828411080 (4) Anemia ICD Codes: D64.9 - Anemia, unspecified SNOMED: 051902441 (5) Iron deficiency anemia ICD Codes: D50.9 - Iron deficiency anemia, unspecified SNOMED: 01703984 Status: unchanged Status Narrative Discussed with Dr. Coulter. Assessment/Plan iv iron GTFs GT site care daily/prn fu H&H, prn transfusion ppi GI procedures on hold The patient was seen and examined at bedside and all new and available data was reviewed in the patients chart. I agree with the above findings, impression and plan. (Patient seen earlier today. Signature stamp does not reflect patient encounter time.). - Russell Coulter MD Subjective Subjective limited Objective Last 24 Hour Vital Signs Date Time Temp Pulse Resp B/P (MAP) Pulse Ox O2 Delivery O2 Flow Rate FiO2 12/23/17 09:57 73 18 40 12/23/17 09:52 139/74 12/23/17 09:52 70 139/74 12/23/17 08:00 98.2 70 20 139/74 100 Mechanical Ventilator 40 98.2 12/23/17 07:16 69 16 40 12/23/17 05:18 77 22 40 12/23/17 04:00 68 12/23/17 04:00 97.7 63 17 100/56 99 Mechanical Ventilator 40 97.7 12/23/17 04:00 40 12/23/17 02:48 75 20 40 12/23/17 00:52 75 20 40 12/23/17 00:06 66 12/23/17 00:00 40 12/23/17 00:00 97.3 66 12 122/59 99 Mechanical Ventilator 40 97.3 12/22/17 22:56 80 16 40 12/22/17 22:10 80 16 40 12/22/17 21:00 80 100/70 12/22/17 20:29 80 16 40 12/22/17 20:00 40 12/22/17 20:00 98.1 74 14 100/70 99 Mechanical Ventilator 40 98.1 12/22/17 19:48 73 12/22/17 17:46 133/55 12/22/17 16:59 75 16 40 12/22/17 16:46 72 12/22/17 16:00 40 12/22/17 16:00 98.2 81 22 106/60 100 Mechanical Ventilator 40 98.2 12/22/17 15:05 72 20 40 12/22/17 13:28 79 21 40 12/22/17 12:00 50 12/22/17 12:00 97.9 81 24 122/74 99 Mechanical Ventilator 50 97.9 12/22/17 11:48 72 12/22/17 10:54 92 26 50 Intake and Output 12/22/17 12/23/17 19:00 07:00 Intake Total 1410.000 ml 1468.334 ml Output Total 525 ml 1100 ml Balance 885.000 ml 368.334 ml Free Water 20 ml 150 ml IV Total 450.000 ml 793.334 ml Tube Feeding 900 ml 525 ml Other 40 ml Output Urine Total 525 ml 1100 ml # Voids 1 Laboratory Tests Test 12/23/17 04:00 White Blood Count 8.0 K/UL (4.8-10.8) Red Blood Count 2.48 M/UL (4.70-6.10) L Hemoglobin 7.6 G/DL (14.2-18.0) L Hematocrit 23.0 % (42.0-52.0) L Mean Corpuscular Volume 93 FL (80-99) Mean Corpuscular Hemoglobin 30.5 PG (27.0-31.0) Mean Corpuscular Hemoglobin Concent 32.9 G/DL (32.0-36.0) Red Cell Distribution Width 15.0 % (11.6-14.8) H Platelet Count 251 K/UL (150-450) Mean Platelet Volume 6.3 FL (6.5-10.1) L Neutrophils (%) (Auto) % (45.0-75.0) Lymphocytes (%) (Auto) % (20.0-45.0) Monocytes (%) (Auto) % (1.0-10.0) Eosinophils (%) (Auto) % (0.0-3.0) Basophils (%) (Auto) % (0.0-2.0) Differential Total Cells Counted 100 Neutrophils % (Manual) 74 % (45-75) Lymphocytes % (Manual) 16 % (20-45) L Monocytes % (Manual) 10 % (1-10) Eosinophils % (Manual) 0 % (0-3) Basophils % (Manual) 0 % (0-2) Band Neutrophils 0 % (0-8) Platelet Estimate Adequate Platelet Morphology Normal Hypochromasia 1+ Basophilic Stippling 1+ Anisocytosis 1+ Sodium Level 130 MMOL/L (136-145) L Potassium Level 4.4 MMOL/L (3.5-5.1) Chloride Level 96 MMOL/L (98-107) L Carbon Dioxide Level 28 MMOL/L (21-32) Anion Gap 7 mmol/L (5-15) Blood Urea Nitrogen 12 mg/dL (7-18) Creatinine 0.6 MG/DL (0.55-1.30) Estimat Glomerular Filtration Rate > 60 mL/min (>60) Glucose Level 112 MG/DL (74-106) H Calcium Level 8.7 MG/DL (8.5-10.1) Total Bilirubin 0.3 MG/DL (0.2-1.0) Aspartate Amino Transf (AST/SGOT) 13 U/L (15-37) L Alanine Aminotransferase (ALT/SGPT) 23 U/L (12-78) Alkaline Phosphatase 159 U/L (46-116) H Pro-B-Type Natriuretic Peptide 257 pg/mL (0-125) H Total Protein 6.5 G/DL (6.4-8.2) Albumin 2.3 G/DL (3.4-5.0) L Globulin 4.2 g/dL Albumin/Globulin Ratio 0.5 (1.0-2.7) L Height (Feet): 6 Weight (Pounds): 162 General Appearance: no apparent distress Cardiovascular: normal rate Respiratory/Chest: other - mech vent Abdominal Exam: GT site - c/d/i Tanika Pabon N.PStefani Dec 23, 2017 10:34 ONEL COULTER Dec 24, 2017 13:15
--- NOTE | 2017-12-23 10:54 | Pulmonolgy Critical Care Note ---
Critical Care - Asmt/Plan Problems: (1) Acute on chronic respiratory failure (2) Aspiration pneumonia (3) Pleural effusion, right (4) Symptomatic anemia (5) Seizure disorder (6) Hypertension (7) Ventilator dependent (8) Feeding by G-tube Respiratory: monitor respiratory rate, CXR Cardiac: start pressors, continue to monitor HR/BP Renal: F/U I&O, check electrolytes Infectious Disease: check cultures - on vancomycin, continue antibiotics Gastrointestinal: continue feedings/current rate Endocrine: monitor blood sugar, check TSH, continue sliding scale insulin Hematologic: monitor H/H, transfuse if hgb<8.5 Neurologic: PRN Ativan, keep patient comfortable Affect: PRN ativan Prophylaxis: Protonix Notes Reviewed: grade recorder, 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 with: nurses, 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, 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 - Objective Last 24 Hour Vital Signs Date Time Temp Pulse Resp B/P (MAP) Pulse Ox O2 Delivery O2 Flow Rate FiO2 12/23/17 09:57 73 18 40 12/23/17 09:52 139/74 12/23/17 09:52 70 139/74 12/23/17 08:00 98.2 70 20 139/74 100 Mechanical Ventilator 40 98.2 12/23/17 07:16 69 16 40 12/23/17 05:18 77 22 40 12/23/17 04:00 68 12/23/17 04:00 97.7 63 17 100/56 99 Mechanical Ventilator 40 97.7 12/23/17 04:00 40 12/23/17 02:48 75 20 40 12/23/17 00:52 75 20 40 12/23/17 00:06 66 12/23/17 00:00 40 12/23/17 00:00 97.3 66 12 122/59 99 Mechanical Ventilator 40 97.3 12/22/17 22:56 80 16 40 12/22/17 22:10 80 16 40 12/22/17 21:00 80 100/70 12/22/17 20:29 80 16 40 12/22/17 20:00 40 12/22/17 20:00 98.1 74 14 100/70 99 Mechanical Ventilator 40 98.1 12/22/17 19:48 73 12/22/17 17:46 133/55 12/22/17 16:59 75 16 40 12/22/17 16:46 72 12/22/17 16:00 40 12/22/17 16:00 98.2 81 22 106/60 100 Mechanical Ventilator 40 98.2 12/22/17 15:05 72 20 40 12/22/17 13:28 79 21 40 12/22/17 12:00 50 12/22/17 12:00 97.9 81 24 122/74 99 Mechanical Ventilator 50 97.9 12/22/17 11:48 72 12/22/17 10:54 92 26 50 Status: awake Condition: improving HEENT: atraumatic Neck: full ROM Lungs: clear Heart: HR/BP stable, HR/BP unstable Abdomen: soft, non-tender, feeding tube Extremities: edema Decubiti: stage Micro: Microbiology Date/Time Source Procedure Growth Status 12/20/17 15:50 Arm Left Catheter Tip Culture - Preliminary NO GROWTH AFTER 48 HOURS Resulted Critical Care - Subjective ROS Limited/Unobtainable: No Interval Events: looks comfortable FI02: 40 Vent Support Breath Rate: 8 Vent Support Mode: IMV/SIMV Vent Tidal Volume: 450 Sputum Amount: Moderate PEEP: 5.0 PIP: 19 Tube Feeding Amount: 75 I&O: Intake and Output 12/22/17 12/23/17 19:00 07:00 Intake Total 1410.000 ml 1468.334 ml Output Total 525 ml 1100 ml Balance 885.000 ml 368.334 ml Free Water 20 ml 150 ml IV Total 450.000 ml 793.334 ml Tube Feeding 900 ml 525 ml Other 40 ml Output Urine Total 525 ml 1100 ml # Voids 1 CXR: no change, trach intact Labs: Laboratory Tests Test 12/23/17 04:00 White Blood Count 8.0 K/UL (4.8-10.8) Red Blood Count 2.48 M/UL (4.70-6.10) L Hemoglobin 7.6 G/DL (14.2-18.0) L Hematocrit 23.0 % (42.0-52.0) L Mean Corpuscular Volume 93 FL (80-99) Mean Corpuscular Hemoglobin 30.5 PG (27.0-31.0) Mean Corpuscular Hemoglobin Concent 32.9 G/DL (32.0-36.0) Red Cell Distribution Width 15.0 % (11.6-14.8) H Platelet Count 251 K/UL (150-450) Mean Platelet Volume 6.3 FL (6.5-10.1) L Neutrophils (%) (Auto) % (45.0-75.0) Lymphocytes (%) (Auto) % (20.0-45.0) Monocytes (%) (Auto) % (1.0-10.0) Eosinophils (%) (Auto) % (0.0-3.0) Basophils (%) (Auto) % (0.0-2.0) Differential Total Cells Counted 100 Neutrophils % (Manual) 74 % (45-75) Lymphocytes % (Manual) 16 % (20-45) L Monocytes % (Manual) 10 % (1-10) Eosinophils % (Manual) 0 % (0-3) Basophils % (Manual) 0 % (0-2) Band Neutrophils 0 % (0-8) Platelet Estimate Adequate Platelet Morphology Normal Hypochromasia 1+ Basophilic Stippling 1+ Anisocytosis 1+ Sodium Level 130 MMOL/L (136-145) L Potassium Level 4.4 MMOL/L (3.5-5.1) Chloride Level 96 MMOL/L (98-107) L Carbon Dioxide Level 28 MMOL/L (21-32) Anion Gap 7 mmol/L (5-15) Blood Urea Nitrogen 12 mg/dL (7-18) Creatinine 0.6 MG/DL (0.55-1.30) Estimat Glomerular Filtration Rate > 60 mL/min (>60) Glucose Level 112 MG/DL (74-106) H Calcium Level 8.7 MG/DL (8.5-10.1) Total Bilirubin 0.3 MG/DL (0.2-1.0) Aspartate Amino Transf (AST/SGOT) 13 U/L (15-37) L Alanine Aminotransferase (ALT/SGPT) 23 U/L (12-78) Alkaline Phosphatase 159 U/L (46-116) H Pro-B-Type Natriuretic Peptide 257 pg/mL (0-125) H Total Protein 6.5 G/DL (6.4-8.2) Albumin 2.3 G/DL (3.4-5.0) L Globulin 4.2 g/dL Albumin/Globulin Ratio 0.5 (1.0-2.7) L Leodan Bojorquez MD Dec 23, 2017 10:54
--- NOTE | 2017-12-23 10:55 | Diagnostic Imaging Report ---
Indication: Dyspnea Comparison: 12/19/2017 A single view chest radiograph was obtained. Findings: Mild interstitial edema is present increased from the last exam. Hazy right basilar opacity consistent with a pleural effusion. The heart is borderline enlarged. PICC line and tracheostomy are noted. IMPRESSION: Slightly increasing pulmonary edema
[2017-12-23 12:00] VITALS: BP 126/58
[2017-12-23] MEDS: Docusate 100mg/10ml Liq ORAL SCH ×2 (13:17→18:54)
[2017-12-23] MEDS: Vancomycin 750mg/NS 250ml IVPB SCH (13:19)
--- NOTE | 2017-12-23 14:10 | General Progress Note ---
Assessment/Plan Problem List: (1) Ventilator dependent ICD Codes: Z99.11 - Dependence on respirator [ventilator] status SNOMED: 370958131 (2) Pleural effusion, right ICD Codes: J90 - Pleural effusion, not elsewhere classified SNOMED: 71318327 (3) Hypertension ICD Codes: I10 - Essential (primary) hypertension SNOMED: 23366241 (4) Seizure disorder ICD Codes: G40.909 - Epilepsy, unspecified, not intractable, without status epilepticus SNOMED: 372225377 (5) Symptomatic anemia ICD Codes: D64.9 - Anemia, unspecified SNOMED: 252489675 Status: stable, progressing, tolerating diet Assessment/Plan vetn ot pt diet cbc bmp am ltach eval Subjective Constitutional: Reports: weakness Allergies: Coded Allergies: ACETAMINOPHEN (Verified Allergy, Unknown, 12/16/17) All Systems: reviewed and negative except above Subjective trach vent altered calm Objective Last 24 Hour Vital Signs Date Time Temp Pulse Resp B/P (MAP) Pulse Ox O2 Delivery O2 Flow Rate FiO2 12/23/17 13:05 70 18 40 12/23/17 12:00 98.2 66 19 126/58 100 Mechanical Ventilator 40 98.2 12/23/17 12:00 40 12/23/17 11:20 72 18 40 12/23/17 09:57 73 18 40 12/23/17 09:52 139/74 12/23/17 09:52 70 139/74 12/23/17 08:00 40 12/23/17 08:00 98.2 70 20 139/74 100 Mechanical Ventilator 40 98.2 12/23/17 07:23 61 12/23/17 07:16 69 16 40 12/23/17 05:18 77 22 40 12/23/17 04:00 68 12/23/17 04:00 97.7 63 17 100/56 99 Mechanical Ventilator 40 97.7 12/23/17 04:00 40 12/23/17 02:48 75 20 40 12/23/17 00:52 75 20 40 12/23/17 00:06 66 12/23/17 00:00 40 12/23/17 00:00 97.3 66 12 122/59 99 Mechanical Ventilator 40 97.3 12/22/17 22:56 80 16 40 12/22/17 22:10 80 16 40 12/22/17 21:00 80 100/70 12/22/17 20:29 80 16 40 12/22/17 20:00 40 12/22/17 20:00 98.1 74 14 100/70 99 Mechanical Ventilator 40 98.1 12/22/17 19:48 73 12/22/17 17:46 133/55 12/22/17 16:59 75 16 40 12/22/17 16:46 72 12/22/17 16:00 40 12/22/17 16:00 98.2 81 22 106/60 100 Mechanical Ventilator 40 98.2 12/22/17 15:05 72 20 40 Intake and Output 12/22/17 12/23/17 19:00 07:00 Intake Total 1410.000 ml 1468.334 ml Output Total 525 ml 1100 ml Balance 885.000 ml 368.334 ml Free Water 20 ml 150 ml IV Total 450.000 ml 793.334 ml Tube Feeding 900 ml 525 ml Other 40 ml Output Urine Total 525 ml 1100 ml # Voids 1 Laboratory Tests 12/23/17 04:00: White Blood Count 8.0, Red Blood Count 2.48L, Hemoglobin 7.6L, Hematocrit 23.0L , Mean Corpuscular Volume 93, Mean Corpuscular Hemoglobin 30.5, Mean Corpuscular Hemoglobin Concent 32.9, Red Cell Distribution Width 15.0H, Platelet Count 251, Mean Platelet Volume 6.3L, Neutrophils (%) (Auto) , Lymphocytes (%) (Auto) , Monocytes (%) (Auto) , Eosinophils (%) (Auto) , Basophils (%) (Auto) , Differential Total Cells Counted 100, Neutrophils % ( Manual) 74, Lymphocytes % (Manual) 16L, Monocytes % (Manual) 10, Eosinophils % ( Manual) 0, Basophils % (Manual) 0, Band Neutrophils 0, Platelet Estimate Adequate, Platelet Morphology Normal, Hypochromasia 1+, Basophilic Stippling 1+ , Anisocytosis 1+, Sodium Level 130L, Potassium Level 4.4, Chloride Level 96L, Carbon Dioxide Level 28, Anion Gap 7, Blood Urea Nitrogen 12, Creatinine 0.6, Estimat Glomerular Filtration Rate > 60, Glucose Level 112H, Calcium Level 8.7, Total Bilirubin 0.3, Aspartate Amino Transf (AST/SGOT) 13L, Alanine Aminotransferase (ALT/SGPT) 23, Alkaline Phosphatase 159H, Pro-B-Type Natriuretic Peptide 257H, Total Protein 6.5, Albumin 2.3L, Globulin 4.2, Albumin /Globulin Ratio 0.5L Height (Feet): 6 Weight (Pounds): 162 General Appearance: lethargic EENT: normal ENT inspection Neck: normal alignment Cardiovascular: normal peripheral pulses, normal rate, regular rhythm Respiratory/Chest: chest wall non-tender, lungs clear, normal breath sounds Abdomen: normal bowel sounds, non tender, soft Extremities: normal inspection Edema: no edema noted Arm (L), no edema noted Arm (R), no edema noted Leg (L), no edema noted Leg (R), no edema noted Pedal (L), no edema noted Pedal (R), no edema noted Generalized Neurologic: motor weakness Skin: normal pigmentation, warm/dry GIANA DIAZ Dec 23, 2017 14:10
[2017-12-23 16:00] VITALS: BP 128/48
--- NOTE | 2017-12-23 17:29 | Infectious Diseases Prog Note ---
Assessment/Plan Assessment/Plan ASSESSMENT: The patient is a 72-year-old male with: Mild leukocytosis, SP Afebrile. Bacteremia CoNS , most likely due to PICC line infection(present at the time of admission) , Cath tip 12/20 : P , 12/19 1 BCx :CoNS, 12/23 BC: P SP removal of PICC and insertion of new PICC 12/20 status post thoracocentesis: extubate no evid of infectious process ( doubt TB , [place] > 4% and low WBC count ) Wound culture: mixed growth : colonizer Anemia Hypoxic encephalopathy. History of cardiac arrest. Hypertension. COPD. History of possible trach. status post G-tube placement. History of contracture of extremities. Diabetes. Anemia. PLAN: continue the patient on IV vancomycin d# / Monitor CBC. Monitor BMP Repeat blood culture ( blood) Cath tip Cx : P 2D Echo Subjective Constitutional: Denies: no symptoms, fever, chills, fatigue, anorexia, drenching sweats, other Allergies: Coded Allergies: ACETAMINOPHEN (Verified Allergy, Unknown, 12/16/17) Subjective Afebrile Objective Vital Signs Last 24 Hour Vital Signs Date Time Temp Pulse Resp B/P (MAP) Pulse Ox O2 Delivery O2 Flow Rate FiO2 12/23/17 17:02 73 21 40 12/23/17 16:00 98.3 68 16 128/48 100 Mechanical Ventilator 40 98.3 12/23/17 16:00 40 12/23/17 15:15 72 15 40 12/23/17 13:05 70 18 40 12/23/17 12:00 98.2 66 19 126/58 100 Mechanical Ventilator 40 98.2 12/23/17 12:00 40 12/23/17 11:36 65 12/23/17 11:20 72 18 40 12/23/17 09:57 73 18 40 12/23/17 09:52 139/74 12/23/17 09:52 70 139/74 12/23/17 08:00 40 12/23/17 08:00 98.2 70 20 139/74 100 Mechanical Ventilator 40 98.2 12/23/17 07:23 61 12/23/17 07:16 69 16 40 12/23/17 05:18 77 22 40 12/23/17 04:00 68 12/23/17 04:00 97.7 63 17 100/56 99 Mechanical Ventilator 40 97.7 12/23/17 04:00 40 12/23/17 02:48 75 20 40 12/23/17 00:52 75 20 40 12/23/17 00:06 66 12/23/17 00:00 40 12/23/17 00:00 97.3 66 12 122/59 99 Mechanical Ventilator 40 97.3 12/22/17 22:56 80 16 40 12/22/17 22:10 80 16 40 12/22/17 21:00 80 100/70 12/22/17 20:29 80 16 40 12/22/17 20:00 40 12/22/17 20:00 98.1 74 14 100/70 99 Mechanical Ventilator 40 98.1 12/22/17 19:48 73 12/22/17 17:46 133/55 Height (Feet): 6 Weight (Pounds): 162 HEENT: anicteric Respiratory/Chest: no respiratory distress Cardiovascular: regularly irregular Abdomen: no organomegaly Laboratory Tests Test 12/23/17 04:00 White Blood Count 8.0 K/UL (4.8-10.8) Red Blood Count 2.48 M/UL (4.70-6.10) L Hemoglobin 7.6 G/DL (14.2-18.0) L Hematocrit 23.0 % (42.0-52.0) L Mean Corpuscular Volume 93 FL (80-99) Mean Corpuscular Hemoglobin 30.5 PG (27.0-31.0) Mean Corpuscular Hemoglobin Concent 32.9 G/DL (32.0-36.0) Red Cell Distribution Width 15.0 % (11.6-14.8) H Platelet Count 251 K/UL (150-450) Mean Platelet Volume 6.3 FL (6.5-10.1) L Neutrophils (%) (Auto) % (45.0-75.0) Lymphocytes (%) (Auto) % (20.0-45.0) Monocytes (%) (Auto) % (1.0-10.0) Eosinophils (%) (Auto) % (0.0-3.0) Basophils (%) (Auto) % (0.0-2.0) Differential Total Cells Counted 100 Neutrophils % (Manual) 74 % (45-75) Lymphocytes % (Manual) 16 % (20-45) L Monocytes % (Manual) 10 % (1-10) Eosinophils % (Manual) 0 % (0-3) Basophils % (Manual) 0 % (0-2) Band Neutrophils 0 % (0-8) Platelet Estimate Adequate Platelet Morphology Normal Hypochromasia 1+ Basophilic Stippling 1+ Anisocytosis 1+ Sodium Level 130 MMOL/L (136-145) L Potassium Level 4.4 MMOL/L (3.5-5.1) Chloride Level 96 MMOL/L (98-107) L Carbon Dioxide Level 28 MMOL/L (21-32) Anion Gap 7 mmol/L (5-15) Blood Urea Nitrogen 12 mg/dL (7-18) Creatinine 0.6 MG/DL (0.55-1.30) Estimat Glomerular Filtration Rate > 60 mL/min (>60) Glucose Level 112 MG/DL (74-106) H Calcium Level 8.7 MG/DL (8.5-10.1) Total Bilirubin 0.3 MG/DL (0.2-1.0) Aspartate Amino Transf (AST/SGOT) 13 U/L (15-37) L Alanine Aminotransferase (ALT/SGPT) 23 U/L (12-78) Alkaline Phosphatase 159 U/L (46-116) H Pro-B-Type Natriuretic Peptide 257 pg/mL (0-125) H Total Protein 6.5 G/DL (6.4-8.2) Albumin 2.3 G/DL (3.4-5.0) L Globulin 4.2 g/dL Albumin/Globulin Ratio 0.5 (1.0-2.7) L Current Medications Medications (Trade) Dose Ordered Sig/Marciano Route PRN Reason Start Time Stop Time Status Last Admin Dose Admin Acetaminophen (Tylenol) 650 mg Q4H PRN ORAL fever 12/16/17 22:00 01/15/18 21:59 Al Hydroxide/Mg Hydroxide (Mylanta II) 30 ml Q6H PRN ORAL dyspepsia 12/16/17 22:00 01/15/18 21:59 Ascorbic Acid (Vitamin C) 500 mg DAILY GT 12/20/17 09:00 01/19/18 08:59 12/23/17 09:51 Carvedilol (Coreg) 6.25 mg EVERY 12 HOURS GT 12/17/17 09:00 01/16/18 08:59 12/23/17 09:52 Chlorhexidine Gluconate (Nancy-Hex 2%) 1 applic DAILY@1999 TOPIC 12/19/17 21:30 01/18/18 21:29 12/22/17 20:51 Clonidine HCl (Catapres Tab) 0.1 mg EVERY 6 HOURS PRN GT For High Blood Pressure 12/16/17 22:00 01/15/18 21:59 Dextrose (Dextrose 50%) 25 ml STAT PRN IV HYPOGLYCEMIA 12/18/17 08:45 01/17/18 08:44 Dextrose (Dextrose 50%) 50 ml STAT PRN IV Hypoglycemia 12/18/17 08:45 01/15/18 21:59 Docusate Sodium (Colace) 100 mg TID ORAL 12/23/17 13:00 01/22/18 12:59 12/23/17 13:17 Hydralazine HCl (Apresoline) 10 mg BID GT 12/17/17 09:00 01/16/18 08:59 12/23/17 09:52 Levetiracetam (Keppra) 1,000 mg BID GT 12/17/17 09:00 01/16/18 08:59 12/23/17 09:53 Lorazepam (Ativan 2mg/ml 1ml) 0.5 mg Q4H PRN IV For Anxiety 12/16/17 22:00 12/23/17 21:59 Morphine Sulfate (Morphine Sulfate) 1 mg Q4H PRN IVP For Pain 12/16/17 22:45 12/23/17 22:44 Ondansetron HCl (Zofran) 4 mg Q6H PRN IVP Nausea & Vomiting 12/16/17 22:00 01/15/18 21:59 Pantoprazole (Protonix) 40 mg DAILY ORAL 12/20/17 09:00 01/19/18 08:59 12/23/17 09:51 Polyethylene Glycol (Miralax) 17 gm BEDTIME ORAL 12/23/17 21:00 01/22/18 20:59 Polyethylene Glycol (Miralax) 17 gm HSPRN PRN ORAL Constipation 12/16/17 22:00 01/15/18 21:59 Sodium Chloride (NaCl) 1 gm BIAC ORAL 12/19/17 16:30 01/18/18 16:29 12/23/17 05:36 Vancomycin HCl (Vanco rx to dose) 1 ea DAILYPRN PRN MISC Per rx protocol 12/19/17 13:30 01/18/18 13:29 Vancomycin/Sodium Chloride 250 ml @ 166.667 mls/hr Q12H IVPB 12/22/17 12:00 12/27/17 11:59 12/23/17 13:19 Zolpidem Tartrate (Ambien) 5 mg HSPRN PRN ORAL Insomnia 12/16/17 22:00 12/23/17 21:59 Emery Mendez MD Dec 23, 2017 17:29
[2017-12-23 18:54] VITALS: BP 135/59
[2017-12-23] MEDS ORDERED: Miralax 17gm pkt ORAL SCH (21:00)
[2017-12-23] MEDS ORDERED: Tubing Blood Filter IV ONE (22:49)
[2017-12-23] MEDS ORDERED: Tubing IV Secondary IV ONE ×2 (22:49)
[2017-12-23] MEDS ORDERED: NS 275ml ONE ×3 (22:49)
[2017-12-23] MEDS ORDERED: D5W 550ml IV ONE (22:49)
--- NOTE | 2017-12-23 23:19 | General Progress Note ---
Assessment/Plan Assessment/Plan #. Anemia due to underlying chronic disease. --> Continue to closely monitor. Monitor for improvement. --> Anemia workup reviewed. Iron 39, TIBC 280, Ferritin 241, Folate 18.2, TSH 2.6 --> Appears to have anemia of iron deficiency as well. Will be started on IV iron. --> Transfuse as needed. Hemoglobin goal >7 #. Anemia of iron deficiency. --> We will begin the patient on IV iron at this time. --> Monitor and trend cbc. #. Coagulopathy, likely secondary to reactive process. --> Closely monitor. --> Administer vitamin K as needed. #. Leukocytosis, potentially secondary to infection. --> Management per ID. Check cultures. --> On vancomycin. Improved. #. Dysphagia, status post gastrostomy tube. #. Respiratory failure, status post vent and trach. --> Ventilator dependent #. Hypertension. Systolic blood pressure goal less than 140. #. Pleural effusion, status post thoracentesis. Pulmonary evaluation. #. Seizure disorder. On [facility] Subjective Date patient seen: Dec 23, 2017 Constitutional: Denies: no symptoms, chills, diaphoresis, fever, malaise, weakness, other HEENT: Denies: no symptoms, eye pain, blurred vision, tearing, double vision, ear pain, ear discharge, nose pain, nose congestion, throat pain, throat swelling, mouth pain, mouth swelling, other Cardiovascular: Denies: no symptoms, chest pain, edema, irregular heart rate, lightheadedness, palpitations, syncope, other Respiratory: Denies: no symptoms, cough, orthopnea, shortness of breath, SOB with excertion, SOB at rest, sputum, stridor, wheezing, other Gastrointestinal/Abdominal: Denies: no symptoms, abdomen distended, abdominal pain, black stools, tarry stools, blood in stool, constipated, diarrhea, difficulty swallowing, nausea, poor appetite, poor fluid intake, rectal bleeding , vomiting, other Genitourinary: Denies: no symptoms, burning, discharge, frequency, flank pain, hematuria, incontinence, pain, urgency, other Neurologic/Psychiatric: Denies: no symptoms, anxiety, depressed, emotional problems, headache, numbness, paresthesia, pre-existing deficit, seizure, tingling, tremors, weakness, other Hematologic/Lymphatic: Reports: anemia Allergies: Coded Allergies: ACETAMINOPHEN (Verified Allergy, Unknown, 12/16/17) Subjective On vent No fever or chills. Pending discharge. Objective Last 24 Hour Vital Signs Date Time Temp Pulse Resp B/P (MAP) Pulse Ox O2 Delivery O2 Flow Rate FiO2 12/23/17 21:00 63 17 40 12/23/17 20:00 40 12/23/17 19:12 68 18 40 12/23/17 19:00 60 12/23/17 18:54 135/59 12/23/17 17:02 73 21 40 12/23/17 16:00 71 12/23/17 16:00 98.3 68 16 128/48 100 Mechanical Ventilator 40 98.3 12/23/17 16:00 40 12/23/17 15:15 72 15 40 12/23/17 13:05 70 18 40 12/23/17 12:00 98.2 66 19 126/58 100 Mechanical Ventilator 40 98.2 12/23/17 12:00 40 12/23/17 11:36 65 12/23/17 11:20 72 18 40 12/23/17 09:57 73 18 40 12/23/17 09:52 139/74 12/23/17 09:52 70 139/74 12/23/17 08:00 40 12/23/17 08:00 98.2 70 20 139/74 100 Mechanical Ventilator 40 98.2 12/23/17 07:23 61 12/23/17 07:16 69 16 40 12/23/17 05:18 77 22 40 12/23/17 04:00 68 12/23/17 04:00 97.7 63 17 100/56 99 Mechanical Ventilator 40 97.7 12/23/17 04:00 40 12/23/17 02:48 75 20 40 12/23/17 00:52 75 20 40 12/23/17 00:06 66 12/23/17 00:00 40 12/23/17 00:00 97.3 66 12 122/59 99 Mechanical Ventilator 40 97.3 Intake and Output 12/22/17 12/23/17 19:00 07:00 Intake Total 1410.000 ml 1543.334 ml Output Total 525 ml 1100 ml Balance 885.000 ml 443.334 ml Free Water 20 ml 150 ml IV Total 450.000 ml 793.334 ml Tube Feeding 900 ml 600 ml Other 40 ml Output Urine Total 525 ml 1100 ml # Voids 1 Laboratory Tests 12/23/17 04:00: White Blood Count 8.0, Red Blood Count 2.48L, Hemoglobin 7.6L, Hematocrit 23.0L , Mean Corpuscular Volume 93, Mean Corpuscular Hemoglobin 30.5, Mean Corpuscular Hemoglobin Concent 32.9, Red Cell Distribution Width 15.0H, Platelet Count 251, Mean Platelet Volume 6.3L, Neutrophils (%) (Auto) , Lymphocytes (%) (Auto) , Monocytes (%) (Auto) , Eosinophils (%) (Auto) , Basophils (%) (Auto) , Differential Total Cells Counted 100, Neutrophils % ( Manual) 74, Lymphocytes % (Manual) 16L, Monocytes % (Manual) 10, Eosinophils % ( Manual) 0, Basophils % (Manual) 0, Band Neutrophils 0, Platelet Estimate Adequate, Platelet Morphology Normal, Hypochromasia 1+, Basophilic Stippling 1+ , Anisocytosis 1+, Sodium Level 130L, Potassium Level 4.4, Chloride Level 96L, Carbon Dioxide Level 28, Anion Gap 7, Blood Urea Nitrogen 12, Creatinine 0.6, Estimat Glomerular Filtration Rate > 60, Glucose Level 112H, Calcium Level 8.7, Total Bilirubin 0.3, Aspartate Amino Transf (AST/SGOT) 13L, Alanine Aminotransferase (ALT/SGPT) 23, Alkaline Phosphatase 159H, Pro-B-Type Natriuretic Peptide 257H, Total Protein 6.5, Albumin 2.3L, Globulin 4.2, Albumin /Globulin Ratio 0.5L Height (Feet): 6 Weight (Pounds): 162 Respiratory/Chest: decreased breath sounds Fermín Alberto MD Dec 23, 2017 23:19
--- NOTE | 2017-12-24 12:45 | Discharge Summary ---
Discharge Summary Discharge Summary Discharge Summary DATE OF ADMISSION: 12/16/2017 DATE OF DISCHARGE: 12/23/2017 REASON FOR ADMISSION: 72 years old male with a history of chronic respiratory failure, ventilator dependent with tracheostomy, dysphagia , G-tube seizure disorder ,hypertension, hypoxic encephalopathy , COPD, diabetes mellitus, GERD ,was brought to emergency room for evaluation due to anemia. Patient noted small amount of blood during suctioning. No fevers ,no chills . Vital signs were stable. Baseline ABG was stable on current settings. WBC -7.1. Hemoglobin- 7.7, hematocrit- 22.8. Sodium -129. BUN -28. EKG revealed normal sinus rhythm, no acute ischemic changes. Chest x-ray revealed large right pleural effusion and left lower lobe consolidation. Patient was admitted to [facility] with diagnoses of acute on chronic respiratory failure, right pleural effusion, anemia, dysphagia, G-tube feeding. CONSULTANTS: pulmonary Dr. Bojorquez ID specialist Vanessa GI specialist retail manager Dr. Kong overedger/oncologist Dr. Alberto [facility]: Patient was admitted to [facility]. Ventilator support and tracheostomy care provided. Pulmonary toilet was provided. ABG, as mentioned above, was stable on current ventilator settings. No signs of respiratory distress on current settings. Settings were kept as is. Vigorous suctioning avoided. Chest x-ray initially demonstrated large right pleural effusion. Patient subsequently undergone on 12/17/17 thoracentesis of right pleural effusion which yielded 1.5 L of pleural fluid. Chest x-ray post thoracentesis revealed near complete resolution of right pleural effusion and no pneumothorax. Culture of pleural fluid was negative. Analysis of pleural fluid revealed no evidence of infectious process. Blood culture initially were positive for Staphylococcus epidermidis drawn on 12/16/2017. Repeated blood culture on 12/19/17 showed Staphylococcus, coagulase negative. Bacteremia likely due to infected PICC line as per ID specialist. PICC line was discontinued (was present on admission). Echocardiogram revealed no evidence of vegetation. It showed ejection fraction of 55% and right ventricular systolic pressure of 33 as well as evidence of mild left ventricular hypertrophy. Venous duplex bilateral lower extremities was negative. Old PICC line was removed and new PICC line was inserted on 12/22/17 after blood culture came back negative. Last set of blood culture was negative. Culture of old PICC line tip was negative. Patient was on empiric antibiotic, which need to be continued at the long-term [facility] facility. GI specialist closely followed. Anemia workup revealed anemia of chronic disease and anemia iron deficiency. Patient was on IV Venofer. GI procedure was on hold as per GI specialist. Initially on admission ,hemoglobin -7.7 hematocrit -22.8. Patient subsequently received 1 unit of packed red blood cells. Counts were closely monitored. However on the day of transfer, hemoglobin down to 7.6 and hematocrit 23.0 .Patient received additional unit of packed red blood cells. Patient needs close monitoring of hemoglobin and hematocrit at the accepting facility. Art History Instructor closely followed up. Per retail manager patient had isovolemic hyponatremia likely secondary to antiseizure medications. All intravenous medications were mixed in the IV fluid with the normal saline. Patient received IV fluids with normal saline. Sodium remains low -130 on the day of discharge.. of prerenal Prerenal azotemia present on admission, likely secondary to dehydration, resolved: BUN down to normal with IV hydration. Strict aspiration/ reflux precautions were maintained. Tube feeding resumed. Patient was able to tolerate tube feeding. Seizure precautions were maintained , patient was continued on Keppra. No seizure activity while in the hospital. Blood pressure was managed with beta nancy and hydralazine, remained stable. Bowel regimen instituted. DVT and GI prophylaxis provided. Symptomatic care provided . Patient received wound care as per wound care nurse recommendation for present on admission un-stageable pressure ulcer mid-sacral area and right heel. Follow-up chest x-ray on December 23 revealed increased pulmonary edema. Patient had new PICC line. Patient was stable for transfer to long-term [facility] facility for continuation of care for IV antibiotics, respiratory support and further monitoring and management of anemia. FINAL DIAGNOSES: Acute on chronic respiratory failure, ventilator dependent Aspiration pneumonia Right pleural effusion, status post thoracentesis right pleural effusion on 12/17 Bacteremia with Staph epidermidis and Staph coagulase negative, likely secondary to PICC line infection, present on admission Symptomatic anemia, status post 2 units packed red blood cells Anemia of chronic disease Anemia iron deficiency Seizure disorder Hypertension Dysphagia , G-tube feeding Hypoxic encephalopathy Isovolemic hyponatremia, likely secondary to antiepileptic medication Prerenal azotemia, resolved Mid sacral un-stageable pressure ulcer, present on admission Right heel un-stageable pressure ulcer, present on admission DISCHARGE MEDICATIONS: List of medication was sent to accepting facility DISCHARGE INSTRUCTIONS: Patient was discharged to [facility] for continuation of care I have been assigned to dictate discharge summary for this account. I was not involved in the patient's management. Balaji ([facility] Hospital[facility] Pascual NP Dec 24, 2017 12:45
== END 2017-12-23 22:50 | DRG 207 ==
LOC: EDBD 19:40 → EMR 20:54 → ICU 22:12 → EDBEDREQ 22:26 → 2W 12-17 08:00
DX: J90 Pleural effusion, not elsewhere classified (principal); J96.20 Acute and chronic respiratory failure, unspecified whether with hypoxia or hypercapnia; J69.0 Pneumonitis due to inhalation of food and vomit; T80.211A Bloodstream infection due to central venous catheter, initial encounter; Z99.11 Dependence on respirator [ventilator] status; R40.3 Persistent vegetative state; E87.1 Hypo-osmolality and hyponatremia; R78.81 Bacteremia; D68.9 Coagulation defect, unspecified; G93.1 Anoxic brain damage, not elsewhere classified; J44.0 Chronic obstructive pulmonary disease with (acute) lower respiratory infection; Z93.1 Gastrostomy status; Z93.0 Tracheostomy status; G40.909 Epilepsy, unspecified, not intractable, without status epilepticus; I10 Essential (primary) hypertension; D50.9 Iron deficiency anemia, unspecified; R13.10 Dysphagia, unspecified; Z74.01 Bed confinement status; E11.9 Type 2 diabetes mellitus without complications; E83.42 Hypomagnesemia; L89.150 Pressure ulcer of sacral region, unstageable; L89.610 Pressure ulcer of right heel, unstageable
CPT/HCPCS: 36415; 36569; 36600; 71045; 76937; 76942; 80053; 80202; 82043; 82378; 82550; 82553; 82570; 82728; 82746; 82803; 82962; 83540; 83550; 83605; 83615; 83735; 83880; 83930; 83935; 84100; 84300; 84443; 84484; 85007; 85025; 85044; 85060; 85610; 85651; 85730; 86850; 86900; 86901; 86920; 87040; 87070; 87181; 87205; 88104; 89050; 89051; 93005; 93306; 93970; 94003; 94664; 97803; 99285; G0378; G0379

== ENCOUNTER 2018-02-12 01:11 | Inpatient (IN) | payer MEDICARE, MEDICAID ==
[~2018-02-12] VITALS: Ht 170.2 cm; Wt 81.8 kg
[~2018-02-12 01:11] MED LIST: CARVEDILOL6.25 MG GT; CATAPRES0.1 MG GT; DEPAKENE250 MG/5 M GT; FERROUS SU325 MG/5 M GT; HEPARIN SO5000 UNIT2 SUBQ; HYDRALAZINE HCL10 MG GT; LEVETIRACE100 MG/1 M GT; MILK OF MA400 MG/51 GT; OMEPRAZOLE20 M2 GT; VITAMIN C500 M1 GT
[2018-02-12 01:27] VITALS: BP 147/81
[2018-02-12] MEDS ORDERED: Cefepime HCl 1 GM in NS 55 ML IV ONE (01:30)
[2018-02-12] MEDS ORDERED: Vancomycin 1.5gm/D5W 250ml 250 ML IVPB ONE (01:30)
--- NOTE | 2018-02-12 02:00 | Emergency Room Report ---
History of Present Illness General Chief Complaint: Upper Respiratory Illness Source: Patient Present Illness HPI 72-year-old male, history of chronic respiratory failure tracheostomy, bedbound nonverbal, hypertension, hypoxic encephalopathy, diabetes, brought from assisted for evaluation of worsening pneumonia on chest x-ray. Patient already finished a course of Zosyn and Vanco for 7 days that was finished on 2017. No other history is able to be obtained as patient is nonverbal Allergies: Coded Allergies: ACETAMINOPHEN (Verified Allergy, Unknown, 12/16/17) Patient History Past Medical History: see triage record Past Surgical History: unable to obtain Pertinent Family History: unable to obtain Reviewed Nursing Documentation: PMH: Agreed; PSxH: Agreed Nursing Documentation-PMH Hx Cardiac Problems: Yes - cardiac arrest Hx Hypertension: Yes Hx COPD: Yes Hx Diabetes: Yes Hx Cancer: No Hx Gastrointestinal Problems: Yes - pt with GT Hx Neurological Problems: Yes - hypoxic encephalopathy Hx Cerebrovascular Accident: Yes Hx Epilepsy: Yes Hx Speech Problem: Yes Hx Weakness: Yes Review of Systems All Other Systems: limited Physical Exam Vital Signs Date Time Temp Pulse Resp B/P (MAP) Pulse Ox O2 Delivery O2 Flow Rate FiO2 02/12/18 01:11 88 18 162/87 Mechanical Ventilator 35 02/12/18 01:27 100 Sp02 EP Interpretation: abnormal General Appearance: moderate distress, lethargic, Chronically Ill Head: normocephalic, atraumatic Eyes: bilateral eye other - PERRL eom not intact ENT: other - trach Neck: tracheotomy Respiratory: other - dec b/s b/l, trach dep Cardiovascular #1: normal inspection, regular rate, rhythm, no edema, normal capillary refill Cardiovascular #2: 2+ radial (R), 2+ radial (L) Gastrointestinal: other - +peg tube in place Genitourinary: no CVA tenderness Musculoskeletal: other - contraction b/l upper and lower ext Neurologic: other - moves/withdraws to pain but nonverbal and not responsive Psychiatric: other Skin: normal inspection, normal color, no rash, warm/dry, well hydrated, normal turgor Medical Decision Making Diagnostic Impression: Primary Impression: Acute on chronic respiratory failure Additional Impression: Aspiration pneumonia ER Course 72-year-old male brought from assisted check dependent here for worsening pneumonia DDX: Worsening pneumonia, dehydration, electronic disturbance, UTI, bacteremia Plan: Obtain labs, ua, EKG, CXR Fluids antibiotics ER course: Patient has been monitored during ED stay, HD stable Has been on a ventilator. Given Vanco cefepime and Flagyl Disposition: Patient is to be admitted to [facility] D/W hospitalist DR GIANA DIAZ Please note that this Emergency Department Report was dictated using [employer] operator technology software, occasionally this can lead to erroneous entry secondary to interpretation by the dictation equipment. EKG Diagnostic Results EP Interpretation: Yes Rate: normal Rhythm: NSR ST Segments: No acute changes ASA given to patient: No Rhythm Strip EP Interpretation: Yes Rate: 62 Rhythm: NSR, no PVCs, no ectopy Chest X-ray CXR: Ordered: Yes 1 view Indication: Respiratory failure EP interpretation: Yes Interpretation: Right-sided infiltrate, tracheostomy noted Impression: Right-sided infiltrate, tracheostomy noted Electronically signed by Jhoana Weston MD Laboratory Tests Test 02/12/18 01:17 02/12/18 01:30 02/12/18 02:20 Arterial Blood pH 7.368 (7.350-7.450) Arterial Blood Partial Pressure CO2 45.9 mmHg (35.0-45.0) H Arterial Blood Partial Pressure O2 329.8 mmHg (75.0-100.0) H Arterial Blood HCO3 25.8 mmol/L (22.0-26.0) Arterial Blood Oxygen Saturation 99.4 % (92.0-98.0) H Arterial Blood Base Excess 0.3 Hector Test Positive White Blood Count 9.1 K/UL (4.8-10.8) Red Blood Count 2.91 M/UL (4.70-6.10) L Hemoglobin 8.8 G/DL (14.2-18.0) L Hematocrit 26.7 % (42.0-52.0) L Mean Corpuscular Volume 92 FL (80-99) Mean Corpuscular Hemoglobin 30.4 PG (27.0-31.0) Mean Corpuscular Hemoglobin Concent 33.0 G/DL (32.0-36.0) Red Cell Distribution Width 13.8 % (11.6-14.8) Platelet Count 172 K/UL (150-450) Mean Platelet Volume 8.0 FL (6.5-10.1) Neutrophils (%) (Auto) 81.3 % (45.0-75.0) H Lymphocytes (%) (Auto) 9.6 % (20.0-45.0) L Monocytes (%) (Auto) 7.0 % (1.0-10.0) Eosinophils (%) (Auto) 1.6 % (0.0-3.0) Basophils (%) (Auto) 0.5 % (0.0-2.0) Prothrombin Time Pending Prothrombin Time INR Pending PTT Pending Sodium Level 132 MMOL/L (136-145) L Potassium Level 5.5 MMOL/L (3.5-5.1) H Chloride Level 98 MMOL/L (98-107) Carbon Dioxide Level 25 MMOL/L (21-32) Anion Gap 9 mmol/L (5-15) Blood Urea Nitrogen 21 mg/dL (7-18) H Creatinine 0.8 MG/DL (0.55-1.30) Estimate Glomerular Filtration Rate > 60 mL/min (>60) Glucose Level 98 MG/DL (74-106) Lactic Acid Level 0.30 mmol/L (0.66-2.22) L Calcium Level 9.8 MG/DL (8.5-10.1) Total Bilirubin 0.3 MG/DL (0.2-1.0) Aspartate Amino Transferase (AST) 17 U/L (15-37) Alanine Aminotransferase (ALT) 39 U/L (12-78) Alkaline Phosphatase 226 U/L (46-116) H Total Creatine Kinase 44 U/L (26-308) Troponin I 0.001 ng/mL (0.000-0.056) Pro-B-Type Natriuretic Peptide 804 pg/mL (0-125) H Total Protein 7.9 G/DL (6.4-8.2) Albumin 2.9 G/DL (3.4-5.0) L Globulin 5.0 g/dL Albumin/Globulin Ratio 0.6 (1.0-2.7) L Urine Color Pale yellow Urine Appearance Clear Urine pH 8 (4.5-8.0) Urine Specific [place] 1.010 (1.005-1.035) Urine Protein Negative (NEGATIVE) Urine Glucose (UA) Negative (NEGATIVE) Urine Ketones Negative (NEGATIVE) Urine Occult Blood Negative (NEGATIVE) Urine Nitrite Negative (NEGATIVE) Urine Bilirubin Negative (NEGATIVE) Urine Urobilinogen Normal MG/DL (0.0-1.0) Urine Leukocyte Esterase 1+ (NEGATIVE) H Urine RBC Pending Urine WBC Pending Urine Squamous Epithelial Cells Pending Urine Bacteria Pending Last Vital Signs Date Time Temp Pulse Resp B/P (MAP) Pulse Ox O2 Delivery O2 Flow Rate FiO2 02/12/18 01:27 73 19 147/81 100 Mechanical Ventilator 35 Disposition: ADMITTED INPATIENT Condition: Critical Referrals: Giana Diaz DO (PCP) Jhoana Weston M.D. February 12, 2018 02:00
[2018-02-12 02:05] LABS: BASOPHILS % (AUTO) 0.5 % (0.0-2.0); EOSINOPHILS % (AUTO) 1.6 % (0.0-3.0); HEMATOCRIT 26.7 % (42.0-52.0); HEMOGLOBIN 8.8 G/DL (14.2-18.0); LYMPHOCYTES % (AUTO) 9.6 % (20.0-45.0); MEAN CORPUSCULAR VOLUME 92 FL (80-99); NEUTROPHILS % (AUTO) 81.3 % (45.0-75.0); PLATELET COUNT 172 K/UL (150-450); RED BLOOD COUNT 2.91 M/UL (4.70-6.10); RED CELL DISTRIBUTION WIDTH 13.8 % (11.6-14.8); WHITE BLOOD COUNT 9.1 K/UL (4.8-10.8)
[2018-02-12 02:24] LABS: ANION GAP 9 mmol/L (5-15); BLOOD UREA NITROGEN 21 mg/dL (7-18); CALCIUM 9.8 MG/DL (8.5-10.1); CARBON DIOXIDE 25 MMOL/L (21-32); CHLORIDE 98 MMOL/L (98-107); CREATININE 0.8 MG/DL (0.55-1.30); POTASSIUM 5.5 MMOL/L (3.5-5.1); SODIUM 132 MMOL/L (136-145)
[2018-02-12 02:34] LABS: ALANINE AMINOTRANSFERASE 39 U/L (12-78); ALBUMIN 2.9 G/DL (3.4-5.0); ALBUMIN/GLOBULIN RATIO 0.6 (1.0-2.7); ALKALINE PHOSPHATASE 226 U/L (46-116); ASPARTATE AMINO TRANSFERASE 17 U/L (15-37); BILIRUBIN,TOTAL 0.3 MG/DL (0.2-1.0); CREATINE KINASE 44 U/L (26-308)
[2018-02-12 03:03] VITALS: BP 148/86
[2018-02-12 03:09] LABS: APPEARANCE,URINE CLEAR; BILIRUBIN, URINE NEGATIVE (NEGATIVE); COLOR,URINE PALE YELLOW; GLUCOSE, URINE (UA) NEGATIVE (NEGATIVE); KETONES,URINE NEGATIVE (NEGATIVE); LEUKOCYTE ESTERASE ,URINE 1+ (NEGATIVE); NITRITE,URINE NEGATIVE (NEGATIVE); PH,URINE 8 (4.5-8.0); PROTEIN,URINE NEGATIVE (NEGATIVE); UROBILINOGEN,URINE NORMAL MG/DL (0.0-1.0)
[2018-02-12 03:41] LABS: INR 0.9 (0.9-1.1)
[2018-02-12] MEDS ORDERED: VITAMIN C500 MG/11 GT (05:04)
[2018-02-12] MEDS ORDERED: ALBUTEROL2.5 MG/3 M INH (05:26)
[2018-02-12] MEDS ORDERED: [UNRECOGNIZED DRUG - OTHER] GT (05:26)
[2018-02-12] MEDS ORDERED: DOCUSATE SODIU100 MG GT (05:26)
[2018-02-12] MEDS ORDERED: ZOSYN 3.373.375 GM/1 IVPB (05:26)
[2018-02-12] MEDS ORDERED: MULTI-DELYN237 ML GT (05:26)
[2018-02-12] MEDS ORDERED: MIRALAX17 G2 GT (05:26)
[2018-02-12] MEDS ORDERED: SODIUM CHLORIDE1 GM GT (05:26)
[2018-02-12] MEDS ORDERED: Albuterol/Ipratropium 3ml neb HHN PRN (07:30)
[2018-02-12] MEDS ORDERED: Promethazine/Codeine 5ml UD ORAL PRN (07:30)
[2018-02-12] MEDS ORDERED: Mylanta II UD 30ml ORAL PRN (07:30)
[2018-02-12] MEDS ORDERED: Miralax 17gm pkt ORAL PRN (07:30)
[2018-02-12] MEDS ORDERED: Nitroglycerin Subl 0.4mg tab SL PRN (07:30)
[2018-02-12 08:00] VITALS: BP 144/79
[2018-02-12] MEDS: Heparin 5000 units/ml inj SUBQ SCH ×2 (09:13→20:37)
--- NOTE | 2018-02-12 09:59 | Diagnostic Imaging Report ---
Indication: Cough Comparison: 12/23/2017 A single view chest radiograph was obtained. Findings: Hazy groundglass some right basilar opacity obscuring the right hemidiaphragm consistent with a pleural effusion. Interstitial/pulmonary edema demonstrated. PICC line is present. The tip is projected over the right axilla. Tracheostomy again noted. IMPRESSION: Congestive heart failure/interstitial edema Right pleural effusion PICC line tip projects over the right axillary vein region
[2018-02-12] MEDS: Cefepime HCl 1 GM in D5W 110 ML IV SCH ×2 (10:31→22:52)
--- NOTE | 2018-02-12 10:58 | Consultation ---
History of Present Illness General Date patient seen: February 12, 2018 Chief Complaint: Upper Respiratory Illness Present Illness HPI 72-year-old male wtih history of chronic respiratory failure, tracheostomy, PEG , bedbound nonverbal, hypertension, hypoxic encephalopathy, diabetes, brought from half-way for evaluation of worsening pneumonia on chest x-ray. Patient already finished a course of Zosyn and Vanco for 7 days that was finished on 02/11/2018. No other history is able to be obtained as patient is nonverbal. Pt is admitted to [facility] for further work up. Allergies: Coded Allergies: ACETAMINOPHEN (Verified Allergy, Unknown, 12/16/17) Medication History Scheduled Amino Acids/Protein Hydrolys (Pro-Stat Profile Liquid Packet), 30 ML GT DAILY, ( Reported) Carvedilol* (Carvedilol*), 6.25 MG GT EVERY 12 HOURS, (Reported) Docusate Sodium* (Docusate Sodium*), 100 MG GT THREE TIMES A DAY, (Reported) Ferrous Sulfate (Ferrous Sulfate), 325 MG GT BID, (Reported) Heparin Sod (Porcine) (Heparin Sodium*), 5,000 UNITS SUBQ EVERY 12 HOURS, ( Reported) Hydralazine Hcl* (Hydralazine Hcl*), 10 MG GT BID, (Reported) Levetiracetam* (Levetiracetam*), 1,000 MG GT BID, (Reported) Multivitamin Liquid* (Multi-Delyn*), 15 ML GT DAILY, (Reported) Omeprazole (Omeprazole), 40 MG GT DAILY, (Reported) Ijvngvmipmon-Phjt-Klpyyybd,Iso (Zosyn 3.375 Gm Pre Mix-Bag), 3.375 GM IVPB EVERY 8 HOURS, (Reported) Polyethylene Glycol 3350* (Miralax*), 17 GM GT HS, (Reported) Sodium Chloride* (Sodium Chloride*), 1 GM GT EVERY 12 HOURS, (Reported) Valproate Sodium (Depakene), 250 MG GT BID, (Reported) Vit C/Ascorbate Ca/Ascorb Sod (Vitamin C 500 Mg/15 Ml Liquid), 500 MG GT DAILY, (Reported) Scheduled PRN Albuterol Sulfate* (Albuterol Sulfate Hhn*), 3 ML INH Q6H PRN for Shortness of Breath, (Reported) Clonidine Hcl* (Catapres*), 0.1 MG GT EVERY 6 HOURS PRN for For High Blood Pressure, (Reported) Magnesium Hydroxide* (Milk Of Magnesia*), 30 ML GT DAILY PRN for Constipation, ( Reported) Patient History Healthcare decision maker SUKHI FONSECA Resuscitation status Full Code Advanced Directive on File No Past Medical/Surgical History Past Medical/Surgical History: (1) Chronic respiratory failure (2) Seizure disorder (3) Feeding by G-tube (4) Vegetative state Review of Systems All Other Systems: negative except mentioned in HPI Physical Exam General Appearance: WD/WN Lines, tubes and drains: peripheral HEENT: normocephalic, atraumatic Neck: non-tender, normal alignment Respiratory/Chest: chest wall non-tender, lungs clear Breasts: no masses Cardiovascular/Chest: normal peripheral pulses Abdomen: normal bowel sounds, non tender Genitourinary/Rectal: normal genital exam, normal rectal exam Extremities: normal range of motion Skin Exam: normal pigmentation 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 normal Last 24 Hour Vital Signs Date Time Temp Pulse Resp B/P (MAP) Pulse Ox O2 Delivery O2 Flow Rate FiO2 02/12/18 09:19 69 20 80 02/12/18 08:00 97.5 74 20 144/79 100 Mechanical Ventilator 80 97.5 02/12/18 08:00 80 02/12/18 08:00 85 02/12/18 07:03 67 20 80 02/12/18 06:00 100 02/12/18 05:11 74 20 100 02/12/18 04:48 100 02/12/18 04:17 73 19 136/83 100 Mechanical Ventilator 02/12/18 04:14 81 02/12/18 04:05 73 02/12/18 03:19 78 20 100 02/12/18 03:03 95.9 68 19 148/86 100 Mechanical Ventilator 95.9 02/12/18 01:35 74 20 100 02/12/18 01:27 73 19 147/81 100 Mechanical Ventilator 35 02/12/18 01:27 73 19 Mechanical Ventilator 02/12/18 01:15 35 02/12/18 01:11 88 18 162/87 Mechanical Ventilator 35 Intake and Output 02/11/18 02/12/18 19:00 07:00 Intake Total 0 ml Output Total 120 ml Balance -120 ml Intake Oral 0 ml Output Urine Total 120 ml Laboratory Tests Test 02/12/18 01:17 02/12/18 01:30 02/12/18 02:20 Arterial Blood pH 7.368 (7.350-7.450) Arterial Blood Partial Pressure CO2 45.9 mmHg (35.0-45.0) H Arterial Blood Partial Pressure O2 329.8 mmHg (75.0-100.0) H Arterial Blood HCO3 25.8 mmol/L (22.0-26.0) Arterial Blood Oxygen Saturation 99.4 % (92.0-98.0) H Arterial Blood Base Excess 0.3 Hector Test Positive White Blood Count 9.1 K/UL (4.8-10.8) Red Blood Count 2.91 M/UL (4.70-6.10) L Hemoglobin 8.8 G/DL (14.2-18.0) L Hematocrit 26.7 % (42.0-52.0) L Mean Corpuscular Volume 92 FL (80-99) Mean Corpuscular Hemoglobin 30.4 PG (27.0-31.0) Mean Corpuscular Hemoglobin Concent 33.0 G/DL (32.0-36.0) Red Cell Distribution Width 13.8 % (11.6-14.8) Platelet Count 172 K/UL (150-450) Mean Platelet Volume 8.0 FL (6.5-10.1) Neutrophils (%) (Auto) 81.3 % (45.0-75.0) H Lymphocytes (%) (Auto) 9.6 % (20.0-45.0) L Monocytes (%) (Auto) 7.0 % (1.0-10.0) Eosinophils (%) (Auto) 1.6 % (0.0-3.0) Basophils (%) (Auto) 0.5 % (0.0-2.0) Prothrombin Time 9.0 SEC (9.30-11.50) L Prothromb Time International Ratio 0.9 (0.9-1.1) Activated Partial Thromboplast Time 32 SEC (23-33) Sodium Level 132 MMOL/L (136-145) L Potassium Level 5.5 MMOL/L (3.5-5.1) H Chloride Level 98 MMOL/L (98-107) Carbon Dioxide Level 25 MMOL/L (21-32) Anion Gap 9 mmol/L (5-15) Blood Urea Nitrogen 21 mg/dL (7-18) H Creatinine 0.8 MG/DL (0.55-1.30) Estimat Glomerular Filtration Rate > 60 mL/min (>60) Glucose Level 98 MG/DL (74-106) Lactic Acid Level 0.30 mmol/L (0.66-2.22) L Calcium Level 9.8 MG/DL (8.5-10.1) Total Bilirubin 0.3 MG/DL (0.2-1.0) Aspartate Amino Transf (AST/SGOT) 17 U/L (15-37) Alanine Aminotransferase (ALT/SGPT) 39 U/L (12-78) Alkaline Phosphatase 226 U/L (46-116) H Total Creatine Kinase 44 U/L (26-308) Troponin I 0.001 ng/mL (0.000-0.056) Pro-B-Type Natriuretic Peptide 804 pg/mL (0-125) H Total Protein 7.9 G/DL (6.4-8.2) Albumin 2.9 G/DL (3.4-5.0) L Globulin 5.0 g/dL Albumin/Globulin Ratio 0.6 (1.0-2.7) L Urine Color Pale yellow Urine Appearance Clear Urine pH 8 (4.5-8.0) Urine Specific [place] 1.010 (1.005-1.035) Urine Protein Negative (NEGATIVE) Urine Glucose (UA) Negative (NEGATIVE) Urine Ketones Negative (NEGATIVE) Urine Occult Blood Negative (NEGATIVE) Urine Nitrite Negative (NEGATIVE) Urine Bilirubin Negative (NEGATIVE) Urine Urobilinogen Normal MG/DL (0.0-1.0) Urine Leukocyte Esterase 1+ (NEGATIVE) H Urine RBC 0-2 /HPF (0 - 0) H Urine WBC 5-10 /HPF (0 - 0) H Urine Squamous Epithelial Cells None /LPF (NONE/OCC) Urine Amorphous Sediment Many /LPF (NONE) H Urine Bacteria Many /HPF (NONE) H Height (Feet): 5 Height (Inches): 7.00 Weight (Pounds): 168 Medications Current Medications Medications (Trade) Dose Ordered Sig/Marciano Route PRN Reason Start Time Stop Time Status Last Admin Dose Admin Al Hydroxide/Mg Hydroxide (Mylanta II) 30 ml Q6H PRN ORAL dyspepsia 02/12/18 07:30 03/14/18 07:29 Albuterol/ Ipratropium (Albuterol/ Ipratropium) 3 ml Q4H PRN HHN Shortness of Breath 02/12/18 07:30 02/17/18 07:29 Cefepime HCl 1 gm/ Dextrose 110 ml @ 220 mls/hr Q12HR@1100,2300 IV 02/12/18 11:00 02/19/18 10:59 02/12/18 10:31 Chlorhexidine Gluconate (Nancy-Hex 2%) 1 applic DAILY@2000 TOPIC 02/12/18 20:00 03/14/18 19:59 Heparin Sodium (Porcine) (Heparin 5000 units/ml) 5,000 units EVERY 12 HOURS SUBQ 02/12/18 09:00 03/14/18 08:59 02/12/18 09:13 Nitroglycerin (Ntg) 0.4 mg Q5M PRN SL Prn Chest Pain 02/12/18 07:30 03/14/18 07:29 Ondansetron HCl (Zofran) 4 mg Q6H PRN IVP Nausea & Vomiting 02/12/18 07:30 03/14/18 07:29 Polyethylene Glycol (Miralax) 17 gm DAILYPRN PRN ORAL Constipation 02/12/18 07:30 03/14/18 07:29 Promethazine HCl/ Codeine (Phenergan with Codeine) 5 ml Q4H PRN ORAL For Cough 02/12/18 07:30 03/14/18 07:29 Temazepam (Restoril) 15 mg HSPRN PRN ORAL Insomnia 02/12/18 07:30 02/19/18 07:29 Vancomycin HCl (Vanco rx to dose) 1 ea DAILY PRN MISC Per rx protocol 02/12/18 07:30 03/14/18 07:29 Vancomycin HCl 1 gm/Dextrose 275 ml @ 183.708 mls/hr Q12HR@0000,1200 IVPB 02/12/18 12:00 02/17/18 11:59 Assessment/Plan Problem List: (1) Acute on chronic respiratory failure ICD Codes: J96.20 - Acute and chronic respiratory failure, unspecified whether with hypoxia or hypercapnia SNOMED: 11923321 (2) Aspiration pneumonia ICD Codes: J69.0 - Pneumonitis due to inhalation of food and vomit SNOMED: 192212652 (3) Seizure disorder ICD Codes: G40.909 - Epilepsy, unspecified, not intractable, without status epilepticus SNOMED: 371697054 (4) Anemia ICD Codes: D64.9 - Anemia, unspecified SNOMED: 738976488 (5) Feeding by G-tube ICD Codes: Z93.1 - Gastrostomy status SNOMED: 849397205, 863531681 (6) Vegetative state ICD Codes: R40.3 - Persistent vegetative state SNOMED: 41842482 Respiratory: monitor respiratory rate, adjust FIO2 Cardiac: continue to monitor HR/BP Renal: F/U I&O Infectious Disease: continue antibiotics Gastrointestinal: hold feedings Endocrine: check TSH Hematologic: monitor H/H, transfuse if hgb<8.5 Neurologic: PRN Morphine, keep patient comfortable Affect: PRN ativan Prophylaxis: Heparin Time Spent (Minutes): 30 Notes Reviewed: cardio, 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 with: nurses, consultants, caser up Leodan Bojorquez MD February 12, 2018 10:58
[2018-02-12] MEDS ORDERED: Cefepime HCl 1 GM in NS 55 ML IV SCH (11:00)
[2018-02-12] MEDS ORDERED: NovoLOG Insulin Flexpen SUBQ SCH (11:30)
[2018-02-12 12:00] VITALS: BP 153/93
[2018-02-12] MEDS: NovoLOG Insulin Flexpen SUBQ SCH ×3 (12:00→23:48)
[2018-02-12] MEDS: Vancomycin 1gm in D5W 275ml IVPB SCH ×2 (12:12→23:49)
--- NOTE | 2018-02-12 15:53 | Cardiology Report ---
APPROVED REPORT EKG Measurement Heart [id number] Sinus rhythm with 1st degree AV block Low voltage QRS Cannot rule out Anterior infarct, age undetermined Abnormal ECG
[2018-02-12 16:00] VITALS: BP 107/72
--- NOTE | 2018-02-12 16:19 | Consultation ---
History of Present Illness General Date patient seen: February 12, 2018 Chief Complaint: Upper Respiratory Illness Present Illness HPI 72 y/o M with hx of chronic respiratory failure on tracheostomy, cardiac arrest , COPD, DM2, PEG, seizure disorder bedbound, nonverbal, hypertension, hypoxic encephalopathy, diabetes brought to ED on 02/12 from [facility] for evaluation of worsenign pneumonia on CXR. Patient has just finished a 7 day course of IV Vanco and Zosyn 1 day prior to admission. Patient afebrile, no leukocytosis Fio2 80% down from 100%. Allergies: Coded Allergies: ACETAMINOPHEN (Verified Allergy, Unknown, 12/16/17) Medication History Scheduled Amino Acids/Protein Hydrolys (Pro-Stat Profile Liquid Packet), 30 ML GT DAILY, ( Reported) Carvedilol* (Carvedilol*), 6.25 MG GT EVERY 12 HOURS, (Reported) Docusate Sodium* (Docusate Sodium*), 100 MG GT THREE TIMES A DAY, (Reported) Ferrous Sulfate (Ferrous Sulfate), 325 MG GT BID, (Reported) Heparin Sod (Porcine) (Heparin Sodium*), 5,000 UNITS SUBQ EVERY 12 HOURS, ( Reported) Hydralazine Hcl* (Hydralazine Hcl*), 10 MG GT BID, (Reported) Levetiracetam* (Levetiracetam*), 1,000 MG GT BID, (Reported) Multivitamin Liquid* (Multi-Delyn*), 15 ML GT DAILY, (Reported) Omeprazole (Omeprazole), 40 MG GT DAILY, (Reported) Sjqjdsaqqiev-Btte-Ulyuxuou,Iso (Zosyn 3.375 Gm Pre Mix-Bag), 3.375 GM IVPB EVERY 8 HOURS, (Reported) Polyethylene Glycol 3350* (Miralax*), 17 GM GT HS, (Reported) Sodium Chloride* (Sodium Chloride*), 1 GM GT EVERY 12 HOURS, (Reported) Valproate Sodium (Depakene), 250 MG GT BID, (Reported) Vit C/Ascorbate Ca/Ascorb Sod (Vitamin C 500 Mg/15 Ml Liquid), 500 MG GT DAILY, (Reported) Scheduled PRN Albuterol Sulfate* (Albuterol Sulfate Hhn*), 3 ML INH Q6H PRN for Shortness of Breath, (Reported) Clonidine Hcl* (Catapres*), 0.1 MG GT EVERY 6 HOURS PRN for For High Blood Pressure, (Reported) Magnesium Hydroxide* (Milk Of Magnesia*), 30 ML GT DAILY PRN for Constipation, ( Reported) Patient History Healthcare decision maker SUKHI FONSECA Resuscitation status Full Code Advanced Directive on File No Patient History Narrative Pmhx: as above Shx: reviewed Fhx: non contributory Review of Systems All Other Systems: negative except mentioned in HPI Physical Exam Physical Exam Narrative General Appearance: WD/WN Lines, tubes and drains: peripheral HEENT: normocephalic, atraumatic Neck: non-tender, normal alignment Respiratory/Chest: chest wall non-tender, lungs clear Cardiovascular/Chest: normal peripheral pulses Abdomen: normal bowel sounds, non tender Extremities: normal range of motion Skin Exam: normal pigmentation Last 24 Hour Vital Signs Date Time Temp Pulse Resp B/P (MAP) Pulse Ox O2 Delivery O2 Flow Rate FiO2 02/12/18 14:42 75 20 80 02/12/18 12:46 73 20 80 02/12/18 12:00 68 02/12/18 12:00 97.9 68 21 153/93 100 Mechanical Ventilator 80 97.9 02/12/18 12:00 80 02/12/18 10:35 71 20 80 02/12/18 09:19 69 20 80 02/12/18 08:00 97.5 74 20 144/79 100 Mechanical Ventilator 80 97.5 02/12/18 08:00 80 02/12/18 08:00 85 02/12/18 07:03 67 20 80 02/12/18 06:00 100 02/12/18 05:11 74 20 100 02/12/18 04:48 100 02/12/18 04:17 73 19 136/83 100 Mechanical Ventilator 02/12/18 04:14 81 02/12/18 04:05 73 02/12/18 03:19 78 20 100 02/12/18 03:03 95.9 68 19 148/86 100 Mechanical Ventilator 95.9 02/12/18 01:35 74 20 100 02/12/18 01:27 73 19 147/81 100 Mechanical Ventilator 35 02/12/18 01:27 73 19 Mechanical Ventilator 02/12/18 01:15 35 02/12/18 01:11 88 18 162/87 Mechanical Ventilator 35 Intake and Output 02/11/18 02/12/18 19:00 07:00 Intake Total 30 ml Output Total 120 ml Balance -90 ml Intake Oral 0 ml Free Water 30 ml Output Urine Total 120 ml Laboratory Tests Test 02/12/18 01:17 02/12/18 01:30 02/12/18 02:20 Arterial Blood pH 7.368 (7.350-7.450) Arterial Blood Partial Pressure CO2 45.9 mmHg (35.0-45.0) H Arterial Blood Partial Pressure O2 329.8 mmHg (75.0-100.0) H Arterial Blood HCO3 25.8 mmol/L (22.0-26.0) Arterial Blood Oxygen Saturation 99.4 % (92.0-98.0) H Arterial Blood Base Excess 0.3 Hector Test Positive White Blood Count 9.1 K/UL (4.8-10.8) Red Blood Count 2.91 M/UL (4.70-6.10) L Hemoglobin 8.8 G/DL (14.2-18.0) L Hematocrit 26.7 % (42.0-52.0) L Mean Corpuscular Volume 92 FL (80-99) Mean Corpuscular Hemoglobin 30.4 PG (27.0-31.0) Mean Corpuscular Hemoglobin Concent 33.0 G/DL (32.0-36.0) Red Cell Distribution Width 13.8 % (11.6-14.8) Platelet Count 172 K/UL (150-450) Mean Platelet Volume 8.0 FL (6.5-10.1) Neutrophils (%) (Auto) 81.3 % (45.0-75.0) H Lymphocytes (%) (Auto) 9.6 % (20.0-45.0) L Monocytes (%) (Auto) 7.0 % (1.0-10.0) Eosinophils (%) (Auto) 1.6 % (0.0-3.0) Basophils (%) (Auto) 0.5 % (0.0-2.0) Prothrombin Time 9.0 SEC (9.30-11.50) L Prothromb Time International Ratio 0.9 (0.9-1.1) Activated Partial Thromboplast Time 32 SEC (23-33) Sodium Level 132 MMOL/L (136-145) L Potassium Level 5.5 MMOL/L (3.5-5.1) H Chloride Level 98 MMOL/L (98-107) Carbon Dioxide Level 25 MMOL/L (21-32) Anion Gap 9 mmol/L (5-15) Blood Urea Nitrogen 21 mg/dL (7-18) H Creatinine 0.8 MG/DL (0.55-1.30) Estimat Glomerular Filtration Rate > 60 mL/min (>60) Glucose Level 98 MG/DL (74-106) Lactic Acid Level 0.30 mmol/L (0.66-2.22) L Calcium Level 9.8 MG/DL (8.5-10.1) Total Bilirubin 0.3 MG/DL (0.2-1.0) Aspartate Amino Transf (AST/SGOT) 17 U/L (15-37) Alanine Aminotransferase (ALT/SGPT) 39 U/L (12-78) Alkaline Phosphatase 226 U/L (46-116) H Total Creatine Kinase 44 U/L (26-308) Troponin I 0.001 ng/mL (0.000-0.056) Pro-B-Type Natriuretic Peptide 804 pg/mL (0-125) H Total Protein 7.9 G/DL (6.4-8.2) Albumin 2.9 G/DL (3.4-5.0) L Globulin 5.0 g/dL Albumin/Globulin Ratio 0.6 (1.0-2.7) L Urine Color Pale yellow Urine Appearance Clear Urine pH 8 (4.5-8.0) Urine Specific [place] 1.010 (1.005-1.035) Urine Protein Negative (NEGATIVE) Urine Glucose (UA) Negative (NEGATIVE) Urine Ketones Negative (NEGATIVE) Urine Occult Blood Negative (NEGATIVE) Urine Nitrite Negative (NEGATIVE) Urine Bilirubin Negative (NEGATIVE) Urine Urobilinogen Normal MG/DL (0.0-1.0) Urine Leukocyte Esterase 1+ (NEGATIVE) H Urine RBC 0-2 /HPF (0 - 0) H Urine WBC 5-10 /HPF (0 - 0) H Urine Squamous Epithelial Cells None /LPF (NONE/OCC) Urine Amorphous Sediment Many /LPF (NONE) H Urine Bacteria Many /HPF (NONE) H Height (Feet): 5 Height (Inches): 7.00 Weight (Pounds): 168 Medications Current Medications Medications (Trade) Dose Ordered Sig/Marciano Route PRN Reason Start Time Stop Time Status Last Admin Dose Admin Al Hydroxide/Mg Hydroxide (Mylanta II) 30 ml Q6H PRN ORAL dyspepsia 02/12/18 07:30 03/14/18 07:29 Albuterol/ Ipratropium (Albuterol/ Ipratropium) 3 ml Q4H PRN HHN Shortness of Breath 02/12/18 07:30 02/17/18 07:29 Cefepime HCl 1 gm/ Dextrose 110 ml @ 220 mls/hr Q12HR@1100,2300 IV 02/12/18 11:00 02/19/18 10:59 02/12/18 10:31 Chlorhexidine Gluconate (Nancy-Hex 2%) 1 applic DAILY@2000 TOPIC 02/12/18 20:00 03/14/18 19:59 Heparin Sodium (Porcine) (Heparin 5000 units/ml) 5,000 units EVERY 12 HOURS SUBQ 02/12/18 09:00 03/14/18 08:59 02/12/18 09:13 Insulin Aspart (NovoLOG) Q6HR SUBQ 02/12/18 12:00 03/14/18 11:29 Levetiracetam (Keppra) 1,000 mg BID GT 02/12/18 18:00 03/14/18 17:59 Nitroglycerin (Ntg) 0.4 mg Q5M PRN SL Prn Chest Pain 02/12/18 07:30 03/14/18 07:29 Ondansetron HCl (Zofran) 4 mg Q6H PRN IVP Nausea & Vomiting 02/12/18 07:30 03/14/18 07:29 Polyethylene Glycol (Miralax) 17 gm DAILYPRN PRN ORAL Constipation 02/12/18 07:30 03/14/18 07:29 Promethazine HCl/ Codeine (Phenergan with Codeine) 5 ml Q4H PRN ORAL For Cough 02/12/18 07:30 03/14/18 07:29 Temazepam (Restoril) 15 mg HSPRN PRN ORAL Insomnia 02/12/18 07:30 02/19/18 07:29 Valproic Acid (Depakene) 250 mg EVERY 12 HOURS NG 02/12/18 21:00 03/14/18 20:59 Vancomycin HCl (Vanco rx to dose) 1 ea DAILY PRN MISC Per rx protocol 02/12/18 07:30 03/14/18 07:29 Vancomycin HCl 1 gm/Dextrose 275 ml @ 183.708 mls/hr Q12HR@0000,1200 IVPB 02/12/18 12:00 02/17/18 11:59 02/12/18 12:12 Assessment/Plan Assessment/Plan Abx: IV Vanco 02/12- Cefepime 02/12- Flagyl x1 02/12 Assessment: Acute on chronic respiratory failure- likely multifactorial 2ry to pulm edema, pleural effusion and r/o worsening PNA -CXR: Hazy groundglass some right basilar opacity obscuring the right hemidiaphragm consistent with a pleural effusion. Interstitial/pulmonary edema demonstrated Recent PNA, s/p rx -7 days IV Vanco and Zosyn (end date 02/11) Afebrile, no leukocytosis -u/a wbc 5-10, nit neg, leuk +1 chronic respiratory failure on tracheostomy cardiac arrest COPD DM2 PEG seizure disorder bedbound nonverbal hypertension hypoxic encephalopathy Plan: -Continue empiric IV Vanco and Cefepime #1 for now pending cultures -if febrile, leukocytosis, and/or HD decompensation, switch Cefepime to Meropenem -sputum cx -f/u cx -Monitor CBC/BMP, temperatures -trach/peg care -woudn care/prevention per hosp protocol -aspiration precautions Thank you for this consultation. Will continue to follow along with you. Discussed with Melody Bryant M.D. February 12, 2018 16:19
[2018-02-12] MEDS: levETIRAcetam 500mg/5ml Liquid GT SCH (17:41)
[2018-02-12 20:00] VITALS: BP 144/89
[2018-02-12] MEDS: Dyna-Hex 2% Top Sol 2oz TOPIC SCH (20:31)
[2018-02-12] MEDS: Valproic Acid 250mg/5ml Liquid NG SCH (20:31)
--- NOTE | 2018-02-12 20:37 | Cardiology Progress Note ---
Assessment/Plan Assessment/Plan The patient is seen and examined, full consult note will be dictated. Objective Last 24 Hour Vital Signs Date Time Temp Pulse Resp B/P (MAP) Pulse Ox O2 Delivery O2 Flow Rate FiO2 02/12/18 19:27 57 18 80 02/12/18 16:31 68 19 80 02/12/18 16:30 75 02/12/18 16:00 80 02/12/18 16:00 97.0 72 19 107/72 98 Mechanical Ventilator 80 97.0 02/12/18 14:42 75 20 80 02/12/18 12:46 73 20 80 02/12/18 12:00 68 02/12/18 12:00 97.9 68 21 153/93 100 Mechanical Ventilator 80 97.9 02/12/18 12:00 80 02/12/18 10:35 71 20 80 02/12/18 09:19 69 20 80 02/12/18 08:00 97.5 74 20 144/79 100 Mechanical Ventilator 80 97.5 02/12/18 08:00 80 02/12/18 08:00 85 02/12/18 07:03 67 20 80 02/12/18 06:00 100 02/12/18 05:11 74 20 100 02/12/18 04:48 100 02/12/18 04:17 73 19 136/83 100 Mechanical Ventilator 02/12/18 04:14 81 02/12/18 04:05 73 02/12/18 03:19 78 20 100 02/12/18 03:03 95.9 68 19 148/86 100 Mechanical Ventilator 95.9 02/12/18 01:35 74 20 100 02/12/18 01:27 73 19 147/81 100 Mechanical Ventilator 35 02/12/18 01:27 73 19 Mechanical Ventilator 02/12/18 01:15 35 02/12/18 01:11 88 18 162/87 Mechanical Ventilator 35 Intake and Output 02/11/18 02/12/18 19:00 07:00 Intake Total 30 ml Output Total 120 ml Balance -90 ml Intake Oral 0 ml Free Water 30 ml Output Urine Total 120 ml Laboratory Tests Test 02/12/18 01:17 02/12/18 01:30 02/12/18 02:20 Arterial Blood pH 7.368 (7.350-7.450) Arterial Blood Partial Pressure CO2 45.9 mmHg (35.0-45.0) H Arterial Blood Partial Pressure O2 329.8 mmHg (75.0-100.0) H Arterial Blood HCO3 25.8 mmol/L (22.0-26.0) Arterial Blood Oxygen Saturation 99.4 % (92.0-98.0) H Arterial Blood Base Excess 0.3 Hector Test Positive White Blood Count 9.1 K/UL (4.8-10.8) Red Blood Count 2.91 M/UL (4.70-6.10) L Hemoglobin 8.8 G/DL (14.2-18.0) L Hematocrit 26.7 % (42.0-52.0) L Mean Corpuscular Volume 92 FL (80-99) Mean Corpuscular Hemoglobin 30.4 PG (27.0-31.0) Mean Corpuscular Hemoglobin Concent 33.0 G/DL (32.0-36.0) Red Cell Distribution Width 13.8 % (11.6-14.8) Platelet Count 172 K/UL (150-450) Mean Platelet Volume 8.0 FL (6.5-10.1) Neutrophils (%) (Auto) 81.3 % (45.0-75.0) H Lymphocytes (%) (Auto) 9.6 % (20.0-45.0) L Monocytes (%) (Auto) 7.0 % (1.0-10.0) Eosinophils (%) (Auto) 1.6 % (0.0-3.0) Basophils (%) (Auto) 0.5 % (0.0-2.0) Prothrombin Time 9.0 SEC (9.30-11.50) L Prothromb Time International Ratio 0.9 (0.9-1.1) Activated Partial Thromboplast Time 32 SEC (23-33) Sodium Level 132 MMOL/L (136-145) L Potassium Level 5.5 MMOL/L (3.5-5.1) H Chloride Level 98 MMOL/L (98-107) Carbon Dioxide Level 25 MMOL/L (21-32) Anion Gap 9 mmol/L (5-15) Blood Urea Nitrogen 21 mg/dL (7-18) H Creatinine 0.8 MG/DL (0.55-1.30) Estimat Glomerular Filtration Rate > 60 mL/min (>60) Glucose Level 98 MG/DL (74-106) Lactic Acid Level 0.30 mmol/L (0.66-2.22) L Calcium Level 9.8 MG/DL (8.5-10.1) Total Bilirubin 0.3 MG/DL (0.2-1.0) Aspartate Amino Transf (AST/SGOT) 17 U/L (15-37) Alanine Aminotransferase (ALT/SGPT) 39 U/L (12-78) Alkaline Phosphatase 226 U/L (46-116) H Total Creatine Kinase 44 U/L (26-308) Troponin I 0.001 ng/mL (0.000-0.056) Pro-B-Type Natriuretic Peptide 804 pg/mL (0-125) H Total Protein 7.9 G/DL (6.4-8.2) Albumin 2.9 G/DL (3.4-5.0) L Globulin 5.0 g/dL Albumin/Globulin Ratio 0.6 (1.0-2.7) L Urine Color Pale yellow Urine Appearance Clear Urine pH 8 (4.5-8.0) Urine Specific [place] 1.010 (1.005-1.035) Urine Protein Negative (NEGATIVE) Urine Glucose (UA) Negative (NEGATIVE) Urine Ketones Negative (NEGATIVE) Urine Occult Blood Negative (NEGATIVE) Urine Nitrite Negative (NEGATIVE) Urine Bilirubin Negative (NEGATIVE) Urine Urobilinogen Normal MG/DL (0.0-1.0) Urine Leukocyte Esterase 1+ (NEGATIVE) H Urine RBC 0-2 /HPF (0 - 0) H Urine WBC 5-10 /HPF (0 - 0) H Urine Squamous Epithelial Cells None /LPF (NONE/OCC) Urine Amorphous Sediment Many /LPF (NONE) H Urine Bacteria Many /HPF (NONE) H Chris Yanez MD February 12, 2018 20:37
[2018-02-13] VITALS: BP 111/70
--- NOTE | 2018-02-13 01:30 | History and Physical Report ---
DATE OF ADMISSION: 02/12/2018 APPROXIMATE TIME SEEN: At 4 p.m. CONSULTANTS: 1. Leodan Bojorquez M.D. 2. Emery Mendez M.D. CHIEF COMPLAINT: Weakness, lethargy, shortness of breath, and fever. BRIEF HISTORY: This is a 72-year-old male, who lives at [facility], who presents with fever, weakness, lethargy and found to have pneumonia, UTI, and sepsis, admitted to [facility] for further care. Currently on trach, vent, altered, lethargic in bed, and nonverbal. PAST MEDICAL HISTORY: Includes hypertension, respiratory failure, seizure, and anemia. PAST SURGICAL HISTORY: Trach. MEDICATIONS: Include Depakene, Keppra, vancomycin, NovoLog, cefepime, heparin, MiraLAX, Mylanta, nitroglycerin, Phenergan, and . ALLERGIES: Tylenol. SOCIAL HISTORY: Unable to obtain secondary to the patient's condition. REVIEW OF SYSTEMS: Unavailable. PHYSICAL EXAMINATION: GENERAL: Lethargic, trach, vent, altered, lethargic in bed, nonverbal. VITAL SIGNS: Temperature is 97 degrees, pulse 73, respirations 20, blood pressure 133/93. CARDIOVASCULAR: No murmur. LUNGS: Poor air exchange. ABDOMEN: Bowel sounds distant. EXTREMITIES: No cyanosis, clubbing, or edema. NEUROLOGIC: The patient is flaccid in bed, nonverbal. LABORATORY AND DIAGNOSTIC DATA: Labs at this time show hemoglobin and hematocrit 8.8/26, otherwise CBC is normal. BMP shows sodium 132, potassium 5.5, and BUN 21. INR is 0.9. Urinalysis, 1+ leukocyte esterase. ASSESSMENT: 1. Pneumonia. 2. UTI. 3. Sepsis. 4. Hypertension. 5. Seizure. 6. Anemia. 7. Respiratory failure. 8. Hyperkalemia. PLAN: 1. Continue previous medications. 2. Vent per Pulmonary. 3. Antibiotics per Infectious Disease. 4. Blood pressure and seizure control. 5. Dietary followup. 6. Dr. Bojorquez, Dr. Mendez, and Dr. Nix to consult. 7. We will continue to follow this patient. 8. CBC and BMP in the morning. Yosef Garcia D.O. DR: MAIKEL JOB#: [id number] CC:
[2018-02-13 04:00] VITALS: BP 128/68
[2018-02-13 04:58] LABS: BASOPHILS % (AUTO) 0.9 % (0.0-2.0); HEMATOCRIT 25.3 % (42.0-52.0); HEMOGLOBIN 8.5 G/DL (14.2-18.0); LYMPHOCYTES % (AUTO) 18.7 % (20.0-45.0); MEAN CORPUSCULAR VOLUME 92 FL (80-99); MONOCYTES % (AUTO) 6.3 % (1.0-10.0); NEUTROPHILS % (AUTO) 71.2 % (45.0-75.0); PLATELET COUNT 159 K/UL (150-450); RED BLOOD COUNT 2.74 M/UL (4.70-6.10); RED CELL DISTRIBUTION WIDTH 13.3 % (11.6-14.8); WHITE BLOOD COUNT 6.3 K/UL (4.8-10.8)
[2018-02-13 05:06] LABS: INR 0.9 (0.9-1.1)
[2018-02-13 05:20] LABS: % IRON SATURATION 29 % (15-50); IRON 74 ug/dL (50-175); TOTAL IRON BINDING CAPACITY 258 ug/dL (250-450)
[2018-02-13 05:24] LABS: LACTATE DEHYDROGENASE 125 U/L (81-234)
[2018-02-13 05:26] LABS: ALBUMIN 2.8 G/DL (3.4-5.0); ANION GAP 7 mmol/L (5-15); BLOOD UREA NITROGEN 15 mg/dL (7-18); CALCIUM 9.2 MG/DL (8.5-10.1); CARBON DIOXIDE 25 MMOL/L (21-32); CHLORIDE 99 MMOL/L (98-107); CREATININE 0.7 MG/DL (0.55-1.30); PHOSPHORUS 4.8 MG/DL (2.5-4.9); POTASSIUM 5.4 MMOL/L (3.5-5.1); SODIUM 131 MMOL/L (136-145)
[2018-02-13 05:28] LABS: ANION GAP 9 mmol/L (5-15); BLOOD UREA NITROGEN 14 mg/dL (7-18); CALCIUM 9.7 MG/DL (8.5-10.1); CARBON DIOXIDE 24 MMOL/L (21-32); CHLORIDE 98 MMOL/L (98-107); CREATININE 0.7 MG/DL (0.55-1.30); POTASSIUM 5.2 MMOL/L (3.5-5.1); SODIUM 131 MMOL/L (136-145)
[2018-02-13] MEDS: NovoLOG Insulin Flexpen SUBQ SCH ×4 (05:31→23:30)
[2018-02-13 08:00] VITALS: BP 144/81
[2018-02-13] MEDS: levETIRAcetam 500mg/5ml Liquid GT SCH ×2 (08:38→20:21)
[2018-02-13] MEDS: Valproic Acid 250mg/5ml Liquid NG SCH ×2 (08:38→20:20)
[2018-02-13] MEDS: Heparin 5000 units/ml inj SUBQ SCH ×2 (08:40→20:22)
--- NOTE | 2018-02-13 10:30 | Pulmonolgy Critical Care Note ---
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, ID Discussed with: nurses, consultants, manager of casebilingual manager - Objective Last 24 Hour Vital Signs Date Time Temp Pulse Resp B/P (MAP) Pulse Ox O2 Delivery O2 Flow Rate FiO2 02/13/18 08:52 65 19 50 02/13/18 08:00 97.5 65 21 144/81 100 Mechanical Ventilator 50 97.5 02/13/18 08:00 50 02/13/18 08:00 62 02/13/18 06:55 58 18 50 02/13/18 05:25 59 18 50 02/13/18 04:00 97.5 65 18 128/68 97 Mechanical Ventilator 50 97.5 02/13/18 04:00 72 02/13/18 03:00 50 02/13/18 02:50 60 18 50 02/13/18 01:30 60 02/13/18 01:27 76 21 60 02/13/18 00:30 70 02/13/18 00:23 70 02/13/18 00:00 97.4 66 18 111/70 97 Mechanical Ventilator 80 97.4 02/13/18 00:00 80 02/12/18 23:58 63 02/12/18 23:00 70 18 80 02/12/18 21:03 60 18 80 02/12/18 20:00 80 02/12/18 20:00 97.6 59 18 144/89 99 Mechanical Ventilator 80 97.6 02/12/18 19:27 57 18 80 02/12/18 19:23 77 02/12/18 16:31 68 19 80 02/12/18 16:30 75 02/12/18 16:00 80 02/12/18 16:00 97.0 72 19 107/72 98 Mechanical Ventilator 80 97.0 02/12/18 14:42 75 20 80 02/12/18 12:46 73 20 80 02/12/18 12:00 68 02/12/18 12:00 97.9 68 21 153/93 100 Mechanical Ventilator 80 97.9 02/12/18 12:00 80 02/12/18 10:35 71 20 80 Status: awake Condition: critical HEENT: atraumatic Neck: full ROM, trach Lungs: rales, rhonchi Heart: HR/BP stable Abdomen: soft, non-tender, active bowel sounds Extremities: no C/C/E, edema Decubiti: location Micro: Microbiology Date/Time Source Procedure Growth Status 02/12/18 01:45 Blood Blood Culture - Preliminary NO GROWTH AFTER 24 HOURS Resulted 02/12/18 01:30 Blood Blood Culture - Preliminary NO GROWTH AFTER 24 HOURS Resulted 02/12/18 02:20 Urine,Clean Catch Urine Culture - Preliminary NO GROWTH Resulted Accucheck: 84 Critical Care - Subjective ROS Limited/Unobtainable: Yes Condition: critical EKG Rhythm: Sinus Rhythm FI02: 50 Vent Support Breath Rate: 18 Vent Support Mode: AC Vent Tidal Volume: 500 Sputum Amount: Moderate PEEP: 5.0 PIP: 25 Tube Feeding Amount: 30 I&O: Intake and Output 02/12/18 02/13/18 19:00 07:00 Intake Total 750.000 ml 825.000 ml Output Total 1100 ml 1400 ml Balance -350.000 ml -575.000 ml Free Water 160 ml 80 ml IV Total 385.000 ml 385.000 ml Tube Feeding 205 ml 360 ml Output Urine Total 1100 ml 1400 ml # Bowel Movements 1 CXR: Congestive heart failure/interstitial edema Right pleural effusion Labs: Laboratory Tests Test 02/12/18 23:00 02/13/18 04:00 Stool Occult Blood Pending White Blood Count 6.3 K/UL (4.8-10.8) Red Blood Count 2.74 M/UL (4.70-6.10) L Hemoglobin 8.5 G/DL (14.2-18.0) L Hematocrit 25.3 % (42.0-52.0) L Mean Corpuscular Volume 92 FL (80-99) Mean Corpuscular Hemoglobin 31.1 PG (27.0-31.0) H Mean Corpuscular Hemoglobin Concent 33.7 G/DL (32.0-36.0) Red Cell Distribution Width 13.3 % (11.6-14.8) Platelet Count 159 K/UL (150-450) Mean Platelet Volume 8.7 FL (6.5-10.1) Neutrophils (%) (Auto) 71.2 % (45.0-75.0) Lymphocytes (%) (Auto) 18.7 % (20.0-45.0) L Monocytes (%) (Auto) 6.3 % (1.0-10.0) Eosinophils (%) (Auto) 3.0 % (0.0-3.0) Basophils (%) (Auto) 0.9 % (0.0-2.0) Neutrophils % (Manual) Pending Lymphocytes % (Manual) Pending Platelet Estimate Pending Platelet Morphology Pending Erythrocyte Sedimentation Rate 120 MM/HR (0-20) H Reticulocyte Count 1.8 % (0.0-2.0) Prothrombin Time 9.6 SEC (9.30-11.50) Prothromb Time International Ratio 0.9 (0.9-1.1) Activated Partial Thromboplast Time 36 SEC (23-33) H Sodium Level 131 MMOL/L (136-145) L Potassium Level 5.2 MMOL/L (3.5-5.1) H Chloride Level 98 MMOL/L (98-107) Carbon Dioxide Level 24 MMOL/L (21-32) Anion Gap 9 mmol/L (5-15) Blood Urea Nitrogen 14 mg/dL (7-18) Creatinine 0.7 MG/DL (0.55-1.30) Estimat Glomerular Filtration Rate > 60 mL/min (>60) Glucose Level 87 MG/DL (74-106) Calcium Level 9.7 MG/DL (8.5-10.1) Phosphorus Level 4.8 MG/DL (2.5-4.9) Iron Level 74 ug/dL (50-175) Total Iron Binding Capacity 258 ug/dL (250-450) Percent Iron Saturation 29 % (15-50) Unsaturated Iron Binding 184 ug/dL (112-346) Lactate Dehydrogenase 125 U/L (81-234) Albumin 2.8 G/DL (3.4-5.0) L Carcinoembryonic Antigen Pending Vitamin B12 Level 1949 PG/ML (193-986) H Folate 19.6 NG/ML (8.6-58.9) Leodan Bojorquez MD February 13, 2018 10:30
[2018-02-13] MEDS: Cefepime HCl 1 GM in D5W 110 ML IV SCH ×2 (11:53→23:27)
[2018-02-13 12:00] VITALS: BP 145/78
--- NOTE | 2018-02-13 13:27 | General Progress Note ---
Assessment/Plan Problem List: (1) Hypertension ICD Codes: I10 - Essential (primary) hypertension SNOMED: 36460309 (2) Acute on chronic respiratory failure ICD Codes: J96.20 - Acute and chronic respiratory failure, unspecified whether with hypoxia or hypercapnia SNOMED: 66075481 (3) Seizure disorder ICD Codes: G40.909 - Epilepsy, unspecified, not intractable, without status epilepticus SNOMED: 319747013 (4) Anemia ICD Codes: D64.9 - Anemia, unspecified SNOMED: 510678384 (5) Aspiration pneumonia ICD Codes: J69.0 - Pneumonitis due to inhalation of food and vomit SNOMED: 402748981 Status: unchanged Assessment/Plan vent abx cbc bmp am Subjective Constitutional: Reports: weakness Allergies: Coded Allergies: ACETAMINOPHEN (Verified Allergy, Unknown, 12/16/17) All Systems: reviewed and negative except above Subjective trach vent altered Objective Last 24 Hour Vital Signs Date Time Temp Pulse Resp B/P (MAP) Pulse Ox O2 Delivery O2 Flow Rate FiO2 02/13/18 12:00 60 02/13/18 12:00 97.5 73 23 145/78 99 Mechanical Ventilator 50 97.5 02/13/18 12:00 50 02/13/18 08:52 65 19 50 02/13/18 08:00 97.5 65 21 144/81 100 Mechanical Ventilator 50 97.5 02/13/18 08:00 50 02/13/18 08:00 62 02/13/18 06:55 58 18 50 02/13/18 05:25 59 18 50 02/13/18 04:00 97.5 65 18 128/68 97 Mechanical Ventilator 50 97.5 02/13/18 04:00 72 02/13/18 03:00 50 02/13/18 02:50 60 18 50 02/13/18 01:30 60 02/13/18 01:27 76 21 60 02/13/18 00:30 70 02/13/18 00:23 70 02/13/18 00:00 97.4 66 18 111/70 97 Mechanical Ventilator 80 97.4 02/13/18 00:00 80 02/12/18 23:58 63 02/12/18 23:00 70 18 80 02/12/18 21:03 60 18 80 02/12/18 20:00 80 02/12/18 20:00 97.6 59 18 144/89 99 Mechanical Ventilator 80 97.6 02/12/18 19:27 57 18 80 02/12/18 19:23 77 02/12/18 16:31 68 19 80 02/12/18 16:30 75 02/12/18 16:00 80 02/12/18 16:00 97.0 72 19 107/72 98 Mechanical Ventilator 80 97.0 02/12/18 14:42 75 20 80 Intake and Output 02/12/18 02/13/18 19:00 07:00 Intake Total 750.000 ml 825.000 ml Output Total 1100 ml 1400 ml Balance -350.000 ml -575.000 ml Free Water 160 ml 80 ml IV Total 385.000 ml 385.000 ml Tube Feeding 205 ml 360 ml Output Urine Total 1100 ml 1400 ml # Bowel Movements 1 Laboratory Tests 02/12/18 23:00: Stool Occult Blood Negative 02/13/18 04:00: White Blood Count 6.3, Red Blood Count 2.74L, Hemoglobin 8.5L, Hematocrit 25.3L , Mean Corpuscular Volume 92, Mean Corpuscular Hemoglobin 31.1H, Mean Corpuscular Hemoglobin Concent 33.7, Red Cell Distribution Width 13.3, Platelet Count 159, Mean Platelet Volume 8.7, Neutrophils (%) (Auto) 71.2, Lymphocytes (% ) (Auto) 18.7L, Monocytes (%) (Auto) 6.3, Eosinophils (%) (Auto) 3.0, Basophils (%) (Auto) 0.9, Differential Total Cells Counted 100, Neutrophils % (Manual) 72 , Lymphocytes % (Manual) 16L, Monocytes % (Manual) 6, Eosinophils % (Manual) 4H , Basophils % (Manual) 0, Band Neutrophils 2, Platelet Estimate Adequate, Platelet Morphology Normal, Red Blood Cell Morphology Normal, Erythrocyte Sedimentation Rate 120H, Reticulocyte Count 1.8, Prothrombin Time 9.6, Prothromb Time International Ratio 0.9, Activated Partial Thromboplast Time 36H , Sodium Level 131L, Potassium Level 5.2H, Chloride Level 98, Carbon Dioxide Level 24, Anion Gap 9, Blood Urea Nitrogen 14, Creatinine 0.7, Estimat Glomerular Filtration Rate > 60, Glucose Level 87, Calcium Level 9.7, Phosphorus Level 4.8, Iron Level 74, Total Iron Binding Capacity 258, Percent Iron Saturation 29, Unsaturated Iron Binding 184, Lactate Dehydrogenase 125, Albumin 2.8L, Carcinoembryonic Antigen [Pending], Vitamin B12 Level 1949H, Folate 19.6 02/13/18 11:24: Vancomycin Level Trough 26.3H Height (Feet): 5 Height (Inches): 7.00 Weight (Pounds): 168 General Appearance: lethargic EENT: normal ENT inspection Neck: normal alignment Cardiovascular: normal peripheral pulses, normal rate, regular rhythm Respiratory/Chest: chest wall non-tender, decreased breath sounds Abdomen: normal bowel sounds, non tender Extremities: normal inspection Edema: no edema noted Arm (L), no edema noted Arm (R), no edema noted Leg (L), no edema noted Leg (R), no edema noted Pedal (L), no edema noted Pedal (R), no edema noted Generalized Neurologic: motor weakness Skin: normal pigmentation, warm/dry Yosef Garcia DO February 13, 2018 13:27
--- NOTE | 2018-02-13 15:26 | Consultation ---
Consult Note Consult Note asked to evaluate for hyponatremia and Hyperkalemia 72-year-old male, history of chronic respiratory failure tracheostomy, bedbound nonverbal, hypertension, hypoxic encephalopathy, diabetes, brought from halfway for evaluation of worsening pneumonia on chest x-ray. Patient already finished a course of Zosyn and Vanco for 7 days that was finished on 2017. No other history is able to be obtained as patient is nonverbal Allergies: ACETAMINOPHEN (Verified Allergy, Unknown, 12/16/17) Hx Cardiac Problems: Yes - cardiac arrest Hx Hypertension: Yes Hx COPD: Yes Hx Diabetes: Yes Hx Gastrointestinal Problems: Yes - pt with GT Hx Neurological Problems: Yes - hypoxic encephalopathy Hx Cerebrovascular Accident: Yes Hx Epilepsy: Yes Hx Speech Problem: Yes Hx Weakness: Yes non verbal- examined- data reviewed discussed with RN . Assessment/Plan - Hypo Natremia & Hyper Kalemia - Acute on chronic respiratory failure - Aspiration pneumonia - Feeding by G-tube - Vegetative state - Seizure disorder - Pleural effusion - Anemia - Hypertension Plan: 2D Echo Gastric support Lasix 20 daily monitor lytes per orders HERLINDA MALLOY February 13, 2018 15:26
[2018-02-13 16:00] VITALS: BP 119/68
--- NOTE | 2018-02-13 17:18 | Infectious Diseases Prog Note ---
Assessment/Plan Assessment/Plan Abx: IV Vanco 02/12- Cefepime 02/12- Flagyl x1 02/12 Assessment: Acute on chronic respiratory failure- likely multifactorial 2ry to pulm edema, pleural effusion and r/o worsening PNA -CXR: Hazy groundglass some right basilar opacity obscuring the right hemidiaphragm consistent with a pleural effusion. Interstitial/pulmonary edema demonstrated -sp cx p Recent PNA, s/p rx -7 days IV Vanco and Zosyn (end date 02/11) Afebrile, no leukocytosis -u/a wbc 5-10, nit neg, leuk +1; ucx NTD -Bcx nTd chronic respiratory failure on tracheostomy cardiac arrest COPD DM2 PEG seizure disorder bedbound nonverbal hypertension hypoxic encephalopathy Plan: -Continue empiric IV Vanco and Cefepime #2 for now pending cultures -if febrile, leukocytosis, and/or HD decompensation, switch Cefepime to Meropenem -f/u cx -Monitor CBC/BMP, temperatures -trach/peg care -woudn care/prevention per hosp protocol -aspiration precautions Thank you for this consultation. Will continue to follow along with you. Discussed with RN. Subjective Allergies: Coded Allergies: ACETAMINOPHEN (Verified Allergy, Unknown, 12/16/17) Subjective afebrile no leukocyotis Bcx, ucx NTD sp cx p Objective Vital Signs Last 24 Hour Vital Signs Date Time Temp Pulse Resp B/P (MAP) Pulse Ox O2 Delivery O2 Flow Rate FiO2 02/13/18 17:08 53 18 50 02/13/18 16:00 50 02/13/18 16:00 68 02/13/18 15:23 54 18 50 02/13/18 13:25 55 18 50 02/13/18 12:00 60 02/13/18 12:00 97.5 73 23 145/78 99 Mechanical Ventilator 50 97.5 02/13/18 12:00 50 02/13/18 10:45 60 20 50 02/13/18 08:52 65 19 50 02/13/18 08:00 97.5 65 21 144/81 100 Mechanical Ventilator 50 97.5 02/13/18 08:00 50 02/13/18 08:00 62 02/13/18 06:55 58 18 50 02/13/18 05:25 59 18 50 02/13/18 04:00 97.5 65 18 128/68 97 Mechanical Ventilator 50 97.5 02/13/18 04:00 72 02/13/18 03:00 50 02/13/18 02:50 60 18 50 02/13/18 01:30 60 02/13/18 01:27 76 21 60 02/13/18 00:30 70 02/13/18 00:23 70 02/13/18 00:00 97.4 66 18 111/70 97 Mechanical Ventilator 80 97.4 02/13/18 00:00 80 02/12/18 23:58 63 02/12/18 23:00 70 18 80 02/12/18 21:03 60 18 80 02/12/18 20:00 80 02/12/18 20:00 97.6 59 18 144/89 99 Mechanical Ventilator 80 97.6 02/12/18 19:27 57 18 80 02/12/18 19:23 77 Height (Feet): 5 Height (Inches): 7.00 Weight (Pounds): 168 Objective General Appearance: WD/WN Lines, tubes and drains: peripheral HEENT: normocephalic, atraumatic Neck: non-tender, normal alignment Respiratory/Chest: chest wall non-tender, lungs clear Cardiovascular/Chest: normal peripheral pulses Abdomen: normal bowel sounds, non tender Extremities: normal range of motion Skin Exam: normal pigmentation Microbiology Date/Time Source Procedure Growth Status 02/12/18 01:45 Blood Blood Culture - Preliminary NO GROWTH AFTER 24 HOURS Resulted 02/12/18 01:30 Blood Blood Culture - Preliminary NO GROWTH AFTER 24 HOURS Resulted 02/12/18 09:20 Sputum Gram Stain - Final Resulted 02/12/18 09:20 Sputum Sputum Culture Pending Resulted 02/12/18 02:20 Urine,Clean Catch Urine Culture - Preliminary NO GROWTH Resulted Laboratory Tests Test 02/12/18 23:00 02/13/18 04:00 02/13/18 11:24 Stool Occult Blood Negative (NEGATIVE) White Blood Count 6.3 K/UL (4.8-10.8) Red Blood Count 2.74 M/UL (4.70-6.10) L Hemoglobin 8.5 G/DL (14.2-18.0) L Hematocrit 25.3 % (42.0-52.0) L Mean Corpuscular Volume 92 FL (80-99) Mean Corpuscular Hemoglobin 31.1 PG (27.0-31.0) H Mean Corpuscular Hemoglobin Concent 33.7 G/DL (32.0-36.0) Red Cell Distribution Width 13.3 % (11.6-14.8) Platelet Count 159 K/UL (150-450) Mean Platelet Volume 8.7 FL (6.5-10.1) Neutrophils (%) (Auto) 71.2 % (45.0-75.0) Lymphocytes (%) (Auto) 18.7 % (20.0-45.0) L Monocytes (%) (Auto) 6.3 % (1.0-10.0) Eosinophils (%) (Auto) 3.0 % (0.0-3.0) Basophils (%) (Auto) 0.9 % (0.0-2.0) Differential Total Cells Counted 100 Neutrophils % (Manual) 72 % (45-75) Lymphocytes % (Manual) 16 % (20-45) L Monocytes % (Manual) 6 % (1-10) Eosinophils % (Manual) 4 % (0-3) H Basophils % (Manual) 0 % (0-2) Band Neutrophils 2 % (0-8) Platelet Estimate Adequate Platelet Morphology Normal Red Blood Cell Morphology Normal Erythrocyte Sedimentation Rate 120 MM/HR (0-20) H Reticulocyte Count 1.8 % (0.0-2.0) Prothrombin Time 9.6 SEC (9.30-11.50) Prothromb Time International Ratio 0.9 (0.9-1.1) Activated Partial Thromboplast Time 36 SEC (23-33) H Sodium Level 131 MMOL/L (136-145) L Potassium Level 5.2 MMOL/L (3.5-5.1) H Chloride Level 98 MMOL/L (98-107) Carbon Dioxide Level 24 MMOL/L (21-32) Anion Gap 9 mmol/L (5-15) Blood Urea Nitrogen 14 mg/dL (7-18) Creatinine 0.7 MG/DL (0.55-1.30) Estimat Glomerular Filtration Rate > 60 mL/min (>60) Glucose Level 87 MG/DL (74-106) Calcium Level 9.7 MG/DL (8.5-10.1) Phosphorus Level 4.8 MG/DL (2.5-4.9) Iron Level 74 ug/dL (50-175) Total Iron Binding Capacity 258 ug/dL (250-450) Percent Iron Saturation 29 % (15-50) Unsaturated Iron Binding 184 ug/dL (112-346) Lactate Dehydrogenase 125 U/L (81-234) C-Reactive Protein, Quantitative 8.0 mg/dL (0.00-0.90) H Albumin 2.8 G/DL (3.4-5.0) L Carcinoembryonic Antigen Pending Vitamin B12 Level 1949 PG/ML (193-986) H Folate 19.6 NG/ML (8.6-58.9) Vancomycin Level Trough 26.3 ug/mL (5.0-12.0) H Current Medications Medications (Trade) Dose Ordered Sig/Marciano Route PRN Reason Start Time Stop Time Status Last Admin Dose Admin Albuterol/ Ipratropium (Albuterol/ Ipratropium) 3 ml Q4H PRN HHN Shortness of Breath 02/12/18 07:30 02/17/18 07:29 Cefepime HCl 1 gm/ Dextrose 110 ml @ 220 mls/hr Q12HR@1100,2300 IV 02/12/18 11:00 02/19/18 10:59 02/13/18 11:53 Chlorhexidine Gluconate (Nancy-Hex 2%) 1 applic DAILY@2000 TOPIC 02/12/18 20:00 03/14/18 19:59 02/12/18 20:31 Famotidine (Pepcid) 20 mg BID GT 02/13/18 18:00 03/15/18 17:59 Furosemide (Lasix) 20 mg DAILY IV 02/14/18 09:00 03/16/18 08:59 Heparin Sodium (Porcine) (Heparin 5000 units/ml) 5,000 units EVERY 12 HOURS SUBQ 02/12/18 09:00 03/14/18 08:59 02/13/18 08:40 Insulin Aspart (NovoLOG) Q6HR SUBQ 02/12/18 12:00 03/14/18 11:29 Levetiracetam (Keppra) 1,000 mg Q12HR GT 02/13/18 21:00 03/14/18 17:59 Nitroglycerin (Ntg) 0.4 mg Q5M PRN SL Prn Chest Pain 5/30/18 07:30 03/14/18 07:29 Ondansetron HCl (Zofran) 4 mg Q6H PRN IVP Nausea & Vomiting 02/12/18 07:30 03/14/18 07:29 Polyethylene Glycol (Miralax) 17 gm DAILYPRN PRN ORAL Constipation 02/12/18 07:30 03/14/18 07:29 Promethazine HCl/ Codeine (Phenergan with Codeine) 5 ml Q4H PRN ORAL For Cough 02/12/18 07:30 03/14/18 07:29 Temazepam (Restoril) 15 mg HSPRN PRN ORAL Insomnia 02/12/18 07:30 02/19/18 07:29 Valproic Acid (Depakene) 250 mg EVERY 12 HOURS NG 02/12/18 21:00 03/14/18 20:59 02/13/18 08:38 Vancomycin HCl (Vanco rx to dose) 1 ea DAILY PRN MISC Per rx protocol 02/12/18 07:30 03/14/18 07:29 Melody Suarez M.D. February 13, 2018 17:18
--- NOTE | 2018-02-13 18:46 | Consultation ---
DATE OF CONSULTATION: 02/12/2018 CARDIOLOGY CONSULTATION CONSULTING PHYSICIAN: Chris Yanez M.D. REFERRING PHYSICIAN: Yosef Garcia D.O. REASON FOR CONSULTATION: Management of shortness of breath. HISTORY OF PRESENT ILLNESS: The patient is a very unfortunate 72-year-old gentleman, who is [facility] resident under the care of Dr. Garcia, was transferred to this hospital for worsening of shortness of breath and pleural effusion on chest x-ray. The patient has already completed his course of Zosyn and vancomycin for seven days on 02/11/2018, however, there was no improvement clinically or on chest x-ray. The patient is nonverbal, therefore, this report is prepared by using the old record and review of the records from the past admissions to this hospital. Cardiology consultation was made at the request of Dr. Garcia for evaluation and management of dyspnea. PAST MEDICAL HISTORY: 1. History of cardiac arrest. 2. History of hypertension. 3. History of chronic obstructive pulmonary disease. 4. History of diabetes mellitus. 5. Chronic respiratory failure status post tracheostomy tube placement. 6. History of dysphagia status post G-tube placement. 7. History of hypoxic encephalopathy. 8. History of CVA. 9. History of epilepsy. PAST SURGICAL HISTORY: 1. A tracheostomy tube placement. 2. PEG placement. MEDICATIONS AT THE NURSING FACILITY: Albuterol 3 mL inhaler q.6 hours p.r.n. shortness of breath, ProStat 30 mL G-tube daily, carvedilol 6.25 mg G-tube q.12 hours, clonidine 0.1 mg G-tube q.6 hours p.r.n. high blood pressure, Colace 100 mg G-tube 3 times a day, ferrous sulfate 325 mg G-tube twice daily, heparin sulfate 5000 units subcutaneous G-tube q.12 hours, hydralazine 10 mg G-tube twice daily, Keppra 1000 mg G-tube twice daily, milk of magnesia 30 mL G-tube daily p.r.n. constipation, multivitamin 15 mL G-tube daily, omeprazole 40 mg G-tube daily, Zosyn 3.375 g IV piggyback q.8 hours, MiraLAX 17 g G-tube at night time, and sodium chloride 1 g G-tube q.12 hours. We will add Depakote 250 mg G-tube twice daily and vitamin C 500 mg per 15 mL liquid G-tube daily. ALLERGIES: Acetaminophen. FAMILY HISTORY: Could not be obtained due to nonverbal status. REVIEW OF SYSTEMS: Could not be obtained due to nonverbal status. PHYSICAL EXAMINATION: VITAL SIGNS: Blood pressure at the time of arrival to the hospital was 162/87, respirations 18, pulse of 88, and O2 saturation 100% on mechanical ventilator on FiO2 of 35%. GENERAL: The patient is nonverbal 72-year-old gentleman, in no apparent respiratory distress. HEENT: Atraumatic and normocephalic. Anicteric. Pupils are equal, round, and reactive to light and accommodation. There is presence of a tracheostomy tube. Conjunctival pallor is seen. NECK: JVP cannot be assessed. No carotid bruit. CVS: Normal S1, S2. Regular rate and rhythm. A 2/6 mid systolic murmur at the left sternal border. PMI is at fourth intercostal space at the midclavicular line. LUNGS: Diminished breath sounds on the entire right lung with increased dullness and diminished breath sounds at the base of the left lung with increased dullness. ABDOMEN: Soft, nontender, and nondistended. No hepatosplenomegaly. Positive G-tube in place. EXTREMITIES: No evidence of edema, clubbing, or cyanosis. LABORATORY FINDINGS: WBC 9.1, hemoglobin of 8.8, hematocrit of 36.7, and platelet count is 172,000. Chemistry shows sodium 132, potassium is 5.5, chloride 98, bicarbonate 25, BUN of 21, creatinine 0.8, glucose is 98, and calcium is 9.8. Troponin I 0.001. ProBNP was 804. DIAGNOSTIC DATA: A chest x-ray showed congestive heart failure/interstitial edema, right pleural effusion worsened from the chest x-ray done in December 2017, PICC line within the right axillary vein region, and presence of a tracheostomy tube. Electrocardiogram showed sinus rhythm at a rate of 75 with first-degree AV block, low voltage, cannot rule out anterior infarct, age indeterminate. A 2D echocardiography from 12/17/2017 showed normal LV systolic function with LVEF of 55%, mild left ventricular hypertrophy, trivial pericardial effusion, and large posterior pleural effusion on the left side, mild left atrial enlargement, normal IVC physiology with right atrial pressure measured at 0 to 5 mmHg, mild aortic regurgitation, grade 1 LV diastolic dysfunction, and mild tricuspid regurgitation with RVSP at 33 mmHg. ASSESSMENT AND PLAN: This is a very unfortunate 72-year-old gentleman, seen in Cardiology consultation at the request of Dr. Garcia. 1. Dyspnea in this patient most likely due to bilateral pleural effusion, right greater than the left. A chest x-ray compared with the one from December this year showed worsening of the right pleural effusion. Pulmonary consultation, possible thoracentesis, if any probably would not change the outcome in this patient. From the cardiac standpoint, a 2D echocardiography done recently in December 2017 shows normal LV systolic function and normal intracardiac filling pressures. 2. A ventilator respiratory failure. Follow up with Pulmonary. 3. Dysphagia status post PEG placement. Followed by GI. 4. History of cardiac arrest in the past leading to anoxic encephalopathy. 5. History of cerebrovascular accident. 6. History of seizures. 7. Anemia most likely chronic diseases. I would like to thank, Dr. Garcia, for the courtesy of this consultation. Chris Yanez M.D. DR: NICK JOB#: [id number] CC:
[2018-02-13 20:00] VITALS: BP 121/69
[2018-02-13] MEDS: Dyna-Hex 2% Top Sol 2oz TOPIC SCH (20:20)
--- NOTE | 2018-02-13 20:35 | Cardiology Progress Note ---
Assessment/Plan Assessment/Plan 1. Dyspnea in this patient most likely due to bilateral pleural effusion, right greater than the left. A chest x-ray compared with the one from December this year showed worsening of the right pleural effusion. From the cardiac standpoint , a 2D echocardiography done recently in December 2017 shows normal LV systolic function and normal intracardiac filling pressures. 2. A ventilator derived respiratory failure. 3. Dysphagia status post PEG placement. 4. History of cardiac arrest in the past leading to anoxic Subjective Subjective Sinus bradycardia at 59. Non-verbal. Objective Last 24 Hour Vital Signs Date Time Temp Pulse Resp B/P (MAP) Pulse Ox O2 Delivery O2 Flow Rate FiO2 02/13/18 19:17 59 18 45 02/13/18 17:08 53 18 50 02/13/18 16:00 97.4 65 18 119/68 97 Mechanical Ventilator 50 97.4 02/13/18 16:00 50 02/13/18 16:00 68 02/13/18 15:23 54 18 50 02/13/18 13:25 55 18 50 02/13/18 12:00 60 02/13/18 12:00 97.5 73 23 145/78 99 Mechanical Ventilator 50 97.5 02/13/18 12:00 50 02/13/18 10:45 60 20 50 02/13/18 08:52 65 19 50 02/13/18 08:00 97.5 65 21 144/81 100 Mechanical Ventilator 50 97.5 02/13/18 08:00 50 02/13/18 08:00 62 02/13/18 06:55 58 18 50 02/13/18 05:25 59 18 50 02/13/18 04:00 97.5 65 18 128/68 97 Mechanical Ventilator 50 97.5 02/13/18 04:00 72 02/13/18 03:00 50 02/13/18 02:50 60 18 50 02/13/18 01:30 60 02/13/18 01:27 76 21 60 02/13/18 00:30 70 02/13/18 00:23 70 02/13/18 00:00 97.4 66 18 111/70 97 Mechanical Ventilator 80 97.4 02/13/18 00:00 80 02/12/18 23:58 63 02/12/18 23:00 70 18 80 02/12/18 21:03 60 18 80 Intake and Output 02/12/18 02/13/18 19:00 07:00 Intake Total 750.000 ml 825.000 ml Output Total 1100 ml 1400 ml Balance -350.000 ml -575.000 ml Free Water 160 ml 80 ml IV Total 385.000 ml 385.000 ml Tube Feeding 205 ml 360 ml Output Urine Total 1100 ml 1400 ml # Bowel Movements 1 2D Echo: EF 55%, Mild LVH,Mild LAE,Large left pleural eff, RVSP 33mmHg, Grade I LVDD Laboratory Tests Test 02/12/18 23:00 02/13/18 04:00 02/13/18 11:24 Stool Occult Blood Negative (NEGATIVE) White Blood Count 6.3 K/UL (4.8-10.8) Red Blood Count 2.74 M/UL (4.70-6.10) L Hemoglobin 8.5 G/DL (14.2-18.0) L Hematocrit 25.3 % (42.0-52.0) L Mean Corpuscular Volume 92 FL (80-99) Mean Corpuscular Hemoglobin 31.1 PG (27.0-31.0) H Mean Corpuscular Hemoglobin Concent 33.7 G/DL (32.0-36.0) Red Cell Distribution Width 13.3 % (11.6-14.8) Platelet Count 159 K/UL (150-450) Mean Platelet Volume 8.7 FL (6.5-10.1) Neutrophils (%) (Auto) 71.2 % (45.0-75.0) Lymphocytes (%) (Auto) 18.7 % (20.0-45.0) L Monocytes (%) (Auto) 6.3 % (1.0-10.0) Eosinophils (%) (Auto) 3.0 % (0.0-3.0) Basophils (%) (Auto) 0.9 % (0.0-2.0) Differential Total Cells Counted 100 Neutrophils % (Manual) 72 % (45-75) Lymphocytes % (Manual) 16 % (20-45) L Monocytes % (Manual) 6 % (1-10) Eosinophils % (Manual) 4 % (0-3) H Basophils % (Manual) 0 % (0-2) Band Neutrophils 2 % (0-8) Platelet Estimate Adequate Platelet Morphology Normal Red Blood Cell Morphology Normal Erythrocyte Sedimentation Rate 120 MM/HR (0-20) H Reticulocyte Count 1.8 % (0.0-2.0) Prothrombin Time 9.6 SEC (9.30-11.50) Prothromb Time International Ratio 0.9 (0.9-1.1) Activated Partial Thromboplast Time 36 SEC (23-33) H Sodium Level 131 MMOL/L (136-145) L Potassium Level 5.2 MMOL/L (3.5-5.1) H Chloride Level 98 MMOL/L (98-107) Carbon Dioxide Level 24 MMOL/L (21-32) Anion Gap 9 mmol/L (5-15) Blood Urea Nitrogen 14 mg/dL (7-18) Creatinine 0.7 MG/DL (0.55-1.30) Estimat Glomerular Filtration Rate > 60 mL/min (>60) Glucose Level 87 MG/DL (74-106) Calcium Level 9.7 MG/DL (8.5-10.1) Phosphorus Level 4.8 MG/DL (2.5-4.9) Iron Level 74 ug/dL (50-175) Total Iron Binding Capacity 258 ug/dL (250-450) Percent Iron Saturation 29 % (15-50) Unsaturated Iron Binding 184 ug/dL (112-346) Lactate Dehydrogenase 125 U/L (81-234) C-Reactive Protein, Quantitative 8.0 mg/dL (0.00-0.90) H Albumin 2.8 G/DL (3.4-5.0) L Carcinoembryonic Antigen Pending Vitamin B12 Level 1949 PG/ML (193-986) H Folate 19.6 NG/ML (8.6-58.9) Vancomycin Level Trough 26.3 ug/mL (5.0-12.0) H Microbiology Date/Time Source Procedure Growth Status 02/12/18 01:45 Blood Blood Culture - Preliminary NO GROWTH AFTER 24 HOURS Resulted 02/12/18 01:30 Blood Blood Culture - Preliminary NO GROWTH AFTER 24 HOURS Resulted 02/12/18 09:20 Sputum Gram Stain - Final Resulted 02/12/18 09:20 Sputum Sputum Culture Pending Resulted 02/12/18 02:20 Urine,Clean Catch Urine Culture - Preliminary NO GROWTH Resulted Objective HEENT: Atraumatic and normocephalic. Anicteric. Pupils are equal, round, and reactive to light and accommodation. There is presence of a tracheostomy tube. Conjunctival pallor is seen. NECK: JVP cannot be assessed. No carotid bruit. CVS: Normal S1, S2. Regular rate and rhythm. A 2/6 mid systolic murmur at the left sternal border. PMI is at fourth intercostal space at the midclavicular line. LUNGS: Diminished breath sounds on the entire right lung with increased dullness and diminished breath sounds at the base of the left lung with increased dullness. ABDOMEN: Soft, nontender, and nondistended. No hepatosplenomegaly. Positive G-tube in place. EXTREMITIES: No evidence of edema, clubbing, or cyanosis. Chris Yanez MD February 13, 2018 20:35
[2018-02-14] VITALS: BP 119/72
[2018-02-14 04:00] VITALS: BP 115/78
[2018-02-14 04:59] LABS: BASOPHILS % (AUTO) 0.5 % (0.0-2.0); EOSINOPHILS % (AUTO) 2.8 % (0.0-3.0); HEMOGLOBIN 8.7 G/DL (14.2-18.0); LYMPHOCYTES % (AUTO) 16.5 % (20.0-45.0); MEAN CORPUSCULAR VOLUME 92 FL (80-99); MONOCYTES % (AUTO) 6.6 % (1.0-10.0); NEUTROPHILS % (AUTO) 73.8 % (45.0-75.0); PLATELET COUNT 178 K/UL (150-450); RED BLOOD COUNT 2.83 M/UL (4.70-6.10); RED CELL DISTRIBUTION WIDTH 13.9 % (11.6-14.8)
[2018-02-14] MEDS: NovoLOG Insulin Flexpen SUBQ SCH ×3 (05:13→18:00)
[2018-02-14 05:22] LABS: CREATINE KINASE 34 U/L (26-308); GAMMA GLUTAMYL TRANSPEPTIDASE 23 U/L (5-85); PHOSPHORUS 4.6 MG/DL (2.5-4.9)
[2018-02-14 05:37] LABS: ALANINE AMINOTRANSFERASE 30 U/L (12-78); ALBUMIN 2.9 G/DL (3.4-5.0); ALBUMIN/GLOBULIN RATIO 0.6 (1.0-2.7); ALKALINE PHOSPHATASE 200 U/L (46-116); ANION GAP 8 mmol/L (5-15); ASPARTATE AMINO TRANSFERASE 11 U/L (15-37); BILIRUBIN,TOTAL 0.3 MG/DL (0.2-1.0); BLOOD UREA NITROGEN 15 mg/dL (7-18); CALCIUM 9.6 MG/DL (8.5-10.1); CARBON DIOXIDE 27 MMOL/L (21-32); CHLORIDE 97 MMOL/L (98-107); CHOLESTEROL 172 MG/DL (< 200); CREATININE 0.8 MG/DL (0.55-1.30); FERRITIN 338 NG/ML (8-388); HDL CHOLESTEROL 30 MG/DL (40-60); SODIUM 132 MMOL/L (136-145); TRIGLYCERIDES 221 MG/DL (30-150)
[2018-02-14 08:00] VITALS: BP 148/83
[2018-02-14] MEDS: Valproic Acid 250mg/5ml Liquid NG SCH ×2 (08:50→21:34)
[2018-02-14] MEDS: levETIRAcetam 500mg/5ml Liquid GT SCH ×2 (08:50→21:35)
[2018-02-14] MEDS: Heparin 5000 units/ml inj SUBQ SCH ×2 (08:53→21:36)
--- NOTE | 2018-02-14 10:33 | Diagnostic Imaging Report ---
Indication: Cough Comparison: 02/12/2018 A single view chest radiograph was obtained. Findings: Interstitial edema has significantly improved since the last examination. Hazy basilar opacities likely represent pleural effusions. A short right PICC line noted. Tracheostomy again noted. IMPRESSION: Improved pulmonary edema currently mild. Bilateral pleural effusions noted.
[2018-02-14] MEDS: Cefepime HCl 1 GM in D5W 110 ML IV SCH ×2 (11:00→22:10)
--- NOTE | 2018-02-14 11:07 | Pulmonolgy Critical Care Note ---
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2 02/13/18 23:14 66 20 40 02/13/18 20:30 69 20 45 02/13/18 20:00 50 02/13/18 20:00 71 02/13/18 20:00 97.9 75 19 121/69 97 Mechanical Ventilator 50 97.9 02/13/18 19:17 59 18 45 02/13/18 17:08 53 18 50 02/13/18 16:00 97.4 65 18 119/68 97 Mechanical Ventilator 50 97.4 02/13/18 16:00 50 02/13/18 16:00 68 02/13/18 15:23 54 18 50 02/13/18 13:25 55 18 50 02/13/18 12:00 60 02/13/18 12:00 97.5 73 23 145/78 99 Mechanical Ventilator 50 97.5 02/13/18 12:00 50 Status: sedated Condition: critical Neck: full ROM Lungs: chest wall tender, rales, rhonchi Abdomen: soft, non-tender Extremities: no C/C/E, edema Micro: Microbiology Date/Time Source Procedure Growth Status 02/12/18 01:45 Blood Blood Culture - Preliminary NO GROWTH AFTER 48 HOURS Resulted 02/12/18 01:30 Blood Blood Culture - Preliminary NO GROWTH AFTER 48 HOURS Resulted 02/12/18 09:20 Sputum Gram Stain - Final Resulted 02/12/18 09:20 Sputum Culture - Preliminary Gram Negative Bacillus 1 Gram Negative Bacillus 2 Resulted 02/12/18 02:10 Nose MRSA Culture - Final NO METHICILLIN RESISTANT STAPH AUREUS... Complete 02/12/18 02:20 Urine,Clean Catch Urine Culture - Preliminary YEAST Resulted 02/12/18 02:10 Rectum VRE Culture - Final NO VANCOMYCIN RESISTANT ENTEROCOCCUS ... Complete Accucheck: 90 Critical Care - Subjective ROS Limited/Unobtainable: Yes Condition: critical EKG Rhythm: Sinus Rhythm FI02: 40 Vent Support Breath Rate: 18 Vent Support Mode: AC Vent Tidal Volume: 500 Sputum Amount: Small PEEP: 5.0 PIP: 29 Tube Feeding Amount: 30 I&O: Intake and Output 02/13/18 02/14/18 19:00 07:00 Intake Total 560 ml 570 ml Output Total 1600 ml 1050 ml Balance -1040 ml -480 ml Free Water 90 ml 100 ml IV Total 110 ml 110 ml Tube Feeding 360 ml 360 ml Output Urine Total 1600 ml 1050 ml # Bowel Movements 2 3 Labs: less edema, infiltrate Leodan Bojorquez MD Feb 14, 2018 11:07
[2018-02-14 12:00] VITALS: BP 138/73
[2018-02-14] MEDS ORDERED: Vancomycin 1gm/D5W 275ml IVPB SCH ×2 (12:00)
--- NOTE | 2018-02-14 12:50 | General Progress Note ---
Assessment/Plan Problem List: (1) Hypertension ICD Codes: I10 - Essential (primary) hypertension SNOMED: 82929600 (2) Acute on chronic respiratory failure ICD Codes: J96.20 - Acute and chronic respiratory failure, unspecified whether with hypoxia or hypercapnia SNOMED: 57983066 (3) Seizure disorder ICD Codes: G40.909 - Epilepsy, unspecified, not intractable, without status epilepticus SNOMED: 056908563 (4) Anemia ICD Codes: D64.9 - Anemia, unspecified SNOMED: 454935276 (5) Aspiration pneumonia ICD Codes: J69.0 - Pneumonitis due to inhalation of food and vomit SNOMED: 173163738 Status: unchanged Assessment/Plan vent abx cbc bmp am ltach eval Subjective Constitutional: Reports: weakness Allergies: Coded Allergies: ACETAMINOPHEN (Verified Allergy, Unknown, 12/16/17) All Systems: reviewed and negative except above Subjective trach vent altered Objective Last 24 Hour Vital Signs Date Time Temp Pulse Resp B/P (MAP) Pulse Ox O2 Delivery O2 Flow Rate FiO2 02/14/18 12:00 40 02/14/18 12:00 97.9 62 18 138/73 95 Mechanical Ventilator 40 97.9 02/14/18 11:02 62 18 40 02/14/18 09:29 65 19 40 02/14/18 08:00 62 02/14/18 08:00 97.2 65 18 148/83 98 Mechanical Ventilator 50 97.2 02/14/18 08:00 50 02/14/18 06:58 58 18 40 02/14/18 04:35 60 18 40 02/14/18 04:00 69 02/14/18 04:00 50 02/14/18 04:00 98.1 71 19 115/78 100 Mechanical Ventilator 50 98.1 02/14/18 02:35 59 18 40 02/14/18 01:10 65 18 40 02/14/18 00:00 65 02/14/18 00:00 50 02/14/18 00:00 98.2 62 18 119/72 98 Mechanical Ventilator 50 98.2 02/13/18 23:14 66 20 40 02/13/18 20:30 69 20 45 02/13/18 20:00 50 02/13/18 20:00 71 02/13/18 20:00 97.9 75 19 121/69 97 Mechanical Ventilator 50 97.9 02/13/18 19:17 59 18 45 02/13/18 17:08 53 18 50 02/13/18 16:00 97.4 65 18 119/68 97 Mechanical Ventilator 50 97.4 02/13/18 16:00 50 02/13/18 16:00 68 02/13/18 15:23 54 18 50 02/13/18 13:25 55 18 50 Intake and Output 02/13/18 02/14/18 19:00 07:00 Intake Total 560 ml 570 ml Output Total 1600 ml 1050 ml Balance -1040 ml -480 ml Free Water 90 ml 100 ml IV Total 110 ml 110 ml Tube Feeding 360 ml 360 ml Output Urine Total 1600 ml 1050 ml # Bowel Movements 2 3 Laboratory Tests 02/14/18 03:40: White Blood Count 7.0, Red Blood Count 2.83L, Hemoglobin 8.7L, Hematocrit 26.0L , Mean Corpuscular Volume 92, Mean Corpuscular Hemoglobin 30.8, Mean Corpuscular Hemoglobin Concent 33.6, Red Cell Distribution Width 13.9, Platelet Count 178, Mean Platelet Volume 7.9, Neutrophils (%) (Auto) 73.8, Lymphocytes (% ) (Auto) 16.5L, Monocytes (%) (Auto) 6.6, Eosinophils (%) (Auto) 2.8, Basophils (%) (Auto) 0.5, Sodium Level 132L, Potassium Level 5.0, Chloride Level 97L, Carbon Dioxide Level 27, Anion Gap 8, Blood Urea Nitrogen 15, Creatinine 0.8, Estimat Glomerular Filtration Rate > 60, Glucose Level 85, Hemoglobin A1c 5.9, Uric Acid 5.0, Calcium Level 9.6, Phosphorus Level 4.6, Magnesium Level 1.9, Ferritin 338, Total Bilirubin 0.3, Gamma Glutamyl Transpeptidase 23, Aspartate Amino Transf (AST/SGOT) 11L, Alanine Aminotransferase (ALT/SGPT) 30, Alkaline Phosphatase 200H, Total Creatine Kinase 34, Troponin I 0.004, Pro-B-Type Natriuretic Peptide 689H, Total Protein 7.7, Albumin 2.9L, Globulin 4.8, Albumin /Globulin Ratio 0.6L, Triglycerides Level 221H, Cholesterol Level 172, LDL Cholesterol 97, HDL Cholesterol 30L, Cholesterol/HDL Ratio 5.7H, Thyroid Stimulating Hormone (TSH) 2.559, Random Vancomycin Level 22.4, Valproic Acid ( Depakene) Level 20L Height (Feet): 5 Height (Inches): 7.00 Weight (Pounds): 168 General Appearance: lethargic EENT: normal ENT inspection Neck: normal alignment Cardiovascular: normal peripheral pulses, normal rate, regular rhythm Respiratory/Chest: chest wall non-tender, decreased breath sounds Abdomen: normal bowel sounds, non tender, soft Extremities: normal inspection Edema: no edema noted Arm (L), no edema noted Arm (R), no edema noted Leg (L), no edema noted Leg (R), no edema noted Pedal (L), no edema noted Pedal (R), no edema noted Generalized Neurologic: motor weakness Skin: normal pigmentation, warm/dry Yosef Garcia DO Feb 14, 2018 12:50
--- NOTE | 2018-02-14 15:08 | Nephrology Progress Note ---
Assessment/Plan Problem List: (1) Hyperkalemia (2) Hyponatremia Assessment - Low Na and High K - Acute on chronic respiratory failure - Aspiration pneumonia - Feeding by G-tube - Vegetative state - Seizure disorder - Pleural effusion - Anemia - Hypertension Plan 2D Echo Pending Gastric support Lasix 20 daily monitor lytes per orders Subjective ROS Limited/Unobtainable: Yes Constitutional: Reports: malaise Objective Objective Last 24 Hour Vital Signs Date Time Temp Pulse Resp B/P (MAP) Pulse Ox O2 Delivery O2 Flow Rate FiO2 02/14/18 14:46 60 18 40 02/14/18 13:00 64 18 40 02/14/18 12:00 40 02/14/18 12:00 97.9 62 18 138/73 95 Mechanical Ventilator 40 97.9 02/14/18 11:02 62 18 40 02/14/18 09:29 65 19 40 02/14/18 08:00 62 02/14/18 08:00 97.2 65 18 148/83 98 Mechanical Ventilator 50 97.2 02/14/18 08:00 50 02/14/18 06:58 58 18 40 02/14/18 04:35 60 18 40 02/14/18 04:00 69 02/14/18 04:00 50 02/14/18 04:00 98.1 71 19 115/78 100 Mechanical Ventilator 50 98.1 02/14/18 02:35 59 18 40 02/14/18 01:10 65 18 40 02/14/18 00:00 65 02/14/18 00:00 50 02/14/18 00:00 98.2 62 18 119/72 98 Mechanical Ventilator 50 98.2 02/13/18 23:14 66 20 40 02/13/18 20:30 69 20 45 02/13/18 20:00 50 02/13/18 20:00 71 02/13/18 20:00 97.9 75 19 121/69 97 Mechanical Ventilator 50 97.9 02/13/18 19:17 59 18 45 02/13/18 17:08 53 18 50 02/13/18 16:00 97.4 65 18 119/68 97 Mechanical Ventilator 50 97.4 02/13/18 16:00 50 02/13/18 16:00 68 02/13/18 15:23 54 18 50 Intake and Output 02/13/18 02/14/18 19:00 07:00 Intake Total 560 ml 570 ml Output Total 1600 ml 1050 ml Balance -1040 ml -480 ml Free Water 90 ml 100 ml IV Total 110 ml 110 ml Tube Feeding 360 ml 360 ml Output Urine Total 1600 ml 1050 ml # Bowel Movements 2 3 Laboratory Tests 02/14/18 03:40: White Blood Count 7.0, Red Blood Count 2.83L, Hemoglobin 8.7L, Hematocrit 26.0L , Mean Corpuscular Volume 92, Mean Corpuscular Hemoglobin 30.8, Mean Corpuscular Hemoglobin Concent 33.6, Red Cell Distribution Width 13.9, Platelet Count 178, Mean Platelet Volume 7.9, Neutrophils (%) (Auto) 73.8, Lymphocytes (% ) (Auto) 16.5L, Monocytes (%) (Auto) 6.6, Eosinophils (%) (Auto) 2.8, Basophils (%) (Auto) 0.5, Sodium Level 132L, Potassium Level 5.0, Chloride Level 97L, Carbon Dioxide Level 27, Anion Gap 8, Blood Urea Nitrogen 15, Creatinine 0.8, Estimat Glomerular Filtration Rate > 60, Glucose Level 85, Hemoglobin A1c 5.9, Uric Acid 5.0, Calcium Level 9.6, Phosphorus Level 4.6, Magnesium Level 1.9, Ferritin 338, Total Bilirubin 0.3, Gamma Glutamyl Transpeptidase 23, Aspartate Amino Transf (AST/SGOT) 11L, Alanine Aminotransferase (ALT/SGPT) 30, Alkaline Phosphatase 200H, Total Creatine Kinase 34, Troponin I 0.004, Pro-B-Type Natriuretic Peptide 689H, Total Protein 7.7, Albumin 2.9L, Globulin 4.8, Albumin /Globulin Ratio 0.6L, Triglycerides Level 221H, Cholesterol Level 172, LDL Cholesterol 97, HDL Cholesterol 30L, Cholesterol/HDL Ratio 5.7H, Thyroid Stimulating Hormone (TSH) 2.559, Random Vancomycin Level 22.4, Valproic Acid ( Depakene) Level 20L Height (Feet): 5 Height (Inches): 7.00 Weight (Pounds): 168 General Appearance: lethargic Cardiovascular: normal rate Respiratory/Chest: decreased breath sounds Abdomen: distended Objective no other changes HERLINDA MALLOY Feb 14, 2018 15:08
[2018-02-14 16:00] VITALS: BP 138/76
--- NOTE | 2018-02-14 16:56 | Infectious Diseases Prog Note ---
Assessment/Plan Assessment/Plan Abx: IV Vanco 02/12- Cefepime 02/12- Flagyl x1 02/12 Assessment: Acute on chronic respiratory failure- likely multifactorial 2ry to pulm edema, pleural effusion and r/o worsening PNA -CXR 02/14: Improved pulmonary edema currently mild. Bilateral pleural effusions noted. -CXR: Hazy groundglass some right basilar opacity obscuring the right hemidiaphragm consistent with a pleural effusion. Interstitial/pulmonary edema demonstrated -sp cx p GNRs Recent PNA, s/p rx -7 days IV Vanco and Zosyn (end date 02/11) Afebrile, no leukocytosis -u/a wbc 5-10, nit neg, leuk +1; ucx 30-40 k yeast (Colonizer) -Bcx nTd chronic respiratory failure on tracheostomy cardiac arrest COPD DM2 PEG seizure disorder bedbound nonverbal hypertension hypoxic encephalopathy Plan: -D/c mpiric IV Vanco #3 -Continue empiric Cefepime #3 for now pending sputum cultures -if febrile, leukocytosis, and/or HD decompensation, switch Cefepime to Meropenem -f/u cx -Monitor CBC/BMP, temperatures -trach/peg care -woudn care/prevention per hosp protocol -aspiration precautions Thank you for this consultation. Will continue to follow along with you. Discussed with RN. Subjective Allergies: Coded Allergies: ACETAMINOPHEN (Verified Allergy, Unknown, 12/16/17) Subjective afebrile no leukocyotis Bcx NTD sp cx p GNRs Objective Vital Signs Last 24 Hour Vital Signs Date Time Temp Pulse Resp B/P (MAP) Pulse Ox O2 Delivery O2 Flow Rate FiO2 02/14/18 16:00 40 02/14/18 16:00 96.6 61 20 138/76 94 Mechanical Ventilator 40 96.6 02/14/18 16:00 65 02/14/18 14:46 60 18 40 02/14/18 13:00 64 18 40 02/14/18 12:00 40 02/14/18 12:00 61 02/14/18 12:00 97.9 62 18 138/73 95 Mechanical Ventilator 40 97.9 02/14/18 11:02 62 18 40 02/14/18 09:29 65 19 40 02/14/18 08:00 62 02/14/18 08:00 97.2 65 18 148/83 98 Mechanical Ventilator 50 97.2 02/14/18 08:00 50 02/14/18 06:58 58 18 40 02/14/18 04:35 60 18 40 02/14/18 04:00 69 02/14/18 04:00 50 02/14/18 04:00 98.1 71 19 115/78 100 Mechanical Ventilator 50 98.1 02/14/18 02:35 59 18 40 02/14/18 01:10 65 18 40 02/14/18 00:00 65 02/14/18 00:00 50 02/14/18 00:00 98.2 62 18 119/72 98 Mechanical Ventilator 50 98.2 02/13/18 23:14 66 20 40 02/13/18 20:30 69 20 45 02/13/18 20:00 50 02/13/18 20:00 71 02/13/18 20:00 97.9 75 19 121/69 97 Mechanical Ventilator 50 97.9 02/13/18 19:17 59 18 45 02/13/18 17:08 53 18 50 Height (Feet): 5 Height (Inches): 7.00 Weight (Pounds): 168 Objective General Appearance: WD/WN Lines, tubes and drains: peripheral HEENT: normocephalic, atraumatic Neck: non-tender, normal alignment Respiratory/Chest: chest wall non-tender, lungs clear Cardiovascular/Chest: normal peripheral pulses Abdomen: normal bowel sounds, non tender Extremities: normal range of motion Skin Exam: normal pigmentation Microbiology Date/Time Source Procedure Growth Status 02/12/18 01:45 Blood Blood Culture - Preliminary NO GROWTH AFTER 48 HOURS Resulted 02/12/18 01:30 Blood Blood Culture - Preliminary NO GROWTH AFTER 48 HOURS Resulted 02/12/18 09:20 Sputum Gram Stain - Final Resulted 02/12/18 09:20 Sputum Culture - Preliminary Gram Negative Bacillus 1 Gram Negative Bacillus 2 Resulted 02/12/18 02:10 Nose MRSA Culture - Final NO METHICILLIN RESISTANT STAPH AUREUS... Complete 02/12/18 02:20 Urine,Clean Catch Urine Culture - Preliminary YEAST Resulted 02/12/18 02:10 Rectum VRE Culture - Final NO VANCOMYCIN RESISTANT ENTEROCOCCUS ... Complete Laboratory Tests Test 02/14/18 03:40 White Blood Count 7.0 K/UL (4.8-10.8) Red Blood Count 2.83 M/UL (4.70-6.10) L Hemoglobin 8.7 G/DL (14.2-18.0) L Hematocrit 26.0 % (42.0-52.0) L Mean Corpuscular Volume 92 FL (80-99) Mean Corpuscular Hemoglobin 30.8 PG (27.0-31.0) Mean Corpuscular Hemoglobin Concent 33.6 G/DL (32.0-36.0) Red Cell Distribution Width 13.9 % (11.6-14.8) Platelet Count 178 K/UL (150-450) Mean Platelet Volume 7.9 FL (6.5-10.1) Neutrophils (%) (Auto) 73.8 % (45.0-75.0) Lymphocytes (%) (Auto) 16.5 % (20.0-45.0) L Monocytes (%) (Auto) 6.6 % (1.0-10.0) Eosinophils (%) (Auto) 2.8 % (0.0-3.0) Basophils (%) (Auto) 0.5 % (0.0-2.0) Sodium Level 132 MMOL/L (136-145) L Potassium Level 5.0 MMOL/L (3.5-5.1) Chloride Level 97 MMOL/L (98-107) L Carbon Dioxide Level 27 MMOL/L (21-32) Anion Gap 8 mmol/L (5-15) Blood Urea Nitrogen 15 mg/dL (7-18) Creatinine 0.8 MG/DL (0.55-1.30) Estimat Glomerular Filtration Rate > 60 mL/min (>60) Glucose Level 85 MG/DL (74-106) Hemoglobin A1c 5.9 % (4.3-6.0) Uric Acid 5.0 MG/DL (2.6-7.2) Calcium Level 9.6 MG/DL (8.5-10.1) Phosphorus Level 4.6 MG/DL (2.5-4.9) Magnesium Level 1.9 MG/DL (1.8-2.4) Ferritin 338 NG/ML (8-388) Total Bilirubin 0.3 MG/DL (0.2-1.0) Gamma Glutamyl Transpeptidase 23 U/L (5-85) Aspartate Amino Transf (AST/SGOT) 11 U/L (15-37) L Alanine Aminotransferase (ALT/SGPT) 30 U/L (12-78) Alkaline Phosphatase 200 U/L (46-116) H Total Creatine Kinase 34 U/L (26-308) Troponin I 0.004 ng/mL (0.000-0.056) Pro-B-Type Natriuretic Peptide 689 pg/mL (0-125) H Total Protein 7.7 G/DL (6.4-8.2) Albumin 2.9 G/DL (3.4-5.0) L Globulin 4.8 g/dL Albumin/Globulin Ratio 0.6 (1.0-2.7) L Triglycerides Level 221 MG/DL (30-150) H Cholesterol Level 172 MG/DL (< 200) LDL Cholesterol 97 mg/dL (<100) HDL Cholesterol 30 MG/DL (40-60) L Cholesterol/HDL Ratio 5.7 (3.3-4.4) H Thyroid Stimulating Hormone (TSH) 2.559 uiU/mL (0.358-3.740) Random Vancomycin Level 22.4 ug/mL Valproic Acid (Depakene) Level 20 MCG/ML (50-100) L Current Medications Medications (Trade) Dose Ordered Sig/Marciano Route PRN Reason Start Time Stop Time Status Last Admin Dose Admin Albuterol/ Ipratropium (Albuterol/ Ipratropium) 3 ml Q4H PRN HHN Shortness of Breath 02/12/18 07:30 02/17/18 07:29 Cefepime HCl 1 gm/ Dextrose 110 ml @ 220 mls/hr Q12HR@1100,2300 IV 02/12/18 11:00 02/19/18 10:59 02/14/18 11:00 Chlorhexidine Gluconate (Nancy-Hex 2%) 1 applic DAILY@2000 TOPIC 02/12/18 20:00 03/14/18 19:59 02/13/18 20:20 Famotidine (Pepcid) 20 mg BID GT 02/13/18 18:00 03/15/18 17:59 02/14/18 08:50 Furosemide (Lasix) 20 mg DAILY IV 02/14/18 09:00 03/16/18 08:59 02/14/18 08:50 Heparin Sodium (Porcine) (Heparin 5000 units/ml) 5,000 units EVERY 12 HOURS SUBQ 02/12/18 09:00 03/14/18 08:59 02/14/18 08:53 Insulin Aspart (NovoLOG) Q6HR SUBQ 02/12/18 12:00 03/14/18 11:29 Levetiracetam (Keppra) 1,000 mg Q12HR GT 02/13/18 21:00 03/14/18 17:59 02/14/18 08:50 Nitroglycerin (Ntg) 0.4 mg Q5M PRN SL Prn Chest Pain 02/12/18 07:30 03/14/18 07:29 Ondansetron HCl (Zofran) 4 mg Q6H PRN IVP Nausea & Vomiting 02/12/18 07:30 03/14/18 07:29 Polyethylene Glycol (Miralax) 17 gm DAILYPRN PRN ORAL Constipation 02/12/18 07:30 03/14/18 07:29 Promethazine HCl/ Codeine (Phenergan with Codeine) 5 ml Q4H PRN ORAL For Cough 02/12/18 07:30 03/14/18 07:29 Temazepam (Restoril) 15 mg HSPRN PRN ORAL Insomnia 02/12/18 07:30 02/19/18 07:29 Valproic Acid (Depakene) 250 mg EVERY 12 HOURS NG 02/12/18 21:00 03/14/18 20:59 02/14/18 08:50 Vancomycin HCl (Vanco rx to dose) 1 ea DAILY PRN MISC Per rx protocol 02/12/18 07:30 03/14/18 07:29 Vancomycin HCl 1 gm/Dextrose 275 ml @ 183.708 mls/hr Q24H IVPB 02/14/18 12:00 02/19/18 11:59 02/14/18 12:00 Melody Suarez M.D. Feb 14, 2018 16:56
--- NOTE | 2018-02-14 17:12 | Cardiology Report ---
APPROVED REPORT EXAM: Two-dimensional and M-mode echocardiogram with Doppler and color Doppler. INDICATION Congestive Heart Failure M-Mode DIMENSIONS IVSd1.2 (0.7-1.1cm)Left Atrium (MM)3.9 (1.6-4.0cm) LVDd4.3 (3.5-5.6cm)Aortic Root2.8 (2.0-3.7cm) PWd0.9 (0.7-1.1cm)Aortic Cusp Exc.1.7 (1.5-2.0cm) LVDs2.0 (2.5-4.0cm) PWs1.6 cm Normal left ventricular chamber size, systolic function and wall motion. Left ventricular ejection fraction estimated to be 55 %. Mild left ventricular hypertrophy. Large posterior pleural effusion. Trivial pericardial effusion. All other cardiac chamber sizes are within normal limits. Focal aortic valve sclerosis with adequate cusp excursion. Thickened mitral valve leaflets with normal excursion. Mild mitral annulus and aortic root calcification. Normal pulmonic valve structure. Normal tricuspid valve structure. Subcostal views not obtainable due to GI Tube. A color flow and spectral Doppler study was performed and revealed: Mild aortic insufficiency. Mild mitral regurgitation. Mitral diastolic velocities suggest mild left ventricular diastolic dysfunction (Grade I). Trace tricuspid regurgitation. Tricuspid systolic velocities suggests peak right ventricular systolic pressure of 30 mmHg. Mild pulmonic regurgitation present.
--- NOTE | 2018-02-14 19:28 | Cardiology Progress Note ---
Assessment/Plan Assessment/Plan 1. Dyspnea in this patient most likely due to bilateral pleural effusion, right greater than the left. A chest x-ray compared with the one from December this year showed worsening of the right pleural effusion. From the cardiac standpoint , a 2D echocardiography done recently in December 2017 shows normal LV systolic function and normal intracardiac filling pressures. 2. A ventilator derived respiratory failure. 3. Dysphagia status post PEG placement. 4. History of cardiac arrest in the past leading to anoxic Subjective Subjective Sinus bradycardia at 59. Non-verbal. Objective Last 24 Hour Vital Signs Date Time Temp Pulse Resp B/P (MAP) Pulse Ox O2 Delivery O2 Flow Rate FiO2 02/14/18 17:24 64 18 40 02/14/18 16:00 40 02/14/18 16:00 96.6 61 20 138/76 94 Mechanical Ventilator 40 96.6 02/14/18 16:00 65 02/14/18 14:46 60 18 40 02/14/18 13:00 64 18 40 02/14/18 12:00 40 02/14/18 12:00 61 02/14/18 12:00 97.9 62 18 138/73 95 Mechanical Ventilator 40 97.9 02/14/18 11:02 62 18 40 02/14/18 09:29 65 19 40 02/14/18 08:00 62 02/14/18 08:00 97.2 65 18 148/83 98 Mechanical Ventilator 50 97.2 02/14/18 08:00 50 02/14/18 06:58 58 18 40 02/14/18 04:35 60 18 40 02/14/18 04:00 69 02/14/18 04:00 50 02/14/18 04:00 98.1 71 19 115/78 100 Mechanical Ventilator 50 98.1 02/14/18 02:35 59 18 40 02/14/18 01:10 65 18 40 02/14/18 00:00 65 02/14/18 00:00 50 02/14/18 00:00 98.2 62 18 119/72 98 Mechanical Ventilator 50 98.2 02/13/18 23:14 66 20 40 02/13/18 20:30 69 20 45 02/13/18 20:00 50 02/13/18 20:00 71 02/13/18 20:00 97.9 75 19 121/69 97 Mechanical Ventilator 50 97.9 Intake and Output 02/13/18 02/14/18 19:00 07:00 Intake Total 560 ml 570 ml Output Total 1600 ml 1050 ml Balance -1040 ml -480 ml Free Water 90 ml 100 ml IV Total 110 ml 110 ml Tube Feeding 360 ml 360 ml Output Urine Total 1600 ml 1050 ml # Bowel Movements 2 3 Laboratory Tests Test 02/14/18 03:40 White Blood Count 7.0 K/UL (4.8-10.8) Red Blood Count 2.83 M/UL (4.70-6.10) L Hemoglobin 8.7 G/DL (14.2-18.0) L Hematocrit 26.0 % (42.0-52.0) L Mean Corpuscular Volume 92 FL (80-99) Mean Corpuscular Hemoglobin 30.8 PG (27.0-31.0) Mean Corpuscular Hemoglobin Concent 33.6 G/DL (32.0-36.0) Red Cell Distribution Width 13.9 % (11.6-14.8) Platelet Count 178 K/UL (150-450) Mean Platelet Volume 7.9 FL (6.5-10.1) Neutrophils (%) (Auto) 73.8 % (45.0-75.0) Lymphocytes (%) (Auto) 16.5 % (20.0-45.0) L Monocytes (%) (Auto) 6.6 % (1.0-10.0) Eosinophils (%) (Auto) 2.8 % (0.0-3.0) Basophils (%) (Auto) 0.5 % (0.0-2.0) Sodium Level 132 MMOL/L (136-145) L Potassium Level 5.0 MMOL/L (3.5-5.1) Chloride Level 97 MMOL/L (98-107) L Carbon Dioxide Level 27 MMOL/L (21-32) Anion Gap 8 mmol/L (5-15) Blood Urea Nitrogen 15 mg/dL (7-18) Creatinine 0.8 MG/DL (0.55-1.30) Estimat Glomerular Filtration Rate > 60 mL/min (>60) Glucose Level 85 MG/DL (74-106) Hemoglobin A1c 5.9 % (4.3-6.0) Uric Acid 5.0 MG/DL (2.6-7.2) Calcium Level 9.6 MG/DL (8.5-10.1) Phosphorus Level 4.6 MG/DL (2.5-4.9) Magnesium Level 1.9 MG/DL (1.8-2.4) Ferritin 338 NG/ML (8-388) Total Bilirubin 0.3 MG/DL (0.2-1.0) Gamma Glutamyl Transpeptidase 23 U/L (5-85) Aspartate Amino Transf (AST/SGOT) 11 U/L (15-37) L Alanine Aminotransferase (ALT/SGPT) 30 U/L (12-78) Alkaline Phosphatase 200 U/L (46-116) H Total Creatine Kinase 34 U/L (26-308) Troponin I 0.004 ng/mL (0.000-0.056) Pro-B-Type Natriuretic Peptide 689 pg/mL (0-125) H Total Protein 7.7 G/DL (6.4-8.2) Albumin 2.9 G/DL (3.4-5.0) L Globulin 4.8 g/dL Albumin/Globulin Ratio 0.6 (1.0-2.7) L Triglycerides Level 221 MG/DL (30-150) H Cholesterol Level 172 MG/DL (< 200) LDL Cholesterol 97 mg/dL (<100) HDL Cholesterol 30 MG/DL (40-60) L Cholesterol/HDL Ratio 5.7 (3.3-4.4) H Thyroid Stimulating Hormone (TSH) 2.559 uiU/mL (0.358-3.740) Random Vancomycin Level 22.4 ug/mL Valproic Acid (Depakene) Level 20 MCG/ML (50-100) L Microbiology Date/Time Source Procedure Growth Status 02/12/18 01:45 Blood Blood Culture - Preliminary NO GROWTH AFTER 48 HOURS Resulted 02/12/18 01:30 Blood Blood Culture - Preliminary NO GROWTH AFTER 48 HOURS Resulted 02/12/18 09:20 Sputum Gram Stain - Final Resulted 02/12/18 09:20 Sputum Culture - Preliminary Gram Negative Bacillus 1 Gram Negative Bacillus 2 Resulted 02/12/18 02:10 Nose MRSA Culture - Final NO METHICILLIN RESISTANT STAPH AUREUS... Complete 02/12/18 02:20 Urine,Clean Catch Urine Culture - Preliminary YEAST Resulted 02/12/18 02:10 Rectum VRE Culture - Final NO VANCOMYCIN RESISTANT ENTEROCOCCUS ... Complete Objective HEENT: Atraumatic and normocephalic. Anicteric. Pupils are equal, round, and reactive to light and accommodation. There is presence of a tracheostomy tube. Conjunctival pallor is seen. NECK: JVP cannot be assessed. No carotid bruit. CVS: Normal S1, S2. Regular rate and rhythm. A 2/6 mid systolic murmur at the left sternal border. PMI is at fourth intercostal space at the midclavicular line. LUNGS: Diminished breath sounds on the entire right lung with increased dullness and diminished breath sounds at the base of the left lung with increased dullness. ABDOMEN: Soft, nontender, and nondistended. No hepatosplenomegaly. Positive G-tube in place. EXTREMITIES: No evidence of edema, clubbing, or cyanosis. Chris Yanez MD Feb 14, 2018 19:28
[2018-02-14 20:00] VITALS: BP 95/55
[2018-02-14] MEDS: Dyna-Hex 2% Top Sol 2oz TOPIC SCH (21:34)
--- NOTE | 2018-02-14 23:55 | Cardiology Progress Note ---
Assessment/Plan Assessment/Plan 1. Dyspnea in this patient most likely due to bilateral pleural effusion, right greater than the left. A chest x-ray compared with the one from December this year showed worsening of the right pleural effusion. From the cardiac standpoint , 2D echocardiography done recently in December 2017 shows normal LV systolic function and normal intracardiac filling pressures. Pulmonary input. 2. Ventilator derived respiratory failure. 3. Dysphagia status post PEG placement. 4. History of cardiac arrest in the past leading to anoxic Subjective Subjective Sinus rhythm at 64. Non-verbal. Objective Last 24 Hour Vital Signs Date Time Temp Pulse Resp B/P (MAP) Pulse Ox O2 Delivery O2 Flow Rate FiO2 02/14/18 21:11 82 23 40 02/14/18 19:30 66 20 40 02/14/18 17:24 64 18 40 02/14/18 16:00 40 02/14/18 16:00 96.6 61 20 138/76 94 Mechanical Ventilator 40 96.6 02/14/18 16:00 65 02/14/18 14:46 60 18 40 02/14/18 13:00 64 18 40 02/14/18 12:00 40 02/14/18 12:00 61 02/14/18 12:00 97.9 62 18 138/73 95 Mechanical Ventilator 40 97.9 02/14/18 11:02 62 18 40 02/14/18 09:29 65 19 40 02/14/18 08:00 62 02/14/18 08:00 97.2 65 18 148/83 98 Mechanical Ventilator 50 97.2 02/14/18 08:00 50 02/14/18 06:58 58 18 40 02/14/18 04:35 60 18 40 02/14/18 04:00 69 02/14/18 04:00 50 02/14/18 04:00 98.1 71 19 115/78 100 Mechanical Ventilator 50 98.1 02/14/18 02:35 59 18 40 02/14/18 01:10 65 18 40 02/14/18 00:00 65 02/14/18 00:00 50 02/14/18 00:00 98.2 62 18 119/72 98 Mechanical Ventilator 50 98.2 Intake and Output 02/13/18 02/14/18 19:00 07:00 Intake Total 560 ml 570 ml Output Total 1600 ml 1050 ml Balance -1040 ml -480 ml Free Water 90 ml 100 ml IV Total 110 ml 110 ml Tube Feeding 360 ml 360 ml Output Urine Total 1600 ml 1050 ml # Bowel Movements 2 3 2D Echo: EF 55%, Mild LVH,Mild LAE,Large left pleural eff, RVSP 33mmHg, Grade I LVDD Laboratory Tests Test 02/14/18 03:40 White Blood Count 7.0 K/UL (4.8-10.8) Red Blood Count 2.83 M/UL (4.70-6.10) L Hemoglobin 8.7 G/DL (14.2-18.0) L Hematocrit 26.0 % (42.0-52.0) L Mean Corpuscular Volume 92 FL (80-99) Mean Corpuscular Hemoglobin 30.8 PG (27.0-31.0) Mean Corpuscular Hemoglobin Concent 33.6 G/DL (32.0-36.0) Red Cell Distribution Width 13.9 % (11.6-14.8) Platelet Count 178 K/UL (150-450) Mean Platelet Volume 7.9 FL (6.5-10.1) Neutrophils (%) (Auto) 73.8 % (45.0-75.0) Lymphocytes (%) (Auto) 16.5 % (20.0-45.0) L Monocytes (%) (Auto) 6.6 % (1.0-10.0) Eosinophils (%) (Auto) 2.8 % (0.0-3.0) Basophils (%) (Auto) 0.5 % (0.0-2.0) Sodium Level 132 MMOL/L (136-145) L Potassium Level 5.0 MMOL/L (3.5-5.1) Chloride Level 97 MMOL/L (98-107) L Carbon Dioxide Level 27 MMOL/L (21-32) Anion Gap 8 mmol/L (5-15) Blood Urea Nitrogen 15 mg/dL (7-18) Creatinine 0.8 MG/DL (0.55-1.30) Estimat Glomerular Filtration Rate > 60 mL/min (>60) Glucose Level 85 MG/DL (74-106) Hemoglobin A1c 5.9 % (4.3-6.0) Uric Acid 5.0 MG/DL (2.6-7.2) Calcium Level 9.6 MG/DL (8.5-10.1) Phosphorus Level 4.6 MG/DL (2.5-4.9) Magnesium Level 1.9 MG/DL (1.8-2.4) Ferritin 338 NG/ML (8-388) Total Bilirubin 0.3 MG/DL (0.2-1.0) Gamma Glutamyl Transpeptidase 23 U/L (5-85) Aspartate Amino Transf (AST/SGOT) 11 U/L (15-37) L Alanine Aminotransferase (ALT/SGPT) 30 U/L (12-78) Alkaline Phosphatase 200 U/L (46-116) H Total Creatine Kinase 34 U/L (26-308) Troponin I 0.004 ng/mL (0.000-0.056) Pro-B-Type Natriuretic Peptide 689 pg/mL (0-125) H Total Protein 7.7 G/DL (6.4-8.2) Albumin 2.9 G/DL (3.4-5.0) L Globulin 4.8 g/dL Albumin/Globulin Ratio 0.6 (1.0-2.7) L Triglycerides Level 221 MG/DL (30-150) H Cholesterol Level 172 MG/DL (< 200) LDL Cholesterol 97 mg/dL (<100) HDL Cholesterol 30 MG/DL (40-60) L Cholesterol/HDL Ratio 5.7 (3.3-4.4) H Thyroid Stimulating Hormone (TSH) 2.559 uiU/mL (0.358-3.740) Random Vancomycin Level 22.4 ug/mL Valproic Acid (Depakene) Level 20 MCG/ML (50-100) L Microbiology Date/Time Source Procedure Growth Status 02/12/18 01:45 Blood Blood Culture - Preliminary NO GROWTH AFTER 48 HOURS Resulted 02/12/18 01:30 Blood Blood Culture - Preliminary NO GROWTH AFTER 48 HOURS Resulted 02/12/18 09:20 Sputum Gram Stain - Final Resulted 02/12/18 09:20 Sputum Culture - Preliminary Gram Negative Bacillus 1 Gram Negative Bacillus 2 Resulted 02/12/18 02:10 Nose MRSA Culture - Final NO METHICILLIN RESISTANT STAPH AUREUS... Complete 02/12/18 02:20 Urine,Clean Catch Urine Culture - Preliminary YEAST Resulted 02/12/18 02:10 Rectum VRE Culture - Final NO VANCOMYCIN RESISTANT ENTEROCOCCUS ... Complete Objective HEENT: Atraumatic and normocephalic. Anicteric. Pupils are equal, round, and reactive to light and accommodation. There is presence of a tracheostomy tube. Conjunctival pallor is seen. NECK: JVP cannot be assessed. No carotid bruit. CVS: Normal S1, S2. Regular rate and rhythm. A 2/6 mid systolic murmur at the left sternal border. PMI is at fourth intercostal space at the midclavicular line. LUNGS: Diminished breath sounds on the entire right lung with increased dullness and diminished breath sounds at the base of the left lung with increased dullness. ABDOMEN: Soft, nontender, and nondistended. No hepatosplenomegaly. Positive G-tube in place. EXTREMITIES: No evidence of edema, clubbing, or cyanosis. Chris Yanez MD Feb 14, 2018 23:55
[2018-02-15] VITALS: BP 131/64
[2018-02-15 04:00] VITALS: BP 102/51
[2018-02-15 05:09] LABS: BASOPHILS % (AUTO) 0.5 % (0.0-2.0); EOSINOPHILS % (AUTO) 2.4 % (0.0-3.0); HEMOGLOBIN 9.5 G/DL (14.2-18.0); LYMPHOCYTES % (AUTO) 17.1 % (20.0-45.0); MEAN CORPUSCULAR VOLUME 92 FL (80-99); MONOCYTES % (AUTO) 7.1 % (1.0-10.0); NEUTROPHILS % (AUTO) 72.9 % (45.0-75.0); PLATELET COUNT 215 K/UL (150-450); RED BLOOD COUNT 3.16 M/UL (4.70-6.10); RED CELL DISTRIBUTION WIDTH 13.8 % (11.6-14.8); WHITE BLOOD COUNT 7.6 K/UL (4.8-10.8)
[2018-02-15 05:27] LABS: ALANINE AMINOTRANSFERASE 33 U/L (12-78); ALBUMIN 3.1 G/DL (3.4-5.0); ALBUMIN/GLOBULIN RATIO 0.6 (1.0-2.7); ALKALINE PHOSPHATASE 205 U/L (46-116); ANION GAP 8 mmol/L (5-15); ASPARTATE AMINO TRANSFERASE 14 U/L (15-37); BILIRUBIN,TOTAL 0.3 MG/DL (0.2-1.0); BLOOD UREA NITROGEN 19 mg/dL (7-18); CALCIUM 9.7 MG/DL (8.5-10.1); CARBON DIOXIDE 28 MMOL/L (21-32); CHLORIDE 95 MMOL/L (98-107); CREATININE 0.9 MG/DL (0.55-1.30); PHOSPHORUS 4.7 MG/DL (2.5-4.9); POTASSIUM 4.9 MMOL/L (3.5-5.1); SODIUM 131 MMOL/L (136-145)
[2018-02-15] MEDS: NovoLOG Insulin Flexpen SUBQ SCH ×4 (06:00→17:18)
[2018-02-15 08:00] VITALS: BP 153/99
[2018-02-15] MEDS: Valproic Acid 250mg/5ml Liquid NG SCH ×2 (08:30→20:37)
[2018-02-15] MEDS: levETIRAcetam 500mg/5ml Liquid GT SCH ×2 (08:31→20:37)
[2018-02-15] MEDS: Heparin 5000 units/ml inj SUBQ SCH ×2 (08:32→20:40)
--- NOTE | 2018-02-15 09:00 | General Progress Note ---
Assessment/Plan Problem List: (1) Hypertension ICD Codes: I10 - Essential (primary) hypertension SNOMED: 56223647 (2) Acute on chronic respiratory failure ICD Codes: J96.20 - Acute and chronic respiratory failure, unspecified whether with hypoxia or hypercapnia SNOMED: 78009329 (3) Seizure disorder ICD Codes: G40.909 - Epilepsy, unspecified, not intractable, without status epilepticus SNOMED: 838346256 (4) Anemia ICD Codes: D64.9 - Anemia, unspecified SNOMED: 121058495 (5) Aspiration pneumonia ICD Codes: J69.0 - Pneumonitis due to inhalation of food and vomit SNOMED: 864346331 Status: unchanged Assessment/Plan vent abx cbc bmp am ltach eval Subjective Constitutional: Reports: weakness Allergies: Coded Allergies: ACETAMINOPHEN (Verified Allergy, Unknown, 12/16/17) All Systems: reviewed and negative except above Subjective trach vent altered Objective Last 24 Hour Vital Signs Date Time Temp Pulse Resp B/P (MAP) Pulse Ox O2 Delivery O2 Flow Rate FiO2 02/15/18 06:46 66 19 40 02/15/18 05:30 68 18 40 02/15/18 04:00 97.8 58 18 102/51 99 Mechanical Ventilator 40 97.8 02/15/18 04:00 72 02/15/18 04:00 40 02/15/18 03:30 82 23 40 02/15/18 01:30 74 20 40 02/15/18 00:00 40 02/15/18 00:00 56 02/15/18 00:00 97.5 58 18 131/64 99 Mechanical Ventilator 40 97.5 02/14/18 23:30 80 21 40 02/14/18 21:11 82 23 40 02/14/18 20:00 97.5 56 20 95/55 94 Mechanical Ventilator 40 97.5 02/14/18 20:00 60 02/14/18 19:30 66 20 40 02/14/18 17:24 64 18 40 02/14/18 16:00 40 02/14/18 16:00 96.6 61 20 138/76 94 Mechanical Ventilator 40 96.6 02/14/18 16:00 65 02/14/18 14:46 60 18 40 02/14/18 13:00 64 18 40 02/14/18 12:00 40 02/14/18 12:00 61 02/14/18 12:00 97.9 62 18 138/73 95 Mechanical Ventilator 40 97.9 02/14/18 11:02 62 18 40 02/14/18 09:29 65 19 40 Intake and Output 02/14/18 02/15/18 19:00 07:00 Intake Total 955.000 ml 870 ml Output Total 1700 ml 450 ml Balance -745.000 ml 420 ml Intake Oral 0 ml Free Water 100 ml IV Total 385.000 ml 110 ml Tube Feeding 470 ml 560 ml Other 100 ml 100 ml Output Urine Total 1700 ml 450 ml # Bowel Movements 1 Laboratory Tests 02/15/18 04:00: White Blood Count 7.6, Red Blood Count 3.16L, Hemoglobin 9.5L, Hematocrit 29.0L , Mean Corpuscular Volume 92, Mean Corpuscular Hemoglobin 30.1, Mean Corpuscular Hemoglobin Concent 32.8, Red Cell Distribution Width 13.8, Platelet Count 215, Mean Platelet Volume 8.7, Neutrophils (%) (Auto) 72.9, Lymphocytes (% ) (Auto) 17.1L, Monocytes (%) (Auto) 7.1, Eosinophils (%) (Auto) 2.4, Basophils (%) (Auto) 0.5, Sodium Level 131L, Potassium Level 4.9, Chloride Level 95L, Carbon Dioxide Level 28, Anion Gap 8, Blood Urea Nitrogen 19H, Creatinine 0.9, Estimat Glomerular Filtration Rate > 60, Glucose Level 92, Calcium Level 9.7, Phosphorus Level 4.7, Magnesium Level 2.0, Total Bilirubin 0.3, Aspartate Amino Transf (AST/SGOT) 14L, Alanine Aminotransferase (ALT/SGPT) 33, Alkaline Phosphatase 205H, C-Reactive Protein, Quantitative 3.8H, Total Protein 8.2, Albumin 3.1L, Globulin 5.1, Albumin/Globulin Ratio 0.6L Height (Feet): 5 Height (Inches): 7.00 Weight (Pounds): 168 General Appearance: lethargic EENT: normal ENT inspection Neck: normal alignment Cardiovascular: normal peripheral pulses, normal rate, regular rhythm Respiratory/Chest: chest wall non-tender, decreased breath sounds Abdomen: normal bowel sounds, non tender, soft Extremities: normal inspection Edema: no edema noted Arm (L), no edema noted Arm (R), no edema noted Leg (L), no edema noted Leg (R), no edema noted Pedal (L), no edema noted Pedal (R), no edema noted Generalized Neurologic: motor weakness Skin: normal pigmentation, warm/dry Yosef Garcia DO Feb 15, 2018 09:00
--- NOTE | 2018-02-15 09:13 | Pulmonolgy Critical Care Note ---
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, 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, ID Discussed with: nurses, consultants, case monitorsenior case manager - Objective Last 24 Hour Vital Signs Date Time Temp Pulse Resp B/P (MAP) Pulse Ox O2 Delivery O2 Flow Rate FiO2 02/15/18 06:46 66 19 40 02/15/18 05:30 68 18 40 02/15/18 04:00 97.8 58 18 102/51 99 Mechanical Ventilator 40 97.8 02/15/18 04:00 72 02/15/18 04:00 40 02/15/18 03:30 82 23 40 02/15/18 01:30 74 20 40 02/15/18 00:00 40 02/15/18 00:00 56 02/15/18 00:00 97.5 58 18 131/64 99 Mechanical Ventilator 40 97.5 02/14/18 23:30 80 21 40 02/14/18 21:11 82 23 40 02/14/18 20:00 97.5 56 20 95/55 94 Mechanical Ventilator 40 97.5 02/14/18 20:00 60 02/14/18 19:30 66 20 40 02/14/18 17:24 64 18 40 02/14/18 16:00 40 02/14/18 16:00 96.6 61 20 138/76 94 Mechanical Ventilator 40 96.6 02/14/18 16:00 65 02/14/18 14:46 60 18 40 02/14/18 13:00 64 18 40 02/14/18 12:00 40 02/14/18 12:00 61 02/14/18 12:00 97.9 62 18 138/73 95 Mechanical Ventilator 40 97.9 02/14/18 11:02 62 18 40 02/14/18 09:29 65 19 40 Status: awake Condition: critical HEENT: atraumatic Lungs: rales, rhonchi Heart: HR/BP stable, HR/BP unstable Abdomen: soft, active bowel sounds Extremities: edema Decubiti: location, stage Micro: Microbiology Date/Time Source Procedure Growth Status 02/12/18 09:20 Sputum Gram Stain - Final Complete 02/12/18 09:20 Sputum Culture - Final Serratia Marcescens Pseudomonas Aeruginosa Complete Accucheck: 102 Critical Care - Subjective ROS Limited/Unobtainable: Yes FI02: 40 Vent Support Breath Rate: 18 Vent Support Mode: AC Vent Tidal Volume: 500 Sputum Amount: Small PEEP: 5.0 PIP: 22 Tube Feeding Amount: 60 I&O: Intake and Output 02/14/18 02/15/18 19:00 07:00 Intake Total 955.000 ml 870 ml Output Total 1700 ml 450 ml Balance -745.000 ml 420 ml Intake Oral 0 ml Free Water 100 ml IV Total 385.000 ml 110 ml Tube Feeding 470 ml 560 ml Other 100 ml 100 ml Output Urine Total 1700 ml 450 ml # Bowel Movements 1 CXR: no change Labs: Laboratory Tests Test 02/15/18 04:00 White Blood Count 7.6 K/UL (4.8-10.8) Red Blood Count 3.16 M/UL (4.70-6.10) L Hemoglobin 9.5 G/DL (14.2-18.0) L Hematocrit 29.0 % (42.0-52.0) L Mean Corpuscular Volume 92 FL (80-99) Mean Corpuscular Hemoglobin 30.1 PG (27.0-31.0) Mean Corpuscular Hemoglobin Concent 32.8 G/DL (32.0-36.0) Red Cell Distribution Width 13.8 % (11.6-14.8) Platelet Count 215 K/UL (150-450) Mean Platelet Volume 8.7 FL (6.5-10.1) Neutrophils (%) (Auto) 72.9 % (45.0-75.0) Lymphocytes (%) (Auto) 17.1 % (20.0-45.0) L Monocytes (%) (Auto) 7.1 % (1.0-10.0) Eosinophils (%) (Auto) 2.4 % (0.0-3.0) Basophils (%) (Auto) 0.5 % (0.0-2.0) Sodium Level 131 MMOL/L (136-145) L Potassium Level 4.9 MMOL/L (3.5-5.1) Chloride Level 95 MMOL/L (98-107) L Carbon Dioxide Level 28 MMOL/L (21-32) Anion Gap 8 mmol/L (5-15) Blood Urea Nitrogen 19 mg/dL (7-18) H Creatinine 0.9 MG/DL (0.55-1.30) Estimat Glomerular Filtration Rate > 60 mL/min (>60) Glucose Level 92 MG/DL (74-106) Calcium Level 9.7 MG/DL (8.5-10.1) Phosphorus Level 4.7 MG/DL (2.5-4.9) Magnesium Level 2.0 MG/DL (1.8-2.4) Total Bilirubin 0.3 MG/DL (0.2-1.0) Aspartate Amino Transf (AST/SGOT) 14 U/L (15-37) L Alanine Aminotransferase (ALT/SGPT) 33 U/L (12-78) Alkaline Phosphatase 205 U/L (46-116) H C-Reactive Protein, Quantitative 3.8 mg/dL (0.00-0.90) H Total Protein 8.2 G/DL (6.4-8.2) Albumin 3.1 G/DL (3.4-5.0) L Globulin 5.1 g/dL Albumin/Globulin Ratio 0.6 (1.0-2.7) L Leodan Bojorquez MD Feb 15, 2018 09:13
[2018-02-15] MEDS: Cefepime HCl 1 GM in D5W 110 ML IV SCH ×2 (10:40→22:43)
--- NOTE | 2018-02-15 11:48 | Nephrology Progress Note ---
Assessment/Plan Problem List: (1) Hyperkalemia (2) Hyponatremia Assessment - Low Na and High K - Acute on chronic respiratory failure - Aspiration pneumonia - Feeding by G-tube - Vegetative state - Seizure disorder - Pleural effusion - Anemia - Hypertension Plan one time 3% saline 2D Echo Left ventricular ejection fraction estimated to be 55 %. Gastric support Lasix 40 daily monitor lytes per orders Subjective ROS Limited/Unobtainable: Yes Objective Objective Last 24 Hour Vital Signs Date Time Temp Pulse Resp B/P (MAP) Pulse Ox O2 Delivery O2 Flow Rate FiO2 02/15/18 10:59 72 18 40 02/15/18 09:01 80 22 40 02/15/18 08:00 58 02/15/18 08:00 40 02/15/18 08:00 97.9 92 24 153/99 99 Mechanical Ventilator 40 97.9 02/15/18 06:46 66 19 40 02/15/18 05:30 68 18 40 02/15/18 04:00 97.8 58 18 102/51 99 Mechanical Ventilator 40 97.8 02/15/18 04:00 72 02/15/18 04:00 40 02/15/18 03:30 82 23 40 02/15/18 01:30 74 20 40 02/15/18 00:00 40 02/15/18 00:00 56 02/15/18 00:00 97.5 58 18 131/64 99 Mechanical Ventilator 40 97.5 02/14/18 23:30 80 21 40 02/14/18 21:11 82 23 40 02/14/18 20:00 97.5 56 20 95/55 94 Mechanical Ventilator 40 97.5 02/14/18 20:00 60 02/14/18 19:30 66 20 40 02/14/18 17:24 64 18 40 02/14/18 16:00 40 02/14/18 16:00 96.6 61 20 138/76 94 Mechanical Ventilator 40 96.6 02/14/18 16:00 65 02/14/18 14:46 60 18 40 02/14/18 13:00 64 18 40 02/14/18 12:00 40 02/14/18 12:00 61 02/14/18 12:00 97.9 62 18 138/73 95 Mechanical Ventilator 40 97.9 Intake and Output 6/1/18 6/2/18 19:00 07:00 Intake Total 955.000 ml 965 ml Output Total 1700 ml 450 ml Balance -745.000 ml 515 ml Intake Oral 0 ml Free Water 130 ml IV Total 385.000 ml 110 ml Tube Feeding 470 ml 625 ml Other 100 ml 100 ml Output Urine Total 1700 ml 450 ml # Bowel Movements 1 Laboratory Tests 02/15/18 04:00: White Blood Count 7.6, Red Blood Count 3.16L, Hemoglobin 9.5L, Hematocrit 29.0L , Mean Corpuscular Volume 92, Mean Corpuscular Hemoglobin 30.1, Mean Corpuscular Hemoglobin Concent 32.8, Red Cell Distribution Width 13.8, Platelet Count 215, Mean Platelet Volume 8.7, Neutrophils (%) (Auto) 72.9, Lymphocytes (% ) (Auto) 17.1L, Monocytes (%) (Auto) 7.1, Eosinophils (%) (Auto) 2.4, Basophils (%) (Auto) 0.5, Sodium Level 131L, Potassium Level 4.9, Chloride Level 95L, Carbon Dioxide Level 28, Anion Gap 8, Blood Urea Nitrogen 19H, Creatinine 0.9, Estimat Glomerular Filtration Rate > 60, Glucose Level 92, Calcium Level 9.7, Phosphorus Level 4.7, Magnesium Level 2.0, Total Bilirubin 0.3, Aspartate Amino Transf (AST/SGOT) 14L, Alanine Aminotransferase (ALT/SGPT) 33, Alkaline Phosphatase 205H, C-Reactive Protein, Quantitative 3.8H, Total Protein 8.2, Albumin 3.1L, Globulin 5.1, Albumin/Globulin Ratio 0.6L Height (Feet): 5 Height (Inches): 7.00 Weight (Pounds): 168 Objective no other changes HERLINDA MALLOY Feb 15, 2018 11:48
[2018-02-15 12:00] VITALS: BP 116/68
--- NOTE | 2018-02-15 12:22 | Infectious Diseases Prog Note ---
Assessment/Plan Assessment/Plan Abx: IV Vanco 02/12- Cefepime 02/12- Flagyl x1 02/12 Assessment: Acute on chronic respiratory failure- likely multifactorial 2ry to pulm edema, pleural effusion -?PNA, suspect main component is volume related -CXR 02/14: Improved pulmonary edema currently mild. Bilateral pleural effusions noted. -CXR: Hazy groundglass some right basilar opacity obscuring the right hemidiaphragm consistent with a pleural effusion. Interstitial/pulmonary edema demonstrated -sp cx p S. marcenses (R amp, otherwise S), MDR PSA (S aminoglycosies) Recent PNA, s/p rx -7 days IV Vanco and Zosyn (end date 02/11) Afebrile, no leukocytosis -u/a wbc 5-10, nit neg, leuk +1; ucx 30-40 k yeast (Colonizer) -Bcx nTd chronic respiratory failure on tracheostomy cardiac arrest COPD DM2 PEG seizure disorder bedbound nonverbal hypertension hypoxic encephalopathy Plan: -Continue Cefepime #/5-7 for possible PNA and add INH Tobramycin #/-7 for MDR PSA -02/14 SP IV Vanco #3 -f/u cx -Monitor CBC/BMP, temperatures -trach/peg care -woudn care/prevention per hosp protocol -aspiration precautions -cXR am Thank you for this consultation. Will continue to follow along with you. Discussed with RN. Subjective Allergies: Coded Allergies: ACETAMINOPHEN (Verified Allergy, Unknown, 12/16/17) Subjective afebrile no leukocyotis Bcx NTD Fio2 40% Objective Vital Signs Last 24 Hour Vital Signs Date Time Temp Pulse Resp B/P (MAP) Pulse Ox O2 Delivery O2 Flow Rate FiO2 02/15/18 10:59 72 18 40 02/15/18 09:01 80 22 40 02/15/18 08:00 58 02/15/18 08:00 40 02/15/18 08:00 97.9 92 24 153/99 99 Mechanical Ventilator 40 97.9 02/15/18 06:46 66 19 40 02/15/18 05:30 68 18 40 02/15/18 04:00 97.8 58 18 102/51 99 Mechanical Ventilator 40 97.8 02/15/18 04:00 72 02/15/18 04:00 40 02/15/18 03:30 82 23 40 02/15/18 01:30 74 20 40 02/15/18 00:00 40 02/15/18 00:00 56 02/15/18 00:00 97.5 58 18 131/64 99 Mechanical Ventilator 40 97.5 02/14/18 23:30 80 21 40 02/14/18 21:11 82 23 40 02/14/18 20:00 97.5 56 20 95/55 94 Mechanical Ventilator 40 97.5 02/14/18 20:00 60 02/14/18 19:30 66 20 40 02/14/18 17:24 64 18 40 02/14/18 16:00 40 02/14/18 16:00 96.6 61 20 138/76 94 Mechanical Ventilator 40 96.6 02/14/18 16:00 65 02/14/18 14:46 60 18 40 02/14/18 13:00 64 18 40 Height (Feet): 5 Height (Inches): 7.00 Weight (Pounds): 168 Objective General Appearance: WD/WN Lines, tubes and drains: peripheral HEENT: normocephalic, atraumatic Neck: non-tender, normal alignment Respiratory/Chest: chest wall non-tender, lungs clear Cardiovascular/Chest: normal peripheral pulses Abdomen: normal bowel sounds, non tender Extremities: normal range of motion Skin Exam: normal pigmentation Laboratory Tests Test 02/15/18 04:00 White Blood Count 7.6 K/UL (4.8-10.8) Red Blood Count 3.16 M/UL (4.70-6.10) L Hemoglobin 9.5 G/DL (14.2-18.0) L Hematocrit 29.0 % (42.0-52.0) L Mean Corpuscular Volume 92 FL (80-99) Mean Corpuscular Hemoglobin 30.1 PG (27.0-31.0) Mean Corpuscular Hemoglobin Concent 32.8 G/DL (32.0-36.0) Red Cell Distribution Width 13.8 % (11.6-14.8) Platelet Count 215 K/UL (150-450) Mean Platelet Volume 8.7 FL (6.5-10.1) Neutrophils (%) (Auto) 72.9 % (45.0-75.0) Lymphocytes (%) (Auto) 17.1 % (20.0-45.0) L Monocytes (%) (Auto) 7.1 % (1.0-10.0) Eosinophils (%) (Auto) 2.4 % (0.0-3.0) Basophils (%) (Auto) 0.5 % (0.0-2.0) Sodium Level 131 MMOL/L (136-145) L Potassium Level 4.9 MMOL/L (3.5-5.1) Chloride Level 95 MMOL/L (98-107) L Carbon Dioxide Level 28 MMOL/L (21-32) Anion Gap 8 mmol/L (5-15) Blood Urea Nitrogen 19 mg/dL (7-18) H Creatinine 0.9 MG/DL (0.55-1.30) Estimat Glomerular Filtration Rate > 60 mL/min (>60) Glucose Level 92 MG/DL (74-106) Calcium Level 9.7 MG/DL (8.5-10.1) Phosphorus Level 4.7 MG/DL (2.5-4.9) Magnesium Level 2.0 MG/DL (1.8-2.4) Total Bilirubin 0.3 MG/DL (0.2-1.0) Aspartate Amino Transf (AST/SGOT) 14 U/L (15-37) L Alanine Aminotransferase (ALT/SGPT) 33 U/L (12-78) Alkaline Phosphatase 205 U/L (46-116) H C-Reactive Protein, Quantitative 3.8 mg/dL (0.00-0.90) H Total Protein 8.2 G/DL (6.4-8.2) Albumin 3.1 G/DL (3.4-5.0) L Globulin 5.1 g/dL Albumin/Globulin Ratio 0.6 (1.0-2.7) L Current Medications Medications (Trade) Dose Ordered Sig/Marciano Route PRN Reason Start Time Stop Time Status Last Admin Dose Admin Albuterol/ Ipratropium (Albuterol/ Ipratropium) 3 ml Q4H PRN HHN Shortness of Breath 02/12/18 07:30 02/17/18 07:29 Cefepime HCl 1 gm/ Dextrose 110 ml @ 220 mls/hr Q12HR@1100,2300 IV 02/12/18 11:00 6/6/18 10:59 02/15/18 10:40 Chlorhexidine Gluconate (Nancy-Hex 2%) 1 applic DAILY@2000 TOPIC 02/12/18 20:00 03/14/18 19:59 02/14/18 21:34 Famotidine (Pepcid) 20 mg BID GT 02/13/18 18:00 03/15/18 17:59 02/15/18 08:31 Furosemide (Lasix) 20 mg ONCE ONCE IV 02/15/18 12:30 02/15/18 12:31 Furosemide (Lasix) 40 mg DAILY IV 02/16/18 09:00 03/18/18 08:59 Heparin Sodium (Porcine) (Heparin 5000 units/ml) 5,000 units EVERY 12 HOURS SUBQ 02/12/18 09:00 03/14/18 08:59 02/15/18 08:32 Insulin Aspart (NovoLOG) Q6HR SUBQ 02/12/18 12:00 03/14/18 11:29 Levetiracetam (Keppra) 1,000 mg Q12HR GT 02/13/18 21:00 03/14/18 17:59 02/15/18 08:31 Nitroglycerin (Ntg) 0.4 mg Q5M PRN SL Prn Chest Pain 02/12/18 07:30 03/14/18 07:29 Ondansetron HCl (Zofran) 4 mg Q6H PRN IVP Nausea & Vomiting 02/12/18 07:30 03/14/18 07:29 Polyethylene Glycol (Miralax) 17 gm DAILYPRN PRN ORAL Constipation 02/12/18 07:30 03/14/18 07:29 Promethazine HCl/ Codeine (Phenergan with Codeine) 5 ml Q4H PRN ORAL For Cough 02/12/18 07:30 03/14/18 07:29 02/15/18 08:49 Sodium Chloride 250 ml @ 30 mls/hr ONCE ONCE IV 02/15/18 13:00 02/15/18 21:19 Temazepam (Restoril) 15 mg HSPRN PRN ORAL Insomnia 02/12/18 07:30 02/19/18 07:29 Valproic Acid (Depakene) 500 mg EVERY 12 HOURS NG 02/15/18 21:00 03/14/18 20:59 Melody Suarez M.D. Feb 15, 2018 12:22
[2018-02-15] MEDS ORDERED: NaCl 3% 500ml 250 ML IV ONE (13:00)
[2018-02-15 16:00] VITALS: BP 99/63
--- NOTE | 2018-02-15 18:03 | Cardiology Progress Note ---
Assessment/Plan Assessment/Plan 1. Dyspnea in this patient most likely due to bilateral pleural effusion, right greater than the left. A chest x-ray compared with the one from December this year showed worsening of the right pleural effusion. From the cardiac standpoint , 2D echocardiography done recently in December 2017 shows normal LV systolic function and normal intracardiac filling pressures. 2. Ventilator derived respiratory failure. 3. Dysphagia status post PEG placement. 4. History of cardiac arrest in the past leading to anoxic Subjective Subjective Sinus rhythm at 63. Non-verbal. Clinically the same. Objective Last 24 Hour Vital Signs Date Time Temp Pulse Resp B/P (MAP) Pulse Ox O2 Delivery O2 Flow Rate FiO2 02/15/18 16:38 71 21 40 02/15/18 16:00 40 02/15/18 16:00 63 02/15/18 16:00 97.6 65 20 99/63 99 Mechanical Ventilator 40 97.6 02/15/18 15:01 64 19 40 02/15/18 12:34 69 20 40 02/15/18 12:00 73 02/15/18 12:00 97.0 70 18 116/68 100 Mechanical Ventilator 40 97.0 02/15/18 12:00 40 02/15/18 10:59 72 18 40 02/15/18 09:01 80 22 40 02/15/18 08:00 58 02/15/18 08:00 40 02/15/18 08:00 97.9 92 24 153/99 99 Mechanical Ventilator 40 97.9 02/15/18 06:46 66 19 40 02/15/18 05:30 68 18 40 02/15/18 04:00 97.8 58 18 102/51 99 Mechanical Ventilator 40 97.8 02/15/18 04:00 72 02/15/18 04:00 40 02/15/18 03:30 82 23 40 02/15/18 01:30 74 20 40 02/15/18 00:00 40 02/15/18 00:00 56 02/15/18 00:00 97.5 58 18 131/64 99 Mechanical Ventilator 40 97.5 02/14/18 23:30 80 21 40 02/14/18 21:11 82 23 40 02/14/18 20:00 97.5 56 20 95/55 94 Mechanical Ventilator 40 97.5 02/14/18 20:00 60 02/14/18 19:30 66 20 40 Intake and Output 02/14/18 02/15/18 19:00 07:00 Intake Total 955.000 ml 965 ml Output Total 1700 ml 450 ml Balance -745.000 ml 515 ml Intake Oral 0 ml Free Water 130 ml IV Total 385.000 ml 110 ml Tube Feeding 470 ml 625 ml Other 100 ml 100 ml Output Urine Total 1700 ml 450 ml # Bowel Movements 1 2D Echo: EF 55%, Mild LVH,Mild LAE,Large left pleural eff, RVSP 33mmHg, Grade I LVDD Laboratory Tests Test 02/15/18 04:00 White Blood Count 7.6 K/UL (4.8-10.8) Red Blood Count 3.16 M/UL (4.70-6.10) L Hemoglobin 9.5 G/DL (14.2-18.0) L Hematocrit 29.0 % (42.0-52.0) L Mean Corpuscular Volume 92 FL (80-99) Mean Corpuscular Hemoglobin 30.1 PG (27.0-31.0) Mean Corpuscular Hemoglobin Concent 32.8 G/DL (32.0-36.0) Red Cell Distribution Width 13.8 % (11.6-14.8) Platelet Count 215 K/UL (150-450) Mean Platelet Volume 8.7 FL (6.5-10.1) Neutrophils (%) (Auto) 72.9 % (45.0-75.0) Lymphocytes (%) (Auto) 17.1 % (20.0-45.0) L Monocytes (%) (Auto) 7.1 % (1.0-10.0) Eosinophils (%) (Auto) 2.4 % (0.0-3.0) Basophils (%) (Auto) 0.5 % (0.0-2.0) Sodium Level 131 MMOL/L (136-145) L Potassium Level 4.9 MMOL/L (3.5-5.1) Chloride Level 95 MMOL/L (98-107) L Carbon Dioxide Level 28 MMOL/L (21-32) Anion Gap 8 mmol/L (5-15) Blood Urea Nitrogen 19 mg/dL (7-18) H Creatinine 0.9 MG/DL (0.55-1.30) Estimat Glomerular Filtration Rate > 60 mL/min (>60) Glucose Level 92 MG/DL (74-106) Calcium Level 9.7 MG/DL (8.5-10.1) Phosphorus Level 4.7 MG/DL (2.5-4.9) Magnesium Level 2.0 MG/DL (1.8-2.4) Total Bilirubin 0.3 MG/DL (0.2-1.0) Aspartate Amino Transf (AST/SGOT) 14 U/L (15-37) L Alanine Aminotransferase (ALT/SGPT) 33 U/L (12-78) Alkaline Phosphatase 205 U/L (46-116) H C-Reactive Protein, Quantitative 3.8 mg/dL (0.00-0.90) H Total Protein 8.2 G/DL (6.4-8.2) Albumin 3.1 G/DL (3.4-5.0) L Globulin 5.1 g/dL Albumin/Globulin Ratio 0.6 (1.0-2.7) L Objective HEENT: Atraumatic and normocephalic. Anicteric. Pupils are equal, round, and reactive to light and accommodation. There is presence of a tracheostomy tube. Conjunctival pallor is seen. NECK: JVP cannot be assessed. No carotid bruit. CVS: Normal S1, S2. Regular rate and rhythm. A 2/6 mid systolic murmur at the left sternal border. PMI is at fourth intercostal space at the midclavicular line. LUNGS: Diminished breath sounds on the entire right lung with increased dullness and diminished breath sounds at the base of the left lung with increased dullness. ABDOMEN: Soft, nontender, and nondistended. No hepatosplenomegaly. Positive G-tube in place. EXTREMITIES: No evidence of edema, clubbing, or cyanosis. Chris Yanez MD Feb 15, 2018 18:03
[2018-02-15 20:00] VITALS: BP 146/77
[2018-02-15] MEDS: Dyna-Hex 2% Top Sol 2oz TOPIC SCH (20:03)
[2018-02-16] VITALS: BP 116/70
[2018-02-16] MEDS: Tobramycin for inhalation INH SCH ×3 (00:21→22:20)
[2018-02-16] MEDS: NovoLOG Insulin Flexpen SUBQ SCH ×4 (00:30→17:59)
[2018-02-16 04:00] VITALS: BP 123/72
[2018-02-16 05:02] LABS: BASOPHILS % (AUTO) 0.3 % (0.0-2.0); EOSINOPHILS % (AUTO) 1.7 % (0.0-3.0); HEMOGLOBIN 9.1 G/DL (14.2-18.0); LYMPHOCYTES % (AUTO) 16.6 % (20.0-45.0); MEAN CORPUSCULAR VOLUME 92 FL (80-99); MONOCYTES % (AUTO) 5.8 % (1.0-10.0); NEUTROPHILS % (AUTO) 75.6 % (45.0-75.0); PLATELET COUNT 233 K/UL (150-450); RED BLOOD COUNT 2.83 M/UL (4.70-6.10); RED CELL DISTRIBUTION WIDTH 13.9 % (11.6-14.8); WHITE BLOOD COUNT 9.3 K/UL (4.8-10.8)
[2018-02-16 06:01] LABS: ALANINE AMINOTRANSFERASE 27 U/L (12-78); ALBUMIN 3.1 G/DL (3.4-5.0); ALBUMIN/GLOBULIN RATIO 0.7 (1.0-2.7); ALKALINE PHOSPHATASE 194 U/L (46-116); ANION GAP 8 mmol/L (5-15); ASPARTATE AMINO TRANSFERASE 14 U/L (15-37); BILIRUBIN,TOTAL 0.3 MG/DL (0.2-1.0); BLOOD UREA NITROGEN 26 mg/dL (7-18); CALCIUM 9.6 MG/DL (8.5-10.1); CARBON DIOXIDE 28 MMOL/L (21-32); CHLORIDE 98 MMOL/L (98-107); PHOSPHORUS 4.7 MG/DL (2.5-4.9); POTASSIUM 4.9 MMOL/L (3.5-5.1); SODIUM 134 MMOL/L (136-145)
--- NOTE | 2018-02-16 07:57 | General Progress Note ---
Assessment/Plan Problem List: (1) Hypertension ICD Codes: I10 - Essential (primary) hypertension SNOMED: 21257273 (2) Acute on chronic respiratory failure ICD Codes: J96.20 - Acute and chronic respiratory failure, unspecified whether with hypoxia or hypercapnia SNOMED: 90017103 (3) Seizure disorder ICD Codes: G40.909 - Epilepsy, unspecified, not intractable, without status epilepticus SNOMED: 388427788 (4) Anemia ICD Codes: D64.9 - Anemia, unspecified SNOMED: 171271376 (5) Aspiration pneumonia ICD Codes: J69.0 - Pneumonitis due to inhalation of food and vomit SNOMED: 867057069 Status: unchanged Assessment/Plan vent abx cbc bmp am ltach eval Subjective Constitutional: Reports: weakness Allergies: Coded Allergies: ACETAMINOPHEN (Verified Allergy, Unknown, 12/16/17) All Systems: reviewed and negative except above Subjective trach vent altered Objective Last 24 Hour Vital Signs Date Time Temp Pulse Resp B/P (MAP) Pulse Ox O2 Delivery O2 Flow Rate FiO2 02/16/18 07:25 68 18 40 02/16/18 05:04 63 20 40 02/16/18 04:00 40 02/16/18 04:00 68 02/16/18 04:00 97.5 65 20 123/72 99 Mechanical Ventilator 40 97.5 02/16/18 03:05 60 20 40 02/16/18 01:22 60 20 40 02/16/18 00:41 61 20 99 Mechanical Ventilator 40 02/16/18 00:05 61 20 99 Mechanical Ventilator 40 02/16/18 00:05 40 02/16/18 00:00 66 02/16/18 00:00 98.2 70 20 116/70 99 Mechanical Ventilator 40 98.2 02/16/18 00:00 40 02/15/18 22:57 61 20 40 02/15/18 21:12 61 20 40 02/15/18 20:00 40 02/15/18 20:00 98.0 60 20 146/77 99 Mechanical Ventilator 40 98.0 02/15/18 20:00 59 02/15/18 19:33 59 18 40 02/15/18 16:38 71 21 40 02/15/18 16:00 40 02/15/18 16:00 63 02/15/18 16:00 97.6 65 20 99/63 99 Mechanical Ventilator 40 97.6 02/15/18 15:01 64 19 40 02/15/18 12:34 69 20 40 02/15/18 12:00 73 02/15/18 12:00 97.0 70 18 116/68 100 Mechanical Ventilator 40 97.0 02/15/18 12:00 40 02/15/18 10:59 72 18 40 02/15/18 09:01 80 22 40 02/15/18 08:00 58 02/15/18 08:00 40 02/15/18 08:00 97.9 92 24 153/99 99 Mechanical Ventilator 40 97.9 Intake and Output 02/15/18 02/16/18 19:00 07:00 Intake Total 1169.5 ml 1015.5 ml Output Total 1100 ml 600 ml Balance 69.5 ml 415.5 ml Free Water 90 ml IV Total 234.5 ml 235.5 ml Tube Feeding 845 ml 780 ml Output Urine Total 1100 ml 600 ml # Bowel Movements 2 Laboratory Tests 02/16/18 03:25: White Blood Count 9.3, Red Blood Count 2.83L, Hemoglobin 9.1L, Hematocrit 26.0L , Mean Corpuscular Volume 92, Mean Corpuscular Hemoglobin 32.0H, Mean Corpuscular Hemoglobin Concent 34.9, Red Cell Distribution Width 13.9, Platelet Count 233, Mean Platelet Volume 7.9, Neutrophils (%) (Auto) 75.6H, Lymphocytes ( %) (Auto) 16.6L, Monocytes (%) (Auto) 5.8, Eosinophils (%) (Auto) 1.7, Basophils (%) (Auto) 0.3, Sodium Level 134L, Potassium Level 4.9, Chloride Level 98, Carbon Dioxide Level 28, Anion Gap 8, Blood Urea Nitrogen 26H, Creatinine 1.0, Estimat Glomerular Filtration Rate > 60, Glucose Level 99, Uric Acid 5.5, Calcium Level 9.6, Phosphorus Level 4.7, Magnesium Level 2.4, Total Bilirubin 0.3, Aspartate Amino Transf (AST/SGOT) 14L, Alanine Aminotransferase ( ALT/SGPT) 27, Alkaline Phosphatase 194H, Total Protein 7.8, Albumin 3.1L, Globulin 4.7, Albumin/Globulin Ratio 0.7L Height (Feet): 5 Height (Inches): 7.00 Weight (Pounds): 168 General Appearance: lethargic EENT: normal ENT inspection Neck: normal alignment Cardiovascular: normal peripheral pulses, normal rate, regular rhythm Respiratory/Chest: chest wall non-tender, decreased breath sounds Abdomen: normal bowel sounds, non tender, soft Extremities: normal inspection Edema: no edema noted Arm (L), no edema noted Arm (R), no edema noted Leg (L), no edema noted Leg (R), no edema noted Pedal (L), no edema noted Pedal (R), no edema noted Generalized Neurologic: motor weakness Skin: normal pigmentation, warm/dry Yosef Garcia DO Feb 16, 2018 07:57
[2018-02-16 08:00] VITALS: BP 106/60
[2018-02-16] MEDS: levETIRAcetam 500mg/5ml Liquid GT SCH ×2 (08:49→20:33)
[2018-02-16] MEDS: Valproic Acid 250mg/5ml Liquid NG SCH ×2 (08:49→20:34)
[2018-02-16] MEDS: Heparin 5000 units/ml inj SUBQ SCH ×2 (08:58→20:36)
--- NOTE | 2018-02-16 09:47 | Pulmonolgy Critical Care Note ---
Critical Care - Asmt/Plan Problems: (1) Acute on chronic respiratory failure (2) Aspiration pneumonia (3) Feeding by G-tube (4) Vegetative state (5) Seizure disorder (6) Pleural effusion (7) Anemia Respiratory: monitor respiratory rate, adjust FIO2, CXR Cardiac: continue to monitor HR/BP Renal: F/U I&O, keep IV fluid, check electrolytes Infectious Disease: check cultures Gastrointestinal: continue feedings/current rate Endocrine: monitor blood sugar, continue sliding scale insulin Hematologic: monitor H/H, transfuse if hgb<8.5 Neurologic: PRN Ativan, keep patient comfortable Affect: PRN ativan Prophylaxis: Protonix Time Spent (Minutes): 40 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, 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, 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, ID Discussed with: nurses, consultants, rn case managerfinishing manager - Objective Last 24 Hour Vital Signs Date Time Temp Pulse Resp B/P (MAP) Pulse Ox O2 Delivery O2 Flow Rate FiO2 02/16/18 09:28 84 26 40 02/16/18 08:00 80 02/16/18 08:00 97.6 68 22 106/60 99 Mechanical Ventilator 40 97.6 02/16/18 08:00 40 02/16/18 07:25 68 18 40 02/16/18 05:04 63 20 40 02/16/18 04:00 40 02/16/18 04:00 68 02/16/18 04:00 97.5 65 20 123/72 99 Mechanical Ventilator 40 97.5 02/16/18 03:05 60 20 40 02/16/18 01:22 60 20 40 02/16/18 00:41 61 20 99 Mechanical Ventilator 40 02/16/18 00:05 61 20 99 Mechanical Ventilator 40 02/16/18 00:05 40 02/16/18 00:00 66 02/16/18 00:00 98.2 70 20 116/70 99 Mechanical Ventilator 40 98.2 02/16/18 00:00 40 02/15/18 22:57 61 20 40 02/15/18 21:12 61 20 40 02/15/18 20:00 40 02/15/18 20:00 98.0 60 20 146/77 99 Mechanical Ventilator 40 98.0 02/15/18 20:00 59 02/15/18 19:33 59 18 40 02/15/18 16:38 71 21 40 02/15/18 16:00 40 02/15/18 16:00 63 02/15/18 16:00 97.6 65 20 99/63 99 Mechanical Ventilator 40 97.6 02/15/18 15:01 64 19 40 02/15/18 12:34 69 20 40 02/15/18 12:00 73 02/15/18 12:00 97.0 70 18 116/68 100 Mechanical Ventilator 40 97.0 02/15/18 12:00 40 02/15/18 10:59 72 18 40 Status: obtunded Condition: improving HEENT: atraumatic Neck: full ROM Lungs: rales, rhonchi Heart: HR/BP stable Abdomen: soft, non-tender Extremities: no C/C/E, edema Accucheck: 94 Critical Care - Subjective ROS Limited/Unobtainable: No EKG Rhythm: Sinus Rhythm FI02: 40 Vent Support Breath Rate: 18 Vent Support Mode: AC Vent Tidal Volume: 500 Sputum Amount: Moderate PEEP: 5.0 PIP: 22 Tube Feeding Amount: 65 I&O: Intake and Output 02/15/18 02/16/18 19:00 07:00 Intake Total 1169.5 ml 1015.5 ml Output Total 1100 ml 600 ml Balance 69.5 ml 415.5 ml Free Water 90 ml IV Total 234.5 ml 235.5 ml Tube Feeding 845 ml 780 ml Output Urine Total 1100 ml 600 ml # Bowel Movements 2 CXR: trach intact, bilateral effusion Labs: Laboratory Tests Test 02/16/18 03:25 White Blood Count 9.3 K/UL (4.8-10.8) Red Blood Count 2.83 M/UL (4.70-6.10) L Hemoglobin 9.1 G/DL (14.2-18.0) L Hematocrit 26.0 % (42.0-52.0) L Mean Corpuscular Volume 92 FL (80-99) Mean Corpuscular Hemoglobin 32.0 PG (27.0-31.0) H Mean Corpuscular Hemoglobin Concent 34.9 G/DL (32.0-36.0) Red Cell Distribution Width 13.9 % (11.6-14.8) Platelet Count 233 K/UL (150-450) Mean Platelet Volume 7.9 FL (6.5-10.1) Neutrophils (%) (Auto) 75.6 % (45.0-75.0) H Lymphocytes (%) (Auto) 16.6 % (20.0-45.0) L Monocytes (%) (Auto) 5.8 % (1.0-10.0) Eosinophils (%) (Auto) 1.7 % (0.0-3.0) Basophils (%) (Auto) 0.3 % (0.0-2.0) Sodium Level 134 MMOL/L (136-145) L Potassium Level 4.9 MMOL/L (3.5-5.1) Chloride Level 98 MMOL/L (98-107) Carbon Dioxide Level 28 MMOL/L (21-32) Anion Gap 8 mmol/L (5-15) Blood Urea Nitrogen 26 mg/dL (7-18) H Creatinine 1.0 MG/DL (0.55-1.30) Estimat Glomerular Filtration Rate > 60 mL/min (>60) Glucose Level 99 MG/DL (74-106) Uric Acid 5.5 MG/DL (2.6-7.2) Calcium Level 9.6 MG/DL (8.5-10.1) Phosphorus Level 4.7 MG/DL (2.5-4.9) Magnesium Level 2.4 MG/DL (1.8-2.4) Total Bilirubin 0.3 MG/DL (0.2-1.0) Aspartate Amino Transf (AST/SGOT) 14 U/L (15-37) L Alanine Aminotransferase (ALT/SGPT) 27 U/L (12-78) Alkaline Phosphatase 194 U/L (46-116) H Total Protein 7.8 G/DL (6.4-8.2) Albumin 3.1 G/DL (3.4-5.0) L Globulin 4.7 g/dL Albumin/Globulin Ratio 0.7 (1.0-2.7) L Leodan Bojorquez MD Feb 16, 2018 09:47
--- NOTE | 2018-02-16 10:35 | Diagnostic Imaging Report ---
INDICATION: Cough COMPARISON: Chest x-ray dated 02/14/18 FINDINGS: Single frontal view demonstrates a normal cardiomediastinal silhouette. Tracheostomy. Continued demonstration of right lower lung zone opacity. Questionable trace left pleural effusion. Surgical clips in the upper abdomen. The visualized osseous structures are within normal limits. IMPRESSION: Tracheostomy. Continued demonstration of right lower lung zone opacity. Questionable trace left pleural effusion.
[2018-02-16] MEDS: Cefepime HCl 1 GM in D5W 110 ML IV SCH ×2 (10:53→23:24)
[2018-02-16] MEDS ORDERED: Tubing IV Secondary IV ONE (11:05)
[2018-02-16] MEDS ORDERED: NS 275ml ONE (11:05)
[2018-02-16 12:00] VITALS: BP 82/50
[2018-02-16] MEDS ORDERED: NS 500ML ONE (15:22)
--- NOTE | 2018-02-16 15:29 | Nephrology Progress Note ---
Assessment/Plan Problem List: (1) Hyperkalemia (2) Hyponatremia Assessment - Low Na and High K - Acute on chronic respiratory failure - Aspiration pneumonia - Feeding by G-tube - Vegetative state - Seizure disorder - Pleural effusion - Anemia - Hypertension Plan one time 3% saline 2D Echo Left ventricular ejection fraction estimated to be 55 %. Gastric support Lasix 40 daily monitor lytes per orders Subjective ROS Limited/Unobtainable: Yes Objective Objective Last 24 Hour Vital Signs Date Time Temp Pulse Resp B/P (MAP) Pulse Ox O2 Delivery O2 Flow Rate FiO2 02/16/18 13:02 66 22 40 02/16/18 12:00 98.1 67 19 82/50 99 Mechanical Ventilator 40 98.1 02/16/18 12:00 40 02/16/18 11:48 69 02/16/18 10:30 70 18 40 02/16/18 10:21 72 18 99 Mechanical Ventilator 40 02/16/18 10:00 40 02/16/18 10:00 72 18 99 Mechanical Ventilator 40 02/16/18 09:28 84 26 40 02/16/18 08:00 80 02/16/18 08:00 97.6 68 22 106/60 99 Mechanical Ventilator 40 97.6 02/16/18 08:00 40 02/16/18 07:25 68 18 40 02/16/18 05:04 63 20 40 02/16/18 04:00 40 02/16/18 04:00 68 02/16/18 04:00 97.5 65 20 123/72 99 Mechanical Ventilator 40 97.5 02/16/18 03:05 60 20 40 02/16/18 01:22 60 20 40 02/16/18 00:41 61 20 99 Mechanical Ventilator 40 02/16/18 00:05 61 20 99 Mechanical Ventilator 40 02/16/18 00:05 40 02/16/18 00:00 66 02/16/18 00:00 98.2 70 20 116/70 99 Mechanical Ventilator 40 98.2 02/16/18 00:00 40 02/15/18 22:57 61 20 40 02/15/18 21:12 61 20 40 02/15/18 20:00 40 02/15/18 20:00 98.0 60 20 146/77 99 Mechanical Ventilator 40 98.0 02/15/18 20:00 59 02/15/18 19:33 59 18 40 02/15/18 16:38 71 21 40 02/15/18 16:00 40 02/15/18 16:00 63 02/15/18 16:00 97.6 65 20 99/63 99 Mechanical Ventilator 40 97.6 Intake and Output 02/15/18 02/16/18 19:00 07:00 Intake Total 1169.5 ml 1015.5 ml Output Total 1100 ml 600 ml Balance 69.5 ml 415.5 ml Free Water 90 ml IV Total 234.5 ml 235.5 ml Tube Feeding 845 ml 780 ml Output Urine Total 1100 ml 600 ml # Bowel Movements 2 Laboratory Tests 02/16/18 03:25: White Blood Count 9.3, Red Blood Count 2.83L, Hemoglobin 9.1L, Hematocrit 26.0L , Mean Corpuscular Volume 92, Mean Corpuscular Hemoglobin 32.0H, Mean Corpuscular Hemoglobin Concent 34.9, Red Cell Distribution Width 13.9, Platelet Count 233, Mean Platelet Volume 7.9, Neutrophils (%) (Auto) 75.6H, Lymphocytes ( %) (Auto) 16.6L, Monocytes (%) (Auto) 5.8, Eosinophils (%) (Auto) 1.7, Basophils (%) (Auto) 0.3, Sodium Level 134L, Potassium Level 4.9, Chloride Level 98, Carbon Dioxide Level 28, Anion Gap 8, Blood Urea Nitrogen 26H, Creatinine 1.0, Estimat Glomerular Filtration Rate > 60, Glucose Level 99, Uric Acid 5.5, Calcium Level 9.6, Phosphorus Level 4.7, Magnesium Level 2.4, Total Bilirubin 0.3, Aspartate Amino Transf (AST/SGOT) 14L, Alanine Aminotransferase ( ALT/SGPT) 27, Alkaline Phosphatase 194H, Total Protein 7.8, Albumin 3.1L, Globulin 4.7, Albumin/Globulin Ratio 0.7L Height (Feet): 5 Height (Inches): 7.00 Weight (Pounds): 176 General Appearance: no apparent distress, lethargic Cardiovascular: normal rate Respiratory/Chest: decreased breath sounds Abdomen: distended Objective no other changes HERLINDA MALLOY Feb 16, 2018 15:29
[2018-02-16 16:00] VITALS: BP 109/68
--- NOTE | 2018-02-16 18:41 | Cardiology Progress Note ---
Assessment/Plan Assessment/Plan 1. Bilateral pleural effusion, right greater than the left, normal LV systolic function and normal intracardiac filling pressures. 2. Ventilator derived respiratory failure. 3. Dysphagia status post PEG placement. 4. History of cardiac arrest in the past leading to anoxic Subjective Subjective Sinus rhythm at 72. Non-verbal. Objective Last 24 Hour Vital Signs Date Time Temp Pulse Resp B/P (MAP) Pulse Ox O2 Delivery O2 Flow Rate FiO2 02/16/18 17:00 73 18 40 02/16/18 16:00 97.9 71 18 109/68 98 Mechanical Ventilator 40 97.9 02/16/18 16:00 40 02/16/18 16:00 72 02/16/18 15:29 67 18 40 02/16/18 13:02 66 22 40 02/16/18 12:00 98.1 67 19 82/50 99 Mechanical Ventilator 40 98.1 02/16/18 12:00 40 02/16/18 11:48 69 02/16/18 10:30 70 18 40 02/16/18 10:21 72 18 99 Mechanical Ventilator 40 02/16/18 10:00 40 02/16/18 10:00 72 18 99 Mechanical Ventilator 40 02/16/18 09:28 84 26 40 02/16/18 08:00 80 02/16/18 08:00 97.6 68 22 106/60 99 Mechanical Ventilator 40 97.6 02/16/18 08:00 40 02/16/18 07:25 68 18 40 02/16/18 05:04 63 20 40 02/16/18 04:00 40 02/16/18 04:00 68 02/16/18 04:00 97.5 65 20 123/72 99 Mechanical Ventilator 40 97.5 02/16/18 03:05 60 20 40 02/16/18 01:22 60 20 40 02/16/18 00:41 61 20 99 Mechanical Ventilator 40 02/16/18 00:05 61 20 99 Mechanical Ventilator 40 02/16/18 00:05 40 02/16/18 00:00 66 02/16/18 00:00 98.2 70 20 116/70 99 Mechanical Ventilator 40 98.2 02/16/18 00:00 40 02/15/18 22:57 61 20 40 02/15/18 21:12 61 20 40 02/15/18 20:00 40 02/15/18 20:00 98.0 60 20 146/77 99 Mechanical Ventilator 40 98.0 02/15/18 20:00 59 02/15/18 19:33 59 18 40 Intake and Output 02/15/18 02/16/18 19:00 07:00 Intake Total 1169.5 ml 1015.5 ml Output Total 1100 ml 600 ml Balance 69.5 ml 415.5 ml Free Water 90 ml IV Total 234.5 ml 235.5 ml Tube Feeding 845 ml 780 ml Output Urine Total 1100 ml 600 ml # Bowel Movements 2 2D Echo: EF 55%, Mild LVH,Mild LAE,Large left pleural eff, RVSP 33mmHg, Grade I LVDD Laboratory Tests Test 02/16/18 03:25 White Blood Count 9.3 K/UL (4.8-10.8) Red Blood Count 2.83 M/UL (4.70-6.10) L Hemoglobin 9.1 G/DL (14.2-18.0) L Hematocrit 26.0 % (42.0-52.0) L Mean Corpuscular Volume 92 FL (80-99) Mean Corpuscular Hemoglobin 32.0 PG (27.0-31.0) H Mean Corpuscular Hemoglobin Concent 34.9 G/DL (32.0-36.0) Red Cell Distribution Width 13.9 % (11.6-14.8) Platelet Count 233 K/UL (150-450) Mean Platelet Volume 7.9 FL (6.5-10.1) Neutrophils (%) (Auto) 75.6 % (45.0-75.0) H Lymphocytes (%) (Auto) 16.6 % (20.0-45.0) L Monocytes (%) (Auto) 5.8 % (1.0-10.0) Eosinophils (%) (Auto) 1.7 % (0.0-3.0) Basophils (%) (Auto) 0.3 % (0.0-2.0) Sodium Level 134 MMOL/L (136-145) L Potassium Level 4.9 MMOL/L (3.5-5.1) Chloride Level 98 MMOL/L (98-107) Carbon Dioxide Level 28 MMOL/L (21-32) Anion Gap 8 mmol/L (5-15) Blood Urea Nitrogen 26 mg/dL (7-18) H Creatinine 1.0 MG/DL (0.55-1.30) Estimat Glomerular Filtration Rate > 60 mL/min (>60) Glucose Level 99 MG/DL (74-106) Uric Acid 5.5 MG/DL (2.6-7.2) Calcium Level 9.6 MG/DL (8.5-10.1) Phosphorus Level 4.7 MG/DL (2.5-4.9) Magnesium Level 2.4 MG/DL (1.8-2.4) Total Bilirubin 0.3 MG/DL (0.2-1.0) Aspartate Amino Transf (AST/SGOT) 14 U/L (15-37) L Alanine Aminotransferase (ALT/SGPT) 27 U/L (12-78) Alkaline Phosphatase 194 U/L (46-116) H Total Protein 7.8 G/DL (6.4-8.2) Albumin 3.1 G/DL (3.4-5.0) L Globulin 4.7 g/dL Albumin/Globulin Ratio 0.7 (1.0-2.7) L Objective HEENT: Atraumatic and normocephalic. Anicteric. Pupils are equal, round, and reactive to light and accommodation. There is presence of a tracheostomy tube. Conjunctival pallor is seen. NECK: JVP cannot be assessed. No carotid bruit. CVS: Normal S1, S2. Regular rate and rhythm. A 2/6 mid systolic murmur at the left sternal border. PMI is at fourth intercostal space at the midclavicular line. LUNGS: Diminished breath sounds on the entire right lung with increased dullness and diminished breath sounds at the base of the left lung with increased dullness. ABDOMEN: Soft, nontender, and nondistended. No hepatosplenomegaly. Positive G-tube in place. EXTREMITIES: No evidence of edema, clubbing, or cyanosis. Chris Yanez MD Feb 16, 2018 18:41
[2018-02-16 20:00] VITALS: BP 129/68
[2018-02-16] MEDS: Dyna-Hex 2% Top Sol 2oz TOPIC SCH (20:12)
[2018-02-17] VITALS: BP 110/61
[2018-02-17 04:00] VITALS: BP 128/66
[2018-02-17 05:06] LABS: BASOPHILS % (AUTO) 0.4 % (0.0-2.0); EOSINOPHILS % (AUTO) 1.9 % (0.0-3.0); HEMATOCRIT 27.6 % (42.0-52.0); HEMOGLOBIN 9.4 G/DL (14.2-18.0); LYMPHOCYTES % (AUTO) 18.3 % (20.0-45.0); MEAN CORPUSCULAR VOLUME 92 FL (80-99); MONOCYTES % (AUTO) 6.9 % (1.0-10.0); NEUTROPHILS % (AUTO) 72.5 % (45.0-75.0); PLATELET COUNT 256 K/UL (150-450); RED CELL DISTRIBUTION WIDTH 14.4 % (11.6-14.8); WHITE BLOOD COUNT 9.5 K/UL (4.8-10.8)
[2018-02-17 05:36] LABS: ALANINE AMINOTRANSFERASE 24 U/L (12-78); ALBUMIN 3.2 G/DL (3.4-5.0); ALBUMIN/GLOBULIN RATIO 0.7 (1.0-2.7); ALKALINE PHOSPHATASE 186 U/L (46-116); ANION GAP 6 mmol/L (5-15); ASPARTATE AMINO TRANSFERASE 11 U/L (15-37); BILIRUBIN,TOTAL 0.3 MG/DL (0.2-1.0); BLOOD UREA NITROGEN 35 mg/dL (7-18); CALCIUM 9.6 MG/DL (8.5-10.1); CARBON DIOXIDE 29 MMOL/L (21-32); CHLORIDE 98 MMOL/L (98-107); POTASSIUM 4.9 MMOL/L (3.5-5.1); SODIUM 133 MMOL/L (136-145)
[2018-02-17 05:47] LABS: PHOSPHORUS 4.4 MG/DL (2.5-4.9)
[2018-02-17] MEDS: NovoLOG Insulin Flexpen SUBQ SCH ×4 (06:00→18:30)
[2018-02-17 08:00] VITALS: BP 136/74
[2018-02-17] MEDS: Valproic Acid 250mg/5ml Liquid NG SCH ×2 (09:08→20:30)
[2018-02-17] MEDS: levETIRAcetam 500mg/5ml Liquid GT SCH ×2 (09:08→20:30)
[2018-02-17] MEDS: Heparin 5000 units/ml inj SUBQ SCH ×2 (09:12→20:31)
[2018-02-17] MEDS: Cefepime HCl 1 GM in D5W 110 ML IV SCH ×2 (10:42→23:09)
[2018-02-17] MEDS: Tobramycin for inhalation INH SCH ×2 (10:58→22:03)
--- NOTE | 2018-02-17 11:12 | Pulmonolgy Critical Care Note ---
Critical Care - Asmt/Plan Problems: (1) Acute on chronic respiratory failure (2) Aspiration pneumonia (3) Feeding by G-tube (4) Vegetative state (5) Seizure disorder (6) Pleural effusion (7) Anemia Respiratory: monitor respiratory rate, adjust FIO2, CXR Cardiac: continue to monitor HR/BP Renal: F/U I&O, check electrolytes Infectious Disease: check cultures Gastrointestinal: continue feedings/current rate, hold feedings Endocrine: check TSH Hematologic: monitor H/H, transfuse if hgb<8.5 Neurologic: PRN Ativan, keep patient comfortable Prophylaxis: Protonix, Heparin Notes Reviewed: motor room controller, 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 with: nurses, consultants, rn 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 of 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 - Objective Last 24 Hour Vital Signs Date Time Temp Pulse Resp B/P (MAP) Pulse Ox O2 Delivery O2 Flow Rate FiO2 02/17/18 11:02 40 02/17/18 10:58 54 18 100 Mechanical Ventilator 40 02/17/18 08:00 97.2 55 18 136/74 100 Mechanical Ventilator 40 97.2 02/17/18 08:00 40 02/17/18 08:00 55 02/17/18 05:05 55 18 40 02/17/18 04:00 40 02/17/18 04:00 57 02/17/18 04:00 97.5 57 18 128/66 100 Mechanical Ventilator 40 97.5 02/17/18 03:01 57 18 40 02/17/18 01:09 58 18 40 02/17/18 00:00 56 02/17/18 00:00 97.5 57 18 110/61 100 Mechanical Ventilator 40 97.5 02/16/18 23:04 61 18 40 02/16/18 22:20 57 18 99 Mechanical Ventilator 40 02/16/18 21:10 91 18 40 02/16/18 20:00 97.3 65 18 129/68 100 Mechanical Ventilator 40 97.3 02/16/18 20:00 57 02/16/18 20:00 40 02/16/18 19:11 60 18 40 02/16/18 17:00 73 18 40 02/16/18 16:00 97.9 71 18 109/68 98 Mechanical Ventilator 40 97.9 02/16/18 16:00 40 02/16/18 16:00 72 02/16/18 15:29 67 18 40 02/16/18 13:02 66 22 40 02/16/18 12:00 98.1 67 19 82/50 99 Mechanical Ventilator 40 98.1 02/16/18 12:00 40 02/16/18 11:48 69 Status: somnolent Condition: critical, improving HEENT: atraumatic Lungs: rales, rhonchi Heart: HR/BP stable Abdomen: feeding tube Extremities: no C/C/E, edema Accucheck: 103 Critical Care - Subjective ROS Limited/Unobtainable: No Condition: critical FI02: 40 Vent Support Breath Rate: 18 Vent Support Mode: AC Vent Tidal Volume: 500 Sputum Amount: Small PEEP: 5.0 PIP: 26 Tube Feeding Amount: 65 I&O: Intake and Output 02/16/18 02/17/18 19:00 07:00 Intake Total 875 ml 890 ml Output Total 1150 ml 500 ml Balance -275 ml 390 ml IV Total 110 ml 110 ml Tube Feeding 715 ml 780 ml Other 50 ml Output Urine Total 1150 ml 500 ml CXR: no change Labs: Laboratory Tests Test 02/17/18 03:37 White Blood Count 9.5 K/UL (4.8-10.8) Red Blood Count 3.00 M/UL (4.70-6.10) L Hemoglobin 9.4 G/DL (14.2-18.0) L Hematocrit 27.6 % (42.0-52.0) L Mean Corpuscular Volume 92 FL (80-99) Mean Corpuscular Hemoglobin 31.4 PG (27.0-31.0) H Mean Corpuscular Hemoglobin Concent 34.0 G/DL (32.0-36.0) Red Cell Distribution Width 14.4 % (11.6-14.8) Platelet Count 256 K/UL (150-450) Mean Platelet Volume 7.3 FL (6.5-10.1) Neutrophils (%) (Auto) 72.5 % (45.0-75.0) Lymphocytes (%) (Auto) 18.3 % (20.0-45.0) L Monocytes (%) (Auto) 6.9 % (1.0-10.0) Eosinophils (%) (Auto) 1.9 % (0.0-3.0) Basophils (%) (Auto) 0.4 % (0.0-2.0) Sodium Level 133 MMOL/L (136-145) L Potassium Level 4.9 MMOL/L (3.5-5.1) Chloride Level 98 MMOL/L (98-107) Carbon Dioxide Level 29 MMOL/L (21-32) Anion Gap 6 mmol/L (5-15) Blood Urea Nitrogen 35 mg/dL (7-18) H Creatinine 1.0 MG/DL (0.55-1.30) Estimat Glomerular Filtration Rate > 60 mL/min (>60) Glucose Level 106 MG/DL (74-106) Uric Acid 5.6 MG/DL (2.6-7.2) Calcium Level 9.6 MG/DL (8.5-10.1) Phosphorus Level 4.4 MG/DL (2.5-4.9) Magnesium Level 2.4 MG/DL (1.8-2.4) Total Bilirubin 0.3 MG/DL (0.2-1.0) Aspartate Amino Transf (AST/SGOT) 11 U/L (15-37) L Alanine Aminotransferase (ALT/SGPT) 24 U/L (12-78) Alkaline Phosphatase 186 U/L (46-116) H Pro-B-Type Natriuretic Peptide 92 pg/mL (0-125) Total Protein 8.1 G/DL (6.4-8.2) Albumin 3.2 G/DL (3.4-5.0) L Globulin 4.9 g/dL Albumin/Globulin Ratio 0.7 (1.0-2.7) L Cortisol AM Sample Pending Leodan Bojorquez MD Feb 17, 2018 11:12
[2018-02-17 12:00] VITALS: BP 132/62
--- NOTE | 2018-02-17 12:37 | General Progress Note ---
Assessment/Plan Problem List: (1) Hypertension ICD Codes: I10 - Essential (primary) hypertension SNOMED: 28920933 (2) Acute on chronic respiratory failure ICD Codes: J96.20 - Acute and chronic respiratory failure, unspecified whether with hypoxia or hypercapnia SNOMED: 21419424 (3) Seizure disorder ICD Codes: G40.909 - Epilepsy, unspecified, not intractable, without status epilepticus SNOMED: 364311883 (4) Anemia ICD Codes: D64.9 - Anemia, unspecified SNOMED: 192885954 (5) Aspiration pneumonia ICD Codes: J69.0 - Pneumonitis due to inhalation of food and vomit SNOMED: 688805276 Status: unchanged Assessment/Plan vent abx cbc bmp am dc to promise ltach Subjective Constitutional: Reports: weakness Allergies: Coded Allergies: ACETAMINOPHEN (Verified Allergy, Unknown, 12/16/17) All Systems: reviewed and negative except above Subjective trach vent altered Objective Last 24 Hour Vital Signs Date Time Temp Pulse Resp B/P (MAP) Pulse Ox O2 Delivery O2 Flow Rate FiO2 02/17/18 11:29 99 18 40 02/17/18 11:28 56 18 100 Mechanical Ventilator 40 02/17/18 11:02 40 02/17/18 10:58 54 18 100 Mechanical Ventilator 40 02/17/18 08:42 99 18 40 02/17/18 08:00 97.2 55 18 136/74 100 Mechanical Ventilator 40 97.2 02/17/18 08:00 40 02/17/18 08:00 55 02/17/18 07:26 54 18 40 02/17/18 05:05 55 18 40 02/17/18 04:00 40 02/17/18 04:00 57 02/17/18 04:00 97.5 57 18 128/66 100 Mechanical Ventilator 40 97.5 02/17/18 03:01 57 18 40 02/17/18 01:09 58 18 40 02/17/18 00:00 56 02/17/18 00:00 97.5 57 18 110/61 100 Mechanical Ventilator 40 97.5 02/16/18 23:04 61 18 40 02/16/18 22:20 57 18 99 Mechanical Ventilator 40 02/16/18 21:10 91 18 40 02/16/18 20:00 97.3 65 18 129/68 100 Mechanical Ventilator 40 97.3 02/16/18 20:00 57 02/16/18 20:00 40 02/16/18 19:11 60 18 40 02/16/18 17:00 73 18 40 02/16/18 16:00 97.9 71 18 109/68 98 Mechanical Ventilator 40 97.9 02/16/18 16:00 40 02/16/18 16:00 72 02/16/18 15:29 67 18 40 02/16/18 13:02 66 22 40 Intake and Output 02/16/18 02/17/18 19:00 07:00 Intake Total 875 ml 890 ml Output Total 1150 ml 500 ml Balance -275 ml 390 ml IV Total 110 ml 110 ml Tube Feeding 715 ml 780 ml Other 50 ml Output Urine Total 1150 ml 500 ml Laboratory Tests 02/17/18 03:37: White Blood Count 9.5, Red Blood Count 3.00L, Hemoglobin 9.4L, Hematocrit 27.6L , Mean Corpuscular Volume 92, Mean Corpuscular Hemoglobin 31.4H, Mean Corpuscular Hemoglobin Concent 34.0, Red Cell Distribution Width 14.4, Platelet Count 256, Mean Platelet Volume 7.3, Neutrophils (%) (Auto) 72.5, Lymphocytes (% ) (Auto) 18.3L, Monocytes (%) (Auto) 6.9, Eosinophils (%) (Auto) 1.9, Basophils (%) (Auto) 0.4, Sodium Level 133L, Potassium Level 4.9, Chloride Level 98, Carbon Dioxide Level 29, Anion Gap 6, Blood Urea Nitrogen 35H, Creatinine 1.0, Estimat Glomerular Filtration Rate > 60, Glucose Level 106, Uric Acid 5.6, Calcium Level 9.6, Phosphorus Level 4.4, Magnesium Level 2.4, Total Bilirubin 0.3, Aspartate Amino Transf (AST/SGOT) 11L, Alanine Aminotransferase (ALT/SGPT) 24, Alkaline Phosphatase 186H, Pro-B-Type Natriuretic Peptide 92, Total Protein 8.1, Albumin 3.2L, Globulin 4.9, Albumin/Globulin Ratio 0.7L, Cortisol AM Sample [Pending] Height (Feet): 5 Height (Inches): 7.00 Weight (Pounds): 180 General Appearance: lethargic EENT: normal ENT inspection Neck: normal alignment Cardiovascular: normal peripheral pulses, normal rate, regular rhythm Respiratory/Chest: chest wall non-tender, lungs clear, normal breath sounds Abdomen: normal bowel sounds, non tender, soft Extremities: normal inspection Edema: no edema noted Arm (L), no edema noted Arm (R), no edema noted Leg (L), no edema noted Leg (R), no edema noted Pedal (L), no edema noted Pedal (R), no edema noted Generalized Neurologic: motor weakness Skin: normal pigmentation, warm/dry Yosef Garcia DO Feb 17, 2018 12:37
--- NOTE | 2018-02-17 13:49 | Diagnostic Imaging Report ---
Indication: Dyspnea Technique: One view of the chest Comparison: 02/16/2018 Findings: There are bilateral pleural effusions, right. The left. That on the right appears stable, that on the left appears smaller. Atelectatic changes are seen at both lung bases. The upper lungs remain clear. The heart size is difficult to assess, probably borderline enlarged. Tracheostomy remains. Epigastric surgical clips are again demonstrated Impression: Decreased left pleural effusion. Stable right pleural effusion. Other stable findings as described, over one day
--- NOTE | 2018-02-17 13:49 | Infectious Diseases Prog Note ---
Assessment/Plan Assessment/Plan Abx: IV Vanco 02/12- Cefepime 02/12- Flagyl x1 02/12 Assessment: Acute on chronic respiratory failure- likely multifactorial 2ry to pulm edema, pleural effusion -?PNA, suspect main component is volume related; r/o mass ( needs surveillance CXR after IV abx tx) -CXR 02/16: Continued demonstration of right lower lung zone opacity. Questionable trace left pleural effusion. -CXR 02/14: Improved pulmonary edema currently mild. Bilateral pleural effusions noted. -CXR: Hazy groundglass some right basilar opacity obscuring the right hemidiaphragm consistent with a pleural effusion. Interstitial/pulmonary edema demonstrated -sp cx p S. marcenses (R amp, otherwise S), MDR PSA (S aminoglycosies) Recent PNA, s/p rx -7 days IV Vanco and Zosyn (end date 02/11) Afebrile, no leukocytosis -u/a wbc 5-10, nit neg, leuk +1; ucx 30-40k C. parapsilosis (Colonizer) -Bcx neg chronic respiratory failure on tracheostomy cardiac arrest COPD DM2 PEG seizure disorder bedbound nonverbal hypertension hypoxic encephalopathy Plan: -Continue Cefepime #6/10 for possible PNA and INH Tobramycin #3/10 for MDR PSA -02/14 SP IV Vanco #3 -Monitor CBC/BMP, temperatures -trach/peg care -woudn care/prevention per hosp protocol -aspiration precautions -Needs surveillance CXR after IV abx tx. Thank you for this consultation. Will continue to follow along with you. Discussed with RN. Subjective Allergies: Coded Allergies: ACETAMINOPHEN (Verified Allergy, Unknown, 12/16/17) Subjective afebrile no leukocyotis Bcx Neg Fio2 40% discharge planning Objective Vital Signs Last 24 Hour Vital Signs Date Time Temp Pulse Resp B/P (MAP) Pulse Ox O2 Delivery O2 Flow Rate FiO2 02/17/18 12:00 97.4 58 18 132/62 100 Mechanical Ventilator 40 97.4 02/17/18 12:00 40 02/17/18 11:29 99 18 40 02/17/18 11:28 56 18 100 Mechanical Ventilator 40 02/17/18 11:02 40 02/17/18 10:58 54 18 100 Mechanical Ventilator 40 6/4/18 08:42 99 18 40 02/17/18 08:00 97.2 55 18 136/74 100 Mechanical Ventilator 40 97.2 02/17/18 08:00 40 02/17/18 08:00 55 02/17/18 07:26 54 18 40 02/17/18 05:05 55 18 40 02/17/18 04:00 40 02/17/18 04:00 57 02/17/18 04:00 97.5 57 18 128/66 100 Mechanical Ventilator 40 97.5 02/17/18 03:01 57 18 40 02/17/18 01:09 58 18 40 02/17/18 00:00 56 02/17/18 00:00 97.5 57 18 110/61 100 Mechanical Ventilator 40 97.5 02/16/18 23:04 61 18 40 02/16/18 22:20 57 18 99 Mechanical Ventilator 40 02/16/18 21:10 91 18 40 02/16/18 20:00 97.3 65 18 129/68 100 Mechanical Ventilator 40 97.3 02/16/18 20:00 57 02/16/18 20:00 40 02/16/18 19:11 60 18 40 02/16/18 17:00 73 18 40 02/16/18 16:00 97.9 71 18 109/68 98 Mechanical Ventilator 40 97.9 02/16/18 16:00 40 02/16/18 16:00 72 02/16/18 15:29 67 18 40 Height (Feet): 5 Height (Inches): 7.00 Weight (Pounds): 180 Objective General Appearance: WD/WN Lines, tubes and drains: peripheral HEENT: normocephalic, atraumatic Neck: non-tender, normal alignment Respiratory/Chest: chest wall non-tender, lungs clear Cardiovascular/Chest: normal peripheral pulses Abdomen: normal bowel sounds, non tender Extremities: normal range of motion Skin Exam: normal pigmentation Laboratory Tests Test 02/17/18 03:37 White Blood Count 9.5 K/UL (4.8-10.8) Red Blood Count 3.00 M/UL (4.70-6.10) L Hemoglobin 9.4 G/DL (14.2-18.0) L Hematocrit 27.6 % (42.0-52.0) L Mean Corpuscular Volume 92 FL (80-99) Mean Corpuscular Hemoglobin 31.4 PG (27.0-31.0) H Mean Corpuscular Hemoglobin Concent 34.0 G/DL (32.0-36.0) Red Cell Distribution Width 14.4 % (11.6-14.8) Platelet Count 256 K/UL (150-450) Mean Platelet Volume 7.3 FL (6.5-10.1) Neutrophils (%) (Auto) 72.5 % (45.0-75.0) Lymphocytes (%) (Auto) 18.3 % (20.0-45.0) L Monocytes (%) (Auto) 6.9 % (1.0-10.0) Eosinophils (%) (Auto) 1.9 % (0.0-3.0) Basophils (%) (Auto) 0.4 % (0.0-2.0) Sodium Level 133 MMOL/L (136-145) L Potassium Level 4.9 MMOL/L (3.5-5.1) Chloride Level 98 MMOL/L (98-107) Carbon Dioxide Level 29 MMOL/L (21-32) Anion Gap 6 mmol/L (5-15) Blood Urea Nitrogen 35 mg/dL (7-18) H Creatinine 1.0 MG/DL (0.55-1.30) Estimat Glomerular Filtration Rate > 60 mL/min (>60) Glucose Level 106 MG/DL (74-106) Uric Acid 5.6 MG/DL (2.6-7.2) Calcium Level 9.6 MG/DL (8.5-10.1) Phosphorus Level 4.4 MG/DL (2.5-4.9) Magnesium Level 2.4 MG/DL (1.8-2.4) Total Bilirubin 0.3 MG/DL (0.2-1.0) Aspartate Amino Transf (AST/SGOT) 11 U/L (15-37) L Alanine Aminotransferase (ALT/SGPT) 24 U/L (12-78) Alkaline Phosphatase 186 U/L (46-116) H Pro-B-Type Natriuretic Peptide 92 pg/mL (0-125) Total Protein 8.1 G/DL (6.4-8.2) Albumin 3.2 G/DL (3.4-5.0) L Globulin 4.9 g/dL Albumin/Globulin Ratio 0.7 (1.0-2.7) L Cortisol AM Sample Pending Current Medications Medications (Trade) Dose Ordered Sig/Marciano Route PRN Reason Start Time Stop Time Status Last Admin Dose Admin Cefepime HCl 1 gm/ Dextrose 110 ml @ 220 mls/hr Q12HR@1100,2300 IV 02/12/18 11:00 02/19/18 10:59 02/17/18 10:42 Chlorhexidine Gluconate (Nancy-Hex 2%) 1 applic DAILY@2000 TOPIC 02/12/18 20:00 03/14/18 19:59 02/16/18 20:12 Famotidine (Pepcid) 20 mg BID GT 02/13/18 18:00 03/15/18 17:59 02/17/18 09:08 Furosemide (Lasix) 40 mg DAILY IV 02/16/18 09:00 03/18/18 08:59 02/17/18 09:12 Heparin Sodium (Porcine) (Heparin 5000 units/ml) 5,000 units EVERY 12 HOURS SUBQ 02/12/18 09:00 03/14/18 08:59 02/17/18 09:12 Insulin Aspart (NovoLOG) Q6HR SUBQ 02/12/18 12:00 03/14/18 11:29 02/17/18 11:47 Levetiracetam (Keppra) 1,000 mg Q12HR GT 02/13/18 21:00 03/14/18 17:59 02/17/18 09:08 Nitroglycerin (Ntg) 0.4 mg Q5M PRN SL Prn Chest Pain 02/12/18 07:30 03/14/18 07:29 Ondansetron HCl (Zofran) 4 mg Q6H PRN IVP Nausea & Vomiting 02/12/18 07:30 03/14/18 07:29 Polyethylene Glycol (Miralax) 17 gm DAILYPRN PRN ORAL Constipation 02/12/18 07:30 03/14/18 07:29 Promethazine HCl/ Codeine (Phenergan with Codeine) 5 ml Q4H PRN ORAL For Cough 02/12/18 07:30 03/14/18 07:29 02/15/18 08:49 Temazepam (Restoril) 15 mg HSPRN PRN ORAL Insomnia 02/12/18 07:30 02/19/18 07:29 Tobramycin Sulfate (Nebcin) 300 mg Q12HR@10,22 INH 02/15/18 22:00 02/22/18 21:59 02/17/18 10:58 Valproic Acid (Depakene) 500 mg EVERY 12 HOURS NG 02/15/18 21:00 03/14/18 20:59 02/17/18 09:08 Melody Suarez M.D. Feb 17, 2018 13:48
[2018-02-17 16:00] VITALS: BP 136/67
--- NOTE | 2018-02-17 17:19 | Nephrology Progress Note ---
Assessment/Plan Problem List: (1) Hyperkalemia (2) Hyponatremia Assessment - Low Na and High K IMPROVED - Acute on chronic respiratory failure - Aspiration pneumonia - Feeding by G-tube - Vegetative state - Seizure disorder - Pleural effusion - Anemia - Hypertension Plan OK to DC from renal stand 2D Echo Left ventricular ejection fraction estimated to be 55 %. Gastric support Lasix 40 daily monitor lytes per orders Subjective ROS Limited/Unobtainable: Yes Objective Objective Last 24 Hour Vital Signs Date Time Temp Pulse Resp B/P (MAP) Pulse Ox O2 Delivery O2 Flow Rate FiO2 02/17/18 16:00 40 02/17/18 14:55 57 18 40 02/17/18 12:57 58 18 40 02/17/18 12:00 56 02/17/18 12:00 97.4 58 18 132/62 100 Mechanical Ventilator 40 97.4 02/17/18 12:00 40 02/17/18 11:29 55 18 40 02/17/18 11:28 56 18 100 Mechanical Ventilator 40 02/17/18 11:02 40 02/17/18 10:58 54 18 100 Mechanical Ventilator 40 02/17/18 08:42 55 18 40 02/17/18 08:00 97.2 55 18 136/74 100 Mechanical Ventilator 40 97.2 02/17/18 08:00 40 02/17/18 08:00 55 02/17/18 07:26 54 18 40 02/17/18 05:05 55 18 40 02/17/18 04:00 40 02/17/18 04:00 57 02/17/18 04:00 97.5 57 18 128/66 100 Mechanical Ventilator 40 97.5 02/17/18 03:01 57 18 40 02/17/18 01:09 58 18 40 02/17/18 00:00 56 02/17/18 00:00 97.5 57 18 110/61 100 Mechanical Ventilator 40 97.5 02/16/18 23:04 61 18 40 02/16/18 22:20 57 18 99 Mechanical Ventilator 40 02/16/18 21:10 91 18 40 02/16/18 20:00 97.3 65 18 129/68 100 Mechanical Ventilator 40 97.3 02/16/18 20:00 57 02/16/18 20:00 40 02/16/18 19:11 60 18 40 Intake and Output 02/16/18 02/17/18 19:00 07:00 Intake Total 875 ml 890 ml Output Total 1150 ml 500 ml Balance -275 ml 390 ml IV Total 110 ml 110 ml Tube Feeding 715 ml 780 ml Other 50 ml Output Urine Total 1150 ml 500 ml Laboratory Tests 02/17/18 03:37: White Blood Count 9.5, Red Blood Count 3.00L, Hemoglobin 9.4L, Hematocrit 27.6L , Mean Corpuscular Volume 92, Mean Corpuscular Hemoglobin 31.4H, Mean Corpuscular Hemoglobin Concent 34.0, Red Cell Distribution Width 14.4, Platelet Count 256, Mean Platelet Volume 7.3, Neutrophils (%) (Auto) 72.5, Lymphocytes (% ) (Auto) 18.3L, Monocytes (%) (Auto) 6.9, Eosinophils (%) (Auto) 1.9, Basophils (%) (Auto) 0.4, Sodium Level 133L, Potassium Level 4.9, Chloride Level 98, Carbon Dioxide Level 29, Anion Gap 6, Blood Urea Nitrogen 35H, Creatinine 1.0, Estimat Glomerular Filtration Rate > 60, Glucose Level 106, Uric Acid 5.6, Calcium Level 9.6, Phosphorus Level 4.4, Magnesium Level 2.4, Total Bilirubin 0.3, Aspartate Amino Transf (AST/SGOT) 11L, Alanine Aminotransferase (ALT/SGPT) 24, Alkaline Phosphatase 186H, Pro-B-Type Natriuretic Peptide 92, Total Protein 8.1, Albumin 3.2L, Globulin 4.9, Albumin/Globulin Ratio 0.7L, Cortisol AM Sample [Pending] Height (Feet): 5 Height (Inches): 7.00 Weight (Pounds): 180 General Appearance: no apparent distress Respiratory/Chest: decreased breath sounds Abdomen: soft Objective no other changes HERLINDA MALLOY Feb 17, 2018 17:19
[2018-02-17 20:00] VITALS: BP 108/62
[2018-02-17] MEDS: Dyna-Hex 2% Top Sol 2oz TOPIC SCH (20:07)
[2018-02-18] VITALS: BP 127/57
[2018-02-18 04:00] VITALS: BP 108/60
[2018-02-18 05:03] LABS: BASOPHILS % (AUTO) 0.5 % (0.0-2.0); EOSINOPHILS % (AUTO) 2.3 % (0.0-3.0); HEMATOCRIT 27.3 % (42.0-52.0); HEMOGLOBIN 9.2 G/DL (14.2-18.0); LYMPHOCYTES % (AUTO) 16.8 % (20.0-45.0); MEAN CORPUSCULAR VOLUME 92 FL (80-99); MONOCYTES % (AUTO) 7.3 % (1.0-10.0); NEUTROPHILS % (AUTO) 73.1 % (45.0-75.0); PLATELET COUNT 271 K/UL (150-450); RED BLOOD COUNT 2.96 M/UL (4.70-6.10); RED CELL DISTRIBUTION WIDTH 14.5 % (11.6-14.8); WHITE BLOOD COUNT 7.1 K/UL (4.8-10.8)
[2018-02-18 05:13] LABS: ANION GAP 8 mmol/L (5-15); BLOOD UREA NITROGEN 37 mg/dL (7-18); CALCIUM 9.7 MG/DL (8.5-10.1); CARBON DIOXIDE 30 MMOL/L (21-32); CHLORIDE 96 MMOL/L (98-107); CREATININE 0.9 MG/DL (0.55-1.30); POTASSIUM 4.8 MMOL/L (3.5-5.1); SODIUM 133 MMOL/L (136-145)
[2018-02-18] MEDS: NovoLOG Insulin Flexpen SUBQ SCH ×3 (06:04→11:29)
[2018-02-18 08:00] VITALS: BP 104/59
[2018-02-18] MEDS: Heparin 5000 units/ml inj SUBQ SCH (09:22)
[2018-02-18] MEDS: levETIRAcetam 500mg/5ml Liquid GT SCH (09:24)
[2018-02-18] MEDS: Valproic Acid 250mg/5ml Liquid NG SCH (09:24)
--- NOTE | 2018-02-18 10:56 | Infectious Diseases Prog Note ---
Assessment/Plan Assessment/Plan Abx: IV Vanco 02/12- Cefepime 02/12- Flagyl x1 02/12 Assessment: Acute on chronic respiratory failure- likely multifactorial 2ry to pulm edema, pleural effusion -?PNA, suspect main component is volume related; r/o mass ( needs surveillance CXR after IV abx tx) -CXR 02/16: Continued demonstration of right lower lung zone opacity. Questionable trace left pleural effusion. -CXR 02/14: Improved pulmonary edema currently mild. Bilateral pleural effusions noted. -CXR: Hazy groundglass some right basilar opacity obscuring the right hemidiaphragm consistent with a pleural effusion. Interstitial/pulmonary edema demonstrated -sp cx p S. marcenses (R amp, otherwise S), MDR PSA (S aminoglycosies) Recent PNA, s/p rx -7 days IV Vanco and Zosyn (end date 02/11) Afebrile, no leukocytosis -u/a wbc 5-10, nit neg, leuk +1; ucx 30-40k C. parapsilosis (Colonizer) -Bcx neg chronic respiratory failure on tracheostomy cardiac arrest COPD DM2 PEG seizure disorder bedbound nonverbal hypertension hypoxic encephalopathy Plan: -Continue Cefepime #7/10 for possible PNA and INH Tobramycin #4/10 for MDR PSA ; ok to discharge back to SNF on this regimen. -02/14 SP IV Vanco #3 -Monitor CBC/BMP, temperatures -trach/peg care -woudn care/prevention per hosp protocol -aspiration precautions -Needs surveillance CXR after IV abx tx. Thank you for this consultation. Will continue to follow along with you. Discussed with RN. Subjective Allergies: Coded Allergies: ACETAMINOPHEN (Verified Allergy, Unknown, 12/16/17) Subjective afebrile no leukocyotis Bcx Neg Fio2 40% discharge planning Objective Vital Signs Last 24 Hour Vital Signs Date Time Temp Pulse Resp B/P (MAP) Pulse Ox O2 Delivery O2 Flow Rate FiO2 02/18/18 09:20 58 18 40 02/18/18 08:00 64 02/18/18 08:00 97.2 56 17 104/59 100 Mechanical Ventilator 40 97.2 02/18/18 08:00 40 02/18/18 06:52 59 18 40 02/18/18 05:16 55 18 40 02/18/18 04:00 58 02/18/18 04:00 97.9 56 18 108/60 100 Mechanical Ventilator 40 97.9 02/18/18 04:00 40 02/18/18 02:40 57 18 40 02/18/18 01:22 57 18 40 02/18/18 00:00 98.2 54 18 127/57 100 Mechanical Ventilator 40 98.2 02/18/18 00:00 52 02/18/18 00:00 40 02/17/18 23:23 56 18 40 02/17/18 22:08 40 02/17/18 22:07 55 18 99 Mechanical Ventilator 40 02/17/18 21:29 58 18 40 02/17/18 20:00 40 02/17/18 20:00 52 02/17/18 20:00 98.4 55 18 108/62 99 Mechanical Ventilator 40 98.4 02/17/18 19:24 59 19 40 02/17/18 17:12 55 18 40 02/17/18 16:00 97.9 63 18 136/67 99 Mechanical Ventilator 40 97.9 02/17/18 16:00 40 02/17/18 16:00 78 02/17/18 14:55 57 18 40 02/17/18 12:57 58 18 40 02/17/18 12:00 56 02/17/18 12:00 97.4 58 18 132/62 100 Mechanical Ventilator 40 97.4 02/17/18 12:00 40 02/17/18 11:29 55 18 40 02/17/18 11:28 56 18 100 Mechanical Ventilator 40 02/17/18 11:02 40 02/17/18 10:58 54 18 100 Mechanical Ventilator 40 Height (Feet): 5 Height (Inches): 7.00 Weight (Pounds): 180 Objective General Appearance: WD/WN Lines, tubes and drains: peripheral HEENT: normocephalic, atraumatic Neck: non-tender, normal alignment Respiratory/Chest: chest wall non-tender, lungs clear Cardiovascular/Chest: normal peripheral pulses Abdomen: normal bowel sounds, non tender Extremities: normal range of motion Skin Exam: normal pigmentation Laboratory Tests Test 02/18/18 04:10 White Blood Count 7.1 K/UL (4.8-10.8) Red Blood Count 2.96 M/UL (4.70-6.10) L Hemoglobin 9.2 G/DL (14.2-18.0) L Hematocrit 27.3 % (42.0-52.0) L Mean Corpuscular Volume 92 FL (80-99) Mean Corpuscular Hemoglobin 31.0 PG (27.0-31.0) Mean Corpuscular Hemoglobin Concent 33.6 G/DL (32.0-36.0) Red Cell Distribution Width 14.5 % (11.6-14.8) Platelet Count 271 K/UL (150-450) Mean Platelet Volume 7.0 FL (6.5-10.1) Neutrophils (%) (Auto) 73.1 % (45.0-75.0) Lymphocytes (%) (Auto) 16.8 % (20.0-45.0) L Monocytes (%) (Auto) 7.3 % (1.0-10.0) Eosinophils (%) (Auto) 2.3 % (0.0-3.0) Basophils (%) (Auto) 0.5 % (0.0-2.0) Sodium Level 133 MMOL/L (136-145) L Potassium Level 4.8 MMOL/L (3.5-5.1) Chloride Level 96 MMOL/L (98-107) L Carbon Dioxide Level 30 MMOL/L (21-32) Anion Gap 8 mmol/L (5-15) Blood Urea Nitrogen 37 mg/dL (7-18) H Creatinine 0.9 MG/DL (0.55-1.30) Estimat Glomerular Filtration Rate > 60 mL/min (>60) Glucose Level 109 MG/DL (74-106) H Calcium Level 9.7 MG/DL (8.5-10.1) Current Medications Medications (Trade) Dose Ordered Sig/Marciano Route PRN Reason Start Time Stop Time Status Last Admin Dose Admin Cefepime HCl 1 gm/ Dextrose 110 ml @ 220 mls/hr Q12HR@1100,2300 IV 02/12/18 11:00 02/19/18 10:59 02/17/18 23:09 Chlorhexidine Gluconate (Nancy-Hex 2%) 1 applic DAILY@1999 TOPIC 02/12/18 20:00 03/14/18 19:59 02/17/18 20:07 Famotidine (Pepcid) 20 mg BID GT 02/13/18 18:00 03/15/18 17:59 02/18/18 09:24 Furosemide (Lasix) 40 mg DAILY IV 02/16/18 09:00 03/18/18 08:59 02/18/18 09:24 Heparin Sodium (Porcine) (Heparin 5000 units/ml) 5,000 units EVERY 12 HOURS SUBQ 02/12/18 09:00 03/14/18 08:59 02/18/18 09:22 Insulin Aspart (NovoLOG) Q6HR SUBQ 02/12/18 12:00 03/14/18 11:29 02/18/18 06:04 Levetiracetam (Keppra) 1,000 mg Q12HR GT 02/13/18 21:00 03/14/18 17:59 02/18/18 09:24 Nitroglycerin (Ntg) 0.4 mg Q5M PRN SL Prn Chest Pain 02/12/18 07:30 03/14/18 07:29 Ondansetron HCl (Zofran) 4 mg Q6H PRN IVP Nausea & Vomiting 02/12/18 07:30 03/14/18 07:29 Polyethylene Glycol (Miralax) 17 gm DAILYPRN PRN ORAL Constipation 02/12/18 07:30 03/14/18 07:29 Promethazine HCl/ Codeine (Phenergan with Codeine) 5 ml Q4H PRN ORAL For Cough 02/12/18 07:30 03/14/18 07:29 02/15/18 08:49 Temazepam (Restoril) 15 mg HSPRN PRN ORAL Insomnia 02/12/18 07:30 02/19/18 07:29 Tobramycin Sulfate (Nebcin) 300 mg Q12HR@10,22 INH 02/15/18 22:00 02/22/18 21:59 02/17/18 22:03 Valproic Acid (Depakene) 500 mg EVERY 12 HOURS NG 02/15/18 21:00 03/14/18 20:59 02/18/18 09:24 Melody Suarez M.D. Feb 18, 2018 10:56
[2018-02-18] MEDS: Tobramycin for inhalation INH SCH (11:09)
[2018-02-18] MEDS: Cefepime HCl 1 GM in D5W 110 ML IV SCH (11:22)
--- NOTE | 2018-02-18 11:51 | Pulmonolgy Critical Care Note ---
Critical Care - Asmt/Plan Problems: (1) Acute on chronic respiratory failure (2) Aspiration pneumonia (3) Feeding by G-tube (4) Vegetative state (5) Seizure disorder (6) Pleural effusion (7) Anemia Respiratory: monitor respiratory rate, adjust FIO2 Cardiac: continue to monitor HR/BP Renal: F/U I&O, keep IV fluid Infectious Disease: check cultures Gastrointestinal: continue feedings/current rate Hematologic: monitor H/H, transfuse if hgb<8.5 Neurologic: PRN Ativan, keep patient comfortable Affect: PRN ativan Prophylaxis: Protonix, Heparin Disposition: keep in ICU Notes Reviewed: microsystems engineer, cardio Discussed with: nurses, consultants, pillowcase sewerhuman resources talent manager - Objective Last 24 Hour Vital Signs Date Time Temp Pulse Resp B/P (MAP) Pulse Ox O2 Delivery O2 Flow Rate FiO2 02/18/18 11:09 Mechanical Ventilator 40 02/18/18 11:09 87 18 99 Mechanical Ventilator 40 02/18/18 11:07 56 18 40 02/18/18 09:20 58 18 40 02/18/18 08:00 64 02/18/18 08:00 97.2 56 17 104/59 100 Mechanical Ventilator 40 97.2 02/18/18 08:00 40 02/18/18 06:52 59 18 40 02/18/18 05:16 55 18 40 02/18/18 04:00 58 02/18/18 04:00 97.9 56 18 108/60 100 Mechanical Ventilator 40 97.9 02/18/18 04:00 40 02/18/18 02:40 57 18 40 02/18/18 01:22 57 18 40 02/18/18 00:00 98.2 54 18 127/57 100 Mechanical Ventilator 40 98.2 02/18/18 00:00 52 02/18/18 00:00 40 02/17/18 23:23 56 18 40 02/17/18 22:08 40 02/17/18 22:07 55 18 99 Mechanical Ventilator 40 02/17/18 21:29 58 18 40 02/17/18 20:00 40 02/17/18 20:00 52 02/17/18 20:00 98.4 55 18 108/62 99 Mechanical Ventilator 40 98.4 02/17/18 19:24 59 19 40 02/17/18 17:12 55 18 40 02/17/18 16:00 97.9 63 18 136/67 99 Mechanical Ventilator 40 97.9 02/17/18 16:00 40 02/17/18 16:00 78 02/17/18 14:55 57 18 40 02/17/18 12:57 58 18 40 02/17/18 12:00 56 02/17/18 12:00 97.4 58 18 132/62 100 Mechanical Ventilator 40 97.4 02/17/18 12:00 40 Status: somnolent Condition: critical HEENT: atraumatic Neck: full ROM Abdomen: non-tender, active bowel sounds Extremities: no C/C/E Decubiti: location, stage Accucheck: 108 Critical Care - Subjective ROS Limited/Unobtainable: No Condition: critical EKG Rhythm: Sinus Rhythm FI02: 40 Vent Support Breath Rate: 18 Vent Support Mode: AC Vent Tidal Volume: 500 Sputum Amount: Moderate PEEP: 5.0 PIP: 24 Tube Feeding Amount: 65 I&O: Intake and Output 02/17/18 02/18/18 19:00 07:00 Intake Total 970 ml 890 ml Output Total 600 ml 400 ml Balance 370 ml 490 ml Free Water 20 ml IV Total 110 ml 110 ml Tube Feeding 780 ml 780 ml Other 60 ml Output Urine Total 600 ml 400 ml CXR: no change Labs: Laboratory Tests Test 02/18/18 04:10 White Blood Count 7.1 K/UL (4.8-10.8) Red Blood Count 2.96 M/UL (4.70-6.10) L Hemoglobin 9.2 G/DL (14.2-18.0) L Hematocrit 27.3 % (42.0-52.0) L Mean Corpuscular Volume 92 FL (80-99) Mean Corpuscular Hemoglobin 31.0 PG (27.0-31.0) Mean Corpuscular Hemoglobin Concent 33.6 G/DL (32.0-36.0) Red Cell Distribution Width 14.5 % (11.6-14.8) Platelet Count 271 K/UL (150-450) Mean Platelet Volume 7.0 FL (6.5-10.1) Neutrophils (%) (Auto) 73.1 % (45.0-75.0) Lymphocytes (%) (Auto) 16.8 % (20.0-45.0) L Monocytes (%) (Auto) 7.3 % (1.0-10.0) Eosinophils (%) (Auto) 2.3 % (0.0-3.0) Basophils (%) (Auto) 0.5 % (0.0-2.0) Sodium Level 133 MMOL/L (136-145) L Potassium Level 4.8 MMOL/L (3.5-5.1) Chloride Level 96 MMOL/L (98-107) L Carbon Dioxide Level 30 MMOL/L (21-32) Anion Gap 8 mmol/L (5-15) Blood Urea Nitrogen 37 mg/dL (7-18) H Creatinine 0.9 MG/DL (0.55-1.30) Estimat Glomerular Filtration Rate > 60 mL/min (>60) Glucose Level 109 MG/DL (74-106) H Calcium Level 9.7 MG/DL (8.5-10.1) Leodan Bojorquez MD Feb 18, 2018 11:51
[2018-02-18 12:00] VITALS: BP 130/69
[2018-02-18] MEDS ORDERED: NS 500ML ONE (13:21)
[2018-02-18] MEDS ORDERED: Tubing IV Secondary IV ONE (13:21)
--- NOTE | 2018-02-18 13:52 | General Progress Note ---
Assessment/Plan Problem List: (1) Hypertension ICD Codes: I10 - Essential (primary) hypertension SNOMED: 94582957 (2) Acute on chronic respiratory failure ICD Codes: J96.20 - Acute and chronic respiratory failure, unspecified whether with hypoxia or hypercapnia SNOMED: 18635458 (3) Seizure disorder ICD Codes: G40.909 - Epilepsy, unspecified, not intractable, without status epilepticus SNOMED: 275679964 (4) Anemia ICD Codes: D64.9 - Anemia, unspecified SNOMED: 935638213 (5) Aspiration pneumonia ICD Codes: J69.0 - Pneumonitis due to inhalation of food and vomit SNOMED: 687603307 Status: unchanged Assessment/Plan vent abx dc to snf Subjective Constitutional: Reports: weakness Allergies: Coded Allergies: ACETAMINOPHEN (Verified Allergy, Unknown, 12/16/17) All Systems: reviewed and negative except above Subjective trach vent altered Objective Last 24 Hour Vital Signs Date Time Temp Pulse Resp B/P (MAP) Pulse Ox O2 Delivery O2 Flow Rate FiO2 02/18/18 12:00 56 02/18/18 12:00 40 02/18/18 12:00 96.9 62 18 130/69 99 Mechanical Ventilator 40 96.9 02/18/18 11:09 Mechanical Ventilator 40 02/18/18 11:09 87 18 99 Mechanical Ventilator 40 02/18/18 11:07 56 18 40 02/18/18 09:20 58 18 40 02/18/18 08:00 64 02/18/18 08:00 97.2 56 17 104/59 100 Mechanical Ventilator 40 97.2 02/18/18 08:00 40 02/18/18 06:52 59 18 40 02/18/18 05:16 55 18 40 02/18/18 04:00 58 02/18/18 04:00 97.9 56 18 108/60 100 Mechanical Ventilator 40 97.9 02/18/18 04:00 40 02/18/18 02:40 57 18 40 02/18/18 01:22 57 18 40 02/18/18 00:00 98.2 54 18 127/57 100 Mechanical Ventilator 40 98.2 02/18/18 00:00 52 02/18/18 00:00 40 02/17/18 23:23 56 18 40 02/17/18 22:08 40 02/17/18 22:07 55 18 99 Mechanical Ventilator 40 02/17/18 21:29 58 18 40 02/17/18 20:00 40 02/17/18 20:00 52 02/17/18 20:00 98.4 55 18 108/62 99 Mechanical Ventilator 40 98.4 02/17/18 19:24 59 19 40 02/17/18 17:12 55 18 40 02/17/18 16:00 97.9 63 18 136/67 99 Mechanical Ventilator 40 97.9 02/17/18 16:00 40 02/17/18 16:00 78 02/17/18 14:55 57 18 40 Intake and Output 02/17/18 02/18/18 19:00 07:00 Intake Total 970 ml 890 ml Output Total 600 ml 400 ml Balance 370 ml 490 ml Free Water 20 ml IV Total 110 ml 110 ml Tube Feeding 780 ml 780 ml Other 60 ml Output Urine Total 600 ml 400 ml Laboratory Tests 02/18/18 04:10: White Blood Count 7.1, Red Blood Count 2.96L, Hemoglobin 9.2L, Hematocrit 27.3L , Mean Corpuscular Volume 92, Mean Corpuscular Hemoglobin 31.0, Mean Corpuscular Hemoglobin Concent 33.6, Red Cell Distribution Width 14.5, Platelet Count 271, Mean Platelet Volume 7.0, Neutrophils (%) (Auto) 73.1, Lymphocytes (% ) (Auto) 16.8L, Monocytes (%) (Auto) 7.3, Eosinophils (%) (Auto) 2.3, Basophils (%) (Auto) 0.5, Sodium Level 133L, Potassium Level 4.8, Chloride Level 96L, Carbon Dioxide Level 30, Anion Gap 8, Blood Urea Nitrogen 37H, Creatinine 0.9, Estimat Glomerular Filtration Rate > 60, Glucose Level 109H, Calcium Level 9.7 Height (Feet): 5 Height (Inches): 7.00 Weight (Pounds): 180 General Appearance: lethargic EENT: normal ENT inspection Neck: normal alignment Cardiovascular: normal peripheral pulses, normal rate, regular rhythm Respiratory/Chest: chest wall non-tender, decreased breath sounds Abdomen: normal bowel sounds, non tender, soft Extremities: normal inspection Edema: no edema noted Arm (L), no edema noted Arm (R), no edema noted Leg (L), no edema noted Leg (R), no edema noted Pedal (L), no edema noted Pedal (R), no edema noted Generalized Neurologic: motor weakness Skin: normal pigmentation, warm/dry Yosef Garcia DO Feb 18, 2018 13:52
--- NOTE | 2018-02-18 14:36 | Nephrology Progress Note ---
Assessment/Plan Problem List: (1) Hyperkalemia (2) Hyponatremia Assessment - Low Na and High K IMPROVED - Acute on chronic respiratory failure - Aspiration pneumonia - Feeding by G-tube - Vegetative state - Seizure disorder - Pleural effusion - Anemia - Hypertension Plan OK to DC from renal stand 2D Echo Left ventricular ejection fraction estimated to be 55 %. Gastric support Lasix 40 daily monitor lytes per orders Subjective ROS Limited/Unobtainable: Yes Interval Events/Complaints seen at 10 am Objective Objective Last 24 Hour Vital Signs Date Time Temp Pulse Resp B/P (MAP) Pulse Ox O2 Delivery O2 Flow Rate FiO2 02/18/18 12:00 56 02/18/18 12:00 40 02/18/18 12:00 96.9 62 18 130/69 99 Mechanical Ventilator 40 96.9 02/18/18 11:09 Mechanical Ventilator 40 02/18/18 11:09 87 18 99 Mechanical Ventilator 40 02/18/18 11:07 56 18 40 02/18/18 09:20 58 18 40 02/18/18 08:00 64 02/18/18 08:00 97.2 56 17 104/59 100 Mechanical Ventilator 40 97.2 02/18/18 08:00 40 02/18/18 06:52 59 18 40 02/18/18 05:16 55 18 40 02/18/18 04:00 58 02/18/18 04:00 97.9 56 18 108/60 100 Mechanical Ventilator 40 97.9 02/18/18 04:00 40 02/18/18 02:40 57 18 40 02/18/18 01:22 57 18 40 02/18/18 00:00 98.2 54 18 127/57 100 Mechanical Ventilator 40 98.2 02/18/18 00:00 52 02/18/18 00:00 40 02/17/18 23:23 56 18 40 02/17/18 22:08 40 02/17/18 22:07 55 18 99 Mechanical Ventilator 40 02/17/18 21:29 58 18 40 02/17/18 20:00 40 02/17/18 20:00 52 02/17/18 20:00 98.4 55 18 108/62 99 Mechanical Ventilator 40 98.4 02/17/18 19:24 59 19 40 02/17/18 17:12 55 18 40 02/17/18 16:00 97.9 63 18 136/67 99 Mechanical Ventilator 40 97.9 02/17/18 16:00 40 02/17/18 16:00 78 02/17/18 14:55 57 18 40 Intake and Output 02/17/18 02/18/18 19:00 07:00 Intake Total 970 ml 890 ml Output Total 600 ml 400 ml Balance 370 ml 490 ml Free Water 20 ml IV Total 110 ml 110 ml Tube Feeding 780 ml 780 ml Other 60 ml Output Urine Total 600 ml 400 ml Laboratory Tests 02/18/18 04:10: White Blood Count 7.1, Red Blood Count 2.96L, Hemoglobin 9.2L, Hematocrit 27.3L , Mean Corpuscular Volume 92, Mean Corpuscular Hemoglobin 31.0, Mean Corpuscular Hemoglobin Concent 33.6, Red Cell Distribution Width 14.5, Platelet Count 271, Mean Platelet Volume 7.0, Neutrophils (%) (Auto) 73.1, Lymphocytes (% ) (Auto) 16.8L, Monocytes (%) (Auto) 7.3, Eosinophils (%) (Auto) 2.3, Basophils (%) (Auto) 0.5, Sodium Level 133L, Potassium Level 4.8, Chloride Level 96L, Carbon Dioxide Level 30, Anion Gap 8, Blood Urea Nitrogen 37H, Creatinine 0.9, Estimat Glomerular Filtration Rate > 60, Glucose Level 109H, Calcium Level 9.7 Height (Feet): 5 Height (Inches): 7.00 Weight (Pounds): 180 General Appearance: no apparent distress Objective no other changes HERLINDA MALLOY Feb 18, 2018 14:36
--- NOTE | 2018-02-19 10:47 | Discharge Summary ---
Discharge Summary Discharge Summary _ DATE OF ADMISSION: 02/12/2018 DATE OF DISCHARGE: 02/18/2018 REASON FOR ADMISSION: 72 years old male, resident of [facility] facility, with past medical history significant for chronic respiratory failure with tracheostomy, bedbound status, history of cardiac arrest leading to anoxic encephalopathy, COPD, diabetes mellitus, hypertension, dysphagia,G-tube ,was sent from the [facility] for evaluation of worsening pneumonia on the chest x-ray. Patient already completed course of Zosyn and vancomycin for 7 days on 02/11/2018. Upon evaluation in emergency room, vital signs were stable. EKG revealed normal sinus rhythm, no acute ischemic changes. Chest x-ray showed interstitial edema and right pleural effusion. Possible pneumonia. Laboratory workup revealed sodium 132, potassium 5.5, troponin was negative, pro BNP -804 . EKG revealed normal sinus rhythm, lactic acid-0.3 , hemoglobin 8.8 ,hematocrit 26.7 .no leukocytosis. Patient admitted with diagnosis acute on chronic respiratory failure, aspiration pneumonia, hyperkalemia. CONSULTANTS: assistant to the dean Dr. Yanez pulmonary Dr. Bojorquez ID specialist Dr. Mendez wage hand Dr. Nix [facility] COURSE: Patient admitted to direct observational unit. Patient started on empiric antibiotic. ID specialist closely followed. Sputum culture revealed Serratia and Pseudomonas, multidrug registrant. Blood culture were negative. Patient was on antibiotics as per ID management. Patient will need to complete antibiotic treatment at the facility with the IV cefepime and tobramycin via hand-held nebulization for the amount of time as specified by infectious disease specialist. Ventilator support provided ,tracheostomy care provided . ABG was stable on current settings. FiO2 titrated to keep pulse oximetry above 90%. Family Life Counselor closely followed. Patient was on Lasix . Cardiorenal parameters and electrolytes were closely monitored. Electrolytes were corrected as needed. Deposition Operator followed. Prior to discharge, sodium improved, potassium down to 4.8. Follow-up chest x-ray revealed improved pulmonary edema. Last chest x-ray showed decreased left pleural effusion and stable right pleural effusion. Air Intelligence Specialist closely follow. Per assistant to the dean ,patient remained stable in sinus rhythm, troponin was negative. Last echocardiogram done in December 2017 revealed preserved ejection fraction of 55%. Initial bilateral pleural effusion improved. Blood sugar was managed with sliding scale insulin and remained stable. Hemoglobin A1c- 5.9. Blood pressure was managed with current regimen and remained stable. Seizure precautions were maintained. Keppra and Depakote were continued. No evidence of seizure activity while in the hospital. DVT and GI prophylaxis provided. Anemia workup revealed stable iron , B12 and folate level. Stool for occult blood was negative. CEA was within normal limits. Hemoglobin and hematocrit were closely monitored with goal to keep hemoglobin above 7. Hemoglobin and hematocrit remained stable. no need for transfusion. Anemia was likely due to caronic disease. Bowel regimen instituted. Supportive care provided. Patient was stable for discharge back to [facility] facility for continuation of care FINAL DIAGNOSES: Acute on chronic (ventilator dependent )respiratory failure Aspiration pneumonia Bilateral pleural effusion COPD Hypertension Seizure disorder Dysphagia ; Feeding by gastrostomy tube Diabetes mellitus type 2 History of cardiac arrest leading to anoxic encephalopathy Anemia of chronic disease Electrolyte imbalances: hyperkalemia hyponatremia Vegetative state DISCHARGE MEDICATIONS: See Medication Reconciliation list. DISCHARGE INSTRUCTIONS: Patient was discharged to [facility] facility. Follow up with medical doctor and quality rn at the facility. I have been assigned to dictate discharge summary for this account. I was not involved in the patient's management. Monika Carpio NP Feb 19, 2018 10:47
== END 2018-02-18 13:22 | DRG 207 ==
LOC: EDBD 01:11 → EDUNIT# 01:11 → EMR 01:27 → 2W 02:14 → EDBEDREQ 03:44
PROC: 5A1955Z Respiratory Ventilation, Greater than 96 Consecutive Hours (ICD-10-PCS; principal; 2018-02-12)
DX: J69.0 Pneumonitis due to inhalation of food and vomit (principal); J96.20 Acute and chronic respiratory failure, unspecified whether with hypoxia or hypercapnia; G93.1 Anoxic brain damage, not elsewhere classified; N39.0 Urinary tract infection, site not specified; E87.1 Hypo-osmolality and hyponatremia; R40.3 Persistent vegetative state; J90 Pleural effusion, not elsewhere classified; Z99.11 Dependence on respirator [ventilator] status; G40.909 Epilepsy, unspecified, not intractable, without status epilepticus; Z93.0 Tracheostomy status; Z93.1 Gastrostomy status; Z74.01 Bed confinement status; I10 Essential (primary) hypertension; Z86.74 Personal history of sudden cardiac arrest; E11.9 Type 2 diabetes mellitus without complications; D64.9 Anemia, unspecified; E87.5 Hyperkalemia; J44.9 Chronic obstructive pulmonary disease, unspecified; R13.10 Dysphagia, unspecified
CPT/HCPCS: 36415; 36600; 71045; 80048; 80053; 80061; 80069; 80164; 80202; 81003; 82270; 82378; 82533; 82550; 82607; 82728; 82746; 82803; 82962; 82977; 83036; 83540; 83550; 83605; 83615; 83735; 83880; 84100; 84443; 84484; 84550; 85007; 85025; 85044; 85060; 85610; 85651; 85730; 86140; 87040; 87070; 87081; 87086; 87181; 87205; 93005; 93306; 94002; 94003; 94640; 97803; 99285; J7620

== ENCOUNTER 2018-05-09 11:20 | Inpatient (IN) | payer MEDICARE, MEDICAID ==
[~2018-05-09] VITALS: Ht 167.6 cm; Wt 83.0 kg
[~2018-05-09 11:20] MED LIST changes: +ALBUTEROL2.5 MG/3 M INH; +DOCUSATE SODIU100 MG GT; +MIRALAX17 G2 GT; +MULTI-DELYN237 ML GT; +SODIUM CHLORIDE1 GM GT; +VITAMIN C500 MG/11 GT; +Vancomycin 750mg/NS 250ml IVPB SCH; +ZOSYN 3.373.375 GM/1 IVPB; +[UNRECOGNIZED DRUG - OTHER] GT
[2018-05-09 11:32] VITALS: BP 114/74
[2018-05-09 11:59] LABS: BASOPHILS % (AUTO) 1.1 % (0.0-2.0); EOSINOPHILS % (AUTO) 8.1 % (0.0-3.0); HEMATOCRIT 27.8 % (42.0-52.0); HEMOGLOBIN 8.8 G/DL (14.2-18.0); LYMPHOCYTES % (AUTO) 20.7 % (20.0-45.0); MEAN CORPUSCULAR VOLUME 87 FL (80-99); MONOCYTES % (AUTO) 9.9 % (1.0-10.0); NEUTROPHILS % (AUTO) 60.2 % (45.0-75.0); PLATELET COUNT 286 K/UL (150-450); RED BLOOD COUNT 3.21 M/UL (4.70-6.10); RED CELL DISTRIBUTION WIDTH 13.9 % (11.6-14.8)
[2018-05-09 12:00] LABS: APPEARANCE,URINE SLIGHTLY CLOUDY; BILIRUBIN, URINE NEGATIVE (NEGATIVE); GLUCOSE, URINE (UA) NEGATIVE (NEGATIVE); KETONES,URINE NEGATIVE (NEGATIVE); LEUKOCYTE ESTERASE ,URINE 3+ (NEGATIVE); NITRITE,URINE POSITIVE (NEGATIVE); PH,URINE 6.5 (4.5-8.0); PROTEIN,URINE 1+ (NEGATIVE); UROBILINOGEN,URINE NORMAL MG/DL (0.0-1.0)
[2018-05-09 12:01] LABS: COLOR,URINE YELLOW
[2018-05-09 12:09] LABS: ALANINE AMINOTRANSFERASE 26 U/L (12-78); ALBUMIN 3.1 G/DL (3.4-5.0); ALBUMIN/GLOBULIN RATIO 0.7 (1.0-2.7); ALKALINE PHOSPHATASE 126 U/L (46-116); ASPARTATE AMINO TRANSFERASE 12 U/L (15-37); BLOOD UREA NITROGEN 29 mg/dL (7-18); CALCIUM 8.9 MG/DL (8.5-10.1); CHLORIDE 98 MMOL/L (98-107); CREATININE 0.8 MG/DL (0.55-1.30); POTASSIUM 4.6 MMOL/L (3.5-5.1); SODIUM 132 MMOL/L (136-145)
[2018-05-09 12:21] LABS: BILIRUBIN,TOTAL 0.3 MG/DL (0.2-1.0); CARBON DIOXIDE 25 MMOL/L (21-32)
[2018-05-09 13:00] VITALS: BP 106/64
--- NOTE | 2018-05-09 13:06 | Diagnostic Imaging Report ---
Indications: Oral bleeding Technique: Spiral images obtained through the maxillofacial sinuses. No IV contrast utilized. Multiplanar reconstructions were generated.Total dose length product 585 mGycm. CTDIvol(s) 28 mGy. Dose reduction achieved using automated exposure control Comparison: none Findings: There is some asymmetry of the oropharyngeal soft tissues, probably due to rotation of the atlantoaxial joint. There is thickening of the subcutaneous fat of the right lower lips. There is also some thickening of the periauricular subcutaneous fat bilaterally. No acute fractures. No worrisome sinus opacification. There is evidence of apical root abscess involving the left maxillary canine tooth, which is markedly eroded. This extends well into the alveolar ridge of the maxilla. This also contiguous with and involves to a lesser extent the apical root of the left first maxillary premolar There is evidence of extensive dental disease, with multiple missing teeth and multiple caries. There is evidence of apical root abscess involving the left second mandibular premolar, and evidence of chronic bone erosion at the location of the now absent left mandibular canine tooth. There is thinning of the bone around the right mandibular canine tooth. There is considerable cerumen within the external auditory canals bilaterally There is opacification of many of the right mastoid air cells. No definite cervical mass or adenopathy. The parapharyngeal spaces are clear, symmetric. There are degenerative changes of the visualized cervical spine. The visualized intracranial structures are unremarkable except for considerable volume loss. The optic globes and retroseptal orbits are intact. Impression: Evidence of large apical root abscess/osteomyelitis involving the apical roots of the left maxillary canine tooth and first premolar Evidence of extensive dental disease elsewhere, as described Right mastoid disease Suggestion of skin thickening of the right lower lip and bilateral preauricular regions. Correlate with clinical findings Findings discussed by phone with Dr. Stanton in the emergency room at the time of interpretation The CT scanner at [facility] is accredited by the [employer] and the scans are performed using protocols designed to limit radiation exposure to as low as reasonably achievable to attain images of sufficient resolution adequate for diagnostic evaluation.
--- NOTE | 2018-05-09 13:20 | Emergency Room Report ---
History of Present Illness General Chief Complaint: General Complaint Source: Patient, Medical Record Present Illness HPI Patient presents from a shelter facility. He has a history of respiratory failure and is ventilator dependent. He has a tracheostomy. He is brought in by EMS for concern of ongoing bleeding from his mouth. The shelter facility was unable to control the bleeding in his mouth consistent him to the emergency department. There are no other complaints. Allergies: Coded Allergies: ACETAMINOPHEN (Verified Allergy, Unknown, 12/16/17) Patient History Past Medical History: see triage record, HTN, COPD, GERD, seizures, renal disease, other - Resp. failure/ventilator dependent Past Surgical History: other - Trach, PEG Social History: Denies: smoking, alcohol use, drug use Reviewed Nursing Documentation: PMH: Agreed; PSxH: Agreed Nursing Documentation-PMH Hx Cardiac Problems: Yes - cardiac arrest Hx Hypertension: Yes Hx COPD: Yes Hx Diabetes: Yes Hx Cancer: No Hx Gastrointestinal Problems: Yes - pt with GT Hx Neurological Problems: Yes - hypoxic encephalopathy Hx Cerebrovascular Accident: Yes Hx Seizures: Yes Hx Epilepsy: Yes Hx Speech Problem: Yes Hx Dysphasia: Yes Hx Weakness: Yes Review of Systems All Other Systems: negative except mentioned in HPI Physical Exam Vital Signs Date Time Temp Pulse Resp B/P (MAP) Pulse Ox O2 Delivery O2 Flow Rate FiO2 05/09/18 11:22 68 18 114/74 98 Mechanical Ventilator 05/09/18 11:27 40 05/09/18 11:32 96.4 15.0 96.4 Sp02 EP Interpretation: reviewed, normal General Appearance: no apparent distress, alert, GCS 15, non-toxic Head: normocephalic, atraumatic Eyes: bilateral eye normal inspection, bilateral eye PERRL ENT: hearing grossly normal, no angioedema, other - Trach in place. Enlarged, area on upper gums with purple color and L. upper canine tooth dislodged but still attached. Neck: full range of motion Respiratory: chest non-tender, normal breath sounds, no respiratory distress, no retraction, no accessory muscle use, speaking full sentences Cardiovascular #1: regular rate, rhythm, no edema Gastrointestinal: normal bowel sounds, non tender, soft, non-distended, no guarding, no rebound, other - PEG Rectal: deferred Musculoskeletal: other - Contracted Neurologic: alert, responsive, other - At baseline Psychiatric: mood/affect normal Skin: warm/dry, well hydrated, other - See RN exam Medical Decision Making Diagnostic Impression: Primary Impression: Odontogenic abscess Additional Impressions: Osteomyelitis UTI (urinary tract infection) Anemia ER Course This patient has what appears to be an odontogenic abscess secondary to an apical abscess from dental caries and deterioration. The patient had active bleeding prior to arrival here in the emergency department. There was no further active bleeding in the emergency department. The patient will be admitted to the SDU secondary to being a trach/ventilator patient. The patient will need to undergo evaluation by oral maxillofacial surgery. Laboratory Tests Test 05/09/18 11:40 White Blood Count 7.2 K/UL (4.8-10.8) Red Blood Count 3.21 M/UL (4.70-6.10) L Hemoglobin 8.8 G/DL (14.2-18.0) L Hematocrit 27.8 % (42.0-52.0) L Mean Corpuscular Volume 87 FL (80-99) Mean Corpuscular Hemoglobin 27.6 PG (27.0-31.0) Mean Corpuscular Hemoglobin Concent 31.8 G/DL (32.0-36.0) L Red Cell Distribution Width 13.9 % (11.6-14.8) Platelet Count 286 K/UL (150-450) Mean Platelet Volume 6.2 FL (6.5-10.1) L Neutrophils (%) (Auto) 60.2 % (45.0-75.0) Lymphocytes (%) (Auto) 20.7 % (20.0-45.0) Monocytes (%) (Auto) 9.9 % (1.0-10.0) Eosinophils (%) (Auto) 8.1 % (0.0-3.0) H Basophils (%) (Auto) 1.1 % (0.0-2.0) Prothrombin Time 10.6 SEC (9.30-11.50) Prothrombin Time INR 1.0 (0.9-1.1) PTT 33 SEC (23-33) Urine Color Yellow Urine Appearance Slightly cloudy Urine pH 6.5 (4.5-8.0) Urine Specific [place] 1.015 (1.005-1.035) Urine Protein 1+ (NEGATIVE) H Urine Glucose (UA) Negative (NEGATIVE) Urine Ketones Negative (NEGATIVE) Urine Blood 1+ (NEGATIVE) H Urine Nitrite Positive (NEGATIVE) H Urine Bilirubin Negative (NEGATIVE) Urine Urobilinogen Normal MG/DL (0.0-1.0) Urine Leukocyte Esterase 3+ (NEGATIVE) H Urine RBC 2-4 /HPF (0 - 0) H Urine WBC 15-20 /HPF (0 - 0) H Urine Squamous Epithelial Cells Occasional /LPF Urine Bacteria Moderate /HPF (NONE) H Sodium Level 132 MMOL/L (136-145) L Potassium Level 4.6 MMOL/L (3.5-5.1) Chloride Level 98 MMOL/L (98-107) Carbon Dioxide Level 25 MMOL/L (21-32) Blood Urea Nitrogen 29 mg/dL (7-18) H Creatinine 0.8 MG/DL (0.55-1.30) Estimate Glomerular Filtration Rate > 60 mL/min (>60) Glucose Level 119 MG/DL (74-106) H Calcium Level 8.9 MG/DL (8.5-10.1) Total Bilirubin 0.3 MG/DL (0.2-1.0) Aspartate Amino Transferase (AST) 12 U/L (15-37) L Alanine Aminotransferase (ALT) 26 U/L (12-78) Alkaline Phosphatase 126 U/L (46-116) H Total Protein 7.5 G/DL (6.4-8.2) Albumin 3.1 G/DL (3.4-5.0) L Globulin 4.4 g/dL Albumin/Globulin Ratio 0.7 (1.0-2.7) L EKG Diagnostic Results Rate: bradycardiac Rhythm: other - S.arun ST Segments: no acute changes Rhythm Strip Diag. Results EP Interpretation: yes Rate: 50's Rhythm: no PVC's, no ectopy, other - S.arun CT/MRI/US Diagnostic Results CT/MRI/US Diagnostic Results : Imaging Test Ordered: CT Max/facial Impression Evidence of an apical abscess. Please see EMR for official report. Last Vital Signs Date Time Temp Pulse Resp B/P (MAP) Pulse Ox O2 Delivery O2 Flow Rate FiO2 05/09/18 11:45 15.0 40 05/09/18 11:32 96.4 82 25 114/74 98 Mechanical Ventilator 96.4 Disposition: ADMITTED INPATIENT Condition: Serious Referrals: Yosef Garcia DO (PCP) Jennifer Mello DO May 09, 2018 13:20
[2018-05-09] MEDS ORDERED: Vancomycin 1 GM in NS 275 ML IVPB ONE (13:30)
[2018-05-09] MEDS ORDERED: cefTRIAXone 1 GM in NS 55 ML IVPB ONE (13:30)
[2018-05-09] MEDS ORDERED: Albuterol/Ipratropium 3ml neb HHN PRN (13:45)
[2018-05-09] MEDS ORDERED: Morphine Sulfate 4mg/ml Inj (IV USE ONLY) IVP PRN (13:45)
[2018-05-09] MEDS ORDERED: LORazepam Inj 2mg/ml 1ml IV PRN (13:45)
[2018-05-09] MEDS ORDERED: Miralax 17gm pkt ORAL PRN (13:45)
[2018-05-09 13:51] VITALS: BP 141/73
[2018-05-09 14:46] LABS: % IRON SATURATION 13 % (15-50); IRON 32 ug/dL (50-175); TOTAL IRON BINDING CAPACITY 238 ug/dL (250-450)
[2018-05-09 15:26] LABS: LACTATE DEHYDROGENASE 129 U/L (135-225)
--- NOTE | 2018-05-09 18:59 | Consultation ---
History of Present Illness General Date patient seen: May 09, 2018 Chief Complaint: General Complaint Present Illness HPI 72 y/o M with hx of HTN, COPD, GERD, seizure disorder, s/p cardiac arrest, hypoxic encephalopathy, CVA, CKD, chronic resp failure trach/vent dependant, s/ p PEG, SNF resident presents to ED on 05/09 with concern of ongoing bleeding from his mouth Of note, patient admitted here n 02/12-02/18 due to worsening CXR despite 7 days course IV Vanco and Zosyn. Allergies: Coded Allergies: ACETAMINOPHEN (Verified Allergy, Unknown, 12/16/17) Medication History Scheduled Amino Acids/Protein Hydrolys (Pro-Stat Profile Liquid Packet), 30 ML GT DAILY, ( Reported) Carvedilol* (Carvedilol*), 6.25 MG GT EVERY 12 HOURS, (Reported) Docusate Sodium* (Docusate Sodium*), 100 MG GT THREE TIMES A DAY, (Reported) Ferrous Sulfate (Ferrous Sulfate), 325 MG GT BID, (Reported) Heparin Sod (Porcine) (Heparin Sodium*), 5,000 UNITS SUBQ EVERY 12 HOURS, ( Reported) Hydralazine Hcl* (Hydralazine Hcl*), 10 MG GT BID, (Reported) Levetiracetam* (Levetiracetam*), 1,000 MG GT BID, (Reported) Multivitamin Liquid* (Multi-Delyn*), 15 ML GT DAILY, (Reported) Omeprazole (Omeprazole), 40 MG GT DAILY, (Reported) Yehnonaeeddw-Sjch-Fumyiecv,Iso (Zosyn 3.375 Gm Pre Mix-Bag), 3.375 GM IVPB EVERY 8 HOURS, (Reported) Polyethylene Glycol 3350* (Miralax*), 17 GM GT HS, (Reported) Sodium Chloride* (Sodium Chloride*), 1 GM GT EVERY 12 HOURS, (Reported) Valproate Sodium (Depakene), 250 MG GT BID, (Reported) Vit C/Ascorbate Ca/Ascorb Sod (Vitamin C 500 Mg/15 Ml Liquid), 500 MG GT DAILY, (Reported) Scheduled PRN Albuterol Sulfate* (Albuterol Sulfate Hhn*), 3 ML INH Q6H PRN for Shortness of Breath, (Reported) Clonidine Hcl* (Catapres*), 0.1 MG GT EVERY 6 HOURS PRN for For High Blood Pressure, (Reported) Magnesium Hydroxide* (Milk Of Magnesia*), 30 ML GT DAILY PRN for Constipation, ( Reported) Patient History Healthcare decision maker Jessica sanchez Resuscitation status Full Code Advanced Directive on File Patient History Narrative Pmhx: as above Shx :No smoking, alcohol use, drug use Fhx: non contributory Physical Exam Physical Exam Narrative General Appearance: no apparent distress, alert, non-toxic HEENT: normocephalic, atraumatic, bilateral eye PERRLp Trach in place. Enlarged, area on upper gums with purple color and L. upper canine tooth dislodged but still attached. Neck: full range of motion Respiratory: chest non-tender, normal breath sounds, no respiratory distress Cardiovascular # regular rate, rhythm, no edema Gastrointestinal: normal bowel sounds, non tender, soft, non-distended, no guarding, no rebound, other - PEG Musculoskeletal: other - Contracted Neurologic: alert, responsive, other - At baseline Skin: warm/dry, well hydrated, other - See RN exam Last 24 Hour Vital Signs Date Time Temp Pulse Resp B/P (MAP) Pulse Ox O2 Delivery O2 Flow Rate FiO2 05/09/18 16:44 48 19 40 05/09/18 16:00 Mechanical Ventilator 15.0 05/09/18 16:00 40 05/09/18 16:00 52 05/09/18 15:30 Mechanical Ventilator 35.0 05/09/18 14:59 96.4 56 18 141/73 100 Mechanical Ventilator 15.0 40 96.4 05/09/18 14:45 50 18 40 05/09/18 13:51 56 18 141/73 100 Mechanical Ventilator 15.0 40 05/09/18 13:00 57 18 106/64 100 Mechanical Ventilator 15.0 40 05/09/18 12:30 49 18 40 05/09/18 11:45 15.0 40 05/09/18 11:32 96.4 82 25 114/74 98 Mechanical Ventilator 15.0 40 96.4 05/09/18 11:27 69 18 40 05/09/18 11:27 69 18 Mechanical Ventilator 40 05/09/18 11:22 68 18 114/74 98 Mechanical Ventilator Laboratory Tests Test 05/09/18 11:40 05/09/18 11:55 White Blood Count 7.2 K/UL (4.8-10.8) Red Blood Count 3.21 M/UL (4.70-6.10) L Hemoglobin 8.8 G/DL (14.2-18.0) L Hematocrit 27.8 % (42.0-52.0) L Mean Corpuscular Volume 87 FL (80-99) Mean Corpuscular Hemoglobin 27.6 PG (27.0-31.0) Mean Corpuscular Hemoglobin Concent 31.8 G/DL (32.0-36.0) L Red Cell Distribution Width 13.9 % (11.6-14.8) Platelet Count 286 K/UL (150-450) Mean Platelet Volume 6.2 FL (6.5-10.1) L Neutrophils (%) (Auto) 60.2 % (45.0-75.0) Lymphocytes (%) (Auto) 20.7 % (20.0-45.0) Monocytes (%) (Auto) 9.9 % (1.0-10.0) Eosinophils (%) (Auto) 8.1 % (0.0-3.0) H Basophils (%) (Auto) 1.1 % (0.0-2.0) Differential Total Cells Counted 100 Neutrophils % (Manual) 59 % (45-75) Lymphocytes % (Manual) 24 % (20-45) Monocytes % (Manual) 12 % (1-10) H Eosinophils % (Manual) 4 % (0-3) H Basophils % (Manual) 1 % (0-2) Band Neutrophils 0 % (0-8) Platelet Estimate Adequate Platelet Morphology Normal Hypochromasia 2+ Anisocytosis 1+ Erythrocyte Sedimentation Rate 114 MM/HR (0-20) H Reticulocyte Count 2.4 % (0.0-2.0) H Prothrombin Time 10.6 SEC (9.30-11.50) Prothromb Time International Ratio 1.0 (0.9-1.1) Activated Partial Thromboplast Time 33 SEC (23-33) Urine Color Yellow Urine Appearance Slightly cloudy Urine pH 6.5 (4.5-8.0) Urine Specific [place] 1.015 (1.005-1.035) Urine Protein 1+ (NEGATIVE) H Urine Glucose (UA) Negative (NEGATIVE) Urine Ketones Negative (NEGATIVE) Urine Blood 1+ (NEGATIVE) H Urine Nitrite Positive (NEGATIVE) H Urine Bilirubin Negative (NEGATIVE) Urine Urobilinogen Normal MG/DL (0.0-1.0) Urine Leukocyte Esterase 3+ (NEGATIVE) H Urine RBC 2-4 /HPF (0 - 0) H Urine WBC 15-20 /HPF (0 - 0) H Urine Squamous Epithelial Cells Occasional /LPF Urine Bacteria Moderate /HPF (NONE) H Sodium Level 132 MMOL/L (136-145) L Potassium Level 4.6 MMOL/L (3.5-5.1) Chloride Level 98 MMOL/L (98-107) Carbon Dioxide Level 25 MMOL/L (21-32) Blood Urea Nitrogen 29 mg/dL (7-18) H Creatinine 0.8 MG/DL (0.55-1.30) Estimat Glomerular Filtration Rate > 60 mL/min (>60) Glucose Level 119 MG/DL (74-106) H Calcium Level 8.9 MG/DL (8.5-10.1) Total Bilirubin 0.3 MG/DL (0.2-1.0) Aspartate Amino Transf (AST/SGOT) 12 U/L (15-37) L Alanine Aminotransferase (ALT/SGPT) 26 U/L (12-78) Alkaline Phosphatase 126 U/L (46-116) H Total Protein 7.5 G/DL (6.4-8.2) Albumin 3.1 G/DL (3.4-5.0) L Globulin 4.4 g/dL Albumin/Globulin Ratio 0.7 (1.0-2.7) L Carcinoembryonic Antigen Pending Iron Level 32 ug/dL (50-175) L Total Iron Binding Capacity 238 ug/dL (250-450) L Percent Iron Saturation 13 % (15-50) L Unsaturated Iron Binding 206 ug/dL (112-346) Lactate Dehydrogenase 129 U/L (135-225) L Vitamin B12 Level 1624 PG/ML (193-986) H Folate 24.4 NG/ML (8.6-58.9) Height (Feet): 5 Height (Inches): 6.00 Weight (Pounds): 160 Medications Current Medications Medications (Trade) Dose Ordered Sig/Marciano Route PRN Reason Start Time Stop Time Status Last Admin Dose Admin Albuterol/ Ipratropium (Albuterol/ Ipratropium) 3 ml Q4H PRN HHN Shortness of Breath 8/24/18 13:45 05/14/18 13:44 Carvedilol (Coreg) 6.25 mg EVERY 12 HOURS GT 05/09/18 21:00 06/08/18 20:59 Clonidine HCl (Catapres Tab) 0.1 mg Q6H PRN GT For High Blood Pressure 05/09/18 13:45 06/08/18 13:44 Dextrose (Dextrose 50%) STAT PRN IV Hypoglycemia 05/09/18 13:45 06/08/18 13:44 Heparin Sodium (Porcine) (Heparin 5000 units/ml) 5,000 units EVERY 12 HOURS SUBQ 05/09/18 21:00 06/08/18 20:59 Hydralazine HCl (Apresoline) 10 mg Q12HR GT 05/09/18 21:00 06/08/18 20:59 Levetiracetam (Keppra) 1,000 mg Q12HR GT 05/09/18 21:00 06/08/18 20:59 Lorazepam (Ativan 2mg/ml 1ml) 2 mg Q2H PRN IV For Anxiety 05/09/18 13:45 05/16/18 13:44 Morphine Sulfate (Morphine Sulfate) 4 mg Q4H PRN IVP Severe Pain (Pain Scale 7-10) 05/09/18 13:45 05/16/18 13:44 Ondansetron HCl (Zofran) 4 mg Q6H PRN IVP Nausea & Vomiting 05/09/18 13:45 06/08/18 13:44 Pantoprazole (Protonix) 40 mg DAILY IV 05/10/18 09:00 06/09/18 08:59 Polyethylene Glycol (Miralax) 17 gm DAILYPRN PRN ORAL Constipation 05/09/18 13:45 06/08/18 13:44 Valproic Acid (Depakene) 250 mg EVERY 12 HOURS ORAL 05/09/18 21:00 06/08/18 20:59 Vancomycin HCl (Vanco rx to dose) 1 ea DAILY PRN MISC PER PHARMACY 05/09/18 14:15 06/08/18 14:14 Vancomycin/Sodium Chloride 250 ml @ 166.667 mls/hr Q12H IVPB 05/10/18 01:00 05/15/18 00:59 Assessment/Plan Assessment/Plan Abx: IV Vanco 05/09- Ceftriaxone x1 05/09 Assessment: Oral bleeding 2ry to dental abscess and OM -CT maxillo facial: Evidence of large apical root abscess/osteomyelitis involving the apical roots of the left maxillary canine tooth and first premolar. Evidence of extensive dental disease elsewhere, as described. Right mastoid disease. Suggestion of skin thickening of the right lower lip and bilateral preauricular regions. Correlate with clinical findings -ESR 114 Mild hypothermia/bradycardia- ?sepsis- r/o hypothyroidism -u/a wbc 15-20 nit +, leuk est +3 Recent PNA 02/2018, s/p rx -CXR 02/16: Continued demonstration of right lower lung zone opacity. Questionable trace left pleural effusion. -sp cx p S. marcenses (R amp, otherwise S), MDR PSA (S aminoglycosies) chronic respiratory failure on tracheostomy cardiac arrest COPD DM2 PEG seizure disorder bedbound nonverbal hypertension hypoxic encephalopathy Plan: -Continue IV Vancomycin #1 and stat IV Unasyn for dental abscess/OM -02/24 SP INH Tobra #10 -02/21 Cefepime #10 -6/ SP IV Vanco #3 -02/12 SP Flagyl x1 -02/11/18 SP IV Vanco and Zosyn #7 -f/u cx (Ucx) -Monitor CBC/BMP, temperatures -trach/peg care -aspiration precautions -Dental vs maxillofacial vs ENT eval for surgical intervention -CRP am, CXR, Bcx x2 Thank you for this consultation. Will continue to follow along with you. Discussed with Melody Bryant M.D. May 09, 2018 18:59
[2018-05-09 20:00] VITALS: BP 140/73
[2018-05-09] MEDS: Ampicillin/Sulbactam Sod 3 GM in NS 110 ML IVPB SCH (20:33)
[2018-05-09] MEDS: Carvedilol 6.25mg Tab GT SCH (21:00)
[2018-05-09] MEDS: Heparin 5000 units/ml inj SUBQ SCH (21:00)
[2018-05-09] MEDS: HydrALAZINE 10mg Tab GT SCH (21:00)
[2018-05-09] MEDS: levETIRAcetam 500mg/5ml Liquid GT SCH (21:11)
--- NOTE | 2018-05-09 23:15 | History and Physical Report ---
DATE OF ADMISSION: 05/09/2018 APPROXIMATE TIME: At 1 p.m. CONSULTANTS: 1. Leodan Bojorquez M.D. 2. Gerardo Degroot M.D. 3. Fermín Alberto M.D. CHIEF COMPLAINT: Persistent oral bleed, respiratory failure. BRIEF HISTORY: The patient is a 72-year-old [facility] with history of persistent oral bleeding. He has past medical history of trach, vent, confused, lethargic in bed, being admitted to step-down unit for further care. Currently, calm, lethargic, trach, vent, nonverbal. PAST MEDICAL HISTORY: respiratory failure and hypertension. PAST SURGICAL HISTORY: Trach and G-tube. MEDICATIONS: Vancomycin, Protonix, Coreg, Depakote, Keppra, Catapres, morphine, MiraLAX, Ativan, and ceftriaxone. ALLERGIES: Tylenol. SOCIAL HISTORY: Unable to obtain secondary to the patient's condition. REVIEW OF SYSTEMS: Unavailable. PHYSICAL EXAMINATION: GENERAL: Lethargic in bed, trach, vent, altered, and nonverbal. VITAL SIGNS: Temperature is 96 degrees, pulse 46, respirations 25, and blood pressure 114/74. HEENT: Mouth, slight blood tinged lips. Trach and vent in place. CARDIOVASCULAR: No murmurs. LUNGS: Poor air exchange. ABDOMEN: Bowel sounds distant. EXTREMITIES: No cyanosis or edema. NEUROLOGIC: The patient is flaccid in bed, not following directions. LABORATORY AND DIAGNOSTIC DATA: Hemoglobin 8.8, otherwise CBC is normal. BMP shows sodium 132, BUN 29, and glucose 119. AST 12 and alkaline phosphatase 126. Albumin 3.1. INR is 1.0 and PTT is 33. Urinalysis showed 3+ leukocyte esterase. ASSESSMENT: 1. Oral bleeding. 2. UTI. 3. Respiratory failure, trach and vent. 4. Hypertension. 5. Anemia. PLAN: 1. Continue previous medications. 2. Vent per Pulmonary. 3. Antibiotics per Infectious Diseases. 4. Blood pressure control. 5. Dietary followup. 6. Resume home medications. 7. Dr. Bojorquez, Dr. Degroot, Dr. Alberto, and Dr. Mendez to consult. 8. We will continue to follow the patient medically. 9. CBC and BMP in the morning. Yosef Garcia D.O. DR: MAIKEL JOB#: [id number] CC:
[2018-05-10] VITALS: BP 159/95
[2018-05-10] MEDS: Vancomycin 750mg/NS 250ml IVPB SCH ×2 (01:44→14:03)
[2018-05-10] MEDS: Ampicillin/Sulbactam Sod 3 GM in NS 110 ML IVPB SCH ×4 (02:05→20:18)
[2018-05-10 04:00] VITALS: BP 132/56
[2018-05-10 04:21] LABS: BASOPHILS % (AUTO) 0.9 % (0.0-2.0); EOSINOPHILS % (AUTO) 9.3 % (0.0-3.0); HEMATOCRIT 28.4 % (42.0-52.0); MEAN CORPUSCULAR VOLUME 87 FL (80-99); MONOCYTES % (AUTO) 10.1 % (1.0-10.0); NEUTROPHILS % (AUTO) 62.7 % (45.0-75.0); PLATELET COUNT 292 K/UL (150-450); RED BLOOD COUNT 3.27 M/UL (4.70-6.10); RED CELL DISTRIBUTION WIDTH 13.7 % (11.6-14.8); WHITE BLOOD COUNT 5.6 K/UL (4.8-10.8)
[2018-05-10 04:38] LABS: ALBUMIN 3.4 G/DL (3.4-5.0); ANION GAP 9 mmol/L (5-15); BLOOD UREA NITROGEN 27 mg/dL (7-18); CALCIUM 9.3 MG/DL (8.5-10.1); CARBON DIOXIDE 26 MMOL/L (21-32); CHLORIDE 98 MMOL/L (98-107); CREATININE 0.6 MG/DL (0.55-1.30); PHOSPHORUS 3.8 MG/DL (2.5-4.9); POTASSIUM 4.3 MMOL/L (3.5-5.1); SODIUM 133 MMOL/L (136-145)
[2018-05-10 04:46] LABS: ANION GAP 10 mmol/L (5-15); BLOOD UREA NITROGEN 28 mg/dL (7-18); CALCIUM 9.3 MG/DL (8.5-10.1); CARBON DIOXIDE 25 MMOL/L (21-32); CHLORIDE 98 MMOL/L (98-107); CREATININE 0.6 MG/DL (0.55-1.30); POTASSIUM 4.3 MMOL/L (3.5-5.1); SODIUM 133 MMOL/L (136-145)
[2018-05-10 08:00] VITALS: BP 144/78
[2018-05-10] MEDS: Heparin 5000 units/ml inj SUBQ SCH ×2 (09:00→21:00)
[2018-05-10] MEDS: Carvedilol 6.25mg Tab GT SCH ×2 (09:08→21:37)
[2018-05-10] MEDS: HydrALAZINE 10mg Tab GT SCH ×2 (09:08→21:36)
[2018-05-10] MEDS: Pantoprazole Inj IV SCH (09:09)
[2018-05-10] MEDS: levETIRAcetam 500mg/5ml Liquid GT SCH ×2 (09:11→21:37)
--- NOTE | 2018-05-10 10:41 | Consultation ---
History of Present Illness General Date patient seen: May 10, 2018 Chief Complaint: General Complaint Present Illness HPI 72 year old male with hx of chronic respiratory failure [facility] from [facility] with CC of ongoing bleeding from his mouth. The [facility] facility was unable to control the bleeding in his mouth consistent him to the emergency department. There are no other complaints. Allergies: Coded Allergies: ACETAMINOPHEN (Verified Allergy, Unknown, 12/16/17) Medication History Scheduled Amino Acids/Protein Hydrolys (Pro-Stat Profile Liquid Packet), 30 ML GT DAILY, ( Reported) Carvedilol* (Carvedilol*), 6.25 MG GT EVERY 12 HOURS, (Reported) Docusate Sodium* (Docusate Sodium*), 100 MG GT THREE TIMES A DAY, (Reported) Ferrous Sulfate (Ferrous Sulfate), 325 MG GT BID, (Reported) Heparin Sod (Porcine) (Heparin Sodium*), 5,000 UNITS SUBQ EVERY 12 HOURS, ( Reported) Hydralazine Hcl* (Hydralazine Hcl*), 10 MG GT BID, (Reported) Levetiracetam* (Levetiracetam*), 1,000 MG GT BID, (Reported) Multivitamin Liquid* (Multi-Delyn*), 15 ML GT DAILY, (Reported) Omeprazole (Omeprazole), 40 MG GT DAILY, (Reported) Cvkqyrjlsnbi-Ctdi-Nxiwwowq,Iso (Zosyn 3.375 Gm Pre Mix-Bag), 3.375 GM IVPB EVERY 8 HOURS, (Reported) Polyethylene Glycol 3350* (Miralax*), 17 GM GT HS, (Reported) Sodium Chloride* (Sodium Chloride*), 1 GM GT EVERY 12 HOURS, (Reported) Valproate Sodium (Depakene), 250 MG GT BID, (Reported) Vit C/Ascorbate Ca/Ascorb Sod (Vitamin C 500 Mg/15 Ml Liquid), 500 MG GT DAILY, (Reported) Scheduled PRN Albuterol Sulfate* (Albuterol Sulfate Hhn*), 3 ML INH Q6H PRN for Shortness of Breath, (Reported) Clonidine Hcl* (Catapres*), 0.1 MG GT EVERY 6 HOURS PRN for For High Blood Pressure, (Reported) Magnesium Hydroxide* (Milk Of Magnesia*), 30 ML GT DAILY PRN for Constipation, ( Reported) Patient History Healthcare decision maker Jessica sanchez Resuscitation status Full Code Advanced Directive on File Past Medical/Surgical History Past Medical/Surgical History: (1) Osteomyelitis (2) Vegetative state (3) Feeding by G-tube (4) Chronic respiratory failure Review of Systems All Other Systems: negative except mentioned in HPI Physical Exam General Appearance: WD/WN Lines, tubes and drains: peripheral, trach HEENT: normocephalic, atraumatic Neck: non-tender, normal alignment Respiratory/Chest: chest wall non-tender, lungs clear Cardiovascular/Chest: normal peripheral pulses, normal rate Abdomen: normal bowel sounds, non tender Genitourinary/Rectal: normal genital exam, normal rectal exam Extremities: normal range of motion, non-tender Skin Exam: normal pigmentation Neurologic: straw baler II-XII grossly normal Last 24 Hour Vital Signs Date Time Temp Pulse Resp B/P (MAP) Pulse Ox O2 Delivery O2 Flow Rate FiO2 05/10/18 09:28 70 18 50 05/10/18 09:08 144/70 05/10/18 09:08 77 144/70 05/10/18 08:00 96.0 77 22 144/78 (100) 100 96.0 05/10/18 08:00 50 05/10/18 06:50 75 24 50 05/10/18 05:30 73 19 50 05/10/18 04:00 96.1 63 22 132/56 (81) 100 96.1 05/10/18 04:00 50 05/10/18 04:00 Mechanical Ventilator 15.0 05/10/18 04:00 74 05/10/18 03:22 56 18 50 05/10/18 01:30 52 20 50 05/10/18 00:00 Mechanical Ventilator 15.0 05/10/18 00:00 96.5 58 23 159/95 (116) 100 96.5 05/09/18 23:30 60 19 50 05/09/18 21:30 41 21 50 05/09/18 21:00 140/73 05/09/18 21:00 60 140/73 05/09/18 20:00 48 05/09/18 20:00 97.0 60 20 140/73 (95) 99 97.0 05/09/18 20:00 50 05/09/18 20:00 Mechanical Ventilator 15.0 05/09/18 19:30 47 22 50 05/09/18 16:44 48 19 40 05/09/18 16:00 Mechanical Ventilator 15.0 05/09/18 16:00 40 05/09/18 16:00 52 05/09/18 15:30 Mechanical Ventilator 35.0 05/09/18 14:59 96.4 56 18 141/73 100 Mechanical Ventilator 15.0 40 96.4 05/09/18 14:45 50 18 40 05/09/18 13:51 56 18 141/73 100 Mechanical Ventilator 15.0 40 05/09/18 13:00 57 18 106/64 100 Mechanical Ventilator 15.0 40 05/09/18 12:30 49 18 40 05/09/18 11:45 15.0 40 05/09/18 11:32 96.4 82 25 114/74 98 Mechanical Ventilator 15.0 40 96.4 05/09/18 11:27 69 18 40 05/09/18 11:27 69 18 Mechanical Ventilator 40 05/09/18 11:22 68 18 114/74 98 Mechanical Ventilator Intake and Output 05/09/18 05/10/18 19:00 07:00 Intake Total 0 ml 1010.000 ml Output Total 50 ml 600 ml Balance -50 ml 410.000 ml Intake Oral 0 ml Free Water 150 ml IV Total 470.000 ml Tube Feeding 390 ml Output Urine Total 50 ml 600 ml # Voids 2 Laboratory Tests Test 05/09/18 11:40 05/09/18 11:55 05/10/18 03:50 White Blood Count 7.2 K/UL (4.8-10.8) 5.6 K/UL (4.8-10.8) Red Blood Count 3.21 M/UL (4.70-6.10) L 3.27 M/UL (4.70-6.10) L Hemoglobin 8.8 G/DL (14.2-18.0) L 9.0 G/DL (14.2-18.0) L Hematocrit 27.8 % (42.0-52.0) L 28.4 % (42.0-52.0) L Mean Corpuscular Volume 87 FL (80-99) 87 FL (80-99) Mean Corpuscular Hemoglobin 27.6 PG (27.0-31.0) 27.6 PG (27.0-31.0) Mean Corpuscular Hemoglobin Concent 31.8 G/DL (32.0-36.0) L 31.8 G/DL (32.0-36.0) L Red Cell Distribution Width 13.9 % (11.6-14.8) 13.7 % (11.6-14.8) Platelet Count 286 K/UL (150-450) 292 K/UL (150-450) Mean Platelet Volume 6.2 FL (6.5-10.1) L 6.3 FL (6.5-10.1) L Neutrophils (%) (Auto) 60.2 % (45.0-75.0) 62.7 % (45.0-75.0) Lymphocytes (%) (Auto) 20.7 % (20.0-45.0) 17.0 % (20.0-45.0) L Monocytes (%) (Auto) 9.9 % (1.0-10.0) 10.1 % (1.0-10.0) H Eosinophils (%) (Auto) 8.1 % (0.0-3.0) H 9.3 % (0.0-3.0) H Basophils (%) (Auto) 1.1 % (0.0-2.0) 0.9 % (0.0-2.0) Differential Total Cells Counted 100 Neutrophils % (Manual) 59 % (45-75) Lymphocytes % (Manual) 24 % (20-45) Monocytes % (Manual) 12 % (1-10) H Eosinophils % (Manual) 4 % (0-3) H Basophils % (Manual) 1 % (0-2) Band Neutrophils 0 % (0-8) Platelet Estimate Adequate Platelet Morphology Normal Hypochromasia 2+ Anisocytosis 1+ Erythrocyte Sedimentation Rate 114 MM/HR (0-20) H Reticulocyte Count 2.4 % (0.0-2.0) H Prothrombin Time 10.6 SEC (9.30-11.50) Prothromb Time International Ratio 1.0 (0.9-1.1) Activated Partial Thromboplast Time 33 SEC (23-33) Urine Color Yellow Urine Appearance Slightly cloudy Urine pH 6.5 (4.5-8.0) Urine Specific [place] 1.015 (1.005-1.035) Urine Protein 1+ (NEGATIVE) H Urine Glucose (UA) Negative (NEGATIVE) Urine Ketones Negative (NEGATIVE) Urine Blood 1+ (NEGATIVE) H Urine Nitrite Positive (NEGATIVE) H Urine Bilirubin Negative (NEGATIVE) Urine Urobilinogen Normal MG/DL (0.0-1.0) Urine Leukocyte Esterase 3+ (NEGATIVE) H Urine RBC 2-4 /HPF (0 - 0) H Urine WBC 15-20 /HPF (0 - 0) H Urine Squamous Epithelial Cells Occasional /LPF Urine Bacteria Moderate /HPF (NONE) H Sodium Level 132 MMOL/L (136-145) L 133 MMOL/L (136-145) L Potassium Level 4.6 MMOL/L (3.5-5.1) 4.3 MMOL/L (3.5-5.1) Chloride Level 98 MMOL/L (98-107) 98 MMOL/L (98-107) Carbon Dioxide Level 25 MMOL/L (21-32) 25 MMOL/L (21-32) Blood Urea Nitrogen 29 mg/dL (7-18) H 28 mg/dL (7-18) H Creatinine 0.8 MG/DL (0.55-1.30) 0.6 MG/DL (0.55-1.30) Estimat Glomerular Filtration Rate > 60 mL/min (>60) > 60 mL/min (>60) Glucose Level 119 MG/DL (74-106) H 130 MG/DL (74-106) H Calcium Level 8.9 MG/DL (8.5-10.1) 9.3 MG/DL (8.5-10.1) Total Bilirubin 0.3 MG/DL (0.2-1.0) Aspartate Amino Transf (AST/SGOT) 12 U/L (15-37) L Alanine Aminotransferase (ALT/SGPT) 26 U/L (12-78) Alkaline Phosphatase 126 U/L (46-116) H Total Protein 7.5 G/DL (6.4-8.2) Albumin 3.1 G/DL (3.4-5.0) L 3.4 G/DL (3.4-5.0) Globulin 4.4 g/dL Albumin/Globulin Ratio 0.7 (1.0-2.7) L Carcinoembryonic Antigen 2.9 ng/mL (0.0-4.7) Iron Level 32 ug/dL (50-175) L Total Iron Binding Capacity 238 ug/dL (250-450) L Percent Iron Saturation 13 % (15-50) L Unsaturated Iron Binding 206 ug/dL (112-346) Lactate Dehydrogenase 129 U/L (135-225) L Vitamin B12 Level 1624 PG/ML (193-986) H Folate 24.4 NG/ML (8.6-58.9) Anion Gap 10 mmol/L (5-15) Phosphorus Level 3.8 MG/DL (2.5-4.9) C-Reactive Protein, Quantitative 3.4 mg/dL (0.00-0.90) H Thyroid Stimulating Hormone (TSH) 1.307 uiU/mL (0.358-3.740) Microbiology Date/Time Source Procedure Growth Status 05/09/18 11:40 Urine,Clean Catch Urine Culture - Preliminary NO GROWTH Resulted Height (Feet): 5 Height (Inches): 6.00 Weight (Pounds): 160 Medications Current Medications Medications (Trade) Dose Ordered Sig/Marciano Route PRN Reason Start Time Stop Time Status Last Admin Dose Admin Albuterol/ Ipratropium (Albuterol/ Ipratropium) 3 ml Q4H PRN HHN Shortness of Breath 05/09/18 13:45 05/14/18 13:44 Ampicillin Sodium/ Sulbactam Sodium 3 gm/Sodium Chloride 110 ml @ 220 mls/hr Q6H IVPB 05/09/18 20:00 05/16/18 19:59 05/10/18 09:08 Carvedilol (Coreg) 6.25 mg EVERY 12 HOURS GT 05/09/18 21:00 06/08/18 20:59 05/10/18 09:08 Clonidine HCl (Catapres Tab) 0.1 mg Q6H PRN GT For High Blood Pressure 05/09/18 13:45 06/08/18 13:44 Dextrose (Dextrose 50%) STAT PRN IV Hypoglycemia 05/09/18 13:45 06/08/18 13:44 Heparin Sodium (Porcine) (Heparin 5000 units/ml) 5,000 units EVERY 12 HOURS SUBQ 05/09/18 21:00 06/08/18 20:59 Hydralazine HCl (Apresoline) 10 mg Q12HR GT 05/09/18 21:00 06/08/18 20:59 05/10/18 09:08 Levetiracetam (Keppra) 1,000 mg Q12HR GT 05/09/18 21:00 06/08/18 20:59 05/10/18 09:11 Lorazepam (Ativan 2mg/ml 1ml) 2 mg Q2H PRN IV For Anxiety 05/09/18 13:45 05/16/18 13:44 Morphine Sulfate (Morphine Sulfate) 4 mg Q4H PRN IVP Severe Pain (Pain Scale 7-10) 05/09/18 13:45 05/16/18 13:44 Ondansetron HCl (Zofran) 4 mg Q6H PRN IVP Nausea & Vomiting 05/09/18 13:45 06/08/18 13:44 Pantoprazole (Protonix) 40 mg DAILY IV 05/10/18 09:00 06/09/18 08:59 05/10/18 09:09 Polyethylene Glycol (Miralax) 17 gm DAILYPRN PRN ORAL Constipation 05/09/18 13:45 06/08/18 13:44 Valproic Acid (Depakene) 250 mg EVERY 12 HOURS ORAL 05/09/18 21:00 06/08/18 20:59 05/10/18 09:09 Vancomycin HCl (Vanco rx to dose) 1 ea DAILY PRN MISC PER PHARMACY 05/09/18 14:15 06/08/18 14:14 Vancomycin/Sodium Chloride 250 ml @ 166.667 mls/hr Q12H IVPB 05/10/18 01:00 05/15/18 00:59 05/10/18 01:44 Assessment/Plan Problem List: (1) Acute on chronic respiratory failure ICD Codes: J96.20 - Acute and chronic respiratory failure, unspecified whether with hypoxia or hypercapnia SNOMED: 04804613 (2) Oral abscess ICD Codes: K12.2 - Cellulitis and abscess of mouth SNOMED: 39302855 (3) Aspiration pneumonia ICD Codes: J69.0 - Pneumonitis due to inhalation of food and vomit SNOMED: 810533102 (4) Chronic respiratory failure ICD Codes: J96.10 - Chronic respiratory failure, unspecified whether with hypoxia or hypercapnia SNOMED: 32346069 (5) Vegetative state ICD Codes: R40.3 - Persistent vegetative state SNOMED: 60872608 (6) Feeding by G-tube ICD Codes: Z93.1 - Gastrostomy status SNOMED: 874069843, 544139179 Assessment/Plan montiel cultures iv abx check electrolytes titrate fio2 to sat of 92% dvt prophylaxis oral surgery or ent evaluation Leodan Bojorquez MD May 10, 2018 10:41
--- NOTE | 2018-05-10 10:52 | Infectious Diseases Prog Note ---
Assessment/Plan Assessment/Plan Assessment: Oral bleeding 2ry to dental abscess and OM -CT maxillo facial: Evidence of large apical root abscess/osteomyelitis involving the apical roots of the left maxillary canine tooth and first premolar. Evidence of extensive dental disease elsewhere, as described. Right mastoid disease. Suggestion of skin thickening of the right lower lip and bilateral preauricular regions. Correlate with clinical findings -ESR 114 CRP 3.4 ? sepsis Ro probable UTI -u/a wbc 15-20 nit +, leuk est +3 Recent PNA 02/2018, s/p rx -CXR 02/16: Continued demonstration of right lower lung zone opacity. Questionable trace left pleural effusion. -sp cx p S. marcenses (R amp, otherwise S), MDR PSA (S aminoglycosies) chronic respiratory failure on tracheostomy cardiac arrest COPD DM2 PEG seizure disorder bedbound nonverbal hypertension hypoxic encephalopathy Plan: -Continue IV Vancomycin and IV Unasyn d# 2 for dental abscess/OM ( may consider DC Vanco , if Cx are negative for MRSA ) -02/24 SP INH Tobra #10 -02/21 Cefepime #10 -6/ SP IV Vanco #3 -02/12 SP Flagyl x1 -02/11/18 SP IV Vanco and Zosyn #7 -f/u cx (Ucx, Sp ) -Monitor CBC/BMP, temperatures -trach/peg care -aspiration precautions -Dental vs maxillofacial vs ENT eval for surgical intervention - CXR, Bcx x2 Subjective Allergies: Coded Allergies: ACETAMINOPHEN (Verified Allergy, Unknown, 12/16/17) Subjective Afebrile Objective Vital Signs Last 24 Hour Vital Signs Date Time Temp Pulse Resp B/P (MAP) Pulse Ox O2 Delivery O2 Flow Rate FiO2 05/10/18 09:28 70 18 50 05/10/18 09:08 144/70 05/10/18 09:08 77 144/70 05/10/18 08:00 96.0 77 22 144/78 (100) 100 96.0 05/10/18 08:00 50 05/10/18 06:50 75 24 50 05/10/18 05:30 73 19 50 05/10/18 04:00 96.1 63 22 132/56 (81) 100 96.1 05/10/18 04:00 50 05/10/18 04:00 Mechanical Ventilator 15.0 05/10/18 04:00 74 05/10/18 03:22 56 18 50 05/10/18 01:30 52 20 50 05/10/18 00:00 Mechanical Ventilator 15.0 05/10/18 00:00 96.5 58 23 159/95 (116) 100 96.5 05/09/18 23:30 60 19 50 05/09/18 21:30 41 21 50 05/09/18 21:00 140/73 05/09/18 21:00 60 140/73 05/09/18 20:00 48 05/09/18 20:00 97.0 60 20 140/73 (95) 99 97.0 05/09/18 20:00 50 05/09/18 20:00 Mechanical Ventilator 15.0 05/09/18 19:30 47 22 50 05/09/18 16:44 48 19 40 05/09/18 16:00 Mechanical Ventilator 15.0 05/09/18 16:00 40 05/09/18 16:00 52 05/09/18 15:30 Mechanical Ventilator 35.0 05/09/18 14:59 96.4 56 18 141/73 100 Mechanical Ventilator 15.0 40 96.4 05/09/18 14:45 50 18 40 05/09/18 13:51 56 18 141/73 100 Mechanical Ventilator 15.0 40 05/09/18 13:00 57 18 106/64 100 Mechanical Ventilator 15.0 40 05/09/18 12:30 49 18 40 05/09/18 11:45 15.0 40 05/09/18 11:32 96.4 82 25 114/74 98 Mechanical Ventilator 15.0 40 96.4 05/09/18 11:27 69 18 40 05/09/18 11:27 69 18 Mechanical Ventilator 40 05/09/18 11:22 68 18 114/74 98 Mechanical Ventilator Height (Feet): 5 Height (Inches): 6.00 Weight (Pounds): 160 HEENT: anicteric Respiratory/Chest: no respiratory distress Cardiovascular: regular rhythm Abdomen: no organomegaly Microbiology Date/Time Source Procedure Growth Status 05/09/18 11:40 Urine,Clean Catch Urine Culture - Preliminary NO GROWTH Resulted Laboratory Tests Test 05/09/18 11:40 05/09/18 11:55 05/10/18 03:50 White Blood Count 7.2 K/UL (4.8-10.8) 5.6 K/UL (4.8-10.8) Red Blood Count 3.21 M/UL (4.70-6.10) L 3.27 M/UL (4.70-6.10) L Hemoglobin 8.8 G/DL (14.2-18.0) L 9.0 G/DL (14.2-18.0) L Hematocrit 27.8 % (42.0-52.0) L 28.4 % (42.0-52.0) L Mean Corpuscular Volume 87 FL (80-99) 87 FL (80-99) Mean Corpuscular Hemoglobin 27.6 PG (27.0-31.0) 27.6 PG (27.0-31.0) Mean Corpuscular Hemoglobin Concent 31.8 G/DL (32.0-36.0) L 31.8 G/DL (32.0-36.0) L Red Cell Distribution Width 13.9 % (11.6-14.8) 13.7 % (11.6-14.8) Platelet Count 286 K/UL (150-450) 292 K/UL (150-450) Mean Platelet Volume 6.2 FL (6.5-10.1) L 6.3 FL (6.5-10.1) L Neutrophils (%) (Auto) 60.2 % (45.0-75.0) 62.7 % (45.0-75.0) Lymphocytes (%) (Auto) 20.7 % (20.0-45.0) 17.0 % (20.0-45.0) L Monocytes (%) (Auto) 9.9 % (1.0-10.0) 10.1 % (1.0-10.0) H Eosinophils (%) (Auto) 8.1 % (0.0-3.0) H 9.3 % (0.0-3.0) H Basophils (%) (Auto) 1.1 % (0.0-2.0) 0.9 % (0.0-2.0) Differential Total Cells Counted 100 Neutrophils % (Manual) 59 % (45-75) Lymphocytes % (Manual) 24 % (20-45) Monocytes % (Manual) 12 % (1-10) H Eosinophils % (Manual) 4 % (0-3) H Basophils % (Manual) 1 % (0-2) Band Neutrophils 0 % (0-8) Platelet Estimate Adequate Platelet Morphology Normal Hypochromasia 2+ Anisocytosis 1+ Erythrocyte Sedimentation Rate 114 MM/HR (0-20) H Reticulocyte Count 2.4 % (0.0-2.0) H Prothrombin Time 10.6 SEC (9.30-11.50) Prothromb Time International Ratio 1.0 (0.9-1.1) Activated Partial Thromboplast Time 33 SEC (23-33) Urine Color Yellow Urine Appearance Slightly cloudy Urine pH 6.5 (4.5-8.0) Urine Specific [place] 1.015 (1.005-1.035) Urine Protein 1+ (NEGATIVE) H Urine Glucose (UA) Negative (NEGATIVE) Urine Ketones Negative (NEGATIVE) Urine Blood 1+ (NEGATIVE) H Urine Nitrite Positive (NEGATIVE) H Urine Bilirubin Negative (NEGATIVE) Urine Urobilinogen Normal MG/DL (0.0-1.0) Urine Leukocyte Esterase 3+ (NEGATIVE) H Urine RBC 2-4 /HPF (0 - 0) H Urine WBC 15-20 /HPF (0 - 0) H Urine Squamous Epithelial Cells Occasional /LPF Urine Bacteria Moderate /HPF (NONE) H Sodium Level 132 MMOL/L (136-145) L 133 MMOL/L (136-145) L Potassium Level 4.6 MMOL/L (3.5-5.1) 4.3 MMOL/L (3.5-5.1) Chloride Level 98 MMOL/L (98-107) 98 MMOL/L (98-107) Carbon Dioxide Level 25 MMOL/L (21-32) 25 MMOL/L (21-32) Blood Urea Nitrogen 29 mg/dL (7-18) H 28 mg/dL (7-18) H Creatinine 0.8 MG/DL (0.55-1.30) 0.6 MG/DL (0.55-1.30) Estimat Glomerular Filtration Rate > 60 mL/min (>60) > 60 mL/min (>60) Glucose Level 119 MG/DL (74-106) H 130 MG/DL (74-106) H Calcium Level 8.9 MG/DL (8.5-10.1) 9.3 MG/DL (8.5-10.1) Total Bilirubin 0.3 MG/DL (0.2-1.0) Aspartate Amino Transf (AST/SGOT) 12 U/L (15-37) L Alanine Aminotransferase (ALT/SGPT) 26 U/L (12-78) Alkaline Phosphatase 126 U/L (46-116) H Total Protein 7.5 G/DL (6.4-8.2) Albumin 3.1 G/DL (3.4-5.0) L 3.4 G/DL (3.4-5.0) Globulin 4.4 g/dL Albumin/Globulin Ratio 0.7 (1.0-2.7) L Carcinoembryonic Antigen 2.9 ng/mL (0.0-4.7) Iron Level 32 ug/dL (50-175) L Total Iron Binding Capacity 238 ug/dL (250-450) L Percent Iron Saturation 13 % (15-50) L Unsaturated Iron Binding 206 ug/dL (112-346) Lactate Dehydrogenase 129 U/L (135-225) L Vitamin B12 Level 1624 PG/ML (193-986) H Folate 24.4 NG/ML (8.6-58.9) Anion Gap 10 mmol/L (5-15) Phosphorus Level 3.8 MG/DL (2.5-4.9) C-Reactive Protein, Quantitative 3.4 mg/dL (0.00-0.90) H Thyroid Stimulating Hormone (TSH) 1.307 uiU/mL (0.358-3.740) Current Medications Medications (Trade) Dose Ordered Sig/Marciano Route PRN Reason Start Time Stop Time Status Last Admin Dose Admin Albuterol/ Ipratropium (Albuterol/ Ipratropium) 3 ml Q4H PRN HHN Shortness of Breath 05/09/18 13:45 05/14/18 13:44 Ampicillin Sodium/ Sulbactam Sodium 3 gm/Sodium Chloride 110 ml @ 220 mls/hr Q6H IVPB 05/09/18 20:00 05/16/18 19:59 05/10/18 09:08 Carvedilol (Coreg) 6.25 mg EVERY 12 HOURS GT 05/09/18 21:00 06/08/18 20:59 05/10/18 09:08 Clonidine HCl (Catapres Tab) 0.1 mg Q6H PRN GT For High Blood Pressure 05/09/18 13:45 06/08/18 13:44 Dextrose (Dextrose 50%) STAT PRN IV Hypoglycemia 05/09/18 13:45 06/08/18 13:44 Heparin Sodium (Porcine) (Heparin 5000 units/ml) 5,000 units EVERY 12 HOURS SUBQ 05/09/18 21:00 06/08/18 20:59 Hydralazine HCl (Apresoline) 10 mg Q12HR GT 05/09/18 21:00 06/08/18 20:59 05/10/18 09:08 Levetiracetam (Keppra) 1,000 mg Q12HR GT 05/09/18 21:00 06/08/18 20:59 05/10/18 09:11 Lorazepam (Ativan 2mg/ml 1ml) 2 mg Q2H PRN IV For Anxiety 05/09/18 13:45 05/16/18 13:44 Morphine Sulfate (Morphine Sulfate) 4 mg Q4H PRN IVP Severe Pain (Pain Scale 7-10) 05/09/18 13:45 05/16/18 13:44 Ondansetron HCl (Zofran) 4 mg Q6H PRN IVP Nausea & Vomiting 05/09/18 13:45 06/08/18 13:44 Pantoprazole (Protonix) 40 mg DAILY IV 05/10/18 09:00 06/09/18 08:59 05/10/18 09:09 Polyethylene Glycol (Miralax) 17 gm DAILYPRN PRN ORAL Constipation 05/09/18 13:45 06/08/18 13:44 Valproic Acid (Depakene) 250 mg EVERY 12 HOURS ORAL 05/09/18 21:00 06/08/18 20:59 05/10/18 09:09 Vancomycin HCl (Vanco rx to dose) 1 ea DAILY PRN MISC PER PHARMACY 05/09/18 14:15 06/08/18 14:14 Vancomycin/Sodium Chloride 250 ml @ 166.667 mls/hr Q12H IVPB 05/10/18 01:00 05/15/18 00:59 05/10/18 01:44 Emery Mendez MD May 10, 2018 10:52
--- NOTE | 2018-05-10 10:56 | General Progress Note ---
Assessment/Plan Problem List: (1) Oral bleeding ICD Codes: K13.79 - Other lesions of oral mucosa SNOMED: 03721391 (2) Hypertension ICD Codes: I10 - Essential (primary) hypertension SNOMED: 88348348 (3) UTI (urinary tract infection) ICD Codes: N39.0 - Urinary tract infection, site not specified SNOMED: 98484469 (4) Chronic respiratory failure ICD Codes: J96.10 - Chronic respiratory failure, unspecified whether with hypoxia or hypercapnia SNOMED: 51930283 (5) Anemia ICD Codes: D64.9 - Anemia, unspecified SNOMED: 501491218 (6) Feeding by G-tube ICD Codes: Z93.1 - Gastrostomy status SNOMED: 113421727, 017834862 Status: unchanged Assessment/Plan vent abx transfuse prn cbc bmp am Subjective Constitutional: Reports: weakness Allergies: Coded Allergies: ACETAMINOPHEN (Verified Allergy, Unknown, 12/16/17) All Systems: reviewed and negative except above Subjective trach vent altered Objective Last 24 Hour Vital Signs Date Time Temp Pulse Resp B/P (MAP) Pulse Ox O2 Delivery O2 Flow Rate FiO2 05/10/18 09:28 70 18 50 05/10/18 09:08 144/70 05/10/18 09:08 77 144/70 05/10/18 08:00 96.0 77 22 144/78 (100) 100 96.0 05/10/18 08:00 50 05/10/18 06:50 75 24 50 05/10/18 05:30 73 19 50 05/10/18 04:00 96.1 63 22 132/56 (81) 100 96.1 05/10/18 04:00 50 05/10/18 04:00 Mechanical Ventilator 15.0 05/10/18 04:00 74 05/10/18 03:22 56 18 50 05/10/18 01:30 52 20 50 05/10/18 00:00 Mechanical Ventilator 15.0 05/10/18 00:00 96.5 58 23 159/95 (116) 100 96.5 05/09/18 23:30 60 19 50 05/09/18 21:30 41 21 50 05/09/18 21:00 140/73 05/09/18 21:00 60 140/73 05/09/18 20:00 48 05/09/18 20:00 97.0 60 20 140/73 (95) 99 97.0 05/09/18 20:00 50 05/09/18 20:00 Mechanical Ventilator 15.0 05/09/18 19:30 47 22 50 05/09/18 16:44 48 19 40 05/09/18 16:00 Mechanical Ventilator 15.0 05/09/18 16:00 40 05/09/18 16:00 52 05/09/18 15:30 Mechanical Ventilator 35.0 05/09/18 14:59 96.4 56 18 141/73 100 Mechanical Ventilator 15.0 40 96.4 05/09/18 14:45 50 18 40 05/09/18 13:51 56 18 141/73 100 Mechanical Ventilator 15.0 40 05/09/18 13:00 57 18 106/64 100 Mechanical Ventilator 15.0 40 05/09/18 12:30 49 18 40 05/09/18 11:45 15.0 40 05/09/18 11:32 96.4 82 25 114/74 98 Mechanical Ventilator 15.0 40 96.4 05/09/18 11:27 69 18 40 05/09/18 11:27 69 18 Mechanical Ventilator 40 05/09/18 11:22 68 18 114/74 98 Mechanical Ventilator Intake and Output 05/09/18 05/10/18 19:00 07:00 Intake Total 0 ml 1010.000 ml Output Total 50 ml 600 ml Balance -50 ml 410.000 ml Intake Oral 0 ml Free Water 150 ml IV Total 470.000 ml Tube Feeding 390 ml Output Urine Total 50 ml 600 ml # Voids 2 Laboratory Tests 05/09/18 11:40: White Blood Count 7.2, Red Blood Count 3.21L, Hemoglobin 8.8L, Hematocrit 27.8L , Mean Corpuscular Volume 87, Mean Corpuscular Hemoglobin 27.6, Mean Corpuscular Hemoglobin Concent 31.8L, Red Cell Distribution Width 13.9, Platelet Count 286, Mean Platelet Volume 6.2L, Neutrophils (%) (Auto) 60.2, Lymphocytes (%) (Auto) 20.7, Monocytes (%) (Auto) 9.9, Eosinophils (%) (Auto) 8.1H, Basophils (%) (Auto) 1.1, Differential Total Cells Counted 100, Neutrophils % (Manual) 59, Lymphocytes % (Manual) 24, Monocytes % (Manual) 12H, Eosinophils % (Manual) 4H, Basophils % (Manual) 1, Band Neutrophils 0, Platelet Estimate Adequate, Platelet Morphology Normal, Hypochromasia 2+, Anisocytosis 1+ , Erythrocyte Sedimentation Rate 114H, Reticulocyte Count 2.4H, Prothrombin Time 10.6, Prothromb Time International Ratio 1.0, Activated Partial Thromboplast Time 33, Urine Color Yellow, Urine Appearance Slightly cloudy, Urine pH 6.5, Urine Specific Golden 1.015, Urine Protein 1+H, Urine Glucose (UA ) Negative, Urine Ketones Negative, Urine Blood 1+H, Urine Nitrite PositiveH, Urine Bilirubin Negative, Urine Urobilinogen Normal, Urine Leukocyte Esterase 3+ H, Urine RBC 2-4H, Urine WBC 15-20H, Urine Squamous Epithelial Cells Occasional , Urine Bacteria ModerateH, Sodium Level 132L, Potassium Level 4.6, Chloride Level 98, Carbon Dioxide Level 25, Blood Urea Nitrogen 29H, Creatinine 0.8, Estimat Glomerular Filtration Rate > 60, Glucose Level 119H, Calcium Level 8.9, Total Bilirubin 0.3, Aspartate Amino Transf (AST/SGOT) 12L, Alanine Aminotransferase (ALT/SGPT) 26, Alkaline Phosphatase 126H, Total Protein 7.5, Albumin 3.1L, Globulin 4.4, Albumin/Globulin Ratio 0.7L, Carcinoembryonic Antigen 2.9 05/09/18 11:55: Iron Level 32L, Total Iron Binding Capacity 238L, Percent Iron Saturation 13L, Unsaturated Iron Binding 206, Lactate Dehydrogenase 129L, Vitamin B12 Level 1624H, Folate 24.4 05/10/18 03:50: White Blood Count 5.6, Red Blood Count 3.27L, Hemoglobin 9.0L, Hematocrit 28.4L , Mean Corpuscular Volume 87, Mean Corpuscular Hemoglobin 27.6, Mean Corpuscular Hemoglobin Concent 31.8L, Red Cell Distribution Width 13.7, Platelet Count 292, Mean Platelet Volume 6.3L, Neutrophils (%) (Auto) 62.7, Lymphocytes (%) (Auto) 17.0L, Monocytes (%) (Auto) 10.1H, Eosinophils (%) (Auto ) 9.3H, Basophils (%) (Auto) 0.9, Sodium Level 133L, Potassium Level 4.3, Chloride Level 98, Carbon Dioxide Level 25, Blood Urea Nitrogen 28H, Creatinine 0.6, Estimat Glomerular Filtration Rate > 60, Glucose Level 130H, Calcium Level 9.3, Albumin 3.4, Anion Gap 10, Phosphorus Level 3.8, C-Reactive Protein, Quantitative 3.4H, Thyroid Stimulating Hormone (TSH) 1.307 Height (Feet): 5 Height (Inches): 6.00 Weight (Pounds): 160 General Appearance: lethargic EENT: normal ENT inspection Neck: normal alignment Cardiovascular: normal peripheral pulses, normal rate, regular rhythm Respiratory/Chest: chest wall non-tender, lungs clear, normal breath sounds Abdomen: normal bowel sounds, non tender, soft Extremities: normal inspection Edema: no edema noted Arm (L), no edema noted Arm (R), no edema noted Leg (L), no edema noted Leg (R), no edema noted Pedal (L), no edema noted Pedal (R), no edema noted Generalized Neurologic: motor weakness Skin: normal pigmentation, warm/dry Yosef Garcia DO May 10, 2018 10:56
[2018-05-10 12:00] VITALS: BP 124/69
[2018-05-10 16:00] VITALS: BP 147/79
[2018-05-10 20:00] VITALS: BP 134/85
[2018-05-10] MEDS ORDERED: Vancomycin 1 GM in D5W 275 ML IV SCH (23:00)
[2018-05-11] VITALS: BP 148/90
[2018-05-11] MEDS: Vancomycin 750mg/NS 250ml IVPB SCH ×2 (02:15→13:33)
[2018-05-11] MEDS: Ampicillin/Sulbactam Sod 3 GM in NS 110 ML IVPB SCH ×4 (02:19→21:20)
[2018-05-11 04:00] VITALS: BP 139/71
[2018-05-11 05:09] LABS: BASOPHILS % (AUTO) 1.1 % (0.0-2.0); EOSINOPHILS % (AUTO) 8.4 % (0.0-3.0); HEMATOCRIT 24.9 % (42.0-52.0); LYMPHOCYTES % (AUTO) 17.4 % (20.0-45.0); MEAN CORPUSCULAR VOLUME 87 FL (80-99); MONOCYTES % (AUTO) 9.8 % (1.0-10.0); NEUTROPHILS % (AUTO) 63.3 % (45.0-75.0); PLATELET COUNT 260 K/UL (150-450); RED BLOOD COUNT 2.85 M/UL (4.70-6.10); RED CELL DISTRIBUTION WIDTH 14.2 % (11.6-14.8); WHITE BLOOD COUNT 5.7 K/UL (4.8-10.8)
[2018-05-11 05:39] LABS: ALANINE AMINOTRANSFERASE 22 U/L (12-78); ALBUMIN 2.9 G/DL (3.4-5.0); ALBUMIN/GLOBULIN RATIO 0.7 (1.0-2.7); ALKALINE PHOSPHATASE 117 U/L (46-116); ANION GAP 7 mmol/L (5-15); ASPARTATE AMINO TRANSFERASE 12 U/L (15-37); BILIRUBIN,TOTAL 0.3 MG/DL (0.2-1.0); BLOOD UREA NITROGEN 20 mg/dL (7-18); CALCIUM 8.7 MG/DL (8.5-10.1); CARBON DIOXIDE 26 MMOL/L (21-32); CHLORIDE 102 MMOL/L (98-107); CREATININE 0.6 MG/DL (0.55-1.30); POTASSIUM 4.5 MMOL/L (3.5-5.1); SODIUM 135 MMOL/L (136-145)
[2018-05-11 07:58] VITALS: BP 138/81
[2018-05-11] MEDS: levETIRAcetam 500mg/5ml Liquid GT SCH ×2 (08:14→21:21)
[2018-05-11] MEDS: HydrALAZINE 10mg Tab GT SCH ×2 (08:14→21:22)
[2018-05-11] MEDS: Pantoprazole Inj IV SCH (08:14)
[2018-05-11] MEDS: Carvedilol 6.25mg Tab GT SCH ×2 (08:14→21:22)
[2018-05-11] MEDS: Heparin 5000 units/ml inj SUBQ SCH ×2 (08:15→21:00)
--- NOTE | 2018-05-11 09:50 | Diagnostic Imaging Report ---
EXAM: XR Chest, 1 View CLINICAL HISTORY: DYSPNEA TECHNIQUE: Frontal view of the chest. COMPARISON: Chest x-ray dated 02/17/18 FINDINGS: Lungs: Persistent patchy opacities in the right lung base, likely subsegmental atelectasis. Improved aeration in the left lung base. Pleural space: Small layering right pleural effusion, unchanged. No pneumothorax. Heart: Unremarkable. No cardiomegaly. Mediastinum: Unremarkable. Bones/joints: Unremarkable. Tubes, lines and devices: EKG leads overlie the thorax. Stable positioning of the tracheostomy tube. IMPRESSION: 1. Small layering right pleural effusion, unchanged. 2. Persistent patchy opacities in the right lung base, likely subsegmental atelectasis. Improved aeration in the left lung base.
--- NOTE | 2018-05-11 10:02 | General Progress Note ---
Assessment/Plan Problem List: (1) Oral bleeding ICD Codes: K13.79 - Other lesions of oral mucosa SNOMED: 15918792 (2) Hypertension ICD Codes: I10 - Essential (primary) hypertension SNOMED: 39512729 (3) UTI (urinary tract infection) ICD Codes: N39.0 - Urinary tract infection, site not specified SNOMED: 77079834 (4) Chronic respiratory failure ICD Codes: J96.10 - Chronic respiratory failure, unspecified whether with hypoxia or hypercapnia SNOMED: 58736907 (5) Anemia ICD Codes: D64.9 - Anemia, unspecified SNOMED: 714297832 (6) Feeding by G-tube ICD Codes: Z93.1 - Gastrostomy status SNOMED: 601685798, 112821886 Status: stable, progressing Assessment/Plan vent abx transfuse prn cbc bmp am Subjective Constitutional: Reports: weakness Allergies: Coded Allergies: ACETAMINOPHEN (Verified Allergy, Unknown, 12/16/17) All Systems: reviewed and negative except above Subjective trach vent altered Objective Last 24 Hour Vital Signs Date Time Temp Pulse Resp B/P (MAP) Pulse Ox O2 Delivery O2 Flow Rate FiO2 05/11/18 08:42 56 18 45 05/11/18 08:14 138/81 05/11/18 08:14 59 138/81 05/11/18 08:00 50 05/11/18 07:58 96.0 59 18 138/81 (100) 100 96.0 05/11/18 07:00 59 17 50 05/11/18 04:49 54 14 50 05/11/18 04:00 Mechanical Ventilator 05/11/18 04:00 95.9 64 18 139/71 (93) 100 95.9 05/11/18 04:00 50 05/11/18 03:50 51 05/11/18 02:41 62 19 50 05/11/18 01:08 53 16 50 05/11/18 00:00 54 05/11/18 00:00 Mechanical Ventilator 05/11/18 00:00 96.3 73 22 148/90 (109) 100 96.3 05/11/18 00:00 50 05/10/18 23:03 56 15 50 05/10/18 21:37 57 134/85 05/10/18 21:36 134/85 8/25/18 21:04 57 16 50 05/10/18 20:00 72 05/10/18 20:00 96.1 59 22 134/85 (101) 100 96.1 05/10/18 20:00 50 05/10/18 20:00 Mechanical Ventilator 05/10/18 19:27 57 19 50 05/10/18 17:13 58 21 50 05/10/18 16:00 Mechanical Ventilator 15.0 05/10/18 16:00 50 05/10/18 16:00 52 05/10/18 16:00 95.9 61 18 147/79 (101) 100 95.9 05/10/18 14:40 60 20 50 05/10/18 12:45 61 16 50 05/10/18 12:09 Mechanical Ventilator 15.0 05/10/18 12:08 50 05/10/18 12:00 95.0 59 20 124/69 (87) 100 95.0 05/10/18 12:00 51 05/10/18 11:12 62 18 50 Intake and Output 05/10/18 05/11/18 19:00 07:00 Intake Total 740 ml 1140.000 ml Output Total 501 ml 475 ml Balance 239 ml 665.000 ml Free Water 200 ml 100 ml IV Total 360.000 ml Tube Feeding 420 ml 680 ml Other 120 ml Output Urine Total 501 ml 475 ml Laboratory Tests 05/11/18 00:15: Vancomycin Level Trough 15.3H 05/11/18 04:05: White Blood Count 5.7, Red Blood Count 2.85L, Hemoglobin 8.0L, Hematocrit 24.9L , Mean Corpuscular Volume 87, Mean Corpuscular Hemoglobin 28.1, Mean Corpuscular Hemoglobin Concent 32.2, Red Cell Distribution Width 14.2, Platelet Count 260, Mean Platelet Volume 6.6, Neutrophils (%) (Auto) 63.3, Lymphocytes (% ) (Auto) 17.4L, Monocytes (%) (Auto) 9.8, Eosinophils (%) (Auto) 8.4H, Basophils (%) (Auto) 1.1, Sodium Level 135L, Potassium Level 4.5, Chloride Level 102, Carbon Dioxide Level 26, Anion Gap 7, Blood Urea Nitrogen 20H, Creatinine 0.6, Estimat Glomerular Filtration Rate > 60, Glucose Level 110H, Calcium Level 8.7, Total Bilirubin 0.3, Aspartate Amino Transf (AST/SGOT) 12L, Alanine Aminotransferase (ALT/SGPT) 22, Alkaline Phosphatase 117H, Pro-B-Type Natriuretic Peptide 141H, Total Protein 6.8, Albumin 2.9L, Globulin 3.9, Albumin /Globulin Ratio 0.7L Height (Feet): 5 Height (Inches): 6.00 Weight (Pounds): 160 General Appearance: lethargic EENT: normal ENT inspection Neck: normal alignment Cardiovascular: normal peripheral pulses, normal rate, regular rhythm Respiratory/Chest: chest wall non-tender, lungs clear, normal breath sounds Abdomen: normal bowel sounds, non tender, soft Extremities: normal inspection Edema: no edema noted Arm (L), no edema noted Arm (R), no edema noted Leg (L), no edema noted Leg (R), no edema noted Pedal (L), no edema noted Pedal (R), no edema noted Generalized Neurologic: motor weakness Skin: normal pigmentation, warm/dry Yosef Garcia DO May 11, 2018 10:02
[2018-05-11 12:00] VITALS: BP 135/79
--- NOTE | 2018-05-11 12:37 | Pulmonolgy Critical Care Note ---
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 with: nurses, consultants, case managersschedule planning manager - Objective Last 24 Hour Vital Signs Date Time Temp Pulse Resp B/P (MAP) Pulse Ox O2 Delivery O2 Flow Rate FiO2 05/11/18 12:00 47 05/11/18 12:00 50 05/11/18 11:04 58 22 45 05/11/18 08:42 56 18 45 05/11/18 08:14 138/81 05/11/18 08:14 59 138/81 05/11/18 08:00 Mechanical Ventilator 05/11/18 08:00 50 05/11/18 08:00 54 05/11/18 07:58 96.0 59 18 138/81 (100) 100 96.0 05/11/18 07:00 59 17 50 05/11/18 04:49 54 14 50 05/11/18 04:00 Mechanical Ventilator 05/11/18 04:00 95.9 64 18 139/71 (93) 100 95.9 05/11/18 04:00 50 05/11/18 03:50 51 05/11/18 02:41 62 19 50 05/11/18 01:08 53 16 50 05/11/18 00:00 54 05/11/18 00:00 Mechanical Ventilator 05/11/18 00:00 96.3 73 22 148/90 (109) 100 96.3 05/11/18 00:00 50 05/10/18 23:03 56 15 50 05/10/18 21:37 57 134/85 05/10/18 21:36 134/85 05/10/18 21:04 57 16 50 05/10/18 20:00 72 05/10/18 20:00 96.1 59 22 134/85 (101) 100 96.1 05/10/18 20:00 50 05/10/18 20:00 Mechanical Ventilator 05/10/18 19:27 57 19 50 05/10/18 17:13 58 21 50 05/10/18 16:00 Mechanical Ventilator 15.0 05/10/18 16:00 50 05/10/18 16:00 52 05/10/18 16:00 95.9 61 18 147/79 (101) 100 95.9 05/10/18 14:40 60 20 50 05/10/18 12:45 61 16 50 Status: awake Condition: grave Neck: full ROM Heart: HR/BP stable, regular Abdomen: non-tender, feeding tube Extremities: no C/C/E Decubiti: location Micro: Microbiology Date/Time Source Procedure Growth Status 05/09/18 20:25 Blood Blood Culture - Preliminary NO GROWTH AFTER 24 HOURS Resulted 05/09/18 20:15 Blood Blood Culture - Preliminary NO GROWTH AFTER 24 HOURS Resulted 05/10/18 00:30 Sputum Gram Stain - Final Resulted 05/10/18 00:30 Sputum Culture - Preliminary Gram Negative Bacillus 1 Resulted 05/09/18 11:40 Nasal Nares MRSA Culture - Final NO METHICILLIN RESISTANT STAPH AUREUS... Complete 05/09/18 11:40 Urine,Clean Catch Urine Culture - Preliminary NO GROWTH AFTER 24 HOURS Resulted 05/09/18 11:40 Rectum VRE Culture - Final Enterococcus Faecalis - Vre Complete 05/09/18 11:40 Rectum - Final NO CARBAPENEM-RESISTANT ENTEROBACTERI... Complete Critical Care - Subjective ROS Limited/Unobtainable: No Condition: critical EKG Rhythm: Sinus Rhythm FI02: 50 Vent Support Breath Rate: 8 Vent Support Mode: IMV/SIMV Vent Tidal Volume: 600 Sputum Amount: Scant PEEP: 5.0 PIP: 24 Tube Feeding Amount: 60 I&O: Intake and Output 05/10/18 05/11/18 19:00 07:00 Intake Total 740 ml 1140.000 ml Output Total 501 ml 475 ml Balance 239 ml 665.000 ml Free Water 200 ml 100 ml IV Total 360.000 ml Tube Feeding 420 ml 680 ml Other 120 ml Output Urine Total 501 ml 475 ml Labs: Laboratory Tests Test 05/11/18 00:15 05/11/18 04:05 Vancomycin Level Trough 15.3 ug/mL (5.0-12.0) H White Blood Count 5.7 K/UL (4.8-10.8) Red Blood Count 2.85 M/UL (4.70-6.10) L Hemoglobin 8.0 G/DL (14.2-18.0) L Hematocrit 24.9 % (42.0-52.0) L Mean Corpuscular Volume 87 FL (80-99) Mean Corpuscular Hemoglobin 28.1 PG (27.0-31.0) Mean Corpuscular Hemoglobin Concent 32.2 G/DL (32.0-36.0) Red Cell Distribution Width 14.2 % (11.6-14.8) Platelet Count 260 K/UL (150-450) Mean Platelet Volume 6.6 FL (6.5-10.1) Neutrophils (%) (Auto) 63.3 % (45.0-75.0) Lymphocytes (%) (Auto) 17.4 % (20.0-45.0) L Monocytes (%) (Auto) 9.8 % (1.0-10.0) Eosinophils (%) (Auto) 8.4 % (0.0-3.0) H Basophils (%) (Auto) 1.1 % (0.0-2.0) Sodium Level 135 MMOL/L (136-145) L Potassium Level 4.5 MMOL/L (3.5-5.1) Chloride Level 102 MMOL/L (98-107) Carbon Dioxide Level 26 MMOL/L (21-32) Anion Gap 7 mmol/L (5-15) Blood Urea Nitrogen 20 mg/dL (7-18) H Creatinine 0.6 MG/DL (0.55-1.30) Estimat Glomerular Filtration Rate > 60 mL/min (>60) Glucose Level 110 MG/DL (74-106) H Calcium Level 8.7 MG/DL (8.5-10.1) Total Bilirubin 0.3 MG/DL (0.2-1.0) Aspartate Amino Transf (AST/SGOT) 12 U/L (15-37) L Alanine Aminotransferase (ALT/SGPT) 22 U/L (12-78) Alkaline Phosphatase 117 U/L (46-116) H Pro-B-Type Natriuretic Peptide 141 pg/mL (0-125) H Total Protein 6.8 G/DL (6.4-8.2) Albumin 2.9 G/DL (3.4-5.0) L Globulin 3.9 g/dL Albumin/Globulin Ratio 0.7 (1.0-2.7) L Leodan Bojorquez MD May 11, 2018 12:37
[2018-05-11 16:00] VITALS: BP 149/71
[2018-05-11] MEDS ORDERED: NS 275ml ONE (16:26)
[2018-05-11] MEDS ORDERED: Tubing IV Secondary IV ONE (16:26)
--- NOTE | 2018-05-11 17:58 | Consultation ---
Consult Note Consult Note Hematology Consult DATE OF CONSULTATION: 05/11/2018 JOSÉ LUIS KEYES: Jose REASON FOR CONSULTATION: Evaluation of anemia and chronic oral bleeding. HISTORY OF PRESENT ILLNESS: The patient is a 72-year-old male from a SNF presenting to [facility] with history of persistent oral bleeding. He has past medical history of trach, vent, confused, lethargic in bed, being admitted to step-down unit for further care. Currently, calm, lethargic, trach, vent, nonverbal. I have been consulted for the evaluation of anemia and chronic oral bleeding. Current Hgb of 8.0, anemia w/u to be obtained. PAST MEDICAL HISTORY: Respiratory failure and hypertension. PAST SURGICAL HISTORY: Trach and G-tube. MEDICATIONS: Vancomycin, Protonix, Coreg, Depakote, Keppra, Catapres, morphine , MiraLAX, Ativan, and ceftriaxone. ALLERGIES: Tylenol. SOCIAL HISTORY: Unable to obtain secondary to the patient's condition. REVIEW OF SYSTEMS: Unavailable. PHYSICAL EXAMINATION: GENERAL: Lethargic in bed, trach, vent, altered, and nonverbal. VITAL SIGNS: Temperature is 96 degrees, pulse 46, respirations 25, and blood pressure 114/74. HEENT: Mouth, slight blood tinged lips. Trach and vent in place. CARDIOVASCULAR: No murmurs. LUNGS: Poor air exchange. ABDOMEN: Bowel sounds distant. EXTREMITIES: No cyanosis or edema. NEUROLOGIC: The patient is flaccid in bed, not following directions. LABORATORY AND DIAGNOSTIC DATA: Hemoglobin 8.8, otherwise CBC is normal. BMP shows sodium 132, BUN 29, and glucose 119. AST 12 and alkaline phosphatase 126. Albumin 3.1. INR is 1.0 and PTT is 33. Urinalysis showed 3+ leukocyte esterase. Assessment/Plan # Anemia of chronic disease. Anemia w/u to be ordered. --> Continue to monitor for stability. --> Hgb goal above 7. Transfuse as needed. --> anemia panel has been reviewed, currently does not require iron # Oral bleeding due to dental abscess --> abx as per ID service --> currently improved # UTI. Pt on IV abx. # Respiratory failure. Trach and vent. # Hypertension. Pt on several BP meds. Fermín Alberto MD May 11, 2018 17:58
[2018-05-11 20:00] VITALS: BP 137/96
[2018-05-12] VITALS: BP 137/96
[2018-05-12] MEDS: Vancomycin 750mg/NS 250ml IVPB SCH ×2 (01:17→13:16)
[2018-05-12] MEDS: Ampicillin/Sulbactam Sod 3 GM in NS 110 ML IVPB SCH ×4 (02:50→20:57)
[2018-05-12 04:00] VITALS: BP 145/74
[2018-05-12 05:40] LABS: BASOPHILS % (AUTO) 0.7 % (0.0-2.0); EOSINOPHILS % (AUTO) 6.2 % (0.0-3.0); HEMATOCRIT 26.3 % (42.0-52.0); HEMOGLOBIN 8.4 G/DL (14.2-18.0); LYMPHOCYTES % (AUTO) 18.9 % (20.0-45.0); MEAN CORPUSCULAR VOLUME 87 FL (80-99); MONOCYTES % (AUTO) 6.4 % (1.0-10.0); NEUTROPHILS % (AUTO) 67.8 % (45.0-75.0); PLATELET COUNT 284 K/UL (150-450); RED BLOOD COUNT 3.02 M/UL (4.70-6.10); WHITE BLOOD COUNT 4.9 K/UL (4.8-10.8)
[2018-05-12 06:02] LABS: ALANINE AMINOTRANSFERASE 24 U/L (12-78); ALBUMIN 2.9 G/DL (3.4-5.0); ALBUMIN/GLOBULIN RATIO 0.7 (1.0-2.7); ALKALINE PHOSPHATASE 125 U/L (46-116); ANION GAP 6 mmol/L (5-15); ASPARTATE AMINO TRANSFERASE 15 U/L (15-37); BILIRUBIN,TOTAL 0.3 MG/DL (0.2-1.0); BLOOD UREA NITROGEN 16 mg/dL (7-18); CALCIUM 8.6 MG/DL (8.5-10.1); CARBON DIOXIDE 28 MMOL/L (21-32); CHLORIDE 102 MMOL/L (98-107); CREATININE 0.6 MG/DL (0.55-1.30); POTASSIUM 4.7 MMOL/L (3.5-5.1); SODIUM 136 MMOL/L (136-145)
[2018-05-12 08:00] VITALS: BP 137/96
[2018-05-12] MEDS: Heparin 5000 units/ml inj SUBQ SCH ×3 (09:00→21:08)
[2018-05-12] MEDS: Carvedilol 6.25mg Tab GT SCH ×2 (09:15→20:58)
[2018-05-12] MEDS: HydrALAZINE 10mg Tab GT SCH ×2 (09:16→20:58)
[2018-05-12] MEDS: Pantoprazole Inj IV SCH (09:16)
[2018-05-12] MEDS: levETIRAcetam 500mg/5ml Liquid GT SCH ×2 (09:16→20:57)
--- NOTE | 2018-05-12 10:10 | General Progress Note ---
Assessment/Plan Status: unchanged Assessment/Plan # Anemia of chronic disease. --> Anemia panel has been reviewed, currently does not require iron. Will trend CBC as needed. --> Continue to monitor for stability. --> Hgb goal above 7. Transfuse as needed. --> Current Hgb of 8.4 # Oral bleeding due to dental abscess. --> abx as per ID service --> currently improved # UTI. Pt on IV abx. # Respiratory failure. Remains on trach and vent. # Hypertension. Pt on several BP meds. The time the note was entered does not necessarily correspond to the time the patient was seen. Subjective Date patient seen: May 12, 2018 ROS Limited/Unobtainable: Yes Hematologic/Lymphatic: Reports: anemia Allergies: Coded Allergies: ACETAMINOPHEN (Verified Allergy, Unknown, 12/16/17) All Systems: reviewed and negative except above Subjective Pt remains obtunded and on vent. No acute events. H/H stable. Objective Last 24 Hour Vital Signs Date Time Temp Pulse Resp B/P (MAP) Pulse Ox O2 Delivery O2 Flow Rate FiO2 05/12/18 09:16 113/60 05/12/18 09:15 86 113/60 05/12/18 08:45 78 16 35 05/12/18 08:00 77 05/12/18 06:50 66 17 35 05/12/18 04:56 61 15 35 05/12/18 04:00 58 05/12/18 04:00 Mechanical Ventilator 05/12/18 04:00 95.9 70 20 145/74 (97) 98 95.9 05/12/18 04:00 50 05/12/18 03:01 60 14 35 05/12/18 00:57 64 15 35 05/12/18 00:00 Mechanical Ventilator 05/12/18 00:00 96.6 63 20 137/96 (110) 98 96.6 05/12/18 00:00 61 05/11/18 22:43 53 8 35 05/11/18 21:22 137/96 05/11/18 21:22 65 137/96 05/11/18 20:48 49 8 35 05/11/18 20:00 Mechanical Ventilator 05/11/18 20:00 96.0 65 15 137/96 (110) 98 96.0 05/11/18 20:00 58 05/11/18 20:00 50 05/11/18 18:43 59 17 35 05/11/18 17:06 61 22 35 05/11/18 16:00 95.5 53 18 149/71 (97) 98 95.5 05/11/18 16:00 55 05/11/18 16:00 50 05/11/18 16:00 Mechanical Ventilator 05/11/18 15:28 56 18 35 05/11/18 13:18 54 22 40 05/11/18 12:00 Mechanical Ventilator 05/11/18 12:00 96.0 61 22 135/79 (97) 100 96.0 05/11/18 12:00 47 05/11/18 12:00 50 05/11/18 11:04 58 22 45 Intake and Output 05/11/18 05/12/18 19:00 07:00 Intake Total 1040 ml 1526.111 ml Output Total 750 ml 350 ml Balance 290 ml 1176.111 ml Free Water 200 ml 300 ml IV Total 506.111 ml Tube Feeding 720 ml 720 ml Other 120 ml Output Urine Total 750 ml 350 ml # Bowel Movements 2 Laboratory Tests 05/12/18 03:56: White Blood Count 4.9, Red Blood Count 3.02L, Hemoglobin 8.4L, Hematocrit 26.3L , Mean Corpuscular Volume 87, Mean Corpuscular Hemoglobin 27.9, Mean Corpuscular Hemoglobin Concent 32.0, Red Cell Distribution Width 14.0, Platelet Count 284, Mean Platelet Volume 6.4L, Neutrophils (%) (Auto) 67.8, Lymphocytes ( %) (Auto) 18.9L, Monocytes (%) (Auto) 6.4, Eosinophils (%) (Auto) 6.2H, Basophils (%) (Auto) 0.7, Sodium Level 136, Potassium Level 4.7, Chloride Level 102, Carbon Dioxide Level 28, Anion Gap 6, Blood Urea Nitrogen 16, Creatinine 0.6, Estimat Glomerular Filtration Rate > 60, Glucose Level 95, Calcium Level 8.6, Total Bilirubin 0.3, Aspartate Amino Transf (AST/SGOT) 15, Alanine Aminotransferase (ALT/SGPT) 24, Alkaline Phosphatase 125H, Pro-B-Type Natriuretic Peptide 152H, Total Protein 6.8, Albumin 2.9L, Globulin 3.9, Albumin /Globulin Ratio 0.7L Height (Feet): 5 Height (Inches): 6.00 Weight (Pounds): 160 General Appearance: no apparent distress EENT: PERRL/EOMI Neck: normal alignment Cardiovascular: normal peripheral pulses Respiratory/Chest: no respiratory distress Abdomen: soft Fermín Alberto MD May 12, 2018 10:10
--- NOTE | 2018-05-12 10:23 | Pulmonolgy Critical Care Note ---
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, 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 with: nurses, consultants, immigration case managermarketing account manager - Objective Last 24 Hour Vital Signs Date Time Temp Pulse Resp B/P (MAP) Pulse Ox O2 Delivery O2 Flow Rate FiO2 05/12/18 09:16 113/60 05/12/18 09:15 86 113/60 05/12/18 08:45 78 16 35 05/12/18 08:00 77 05/12/18 06:50 66 17 35 05/12/18 04:56 61 15 35 05/12/18 04:00 58 05/12/18 04:00 Mechanical Ventilator 05/12/18 04:00 95.9 70 20 145/74 (97) 98 95.9 05/12/18 04:00 50 05/12/18 03:01 60 14 35 05/12/18 00:57 64 15 35 05/12/18 00:00 Mechanical Ventilator 05/12/18 00:00 96.6 63 20 137/96 (110) 98 96.6 05/12/18 00:00 61 05/11/18 22:43 53 8 35 05/11/18 21:22 137/96 05/11/18 21:22 65 137/96 05/11/18 20:48 49 8 35 05/11/18 20:00 Mechanical Ventilator 05/11/18 20:00 96.0 65 15 137/96 (110) 98 96.0 05/11/18 20:00 58 05/11/18 20:00 50 05/11/18 18:43 59 17 35 05/11/18 17:06 61 22 35 05/11/18 16:00 95.5 53 18 149/71 (97) 98 95.5 05/11/18 16:00 55 05/11/18 16:00 50 05/11/18 16:00 Mechanical Ventilator 05/11/18 15:28 56 18 35 05/11/18 13:18 54 22 40 05/11/18 12:00 Mechanical Ventilator 05/11/18 12:00 96.0 61 22 135/79 (97) 100 96.0 05/11/18 12:00 47 05/11/18 12:00 50 05/11/18 11:04 58 22 45 Status: obtunded Condition: critical HEENT: atraumatic Neck: full ROM Lungs: clear Heart: HR/BP stable, regular Abdomen: non-tender, active bowel sounds Extremities: no C/C/E Decubiti: stage Micro: Microbiology Date/Time Source Procedure Growth Status 05/09/18 20:25 Blood Blood Culture - Preliminary NO GROWTH AFTER 48 HOURS Resulted 05/09/18 20:15 Blood Blood Culture - Preliminary NO GROWTH AFTER 48 HOURS Resulted 05/10/18 00:30 Sputum Gram Stain - Final Resulted 05/10/18 00:30 Sputum Culture - Preliminary Pseudomonas Aeruginosa Gram Negative Bacillus 2 Resulted 05/09/18 11:40 Nasal Nares MRSA Culture - Final NO METHICILLIN RESISTANT STAPH AUREUS... Complete 05/09/18 11:40 Urine,Clean Catch Urine Culture - Preliminary Gram Negative Bacillus 1 Resulted 05/09/18 11:40 Rectum VRE Culture - Final Enterococcus Faecalis - Vre Complete 05/09/18 11:40 Rectum - Final NO CARBAPENEM-RESISTANT ENTEROBACTERI... Complete Critical Care - Subjective ROS Limited/Unobtainable: Yes Condition: critical EKG Rhythm: Sinus Rhythm FI02: 35 Vent Support Breath Rate: 8 Vent Support Mode: IMV/SIMV Vent Tidal Volume: 600 Sputum Amount: Scant PEEP: 5.0 PIP: 20 Tube Feeding Amount: 60 I&O: Intake and Output 05/11/18 05/12/18 19:00 07:00 Intake Total 1040 ml 1526.111 ml Output Total 750 ml 350 ml Balance 290 ml 1176.111 ml Free Water 200 ml 300 ml IV Total 506.111 ml Tube Feeding 720 ml 720 ml Other 120 ml Output Urine Total 750 ml 350 ml # Bowel Movements 2 CXR: RLL infiltrate and effusion Labs: Laboratory Tests Test 05/12/18 03:56 White Blood Count 4.9 K/UL (4.8-10.8) Red Blood Count 3.02 M/UL (4.70-6.10) L Hemoglobin 8.4 G/DL (14.2-18.0) L Hematocrit 26.3 % (42.0-52.0) L Mean Corpuscular Volume 87 FL (80-99) Mean Corpuscular Hemoglobin 27.9 PG (27.0-31.0) Mean Corpuscular Hemoglobin Concent 32.0 G/DL (32.0-36.0) Red Cell Distribution Width 14.0 % (11.6-14.8) Platelet Count 284 K/UL (150-450) Mean Platelet Volume 6.4 FL (6.5-10.1) L Neutrophils (%) (Auto) 67.8 % (45.0-75.0) Lymphocytes (%) (Auto) 18.9 % (20.0-45.0) L Monocytes (%) (Auto) 6.4 % (1.0-10.0) Eosinophils (%) (Auto) 6.2 % (0.0-3.0) H Basophils (%) (Auto) 0.7 % (0.0-2.0) Sodium Level 136 MMOL/L (136-145) Potassium Level 4.7 MMOL/L (3.5-5.1) Chloride Level 102 MMOL/L (98-107) Carbon Dioxide Level 28 MMOL/L (21-32) Anion Gap 6 mmol/L (5-15) Blood Urea Nitrogen 16 mg/dL (7-18) Creatinine 0.6 MG/DL (0.55-1.30) Estimat Glomerular Filtration Rate > 60 mL/min (>60) Glucose Level 95 MG/DL (74-106) Calcium Level 8.6 MG/DL (8.5-10.1) Total Bilirubin 0.3 MG/DL (0.2-1.0) Aspartate Amino Transf (AST/SGOT) 15 U/L (15-37) Alanine Aminotransferase (ALT/SGPT) 24 U/L (12-78) Alkaline Phosphatase 125 U/L (46-116) H Pro-B-Type Natriuretic Peptide 152 pg/mL (0-125) H Total Protein 6.8 G/DL (6.4-8.2) Albumin 2.9 G/DL (3.4-5.0) L Globulin 3.9 g/dL Albumin/Globulin Ratio 0.7 (1.0-2.7) L Leodan Bojorquez MD May 12, 2018 10:23
[2018-05-12 12:00] VITALS: BP 102/66
--- NOTE | 2018-05-12 12:16 | Diagnostic Imaging Report ---
Indication: Dyspnea Comparison: 05/11/2018 A single view chest radiograph was obtained. Findings: There is a right pleural effusion and a probable left pleural effusion again noted. Tracheostomy noted. Heart size is stable. IMPRESSION: Bilateral pleural effusion
--- NOTE | 2018-05-12 12:41 | Infectious Diseases Prog Note ---
Assessment/Plan Assessment/Plan Oral bleeding 2ry to dental abscess and OM -CT maxillo facial: Evidence of large apical root abscess/osteomyelitis involving the apical roots of the left maxillary canine tooth and first premolar. Evidence of extensive dental disease elsewhere, as described. Right mastoid disease. Suggestion of skin thickening of the right lower lip and bilateral preauricular regions. Correlate with clinical findings -ESR 114 CRP 3.4 ? sepsis -CXR: Bilateral pleural effusion -sp cx PsA, GNR #2 (likely colonizer as no obvious infiltrate, consolidation on CXR) Ro UTI -u/a wbc 15-20 nit +, leuk est +3; Ucx 10-20K GNR (low count, suspect colonizer) Recent PNA 02/2018, s/p rx -CXR 02/16: Continued demonstration of right lower lung zone opacity. Questionable trace left pleural effusion. -sp cx p S. marcenses (R amp, otherwise S), MDR PSA (S aminoglycosies) chronic respiratory failure on tracheostomy cardiac arrest COPD DM2 PEG seizure disorder bedbound nonverbal hypertension hypoxic encephalopathy Plan: -Continue IV Vancomycin and IV Unasyn d# 4 for dental abscess/OM ( may consider DC Vanco , if Cx are negative for MRSA ) -02/24 SP INH Tobra #10 -6/8 Cefepime #10 -6/ SP IV Vanco #3 -02/12 SP Flagyl x1 -02/11/18 SP IV Vanco and Zosyn #7 -f/u cx -Monitor CBC/BMP, temperatures -trach/peg care -aspiration precautions -ENT eval pending Discussed with RN, Dr Bojorquez and Dr Garcia. Subjective Allergies: Coded Allergies: ACETAMINOPHEN (Verified Allergy, Unknown, 12/16/17) Subjective hypothermic, Tmin 95.9 Objective Vital Signs Last 24 Hour Vital Signs Date Time Temp Pulse Resp B/P (MAP) Pulse Ox O2 Delivery O2 Flow Rate FiO2 05/12/18 12:00 50 05/12/18 12:00 Mechanical Ventilator 05/12/18 10:42 83 25 35 05/12/18 09:16 113/60 05/12/18 09:15 86 113/60 05/12/18 08:45 78 16 35 05/12/18 08:00 50 05/12/18 08:00 95.9 65 13 137/96 (110) 97 95.9 05/12/18 08:00 77 05/12/18 08:00 Mechanical Ventilator 05/12/18 06:50 66 17 35 05/12/18 04:56 61 15 35 05/12/18 04:00 58 05/12/18 04:00 Mechanical Ventilator 05/12/18 04:00 95.9 70 20 145/74 (97) 98 95.9 05/12/18 04:00 50 05/12/18 03:01 60 14 35 05/12/18 00:57 64 15 35 05/12/18 00:00 Mechanical Ventilator 05/12/18 00:00 96.6 63 20 137/96 (110) 98 96.6 05/12/18 00:00 61 05/11/18 22:43 53 8 35 05/11/18 21:22 137/96 05/11/18 21:22 65 137/96 05/11/18 20:48 49 8 35 05/11/18 20:00 Mechanical Ventilator 05/11/18 20:00 96.0 65 15 137/96 (110) 98 96.0 05/11/18 20:00 58 05/11/18 20:00 50 05/11/18 18:43 59 17 35 05/11/18 17:06 61 22 35 05/11/18 16:00 95.5 53 18 149/71 (97) 98 95.5 05/11/18 16:00 55 05/11/18 16:00 50 05/11/18 16:00 Mechanical Ventilator 05/11/18 15:28 56 18 35 05/11/18 13:18 54 22 40 Height (Feet): 5 Height (Inches): 6.00 Weight (Pounds): 160 Objective General Appearance: no apparent distress, alert, non-toxic HEENT: normocephalic, atraumatic, bilateral eye PERRLp Trach in place. Enlarged, area on upper gums with purple color and L. upper canine tooth dislodged but still attached. Neck: full range of motion Respiratory: chest non-tender, normal breath sounds, no respiratory distress Cardiovascular # regular rate, rhythm, no edema Gastrointestinal: normal bowel sounds, non tender, soft, non-distended, no guarding, no rebound, other - PEG Musculoskeletal: other - Contracted Neurologic: alert, responsive, other - At baseline Skin: warm/dry, well hydrated, other - See RN exam Microbiology Date/Time Source Procedure Growth Status 05/09/18 20:25 Blood Blood Culture - Preliminary NO GROWTH AFTER 48 HOURS Resulted 05/09/18 20:15 Blood Blood Culture - Preliminary NO GROWTH AFTER 48 HOURS Resulted 05/10/18 00:30 Sputum Gram Stain - Final Resulted 05/10/18 00:30 Sputum Culture - Preliminary Pseudomonas Aeruginosa Gram Negative Bacillus 2 Resulted Laboratory Tests Test 05/12/18 03:56 White Blood Count 4.9 K/UL (4.8-10.8) Red Blood Count 3.02 M/UL (4.70-6.10) L Hemoglobin 8.4 G/DL (14.2-18.0) L Hematocrit 26.3 % (42.0-52.0) L Mean Corpuscular Volume 87 FL (80-99) Mean Corpuscular Hemoglobin 27.9 PG (27.0-31.0) Mean Corpuscular Hemoglobin Concent 32.0 G/DL (32.0-36.0) Red Cell Distribution Width 14.0 % (11.6-14.8) Platelet Count 284 K/UL (150-450) Mean Platelet Volume 6.4 FL (6.5-10.1) L Neutrophils (%) (Auto) 67.8 % (45.0-75.0) Lymphocytes (%) (Auto) 18.9 % (20.0-45.0) L Monocytes (%) (Auto) 6.4 % (1.0-10.0) Eosinophils (%) (Auto) 6.2 % (0.0-3.0) H Basophils (%) (Auto) 0.7 % (0.0-2.0) Sodium Level 136 MMOL/L (136-145) Potassium Level 4.7 MMOL/L (3.5-5.1) Chloride Level 102 MMOL/L (98-107) Carbon Dioxide Level 28 MMOL/L (21-32) Anion Gap 6 mmol/L (5-15) Blood Urea Nitrogen 16 mg/dL (7-18) Creatinine 0.6 MG/DL (0.55-1.30) Estimat Glomerular Filtration Rate > 60 mL/min (>60) Glucose Level 95 MG/DL (74-106) Calcium Level 8.6 MG/DL (8.5-10.1) Total Bilirubin 0.3 MG/DL (0.2-1.0) Aspartate Amino Transf (AST/SGOT) 15 U/L (15-37) Alanine Aminotransferase (ALT/SGPT) 24 U/L (12-78) Alkaline Phosphatase 125 U/L (46-116) H Pro-B-Type Natriuretic Peptide 152 pg/mL (0-125) H Total Protein 6.8 G/DL (6.4-8.2) Albumin 2.9 G/DL (3.4-5.0) L Globulin 3.9 g/dL Albumin/Globulin Ratio 0.7 (1.0-2.7) L Current Medications Medications (Trade) Dose Ordered Sig/Marciano Route PRN Reason Start Time Stop Time Status Last Admin Dose Admin Albuterol/ Ipratropium (Albuterol/ Ipratropium) 3 ml Q4H PRN HHN Shortness of Breath 05/09/18 13:45 05/14/18 13:44 Ampicillin Sodium/ Sulbactam Sodium 3 gm/Sodium Chloride 110 ml @ 220 mls/hr Q6H IVPB 05/09/18 20:00 05/16/18 19:59 05/12/18 09:16 Carvedilol (Coreg) 6.25 mg EVERY 12 HOURS GT 05/09/18 21:00 06/08/18 20:59 05/12/18 09:15 Clonidine HCl (Catapres Tab) 0.1 mg Q6H PRN GT For High Blood Pressure 05/09/18 13:45 06/08/18 13:44 Dextrose (Dextrose 50%) STAT PRN IV Hypoglycemia 05/09/18 13:45 06/08/18 13:44 Heparin Sodium (Porcine) (Heparin 5000 units/ml) 5,000 units EVERY 12 HOURS SUBQ 05/09/18 21:00 06/08/18 20:59 Hydralazine HCl (Apresoline) 10 mg Q12HR GT 05/09/18 21:00 06/08/18 20:59 05/12/18 09:16 Levetiracetam (Keppra) 1,000 mg Q12HR GT 05/09/18 21:00 06/08/18 20:59 05/12/18 09:16 Lorazepam (Ativan 2mg/ml 1ml) 2 mg Q2H PRN IV For Anxiety 05/09/18 13:45 05/16/18 13:44 Morphine Sulfate (Morphine Sulfate) 4 mg Q4H PRN IVP Severe Pain (Pain Scale 7-10) 05/09/18 13:45 05/16/18 13:44 Ondansetron HCl (Zofran) 4 mg Q6H PRN IVP Nausea & Vomiting 05/09/18 13:45 06/08/18 13:44 Pantoprazole (Protonix) 40 mg DAILY IV 05/10/18 09:00 06/09/18 08:59 05/12/18 09:16 Polyethylene Glycol (Miralax) 17 gm DAILYPRN PRN ORAL Constipation 05/09/18 13:45 06/08/18 13:44 Valproic Acid (Depakene) 250 mg EVERY 12 HOURS ORAL 05/09/18 21:00 06/08/18 20:59 05/12/18 09:16 Vancomycin HCl (Vanco rx to dose) 1 ea DAILY PRN MISC PER PHARMACY 05/09/18 14:15 06/08/18 14:14 Vancomycin/Sodium Chloride 250 ml @ 166.667 mls/hr Q12H IVPB 05/10/18 01:00 05/15/18 00:59 05/12/18 01:17 Melody Suarez M.D. May 12, 2018 12:41
--- NOTE | 2018-05-12 13:51 | General Progress Note ---
Assessment/Plan Problem List: (1) Oral bleeding ICD Codes: K13.79 - Other lesions of oral mucosa SNOMED: 14437683 (2) Hypertension ICD Codes: I10 - Essential (primary) hypertension SNOMED: 76309271 (3) UTI (urinary tract infection) ICD Codes: N39.0 - Urinary tract infection, site not specified SNOMED: 55366837 (4) Chronic respiratory failure ICD Codes: J96.10 - Chronic respiratory failure, unspecified whether with hypoxia or hypercapnia SNOMED: 38849326 (5) Anemia ICD Codes: D64.9 - Anemia, unspecified SNOMED: 352826371 (6) Feeding by G-tube ICD Codes: Z93.1 - Gastrostomy status SNOMED: 000616497, 634295623 Assessment/Plan vent abx transfuse prn cbc bmp am ent eval promise ltach eval Subjective Constitutional: Reports: weakness Allergies: Coded Allergies: ACETAMINOPHEN (Verified Allergy, Unknown, 12/16/17) All Systems: reviewed and negative except above Subjective trach vent altered Objective Last 24 Hour Vital Signs Date Time Temp Pulse Resp B/P (MAP) Pulse Ox O2 Delivery O2 Flow Rate FiO2 05/12/18 13:15 75 20 35 05/12/18 12:00 79 05/12/18 12:00 50 05/12/18 12:00 Mechanical Ventilator 05/12/18 10:42 83 25 35 05/12/18 09:16 113/60 05/12/18 09:15 86 113/60 05/12/18 08:45 78 16 35 05/12/18 08:00 50 05/12/18 08:00 95.9 65 13 137/96 (110) 97 95.9 05/12/18 08:00 77 05/12/18 08:00 Mechanical Ventilator 05/12/18 06:50 66 17 35 05/12/18 04:56 61 15 35 05/12/18 04:00 58 05/12/18 04:00 Mechanical Ventilator 05/12/18 04:00 95.9 70 20 145/74 (97) 98 95.9 05/12/18 04:00 50 05/12/18 03:01 60 14 35 05/12/18 00:57 64 15 35 05/12/18 00:00 Mechanical Ventilator 05/12/18 00:00 96.6 63 20 137/96 (110) 98 96.6 05/12/18 00:00 61 05/11/18 22:43 53 8 35 05/11/18 21:22 137/96 05/11/18 21:22 65 137/96 05/11/18 20:48 49 8 35 05/11/18 20:00 Mechanical Ventilator 05/11/18 20:00 96.0 65 15 137/96 (110) 98 96.0 05/11/18 20:00 58 05/11/18 20:00 50 05/11/18 18:43 59 17 35 05/11/18 17:06 61 22 35 05/11/18 16:00 95.5 53 18 149/71 (97) 98 95.5 05/11/18 16:00 55 05/11/18 16:00 50 05/11/18 16:00 Mechanical Ventilator 05/11/18 15:28 56 18 35 Intake and Output 05/11/18 05/12/18 19:00 07:00 Intake Total 1040 ml 1526.111 ml Output Total 750 ml 350 ml Balance 290 ml 1176.111 ml Free Water 200 ml 300 ml IV Total 506.111 ml Tube Feeding 720 ml 720 ml Other 120 ml Output Urine Total 750 ml 350 ml # Bowel Movements 2 Laboratory Tests 05/12/18 03:56: White Blood Count 4.9, Red Blood Count 3.02L, Hemoglobin 8.4L, Hematocrit 26.3L , Mean Corpuscular Volume 87, Mean Corpuscular Hemoglobin 27.9, Mean Corpuscular Hemoglobin Concent 32.0, Red Cell Distribution Width 14.0, Platelet Count 284, Mean Platelet Volume 6.4L, Neutrophils (%) (Auto) 67.8, Lymphocytes ( %) (Auto) 18.9L, Monocytes (%) (Auto) 6.4, Eosinophils (%) (Auto) 6.2H, Basophils (%) (Auto) 0.7, Sodium Level 136, Potassium Level 4.7, Chloride Level 102, Carbon Dioxide Level 28, Anion Gap 6, Blood Urea Nitrogen 16, Creatinine 0.6, Estimat Glomerular Filtration Rate > 60, Glucose Level 95, Calcium Level 8.6, Total Bilirubin 0.3, Aspartate Amino Transf (AST/SGOT) 15, Alanine Aminotransferase (ALT/SGPT) 24, Alkaline Phosphatase 125H, Pro-B-Type Natriuretic Peptide 152H, Total Protein 6.8, Albumin 2.9L, Globulin 3.9, Albumin /Globulin Ratio 0.7L Height (Feet): 5 Height (Inches): 6.00 Weight (Pounds): 160 General Appearance: lethargic EENT: normal ENT inspection Neck: normal alignment Cardiovascular: normal peripheral pulses, normal rate, regular rhythm Respiratory/Chest: chest wall non-tender, decreased breath sounds Abdomen: normal bowel sounds, non tender, soft Extremities: normal inspection Edema: no edema noted Arm (L), no edema noted Arm (R), no edema noted Leg (L), no edema noted Leg (R), no edema noted Pedal (L), no edema noted Pedal (R), no edema noted Generalized Neurologic: motor weakness Skin: normal pigmentation, warm/dry Yosef Garcia May 12, 2018 13:51
[2018-05-12 16:00] VITALS: BP 123/75
[2018-05-12 20:00] VITALS: BP 126/67
[2018-05-13] VITALS: BP 110/54
[2018-05-13] MEDS: Vancomycin 750mg/NS 250ml IVPB SCH ×2 (00:32→13:00)
[2018-05-13] MEDS: Ampicillin/Sulbactam Sod 3 GM in NS 110 ML IVPB SCH ×4 (02:11→20:36)
[2018-05-13 04:00] VITALS: BP 130/75
[2018-05-13 05:10] LABS: BASOPHILS % (AUTO) 0.8 % (0.0-2.0); EOSINOPHILS % (AUTO) 5.3 % (0.0-3.0); HEMATOCRIT 25.2 % (42.0-52.0); HEMOGLOBIN 8.2 G/DL (14.2-18.0); LYMPHOCYTES % (AUTO) 23.2 % (20.0-45.0); MEAN CORPUSCULAR VOLUME 87 FL (80-99); MONOCYTES % (AUTO) 7.2 % (1.0-10.0); NEUTROPHILS % (AUTO) 63.4 % (45.0-75.0); PLATELET COUNT 300 K/UL (150-450); RED BLOOD COUNT 2.89 M/UL (4.70-6.10); RED CELL DISTRIBUTION WIDTH 14.2 % (11.6-14.8)
[2018-05-13 05:31] LABS: ALANINE AMINOTRANSFERASE 22 U/L (12-78); ALBUMIN 2.8 G/DL (3.4-5.0); ALBUMIN/GLOBULIN RATIO 0.8 (1.0-2.7); ALKALINE PHOSPHATASE 119 U/L (46-116); ANION GAP 9 mmol/L (5-15); ASPARTATE AMINO TRANSFERASE 14 U/L (15-37); BILIRUBIN,TOTAL 0.2 MG/DL (0.2-1.0); BLOOD UREA NITROGEN 14 mg/dL (7-18); CALCIUM 8.5 MG/DL (8.5-10.1); CARBON DIOXIDE 27 MMOL/L (21-32); CHLORIDE 102 MMOL/L (98-107); CREATININE 0.7 MG/DL (0.55-1.30); PHOSPHORUS 3.5 MG/DL (2.5-4.9); POTASSIUM 4.4 MMOL/L (3.5-5.1); SODIUM 138 MMOL/L (136-145)
[2018-05-13 08:00] VITALS: BP 136/81
[2018-05-13] MEDS: HydrALAZINE 10mg Tab GT SCH ×2 (08:52→20:36)
[2018-05-13] MEDS: Pantoprazole Inj IV SCH (08:52)
[2018-05-13] MEDS: Carvedilol 6.25mg Tab GT SCH ×2 (08:52→20:36)
[2018-05-13] MEDS: levETIRAcetam 500mg/5ml Liquid GT SCH ×2 (08:53→20:36)
[2018-05-13] MEDS: Heparin 5000 units/ml inj SUBQ SCH ×2 (08:53→20:37)
[2018-05-13 09:21] LABS: WHITE BLOOD COUNT 7.2 K/UL (4.8-10.8)
--- NOTE | 2018-05-13 10:10 | Pulmonolgy Critical Care Note ---
Critical Care - Asmt/Plan Problems: (1) Acute on chronic respiratory failure (2) Aspiration pneumonia (3) Pleural effusion (4) Oral abscess (5) Feeding by G-tube (6) Vegetative state Respiratory: monitor respiratory rate, adjust FIO2, CXR Cardiac: continue pressors, continue to monitor HR/BP Renal: F/U I&O Infectious Disease: check cultures Gastrointestinal: continue feedings/current rate, hold feedings Endocrine: monitor blood sugar Hematologic: transfuse if hgb<8.5 Neurologic: PRN Ativan, keep patient comfortable Affect: PRN ativan Prophylaxis: Protonix, Heparin Disposition: keep in ICU Notes Reviewed: cardio Discussed with: nurses, consultants, shelter case managersales and marketing manager - Objective Last 24 Hour Vital Signs Date Time Temp Pulse Resp B/P (MAP) Pulse Ox O2 Delivery O2 Flow Rate FiO2 05/13/18 09:14 54 10 35 05/13/18 08:52 138/81 05/13/18 08:52 66 136/81 05/13/18 08:00 50 05/13/18 08:00 Mechanical Ventilator 05/13/18 06:34 56 12 35 05/13/18 05:15 67 12 35 05/13/18 04:00 60 05/13/18 04:00 97.0 72 18 130/75 (93) 100 97.0 05/13/18 04:00 Mechanical Ventilator 05/13/18 04:00 50 05/13/18 02:54 68 12 35 05/13/18 00:56 73 20 35 05/13/18 00:00 77 05/13/18 00:00 Mechanical Ventilator 05/13/18 00:00 97.6 67 14 110/54 (72) 100 97.6 05/12/18 23:19 70 14 35 05/12/18 21:02 90 18 35 05/12/18 20:58 126/67 05/12/18 20:58 93 126/67 05/12/18 20:00 98.4 93 18 126/67 (86) 100 98.4 05/12/18 20:00 Mechanical Ventilator 05/12/18 20:00 88 05/12/18 20:00 50 05/12/18 19:53 89 20 35 05/12/18 17:15 80 25 35 05/12/18 16:00 97.9 88 26 123/75 (91) 100 97.9 05/12/18 16:00 Mechanical Ventilator 05/12/18 16:00 50 05/12/18 16:00 88 05/12/18 14:30 85 23 35 05/12/18 13:15 75 20 35 05/12/18 12:00 79 05/12/18 12:00 97.7 75 18 102/66 (78) 100 97.7 05/12/18 12:00 50 05/12/18 12:00 Mechanical Ventilator 05/12/18 10:42 83 25 35 Status: awake Condition: grave Lungs: clear, chest wall tender Heart: HR/BP unstable, regular Abdomen: active bowel sounds, feeding tube Extremities: edema Decubiti: location, stage Critical Care - Subjective ROS Limited/Unobtainable: No Condition: critical EKG Rhythm: Sinus Rhythm FI02: 35 Vent Support Breath Rate: 8 Vent Support Mode: IMV/SIMV Vent Tidal Volume: 600 Sputum Amount: Scant PEEP: 5.0 PIP: 13 Tube Feeding Amount: 60 I&O: Intake and Output 05/12/18 05/13/18 19:00 07:00 Intake Total 1020 ml 1490.000 ml Output Total 675 ml Balance 1020 ml 815.000 ml Free Water 300 ml 250 ml IV Total 470.000 ml Tube Feeding 720 ml 720 ml Other 50 ml Output Urine Total 675 ml # Bowel Movements 1 1 Labs: Laboratory Tests Test 05/13/18 04:26 White Blood Count 6.0 K/UL (4.8-10.8) Red Blood Count 2.89 M/UL (4.70-6.10) L Hemoglobin 8.2 G/DL (14.2-18.0) L Hematocrit 25.2 % (42.0-52.0) L Mean Corpuscular Volume 87 FL (80-99) Mean Corpuscular Hemoglobin 28.4 PG (27.0-31.0) Mean Corpuscular Hemoglobin Concent 32.5 G/DL (32.0-36.0) Red Cell Distribution Width 14.2 % (11.6-14.8) Platelet Count 300 K/UL (150-450) Mean Platelet Volume 6.4 FL (6.5-10.1) L Neutrophils (%) (Auto) 63.4 % (45.0-75.0) Lymphocytes (%) (Auto) 23.2 % (20.0-45.0) Monocytes (%) (Auto) 7.2 % (1.0-10.0) Eosinophils (%) (Auto) 5.3 % (0.0-3.0) H Basophils (%) (Auto) 0.8 % (0.0-2.0) Sodium Level 138 MMOL/L (136-145) Potassium Level 4.4 MMOL/L (3.5-5.1) Chloride Level 102 MMOL/L (98-107) Carbon Dioxide Level 27 MMOL/L (21-32) Anion Gap 9 mmol/L (5-15) Blood Urea Nitrogen 14 mg/dL (7-18) Creatinine 0.7 MG/DL (0.55-1.30) Estimat Glomerular Filtration Rate > 60 mL/min (>60) Glucose Level 105 MG/DL (74-106) Calcium Level 8.5 MG/DL (8.5-10.1) Phosphorus Level 3.5 MG/DL (2.5-4.9) Magnesium Level 2.2 MG/DL (1.8-2.4) Total Bilirubin 0.2 MG/DL (0.2-1.0) Aspartate Amino Transf (AST/SGOT) 14 U/L (15-37) L Alanine Aminotransferase (ALT/SGPT) 22 U/L (12-78) Alkaline Phosphatase 119 U/L (46-116) H Total Protein 6.5 G/DL (6.4-8.2) Albumin 2.8 G/DL (3.4-5.0) L Globulin 3.7 g/dL Albumin/Globulin Ratio 0.8 (1.0-2.7) L Leodan Bojorquez MD May 13, 2018 10:10
[2018-05-13] MEDS ORDERED: Albuterol/Ipratropium 3ml neb HHN PRN (11:00)
--- NOTE | 2018-05-13 11:33 | Infectious Diseases Prog Note ---
Assessment/Plan Assessment/Plan Oral bleeding 2ry to dental abscess and OM -CT maxillo facial: Evidence of large apical root abscess/osteomyelitis involving the apical roots of the left maxillary canine tooth and first premolar. Evidence of extensive dental disease elsewhere, as described. Right mastoid disease. Suggestion of skin thickening of the right lower lip and bilateral preauricular regions. Correlate with clinical findings -ESR 114 CRP 3.4 ? sepsis -CXR: Bilateral pleural effusion -sp cx MDR PsA (S Cefepime, Ceftazidime, Genta, Imi), MDR PsA #2 (S Genta, Imi ) (likely colonizer as no obvious infiltrate, consolidation on CXR) Ro UTI -u/a wbc 15-20 nit +, leuk est +3; Ucx 10-20K PsA (S Zosyn, Cefepim) (low count, suspect colonizer) Recent PNA 02/2018, s/p rx -CXR 02/16: Continued demonstration of right lower lung zone opacity. Questionable trace left pleural effusion. -sp cx p S. marcenses (R amp, otherwise S), MDR PSA (S aminoglycosies) chronic respiratory failure on tracheostomy cardiac arrest COPD DM2 PEG seizure disorder bedbound nonverbal hypertension hypoxic encephalopathy Plan: -Continue IV Vancomycin and IV Unasyn d# 5 for dental abscess/OM ( may consider DC Vanco , if Cx are negative for MRSA ) -02/24 SP INH Tobra #10 -6/8 Cefepime #10 -6/ SP IV Vanco #3 -02/12 SP Flagyl x1 -02/11/18 SP IV Vanco and Zosyn #7 -f/u cx -Monitor CBC/BMP, temperatures -trach/peg care -aspiration precautions -ENT eval pending Discussed with RN Subjective Allergies: Coded Allergies: ACETAMINOPHEN (Verified Allergy, Unknown, 12/16/17) Subjective Tmin 96 no leukocytosis awaiting ENT eval Bcx NTD Objective Vital Signs Last 24 Hour Vital Signs Date Time Temp Pulse Resp B/P (MAP) Pulse Ox O2 Delivery O2 Flow Rate FiO2 05/13/18 10:44 58 15 35 05/13/18 09:14 54 10 35 05/13/18 08:52 138/81 05/13/18 08:52 66 136/81 05/13/18 08:00 52 8/28/18 08:00 50 05/13/18 08:00 Mechanical Ventilator 05/13/18 08:00 96.0 66 16 136/81 (99) 100 96.0 05/13/18 06:34 56 12 35 05/13/18 05:15 67 12 35 05/13/18 04:00 60 05/13/18 04:00 97.0 72 18 130/75 (93) 100 97.0 05/13/18 04:00 Mechanical Ventilator 05/13/18 04:00 50 05/13/18 02:54 68 12 35 05/13/18 00:56 73 20 35 05/13/18 00:00 77 05/13/18 00:00 Mechanical Ventilator 05/13/18 00:00 97.6 67 14 110/54 (72) 100 97.6 05/12/18 23:19 70 14 35 05/12/18 21:02 90 18 35 05/12/18 20:58 126/67 05/12/18 20:58 93 126/67 05/12/18 20:00 98.4 93 18 126/67 (86) 100 98.4 05/12/18 20:00 Mechanical Ventilator 05/12/18 20:00 88 05/12/18 20:00 50 05/12/18 19:53 89 20 35 05/12/18 17:15 80 25 35 05/12/18 16:00 97.9 88 26 123/75 (91) 100 97.9 05/12/18 16:00 Mechanical Ventilator 05/12/18 16:00 50 05/12/18 16:00 88 05/12/18 14:30 85 23 35 05/12/18 13:15 75 20 35 05/12/18 12:00 79 05/12/18 12:00 97.7 75 18 102/66 (78) 100 97.7 05/12/18 12:00 50 05/12/18 12:00 Mechanical Ventilator Height (Feet): 5 Height (Inches): 6.00 Weight (Pounds): 160 Objective General Appearance: no apparent distress, alert, non-toxic HEENT: normocephalic, atraumatic, bilateral eye PERRLp Trach in place. Enlarged, area on upper gums with purple color and L. upper canine tooth dislodged but still attached. Neck: full range of motion Respiratory: chest non-tender, normal breath sounds, no respiratory distress Cardiovascular # regular rate, rhythm, no edema Gastrointestinal: normal bowel sounds, non tender, soft, non-distended, no guarding, no rebound, other - PEG Musculoskeletal: other - Contracted Neurologic: alert, responsive, other - At baseline Skin: warm/dry, well hydrated, other - See RN exam Laboratory Tests Test 05/13/18 04:26 White Blood Count 6.0 K/UL (4.8-10.8) Red Blood Count 2.89 M/UL (4.70-6.10) L Hemoglobin 8.2 G/DL (14.2-18.0) L Hematocrit 25.2 % (42.0-52.0) L Mean Corpuscular Volume 87 FL (80-99) Mean Corpuscular Hemoglobin 28.4 PG (27.0-31.0) Mean Corpuscular Hemoglobin Concent 32.5 G/DL (32.0-36.0) Red Cell Distribution Width 14.2 % (11.6-14.8) Platelet Count 300 K/UL (150-450) Mean Platelet Volume 6.4 FL (6.5-10.1) L Neutrophils (%) (Auto) 63.4 % (45.0-75.0) Lymphocytes (%) (Auto) 23.2 % (20.0-45.0) Monocytes (%) (Auto) 7.2 % (1.0-10.0) Eosinophils (%) (Auto) 5.3 % (0.0-3.0) H Basophils (%) (Auto) 0.8 % (0.0-2.0) Sodium Level 138 MMOL/L (136-145) Potassium Level 4.4 MMOL/L (3.5-5.1) Chloride Level 102 MMOL/L (98-107) Carbon Dioxide Level 27 MMOL/L (21-32) Anion Gap 9 mmol/L (5-15) Blood Urea Nitrogen 14 mg/dL (7-18) Creatinine 0.7 MG/DL (0.55-1.30) Estimat Glomerular Filtration Rate > 60 mL/min (>60) Glucose Level 105 MG/DL (74-106) Calcium Level 8.5 MG/DL (8.5-10.1) Phosphorus Level 3.5 MG/DL (2.5-4.9) Magnesium Level 2.2 MG/DL (1.8-2.4) Total Bilirubin 0.2 MG/DL (0.2-1.0) Aspartate Amino Transf (AST/SGOT) 14 U/L (15-37) L Alanine Aminotransferase (ALT/SGPT) 22 U/L (12-78) Alkaline Phosphatase 119 U/L (46-116) H Total Protein 6.5 G/DL (6.4-8.2) Albumin 2.8 G/DL (3.4-5.0) L Globulin 3.7 g/dL Albumin/Globulin Ratio 0.8 (1.0-2.7) L Current Medications Medications (Trade) Dose Ordered Sig/Marciano Route PRN Reason Start Time Stop Time Status Last Admin Dose Admin Albuterol/ Ipratropium (Albuterol/ Ipratropium) 3 ml Q4H PRN HHN Shortness of Breath 05/13/18 11:00 05/18/18 10:59 Ampicillin Sodium/ Sulbactam Sodium 3 gm/Sodium Chloride 110 ml @ 220 mls/hr Q6H IVPB 05/09/18 20:00 05/16/18 19:59 05/13/18 08:51 Carvedilol (Coreg) 6.25 mg EVERY 12 HOURS GT 05/09/18 21:00 06/08/18 20:59 05/13/18 08:52 Clonidine HCl (Catapres Tab) 0.1 mg Q6H PRN GT For High Blood Pressure 05/09/18 13:45 06/08/18 13:44 Dextrose (Dextrose 50%) STAT PRN IV Hypoglycemia 05/09/18 13:45 06/08/18 13:44 Heparin Sodium (Porcine) (Heparin 5000 units/ml) 5,000 units EVERY 12 HOURS SUBQ 05/09/18 21:00 06/08/18 20:59 Hydralazine HCl (Apresoline) 10 mg Q12HR GT 05/09/18 21:00 06/08/18 20:59 05/13/18 08:52 Levetiracetam (Keppra) 1,000 mg Q12HR GT 05/09/18 21:00 06/08/18 20:59 05/13/18 08:53 Lorazepam (Ativan 2mg/ml 1ml) 2 mg Q2H PRN IV For Anxiety 05/09/18 13:45 05/16/18 13:44 Morphine Sulfate (Morphine Sulfate) 4 mg Q4H PRN IVP Severe Pain (Pain Scale 7-10) 05/09/18 13:45 05/16/18 13:44 Ondansetron HCl (Zofran) 4 mg Q6H PRN IVP Nausea & Vomiting 05/09/18 13:45 06/08/18 13:44 Pantoprazole (Protonix) 40 mg DAILY IV 05/10/18 09:00 06/09/18 08:59 05/13/18 08:52 Polyethylene Glycol (Miralax) 17 gm DAILYPRN PRN ORAL Constipation 05/09/18 13:45 06/08/18 13:44 Valproic Acid (Depakene) 250 mg EVERY 12 HOURS ORAL 05/09/18 21:00 06/08/18 20:59 05/13/18 08:53 Vancomycin HCl (Vanco rx to dose) 1 ea DAILY PRN MISC PER PHARMACY 05/09/18 14:15 06/08/18 14:14 Vancomycin/Sodium Chloride 250 ml @ 166.667 mls/hr Q12H IVPB 05/10/18 01:00 05/15/18 00:59 05/13/18 00:32 Melody Suarez M.D. May 13, 2018 11:33
[2018-05-13 12:00] VITALS: BP 130/78
--- NOTE | 2018-05-13 13:41 | General Progress Note ---
Assessment/Plan Problem List: (1) Oral bleeding ICD Codes: K13.79 - Other lesions of oral mucosa SNOMED: 05017296 (2) Hypertension ICD Codes: I10 - Essential (primary) hypertension SNOMED: 97810061 (3) UTI (urinary tract infection) ICD Codes: N39.0 - Urinary tract infection, site not specified SNOMED: 17626389 (4) Chronic respiratory failure ICD Codes: J96.10 - Chronic respiratory failure, unspecified whether with hypoxia or hypercapnia SNOMED: 41827910 (5) Anemia ICD Codes: D64.9 - Anemia, unspecified SNOMED: 885001316 (6) Feeding by G-tube ICD Codes: Z93.1 - Gastrostomy status SNOMED: 916138406, 705065213 Status: stable, progressing Assessment/Plan vent abx transfuse prn cbc bmp am dc plan if clear Subjective Constitutional: Reports: weakness Allergies: Coded Allergies: ACETAMINOPHEN (Verified Allergy, Unknown, 12/16/17) All Systems: reviewed and negative except above Subjective trach vent altered Objective Last 24 Hour Vital Signs Date Time Temp Pulse Resp B/P (MAP) Pulse Ox O2 Delivery O2 Flow Rate FiO2 05/13/18 12:35 75 20 35 05/13/18 10:44 58 15 35 05/13/18 09:14 54 10 35 05/13/18 08:52 138/81 05/13/18 08:52 66 136/81 05/13/18 08:00 52 05/13/18 08:00 50 05/13/18 08:00 Mechanical Ventilator 05/13/18 08:00 96.0 66 16 136/81 (99) 100 96.0 05/13/18 06:34 56 12 35 05/13/18 05:15 67 12 35 05/13/18 04:00 60 05/13/18 04:00 97.0 72 18 130/75 (93) 100 97.0 05/13/18 04:00 Mechanical Ventilator 05/13/18 04:00 50 05/13/18 02:54 68 12 35 05/13/18 00:56 73 20 35 05/13/18 00:00 77 05/13/18 00:00 Mechanical Ventilator 05/13/18 00:00 97.6 67 14 110/54 (72) 100 97.6 05/12/18 23:19 70 14 35 8/27/18 21:02 90 18 35 05/12/18 20:58 126/67 05/12/18 20:58 93 126/67 05/12/18 20:00 98.4 93 18 126/67 (86) 100 98.4 05/12/18 20:00 Mechanical Ventilator 05/12/18 20:00 88 05/12/18 20:00 50 05/12/18 19:53 89 20 35 05/12/18 17:15 80 25 35 05/12/18 16:00 97.9 88 26 123/75 (91) 100 97.9 05/12/18 16:00 Mechanical Ventilator 05/12/18 16:00 50 05/12/18 16:00 88 05/12/18 14:30 85 23 35 Intake and Output 05/12/18 05/13/18 19:00 07:00 Intake Total 1020 ml 1490.000 ml Output Total 675 ml Balance 1020 ml 815.000 ml Free Water 300 ml 250 ml IV Total 470.000 ml Tube Feeding 720 ml 720 ml Other 50 ml Output Urine Total 675 ml # Bowel Movements 1 1 Laboratory Tests 05/13/18 04:26: White Blood Count 6.0, Red Blood Count 2.89L, Hemoglobin 8.2L, Hematocrit 25.2L , Mean Corpuscular Volume 87, Mean Corpuscular Hemoglobin 28.4, Mean Corpuscular Hemoglobin Concent 32.5, Red Cell Distribution Width 14.2, Platelet Count 300, Mean Platelet Volume 6.4L, Neutrophils (%) (Auto) 63.4, Lymphocytes ( %) (Auto) 23.2, Monocytes (%) (Auto) 7.2, Eosinophils (%) (Auto) 5.3H, Basophils (%) (Auto) 0.8, Sodium Level 138, Potassium Level 4.4, Chloride Level 102, Carbon Dioxide Level 27, Anion Gap 9, Blood Urea Nitrogen 14, Creatinine 0.7, Estimat Glomerular Filtration Rate > 60, Glucose Level 105, Calcium Level 8.5, Phosphorus Level 3.5, Magnesium Level 2.2, Total Bilirubin 0.2, Aspartate Amino Transf (AST/SGOT) 14L, Alanine Aminotransferase (ALT/SGPT) 22, Alkaline Phosphatase 119H, Total Protein 6.5, Albumin 2.8L, Globulin 3.7, Albumin/ Globulin Ratio 0.8L Height (Feet): 5 Height (Inches): 6.00 Weight (Pounds): 160 General Appearance: lethargic EENT: normal ENT inspection Neck: normal alignment Cardiovascular: normal peripheral pulses, normal rate, regular rhythm Respiratory/Chest: chest wall non-tender, lungs clear, normal breath sounds Abdomen: normal bowel sounds, non tender, soft Extremities: normal inspection Edema: no edema noted Arm (L), no edema noted Arm (R), no edema noted Leg (L), no edema noted Leg (R), no edema noted Pedal (L), no edema noted Pedal (R), no edema noted Generalized Neurologic: motor weakness Skin: normal pigmentation, warm/dry Yosef Garcia DO May 13, 2018 13:41
--- NOTE | 2018-05-13 13:45 | General Progress Note ---
Assessment/Plan Status: unchanged Assessment/Plan # Anemia of chronic disease. --> Anemia panel has been reviewed, currently does not require iron. Will trend CBC as needed. --> Continue to monitor for stability. --> Hgb goal above 7. Transfuse as needed. --> Current Hgb of 8.2 # Oral bleeding due to dental abscess. --> abx as per ID service --> currently improved # UTI. Pt on IV abx. # Respiratory failure. Remains on trach and vent. # Hypertension. Pt on several BP meds. The time the note was entered does not necessarily correspond to the time the patient was seen. Subjective Date patient seen: May 13, 2018 ROS Limited/Unobtainable: Yes Hematologic/Lymphatic: Reports: anemia Allergies: Coded Allergies: ACETAMINOPHEN (Verified Allergy, Unknown, 12/16/17) All Systems: reviewed and negative except above Subjective Pt remains obtunded and on vent. No acute events. H/H stable. Awaiting ENT eval. Transfer planning. Objective Last 24 Hour Vital Signs Date Time Temp Pulse Resp B/P (MAP) Pulse Ox O2 Delivery O2 Flow Rate FiO2 05/13/18 12:35 75 20 35 05/13/18 10:44 58 15 35 05/13/18 09:14 54 10 35 05/13/18 08:52 138/81 05/13/18 08:52 66 136/81 05/13/18 08:00 52 05/13/18 08:00 50 05/13/18 08:00 Mechanical Ventilator 05/13/18 08:00 96.0 66 16 136/81 (99) 100 96.0 05/13/18 06:34 56 12 35 05/13/18 05:15 67 12 35 05/13/18 04:00 60 05/13/18 04:00 97.0 72 18 130/75 (93) 100 97.0 05/13/18 04:00 Mechanical Ventilator 05/13/18 04:00 50 05/13/18 02:54 68 12 35 05/13/18 00:56 73 20 35 05/13/18 00:00 77 05/13/18 00:00 Mechanical Ventilator 05/13/18 00:00 97.6 67 14 110/54 (72) 100 97.6 05/12/18 23:19 70 14 35 05/12/18 21:02 90 18 35 8/27/18 20:58 126/67 05/12/18 20:58 93 126/67 05/12/18 20:00 98.4 93 18 126/67 (86) 100 98.4 05/12/18 20:00 Mechanical Ventilator 05/12/18 20:00 88 05/12/18 20:00 50 05/12/18 19:53 89 20 35 05/12/18 17:15 80 25 35 05/12/18 16:00 97.9 88 26 123/75 (91) 100 97.9 05/12/18 16:00 Mechanical Ventilator 05/12/18 16:00 50 05/12/18 16:00 88 05/12/18 14:30 85 23 35 Intake and Output 05/12/18 05/13/18 19:00 07:00 Intake Total 1020 ml 1490.000 ml Output Total 675 ml Balance 1020 ml 815.000 ml Free Water 300 ml 250 ml IV Total 470.000 ml Tube Feeding 720 ml 720 ml Other 50 ml Output Urine Total 675 ml # Bowel Movements 1 1 Laboratory Tests 05/13/18 04:26: White Blood Count 6.0, Red Blood Count 2.89L, Hemoglobin 8.2L, Hematocrit 25.2L , Mean Corpuscular Volume 87, Mean Corpuscular Hemoglobin 28.4, Mean Corpuscular Hemoglobin Concent 32.5, Red Cell Distribution Width 14.2, Platelet Count 300, Mean Platelet Volume 6.4L, Neutrophils (%) (Auto) 63.4, Lymphocytes ( %) (Auto) 23.2, Monocytes (%) (Auto) 7.2, Eosinophils (%) (Auto) 5.3H, Basophils (%) (Auto) 0.8, Sodium Level 138, Potassium Level 4.4, Chloride Level 102, Carbon Dioxide Level 27, Anion Gap 9, Blood Urea Nitrogen 14, Creatinine 0.7, Estimat Glomerular Filtration Rate > 60, Glucose Level 105, Calcium Level 8.5, Phosphorus Level 3.5, Magnesium Level 2.2, Total Bilirubin 0.2, Aspartate Amino Transf (AST/SGOT) 14L, Alanine Aminotransferase (ALT/SGPT) 22, Alkaline Phosphatase 119H, Total Protein 6.5, Albumin 2.8L, Globulin 3.7, Albumin/ Globulin Ratio 0.8L Height (Feet): 5 Height (Inches): 6.00 Weight (Pounds): 160 General Appearance: no apparent distress EENT: PERRL/EOMI Neck: normal alignment Cardiovascular: bradycardia Respiratory/Chest: no respiratory distress Abdomen: soft Fermín Alberto MD May 13, 2018 13:45
[2018-05-13 16:00] VITALS: BP 146/89
[2018-05-13 20:06] VITALS: BP 145/94
[2018-05-14] VITALS: BP 137/64
[2018-05-14] MEDS: Vancomycin 750mg/NS 250ml IVPB SCH ×2 (00:56→15:02)
[2018-05-14] MEDS: Ampicillin/Sulbactam Sod 3 GM in NS 110 ML IVPB SCH ×4 (02:09→20:24)
[2018-05-14 04:00] VITALS: BP 130/78
--- NOTE | 2018-05-14 06:36 | General Progress Note ---
Assessment/Plan Assessment/Plan # Anemia of chronic disease. --> Anemia panel has been reviewed, currently does not require iron. Will trend CBC as needed. --> Continue to monitor for stability. --> Hgb goal above 7. Transfuse as needed. --> Current Hgb of 8.2, iron indices are wnl # Anemia due to oral bleeding due to dental abscess. --> abx as per ID service --> currently improved # UTI. Pt on IV abx. # Respiratory failure. Remains on trach and vent. # Hypertension. Pt on several BP meds. The time the note was entered does not necessarily correspond to the time the patient was seen. Subjective Constitutional: Denies: no symptoms, chills, diaphoresis, fever, malaise, weakness, other HEENT: Denies: no symptoms, eye pain, blurred vision, tearing, double vision, ear pain, ear discharge, nose pain, nose congestion, throat pain, throat swelling, mouth pain, mouth swelling, other Cardiovascular: Denies: no symptoms, chest pain, edema, irregular heart rate, lightheadedness, palpitations, syncope, other Respiratory: Denies: no symptoms, cough, orthopnea, shortness of breath, SOB with excertion, SOB at rest, sputum, stridor, wheezing, other Gastrointestinal/Abdominal: Denies: no symptoms, abdomen distended, abdominal pain, black stools, tarry stools, blood in stool, constipated, diarrhea, difficulty swallowing, nausea, poor appetite, poor fluid intake, rectal bleeding , vomiting, other Genitourinary: Denies: no symptoms, burning, discharge, frequency, flank pain, hematuria, incontinence, pain, urgency, other Neurologic/Psychiatric: Denies: no symptoms, anxiety, depressed, emotional problems, headache, numbness, paresthesia, pre-existing deficit, seizure, tingling, tremors, weakness, other Endocrine: Denies: no symptoms, excessive sweating, flushing, intolerance to cold, intolerance to heat, increased hunger, increased thirst, increased urine, unexplained weight gain, unexplained weight loss, other Hematologic/Lymphatic: Denies: no symptoms, anemia, easy bleeding, easy bruising, other Allergies: Coded Allergies: ACETAMINOPHEN (Verified Allergy, Unknown, 12/16/17) Subjective Pt remains obtunded and on vent. No acute events. H/H stable.simv pending, transfer pending Objective Last 24 Hour Vital Signs Date Time Temp Pulse Resp B/P (MAP) Pulse Ox O2 Delivery O2 Flow Rate FiO2 05/14/18 04:38 59 18 35 05/14/18 04:00 97.0 52 18 130/78 (95) 100 97.0 05/14/18 04:00 54 05/14/18 04:00 Mechanical Ventilator 05/14/18 04:00 50 05/14/18 03:08 68 20 35 05/14/18 01:25 59 19 35 05/14/18 00:00 96.4 58 16 137/64 (88) 100 96.4 05/14/18 00:00 Mechanical Ventilator 05/14/18 00:00 48 05/13/18 23:40 53 20 35 05/13/18 22:00 48 8 05/13/18 21:13 62 18 35 05/13/18 20:36 145/94 05/13/18 20:36 60 145/94 05/13/18 20:06 96.5 60 22 145/94 (111) 100 96.5 05/13/18 20:05 50 05/13/18 20:00 64 05/13/18 20:00 Mechanical Ventilator 05/13/18 19:29 60 17 35 05/13/18 16:44 59 18 35 05/13/18 16:00 50 05/13/18 16:00 57 05/13/18 16:00 Mechanical Ventilator 05/13/18 16:00 98.0 67 14 146/89 (108) 100 98.0 05/13/18 14:40 56 8 35 05/13/18 12:35 75 20 35 05/13/18 12:00 50 05/13/18 12:00 Mechanical Ventilator 05/13/18 12:00 81 05/13/18 12:00 96.8 69 18 130/78 (95) 99 96.8 05/13/18 10:44 58 15 35 05/13/18 09:14 54 10 35 05/13/18 08:52 138/81 05/13/18 08:52 66 136/81 05/13/18 08:00 52 05/13/18 08:00 50 05/13/18 08:00 Mechanical Ventilator 05/13/18 08:00 96.0 66 16 136/81 (99) 100 96.0 Intake and Output 05/13/18 05/14/18 19:00 07:00 Intake Total 870 ml 1330.000 ml Output Total 1000 ml 425 ml Balance -130 ml 905.000 ml Free Water 150 ml 200 ml IV Total 470.000 ml Tube Feeding 720 ml 660 ml Output Urine Total 1000 ml 425 ml # Voids 2 # Bowel Movements 1 Height (Feet): 5 Height (Inches): 6.00 Weight (Pounds): 183 General Appearance: alert EENT: TMs normal Neck: supple Cardiovascular: regular rhythm Respiratory/Chest: lungs clear Abdomen: soft Extremities: non-tender Edema: 1+ Leg (L), 1+ Leg (R) Neurologic: alert Skin: warm/dry Fermín Alberto MD May 14, 2018 06:35
[2018-05-14 07:24] LABS: BASOPHILS % (AUTO) 0.6 % (0.0-2.0); HEMATOCRIT 25.8 % (42.0-52.0); HEMOGLOBIN 8.2 G/DL (14.2-18.0); LYMPHOCYTES % (AUTO) 21.2 % (20.0-45.0); MEAN CORPUSCULAR VOLUME 88 FL (80-99); MONOCYTES % (AUTO) 5.8 % (1.0-10.0); NEUTROPHILS % (AUTO) 66.4 % (45.0-75.0); PLATELET COUNT 303 K/UL (150-450); RED BLOOD COUNT 2.95 M/UL (4.70-6.10); RED CELL DISTRIBUTION WIDTH 14.3 % (11.6-14.8); WHITE BLOOD COUNT 5.9 K/UL (4.8-10.8)
[2018-05-14 07:30] LABS: ALANINE AMINOTRANSFERASE 24 U/L (12-78); ALBUMIN 2.9 G/DL (3.4-5.0); ALBUMIN/GLOBULIN RATIO 0.8 (1.0-2.7); ALKALINE PHOSPHATASE 120 U/L (46-116); ANION GAP 5 mmol/L (5-15); ASPARTATE AMINO TRANSFERASE 17 U/L (15-37); BILIRUBIN,TOTAL 0.2 MG/DL (0.2-1.0); BLOOD UREA NITROGEN 13 mg/dL (7-18); CALCIUM 9.1 MG/DL (8.5-10.1); CARBON DIOXIDE 29 MMOL/L (21-32); CHLORIDE 101 MMOL/L (98-107); CREATININE 0.6 MG/DL (0.55-1.30); PHOSPHORUS 3.1 MG/DL (2.5-4.9); POTASSIUM 4.5 MMOL/L (3.5-5.1); SODIUM 135 MMOL/L (136-145)
[2018-05-14 07:59] VITALS: BP 143/78
[2018-05-14] MEDS ORDERED: Miralax 17gm pkt GT PRN (08:45)
[2018-05-14] MEDS: Valproic Acid 250mg/5ml Liquid GT SCH ×2 (09:50→20:25)
[2018-05-14] MEDS: Carvedilol 6.25mg Tab GT SCH ×2 (09:50→20:25)
[2018-05-14] MEDS: HydrALAZINE 10mg Tab GT SCH ×2 (09:50→20:25)
[2018-05-14] MEDS: levETIRAcetam 500mg/5ml Liquid GT SCH ×2 (09:51→20:25)
[2018-05-14] MEDS: Heparin 5000 units/ml inj SUBQ SCH ×2 (09:54→20:27)
--- NOTE | 2018-05-14 10:34 | Pulmonolgy Critical Care Note ---
Critical Care - Asmt/Plan Problems: (1) Acute on chronic respiratory failure (2) Aspiration pneumonia (3) Pleural effusion (4) Oral abscess (5) Feeding by G-tube (6) Vegetative state Respiratory: monitor respiratory rate, adjust FIO2, CXR Cardiac: continue to monitor HR/BP Renal: F/U I&O Infectious Disease: check cultures Gastrointestinal: hold feedings Endocrine: check TSH, check HgA1C Hematologic: transfuse if hgb<8.5 Neurologic: PRN Morphine, keep patient comfortable Prophylaxis: Protonix, Heparin Notes Reviewed: cardio Discussed with: nurses, consultants, piano case makerclient development manager - Objective Last 24 Hour Vital Signs Date Time Temp Pulse Resp B/P (MAP) Pulse Ox O2 Delivery O2 Flow Rate FiO2 05/14/18 09:50 143/78 05/14/18 09:50 67 143/78 05/14/18 08:54 67 19 35 05/14/18 08:00 50 05/14/18 08:00 Mechanical Ventilator 05/14/18 08:00 58 05/14/18 07:59 96.8 62 20 143/78 (99) 100 96.8 05/14/18 06:51 61 22 35 05/14/18 04:38 59 18 35 05/14/18 04:00 97.0 52 18 130/78 (95) 100 97.0 05/14/18 04:00 54 05/14/18 04:00 Mechanical Ventilator 05/14/18 04:00 50 05/14/18 03:08 68 20 35 05/14/18 01:25 59 19 35 05/14/18 00:00 96.4 58 16 137/64 (88) 100 96.4 05/14/18 00:00 Mechanical Ventilator 05/14/18 00:00 48 05/13/18 23:40 53 20 35 05/13/18 22:00 48 8 05/13/18 21:13 62 18 35 05/13/18 20:36 145/94 05/13/18 20:36 60 145/94 05/13/18 20:06 96.5 60 22 145/94 (111) 100 96.5 05/13/18 20:05 50 05/13/18 20:00 64 05/13/18 20:00 Mechanical Ventilator 05/13/18 19:29 60 17 35 05/13/18 16:44 59 18 35 8/28/18 16:00 50 05/13/18 16:00 57 05/13/18 16:00 Mechanical Ventilator 05/13/18 16:00 98.0 67 14 146/89 (108) 100 98.0 05/13/18 14:40 56 8 35 05/13/18 12:35 75 20 35 05/13/18 12:00 50 05/13/18 12:00 Mechanical Ventilator 05/13/18 12:00 81 05/13/18 12:00 96.8 69 18 130/78 (95) 99 96.8 05/13/18 10:44 58 15 35 Status: sedated, obtunded HEENT: atraumatic Neck: full ROM Abdomen: soft, feeding tube Extremities: edema Decubiti: location Critical Care - Subjective Condition: critical EKG Rhythm: Sinus Rhythm FI02: 35 Vent Support Breath Rate: 18 Vent Support Mode: AC Vent Tidal Volume: 500 Sputum Amount: Moderate PEEP: 5.0 PIP: 31 Tube Feeding Amount: 60 I&O: Intake and Output 05/13/18 05/14/18 19:00 07:00 Intake Total 870 ml 1390.000 ml Output Total 1000 ml 425 ml Balance -130 ml 965.000 ml Free Water 150 ml 200 ml IV Total 470.000 ml Tube Feeding 720 ml 720 ml Output Urine Total 1000 ml 425 ml # Voids 2 # Bowel Movements 1 Labs: Laboratory Tests Test 05/14/18 05:29 White Blood Count 5.9 K/UL (4.8-10.8) Red Blood Count 2.95 M/UL (4.70-6.10) L Hemoglobin 8.2 G/DL (14.2-18.0) L Hematocrit 25.8 % (42.0-52.0) L Mean Corpuscular Volume 88 FL (80-99) Mean Corpuscular Hemoglobin 27.9 PG (27.0-31.0) Mean Corpuscular Hemoglobin Concent 31.9 G/DL (32.0-36.0) L Red Cell Distribution Width 14.3 % (11.6-14.8) Platelet Count 303 K/UL (150-450) Mean Platelet Volume 6.5 FL (6.5-10.1) Neutrophils (%) (Auto) 66.4 % (45.0-75.0) Lymphocytes (%) (Auto) 21.2 % (20.0-45.0) Monocytes (%) (Auto) 5.8 % (1.0-10.0) Eosinophils (%) (Auto) 6.0 % (0.0-3.0) H Basophils (%) (Auto) 0.6 % (0.0-2.0) Erythrocyte Sedimentation Rate Pending Sodium Level 135 MMOL/L (136-145) L Potassium Level 4.5 MMOL/L (3.5-5.1) Chloride Level 101 MMOL/L (98-107) Carbon Dioxide Level 29 MMOL/L (21-32) Anion Gap 5 mmol/L (5-15) Blood Urea Nitrogen 13 mg/dL (7-18) Creatinine 0.6 MG/DL (0.55-1.30) Estimat Glomerular Filtration Rate > 60 mL/min (>60) Glucose Level 103 MG/DL (74-106) Calcium Level 9.1 MG/DL (8.5-10.1) Phosphorus Level 3.1 MG/DL (2.5-4.9) Magnesium Level 2.1 MG/DL (1.8-2.4) Total Bilirubin 0.2 MG/DL (0.2-1.0) Aspartate Amino Transf (AST/SGOT) 17 U/L (15-37) Alanine Aminotransferase (ALT/SGPT) 24 U/L (12-78) Alkaline Phosphatase 120 U/L (46-116) H C-Reactive Protein, Quantitative 4.1 mg/dL (0.00-0.90) H Total Protein 6.7 G/DL (6.4-8.2) Albumin 2.9 G/DL (3.4-5.0) L Globulin 3.8 g/dL Albumin/Globulin Ratio 0.8 (1.0-2.7) L Leodan Bojorquez MD May 14, 2018 10:34
[2018-05-14 12:00] VITALS: BP 149/88
--- NOTE | 2018-05-14 14:54 | General Progress Note ---
Assessment/Plan Problem List: (1) Oral bleeding ICD Codes: K13.79 - Other lesions of oral mucosa SNOMED: 68082318 (2) Hypertension ICD Codes: I10 - Essential (primary) hypertension SNOMED: 28377551 (3) UTI (urinary tract infection) ICD Codes: N39.0 - Urinary tract infection, site not specified SNOMED: 58604770 (4) Chronic respiratory failure ICD Codes: J96.10 - Chronic respiratory failure, unspecified whether with hypoxia or hypercapnia SNOMED: 36670599 (5) Anemia ICD Codes: D64.9 - Anemia, unspecified SNOMED: 678356825 (6) Feeding by G-tube ICD Codes: Z93.1 - Gastrostomy status SNOMED: 324726264, 133041955 Status: stable, progressing Assessment/Plan vent abx transfuse prn ent eval cbc bmp am dc plan if clear Subjective Constitutional: Reports: weakness Allergies: Coded Allergies: ACETAMINOPHEN (Verified Allergy, Unknown, 12/16/17) All Systems: reviewed and negative except above Subjective trach vent altered Objective Last 24 Hour Vital Signs Date Time Temp Pulse Resp B/P (MAP) Pulse Ox O2 Delivery O2 Flow Rate FiO2 05/14/18 13:07 71 20 35 05/14/18 12:00 Mechanical Ventilator 05/14/18 12:00 67 05/14/18 12:00 96.9 67 18 149/88 (108) 100 96.9 05/14/18 11:27 62 20 35 05/14/18 09:50 143/78 05/14/18 09:50 67 143/78 05/14/18 08:54 67 19 35 05/14/18 08:00 Mechanical Ventilator 05/14/18 08:00 35 05/14/18 08:00 58 05/14/18 07:59 96.8 62 20 143/78 (99) 100 96.8 05/14/18 06:51 61 22 35 05/14/18 04:38 59 18 35 05/14/18 04:00 97.0 52 18 130/78 (95) 100 97.0 05/14/18 04:00 54 05/14/18 04:00 Mechanical Ventilator 05/14/18 04:00 50 05/14/18 03:08 68 20 35 05/14/18 01:25 59 19 35 05/14/18 00:00 96.4 58 16 137/64 (88) 100 96.4 05/14/18 00:00 Mechanical Ventilator 05/14/18 00:00 48 05/13/18 23:40 53 20 35 05/13/18 22:00 48 8 05/13/18 21:13 62 18 35 05/13/18 20:36 145/94 05/13/18 20:36 60 145/94 05/13/18 20:06 96.5 60 22 145/94 (111) 100 96.5 05/13/18 20:05 50 05/13/18 20:00 64 05/13/18 20:00 Mechanical Ventilator 05/13/18 19:29 60 17 35 05/13/18 16:44 59 18 35 05/13/18 16:00 50 05/13/18 16:00 57 05/13/18 16:00 Mechanical Ventilator 05/13/18 16:00 98.0 67 14 146/89 (108) 100 98.0 Intake and Output 05/13/18 05/14/18 19:00 07:00 Intake Total 870 ml 1390.000 ml Output Total 1000 ml 425 ml Balance -130 ml 965.000 ml Free Water 150 ml 200 ml IV Total 470.000 ml Tube Feeding 720 ml 720 ml Output Urine Total 1000 ml 425 ml # Voids 2 # Bowel Movements 1 Laboratory Tests 05/14/18 05:29: White Blood Count 5.9, Red Blood Count 2.95L, Hemoglobin 8.2L, Hematocrit 25.8L , Mean Corpuscular Volume 88, Mean Corpuscular Hemoglobin 27.9, Mean Corpuscular Hemoglobin Concent 31.9L, Red Cell Distribution Width 14.3, Platelet Count 303, Mean Platelet Volume 6.5, Neutrophils (%) (Auto) 66.4, Lymphocytes (%) (Auto) 21.2, Monocytes (%) (Auto) 5.8, Eosinophils (%) (Auto) 6.0H, Basophils (%) (Auto) 0.6, Erythrocyte Sedimentation Rate 96H, Sodium Level 135L, Potassium Level 4.5, Chloride Level 101, Carbon Dioxide Level 29, Anion Gap 5, Blood Urea Nitrogen 13, Creatinine 0.6, Estimat Glomerular Filtration Rate > 60, Glucose Level 103, Calcium Level 9.1, Phosphorus Level 3.1 , Magnesium Level 2.1, Total Bilirubin 0.2, Aspartate Amino Transf (AST/SGOT) 17 , Alanine Aminotransferase (ALT/SGPT) 24, Alkaline Phosphatase 120H, C-Reactive Protein, Quantitative 4.1H, Total Protein 6.7, Albumin 2.9L, Globulin 3.8, Albumin/Globulin Ratio 0.8L Height (Feet): 5 Height (Inches): 6.00 Weight (Pounds): 183 General Appearance: lethargic EENT: normal ENT inspection Neck: normal alignment Cardiovascular: normal peripheral pulses, normal rate, regular rhythm Respiratory/Chest: chest wall non-tender, lungs clear, normal breath sounds Abdomen: normal bowel sounds, non tender, soft Extremities: normal inspection Edema: no edema noted Arm (L), no edema noted Arm (R), no edema noted Leg (L), no edema noted Leg (R), no edema noted Pedal (L), no edema noted Pedal (R), no edema noted Generalized Neurologic: motor weakness Skin: normal pigmentation, warm/dry Yosef Garcia DO May 14, 2018 14:54
--- NOTE | 2018-05-14 15:58 | Infectious Diseases Prog Note ---
Assessment/Plan Assessment/Plan Oral bleeding 2ry to dental abscess and OM -CT maxillo facial: Evidence of large apical root abscess/osteomyelitis involving the apical roots of the left maxillary canine tooth and first premolar. Evidence of extensive dental disease elsewhere, as described. Right mastoid disease. Suggestion of skin thickening of the right lower lip and bilateral preauricular regions. Correlate with clinical findings -ESR 114 CRP 3.4 ? sepsis -CXR: Bilateral pleural effusion -sp cx MDR PsA (S Cefepime, Ceftazidime, Genta, Imi), MDR PsA #2 (S Genta, Imi ) (likely colonizer as no obvious infiltrate, consolidation on CXR) Ro UTI -u/a wbc 15-20 nit +, leuk est +3; Ucx 10-20K PsA (S Zosyn, Cefepim) (low count, suspect colonizer) Recent PNA 02/2018, s/p rx -CXR 02/16: Continued demonstration of right lower lung zone opacity. Questionable trace left pleural effusion. -sp cx p S. marcenses (R amp, otherwise S), MDR PSA (S aminoglycosies) chronic respiratory failure on tracheostomy cardiac arrest COPD DM2 PEG seizure disorder bedbound nonverbal hypertension hypoxic encephalopathy Plan: -Continue IV Vancomycin and IV Unasyn d# 6 for dental abscess/OM ( may consider DC Vanco , if Cx are negative for MRSA ) -02/24 SP INH Tobra #10 -6/8 Cefepime #10 -6/ SP IV Vanco #3 -02/12 SP Flagyl x1 -02/11/18 SP IV Vanco and Zosyn #7 -f/u cx -Monitor CBC/BMP, temperatures -trach/peg care -aspiration precautions -ENT eval pending Discussed with RN Subjective Allergies: Coded Allergies: ACETAMINOPHEN (Verified Allergy, Unknown, 12/16/17) Subjective afebrile no leukocytosis awaiting ENT eval Bcx NTD Objective Vital Signs Last 24 Hour Vital Signs Date Time Temp Pulse Resp B/P (MAP) Pulse Ox O2 Delivery O2 Flow Rate FiO2 05/14/18 14:54 72 23 35 05/14/18 13:07 71 20 35 05/14/18 12:00 Mechanical Ventilator 05/14/18 12:00 67 05/14/18 12:00 96.9 67 18 149/88 (108) 100 96.9 05/14/18 11:27 62 20 35 05/14/18 09:50 143/78 05/14/18 09:50 67 143/78 05/14/18 08:54 67 19 35 05/14/18 08:00 Mechanical Ventilator 05/14/18 08:00 35 05/14/18 08:00 58 05/14/18 07:59 96.8 62 20 143/78 (99) 100 96.8 05/14/18 06:51 61 22 35 05/14/18 04:38 59 18 35 05/14/18 04:00 97.0 52 18 130/78 (95) 100 97.0 05/14/18 04:00 54 05/14/18 04:00 Mechanical Ventilator 05/14/18 04:00 50 05/14/18 03:08 68 20 35 05/14/18 01:25 59 19 35 05/14/18 00:00 96.4 58 16 137/64 (88) 100 96.4 05/14/18 00:00 Mechanical Ventilator 05/14/18 00:00 48 05/13/18 23:40 53 20 35 05/13/18 22:00 48 8 05/13/18 21:13 62 18 35 05/13/18 20:36 145/94 05/13/18 20:36 60 145/94 05/13/18 20:06 96.5 60 22 145/94 (111) 100 96.5 05/13/18 20:05 50 05/13/18 20:00 64 05/13/18 20:00 Mechanical Ventilator 05/13/18 19:29 60 17 35 05/13/18 16:44 59 18 35 05/13/18 16:00 50 05/13/18 16:00 57 05/13/18 16:00 Mechanical Ventilator 05/13/18 16:00 98.0 67 14 146/89 (108) 100 98.0 Height (Feet): 5 Height (Inches): 6.00 Weight (Pounds): 183 Objective General Appearance: no apparent distress, alert, non-toxic HEENT: normocephalic, atraumatic, bilateral eye PERRLp Trach in place. Enlarged, area on upper gums with purple color and L. upper canine tooth dislodged but still attached. Neck: full range of motion Respiratory: chest non-tender, normal breath sounds, no respiratory distress Cardiovascular # regular rate, rhythm, no edema Gastrointestinal: normal bowel sounds, non tender, soft, non-distended, no guarding, no rebound, other - PEG Musculoskeletal: other - Contracted Neurologic: alert, responsive, other - At baseline Skin: warm/dry, well hydrated, other - See RN exam Laboratory Tests Test 05/14/18 05:29 White Blood Count 5.9 K/UL (4.8-10.8) Red Blood Count 2.95 M/UL (4.70-6.10) L Hemoglobin 8.2 G/DL (14.2-18.0) L Hematocrit 25.8 % (42.0-52.0) L Mean Corpuscular Volume 88 FL (80-99) Mean Corpuscular Hemoglobin 27.9 PG (27.0-31.0) Mean Corpuscular Hemoglobin Concent 31.9 G/DL (32.0-36.0) L Red Cell Distribution Width 14.3 % (11.6-14.8) Platelet Count 303 K/UL (150-450) Mean Platelet Volume 6.5 FL (6.5-10.1) Neutrophils (%) (Auto) 66.4 % (45.0-75.0) Lymphocytes (%) (Auto) 21.2 % (20.0-45.0) Monocytes (%) (Auto) 5.8 % (1.0-10.0) Eosinophils (%) (Auto) 6.0 % (0.0-3.0) H Basophils (%) (Auto) 0.6 % (0.0-2.0) Erythrocyte Sedimentation Rate 96 MM/HR (0-20) H Sodium Level 135 MMOL/L (136-145) L Potassium Level 4.5 MMOL/L (3.5-5.1) Chloride Level 101 MMOL/L (98-107) Carbon Dioxide Level 29 MMOL/L (21-32) Anion Gap 5 mmol/L (5-15) Blood Urea Nitrogen 13 mg/dL (7-18) Creatinine 0.6 MG/DL (0.55-1.30) Estimat Glomerular Filtration Rate > 60 mL/min (>60) Glucose Level 103 MG/DL (74-106) Calcium Level 9.1 MG/DL (8.5-10.1) Phosphorus Level 3.1 MG/DL (2.5-4.9) Magnesium Level 2.1 MG/DL (1.8-2.4) Total Bilirubin 0.2 MG/DL (0.2-1.0) Aspartate Amino Transf (AST/SGOT) 17 U/L (15-37) Alanine Aminotransferase (ALT/SGPT) 24 U/L (12-78) Alkaline Phosphatase 120 U/L (46-116) H C-Reactive Protein, Quantitative 4.1 mg/dL (0.00-0.90) H Total Protein 6.7 G/DL (6.4-8.2) Albumin 2.9 G/DL (3.4-5.0) L Globulin 3.8 g/dL Albumin/Globulin Ratio 0.8 (1.0-2.7) L Current Medications Medications (Trade) Dose Ordered Sig/Marciano Route PRN Reason Start Time Stop Time Status Last Admin Dose Admin Albuterol/ Ipratropium (Albuterol/ Ipratropium) 3 ml Q4H PRN HHN Shortness of Breath 05/13/18 11:00 05/18/18 10:59 Ampicillin Sodium/ Sulbactam Sodium 3 gm/Sodium Chloride 110 ml @ 220 mls/hr Q6H IVPB 05/09/18 20:00 05/16/18 19:59 05/14/18 14:20 Carvedilol (Coreg) 6.25 mg EVERY 12 HOURS GT 05/09/18 21:00 06/08/18 20:59 05/14/18 09:50 Clonidine HCl (Catapres Tab) 0.1 mg Q6H PRN GT For High Blood Pressure 05/09/18 13:45 06/08/18 13:44 Dextrose (Dextrose 50%) STAT PRN IV Hypoglycemia 05/09/18 13:45 06/08/18 13:44 Heparin Sodium (Porcine) (Heparin 5000 units/ml) 5,000 units EVERY 12 HOURS SUBQ 05/09/18 21:00 06/08/18 20:59 05/14/18 09:54 Hydralazine HCl (Apresoline) 10 mg Q12HR GT 05/09/18 21:00 06/08/18 20:59 05/14/18 09:50 Lansoprazole (Prevacid) 30 mg DAILY GT 05/14/18 09:00 06/13/18 08:59 05/14/18 09:51 Levetiracetam (Keppra) 1,000 mg Q12HR GT 05/09/18 21:00 06/08/18 20:59 05/14/18 09:51 Lorazepam (Ativan 2mg/ml 1ml) 2 mg Q2H PRN IV For Anxiety 05/09/18 13:45 05/16/18 13:44 Morphine Sulfate (Morphine Sulfate) 4 mg Q4H PRN IVP Severe Pain (Pain Scale 7-10) 05/09/18 13:45 05/16/18 13:44 Ondansetron HCl (Zofran) 4 mg Q6H PRN IVP Nausea & Vomiting 05/09/18 13:45 06/08/18 13:44 Polyethylene Glycol (Miralax) 17 gm DAILYPRN PRN GT Constipation 05/14/18 08:45 06/13/18 08:44 Valproic Acid (Depakene) 250 mg Q12HR GT 05/14/18 09:00 06/13/18 08:59 05/14/18 09:50 Vancomycin HCl (Vanco rx to dose) 1 ea DAILY PRN MISC PER PHARMACY 05/09/18 14:15 06/08/18 14:14 Vancomycin/Sodium Chloride 250 ml @ 166.667 mls/hr Q12H IVPB 05/10/18 01:00 05/15/18 00:59 05/14/18 15:02 Melody Suarez M.D. May 14, 2018 15:58
[2018-05-14 16:00] VITALS: BP 147/90
--- NOTE | 2018-05-14 16:21 | General Progress Note ---
Assessment/Plan Status: progressing Assessment/Plan A. Appears better than previously noted in my review of records P. Determine Code status, if full code-repeat CT neck in 1 week, if persists unchanged-fiberoptic scope and possible drainage-but unlikely since improvement. Thank you for asking for my input in the care of this pt. Subjective Date patient seen: May 14, 2018 Time patient seen: 16:00 ROS Limited/Unobtainable: Yes Constitutional: Reports: malaise, weakness HEENT: Reports: mouth swelling, other - mild swelling lower lip Allergies: Coded Allergies: ACETAMINOPHEN (Verified Allergy, Unknown, 12/16/17) All Systems: reviewed and negative except above Subjective I have been asked to see pt per PMD reg bleeding from mouth 3 -4 days ago. Per pt [id number] has stopped [address] scan indicates dental abscess-which is being treated with vanco. Objective Last 24 Hour Vital Signs Date Time Temp Pulse Resp B/P (MAP) Pulse Ox O2 Delivery O2 Flow Rate FiO2 05/14/18 16:00 35 05/14/18 16:00 Mechanical Ventilator 05/14/18 16:00 97.0 64 20 147/90 (109) 100 97.0 05/14/18 14:54 72 23 35 05/14/18 13:07 71 20 35 05/14/18 12:00 Mechanical Ventilator 05/14/18 12:00 67 05/14/18 12:00 96.9 67 18 149/88 (108) 100 96.9 05/14/18 11:27 62 20 35 05/14/18 09:50 143/78 05/14/18 09:50 67 143/78 05/14/18 08:54 67 19 35 05/14/18 08:00 Mechanical Ventilator 05/14/18 08:00 35 05/14/18 08:00 58 05/14/18 07:59 96.8 62 20 143/78 (99) 100 96.8 05/14/18 06:51 61 22 35 05/14/18 04:38 59 18 35 05/14/18 04:00 97.0 52 18 130/78 (95) 100 97.0 05/14/18 04:00 54 05/14/18 04:00 Mechanical Ventilator 05/14/18 04:00 50 05/14/18 03:08 68 20 35 05/14/18 01:25 59 19 35 05/14/18 00:00 96.4 58 16 137/64 (88) 100 96.4 05/14/18 00:00 Mechanical Ventilator 05/14/18 00:00 48 05/13/18 23:40 53 20 35 05/13/18 22:00 48 8 05/13/18 21:13 62 18 35 05/13/18 20:36 145/94 05/13/18 20:36 60 145/94 05/13/18 20:06 96.5 60 22 145/94 (111) 100 96.5 05/13/18 20:05 50 05/13/18 20:00 64 05/13/18 20:00 Mechanical Ventilator 05/13/18 19:29 60 17 35 05/13/18 16:44 59 18 35 Intake and Output 05/13/18 05/14/18 19:00 07:00 Intake Total 870 ml 1390.000 ml Output Total 1000 ml 425 ml Balance -130 ml 965.000 ml Free Water 150 ml 200 ml IV Total 470.000 ml Tube Feeding 720 ml 720 ml Output Urine Total 1000 ml 425 ml # Voids 2 # Bowel Movements 1 Laboratory Tests 05/14/18 05:29: White Blood Count 5.9, Red Blood Count 2.95L, Hemoglobin 8.2L, Hematocrit 25.8L , Mean Corpuscular Volume 88, Mean Corpuscular Hemoglobin 27.9, Mean Corpuscular Hemoglobin Concent 31.9L, Red Cell Distribution Width 14.3, Platelet Count 303, Mean Platelet Volume 6.5, Neutrophils (%) (Auto) 66.4, Lymphocytes (%) (Auto) 21.2, Monocytes (%) (Auto) 5.8, Eosinophils (%) (Auto) 6.0H, Basophils (%) (Auto) 0.6, Erythrocyte Sedimentation Rate 96H, Sodium Level 135L, Potassium Level 4.5, Chloride Level 101, Carbon Dioxide Level 29, Anion Gap 5, Blood Urea Nitrogen 13, Creatinine 0.6, Estimat Glomerular Filtration Rate > 60, Glucose Level 103, Calcium Level 9.1, Phosphorus Level 3.1 , Magnesium Level 2.1, Total Bilirubin 0.2, Aspartate Amino Transf (AST/SGOT) 17 , Alanine Aminotransferase (ALT/SGPT) 24, Alkaline Phosphatase 120H, C-Reactive Protein, Quantitative 4.1H, Total Protein 6.7, Albumin 2.9L, Globulin 3.8, Albumin/Globulin Ratio 0.8L Height (Feet): 5 Height (Inches): 6.00 Weight (Pounds): 183 General Appearance: confused, mild distress EENT: TM abnormal (L) - cerumen in both ear canals, other - inflammation of gums-consistent location sanchez with CT scan of a few days ago- although is minimal now. Neck: other - Trach in good position and appears WNL Edema: no edema noted Arm (L), no edema noted Arm (R) Lymphatic: normal anterior cervical (L), normal anterior cervical (R), normal posterior cervical (L), normal posterior cervical (R), normal submandibular (L) , normal submandibular (R), normal supraclavicular (L), normal supraclavicular ( R) Gerardo Degroot MD May 14, 2018 16:21
--- NOTE | 2018-05-14 16:24 | Cardiology Report ---
APPROVED REPORT EKG Measurement Heart [id number] Sinus bradycardia Left axis deviation Abnormal ECG
[2018-05-14 20:00] VITALS: BP 150/70
[2018-05-15] VITALS: BP 128/65
[2018-05-15] MEDS: Ampicillin/Sulbactam Sod 3 GM in NS 110 ML IVPB SCH ×4 (01:25→21:21)
[2018-05-15 04:00] VITALS: BP 146/89
[2018-05-15 04:37] LABS: EOSINOPHILS % (AUTO) 6.3 % (0.0-3.0); HEMATOCRIT 25.4 % (42.0-52.0); HEMOGLOBIN 8.3 G/DL (14.2-18.0); LYMPHOCYTES % (AUTO) 22.3 % (20.0-45.0); MEAN CORPUSCULAR VOLUME 87 FL (80-99); MONOCYTES % (AUTO) 4.2 % (1.0-10.0); NEUTROPHILS % (AUTO) 66.2 % (45.0-75.0); PLATELET COUNT 318 K/UL (150-450); RED CELL DISTRIBUTION WIDTH 14.4 % (11.6-14.8)
[2018-05-15 04:58] LABS: ANION GAP 6 mmol/L (5-15); BLOOD UREA NITROGEN 12 mg/dL (7-18); CALCIUM 9.3 MG/DL (8.5-10.1); CARBON DIOXIDE 26 MMOL/L (21-32); CHLORIDE 102 MMOL/L (98-107); CREATININE 0.6 MG/DL (0.55-1.30); POTASSIUM 4.5 MMOL/L (3.5-5.1); SODIUM 134 MMOL/L (136-145)
[2018-05-15 07:49] VITALS: BP 151/88
--- NOTE | 2018-05-15 07:53 | General Progress Note ---
Assessment/Plan Assessment/Plan # Anemia of chronic disease. Has been in the 7-9 range, hemolysis panel has been reviewed --> Anemia panel has been reviewed, currently does not require iron. Will trend CBC as needed. --> Continue to monitor for stability. --> Hgb goal above 7. Transfuse as needed. --> Current Hgb of 8.2, iron indices are wnl # Anemia due to oral bleeding due to dental abscess --> abx as per ID service --> currently improved # UTI. Pt on IV abx. # Respiratory failure. Remains on trach and vent. # Hypertension. Pt on several BP meds. Greatly appreciate consultation. The time the note was entered does not necessarily correspond to the time the patient was seen. Subjective Constitutional: Denies: no symptoms, chills, diaphoresis, fever, malaise, weakness, other HEENT: Denies: no symptoms, eye pain, blurred vision, tearing, double vision, ear pain, ear discharge, nose pain, nose congestion, throat pain, throat swelling, mouth pain, mouth swelling, other Cardiovascular: Denies: no symptoms, chest pain, edema, irregular heart rate, lightheadedness, palpitations, syncope, other Respiratory: Denies: no symptoms, cough, orthopnea, shortness of breath, SOB with excertion, SOB at rest, sputum, stridor, wheezing, other Gastrointestinal/Abdominal: Denies: no symptoms, abdomen distended, abdominal pain, black stools, tarry stools, blood in stool, constipated, diarrhea, difficulty swallowing, nausea, poor appetite, poor fluid intake, rectal bleeding , vomiting, other Genitourinary: Denies: no symptoms, burning, discharge, frequency, flank pain, hematuria, incontinence, pain, urgency, other Neurologic/Psychiatric: Denies: no symptoms, anxiety, depressed, emotional problems, headache, numbness, paresthesia, pre-existing deficit, seizure, tingling, tremors, weakness, other Endocrine: Denies: no symptoms, excessive sweating, flushing, intolerance to cold, intolerance to heat, increased hunger, increased thirst, increased urine, unexplained weight gain, unexplained weight loss, other Hematologic/Lymphatic: Denies: no symptoms, anemia, easy bleeding, easy bruising, other Allergies: Coded Allergies: ACETAMINOPHEN (Verified Allergy, Unknown, 12/16/17) Subjective Pt remains obtunded and on vent. No acute events. H/H stable.simv pending, transfer pending, labs reviewed Objective Last 24 Hour Vital Signs Date Time Temp Pulse Resp B/P (MAP) Pulse Ox O2 Delivery O2 Flow Rate FiO2 05/15/18 06:45 65 20 35 05/15/18 05:21 54 19 35 05/15/18 04:00 Mechanical Ventilator 05/15/18 04:00 97.0 69 20 146/89 (108) 100 97.0 05/15/18 04:00 35 05/15/18 04:00 54 05/15/18 03:18 52 18 35 05/15/18 01:17 58 19 35 05/15/18 00:00 59 05/15/18 00:00 35 05/15/18 00:00 97.3 60 18 128/65 (86) 100 97.3 05/15/18 00:00 Mechanical Ventilator 05/14/18 23:07 56 18 35 05/14/18 21:24 63 19 35 05/14/18 20:25 150/75 05/14/18 20:25 88 150/75 05/14/18 20:00 97.3 71 21 150/70 (96) 100 97.3 05/14/18 20:00 Mechanical Ventilator 05/14/18 20:00 35 05/14/18 20:00 59 05/14/18 19:15 67 21 35 05/14/18 16:57 63 20 35 05/14/18 16:00 78 05/14/18 16:00 35 05/14/18 16:00 Mechanical Ventilator 05/14/18 16:00 97.0 64 20 147/90 (109) 100 97.0 05/14/18 14:54 72 23 35 05/14/18 13:07 71 20 35 05/14/18 12:00 Mechanical Ventilator 05/14/18 12:00 67 05/14/18 12:00 96.9 67 18 149/88 (108) 100 96.9 05/14/18 11:27 62 20 35 05/14/18 09:50 143/78 05/14/18 09:50 67 143/78 05/14/18 08:54 67 19 35 05/14/18 08:00 Mechanical Ventilator 05/14/18 08:00 35 05/14/18 08:00 58 05/14/18 07:59 96.8 62 20 143/78 (99) 100 96.8 Intake and Output 05/14/18 05/15/18 19:00 07:00 Intake Total 1306.667 ml 1260 ml Output Total 480 ml 650 ml Balance 826.667 ml 610 ml Free Water 200 ml 100 ml IV Total 386.667 ml 440 ml Tube Feeding 720 ml 720 ml Output Urine Total 480 ml 650 ml # Voids 1 Laboratory Tests 05/15/18 04:00: White Blood Count 6.0, Red Blood Count 2.90L, Hemoglobin 8.3L, Hematocrit 25.4L , Mean Corpuscular Volume 87, Mean Corpuscular Hemoglobin 28.8, Mean Corpuscular Hemoglobin Concent 32.9, Red Cell Distribution Width 14.4, Platelet Count 318, Mean Platelet Volume 6.8, Neutrophils (%) (Auto) 66.2, Lymphocytes (% ) (Auto) 22.3, Monocytes (%) (Auto) 4.2, Eosinophils (%) (Auto) 6.3H, Basophils (%) (Auto) 1.0, Sodium Level 134L, Potassium Level 4.5, Chloride Level 102, Carbon Dioxide Level 26, Anion Gap 6, Blood Urea Nitrogen 12, Creatinine 0.6, Estimat Glomerular Filtration Rate > 60, Glucose Level 107H, Calcium Level 9.3 Height (Feet): 5 Height (Inches): 6.00 Weight (Pounds): 183 General Appearance: alert Neck: normal alignment Cardiovascular: regular rhythm Respiratory/Chest: normal breath sounds Abdomen: non tender Extremities: non-tender Edema: 1+ Leg (L), 1+ Leg (R) Edema: mild edema Neurologic: alert Skin: warm/dry Fermín Alberto MD May 15, 2018 07:53
[2018-05-15] MEDS: Carvedilol 6.25mg Tab GT SCH ×2 (09:00→21:00)
--- NOTE | 2018-05-15 09:23 | Physician Query ---
--------- THIS DOCUMENT IS A PERMANENT PART OF THE MEDICAL RECORD --------- PLEASE COMPLETE DOCUMENT BEFORE SIGNING Dear Dr. Suarez Date: 04/22/2018 Taper/Finisher/CDS Name: Carolyn St Taper/Finisher/CDS Phone No.: [phone] Exercise your independent professional judgment when responding to the query. Questions asked do not imply a particular answer is desired or expected. We greatly appreciate your clarification on this issue. CLINICAL DOCUMENTATION STATES: Consultation progress notes include assessment "? Sepsis". Patient is admitted with Osteomyelitis and Pneumonia. CLINICAL FINDINGS SHOW: At the time of admission: Temperature: 96.4, RR: 25, WBC : 7.2. Medications: Vancomycin, Ampicillin, Can you please clarify the status of the diagnosis of "Sepsis" in this patient? PHYSICIAN RESPONSE: [ ] The above diagnosis was monitored, evaluated, and/or treated and is a confirmed diagnosis [ ] The above diagnosis was Ruled out [ ] The above diagnosis is still a likely, suspected, probable diagnosis [ ] Other, please specify: [ ] Clinically unable to determine Present on admission: [ ] Yes [ ] No [ ] Clinically unable to determine Please also document in your Progress Notes and/or Discharge Summary and indicate if the condition was present on admission. Criteria for Sepsis* SIRS: Presence of > 2 criteria in this row Temperature: > 100.4 F. or < 96.8 F. Heart rate: > 90 bpm Respiratory rate: > 20/min. WBC count: > 12,000/mm2 < 4,000/mm2 > 10% bands Sepsis: Presence of 1 or more criteria in this row. Positive cultures (but not required) or WBCs present in otherwise sterile fluid: blood, urine, sputum, CSF , etc.? Prescribed anti-infective therapy: antibiotic, antifungal, and other? Documentation of pneumonia: positive x-ray or clinical presentation? Perforated viscus: perforation of a hollow organ, e.g. bowel? Raj ESPINOD
--- NOTE | 2018-05-15 09:47 | Pulmonolgy Critical Care Note ---
Critical Care - Asmt/Plan Problems: (1) Acute on chronic respiratory failure (2) Aspiration pneumonia (3) Pleural effusion (4) Oral abscess (5) Feeding by G-tube (6) Vegetative state Respiratory: monitor respiratory rate, adjust FIO2, CXR Cardiac: continue to monitor HR/BP Renal: F/U I&O Infectious Disease: check cultures, continue antibiotics Gastrointestinal: continue feedings/current rate Endocrine: check TSH, continue sliding scale insulin Hematologic: monitor H/H, transfuse if hgb<8.5 Neurologic: PRN Ativan, keep patient comfortable Affect: PRN ativan Prophylaxis: Protonix, Heparin Notes Reviewed: cardio, 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 with: nurses, consultants, case management social workershipping manager - Objective Last 24 Hour Vital Signs Date Time Temp Pulse Resp B/P (MAP) Pulse Ox O2 Delivery O2 Flow Rate FiO2 05/15/18 08:00 35 05/15/18 08:00 51 05/15/18 08:00 Mechanical Ventilator 05/15/18 07:49 97.0 65 19 151/88 (109) 100 97.0 05/15/18 06:45 65 20 35 05/15/18 05:21 54 19 35 05/15/18 04:00 Mechanical Ventilator 05/15/18 04:00 97.0 69 20 146/89 (108) 100 97.0 05/15/18 04:00 35 05/15/18 04:00 54 05/15/18 03:18 52 18 35 05/15/18 01:17 58 19 35 05/15/18 00:00 59 05/15/18 00:00 35 05/15/18 00:00 97.3 60 18 128/65 (86) 100 97.3 05/15/18 00:00 Mechanical Ventilator 05/14/18 23:07 56 18 35 05/14/18 21:24 63 19 35 05/14/18 20:25 150/75 05/14/18 20:25 88 150/75 05/14/18 20:00 97.3 71 21 150/70 (96) 100 97.3 05/14/18 20:00 Mechanical Ventilator 05/14/18 20:00 35 05/14/18 20:00 59 05/14/18 19:15 67 21 35 05/14/18 16:57 63 20 35 05/14/18 16:00 78 05/14/18 16:00 35 05/14/18 16:00 Mechanical Ventilator 05/14/18 16:00 97.0 64 20 147/90 (109) 100 97.0 05/14/18 14:54 72 23 35 05/14/18 13:07 71 20 35 05/14/18 12:00 Mechanical Ventilator 05/14/18 12:00 67 05/14/18 12:00 96.9 67 18 149/88 (108) 100 96.9 05/14/18 11:27 62 20 35 05/14/18 09:50 143/78 05/14/18 09:50 67 143/78 Status: awake Condition: critical HEENT: atraumatic Neck: full ROM Heart: HR/BP stable, HR/BP unstable Abdomen: soft, active bowel sounds Critical Care - Subjective ROS Limited/Unobtainable: Yes Interval Events: ENT saw the pt, Condition: critical EKG Rhythm: Sinus Rhythm FI02: 35 Vent Support Breath Rate: 18 Vent Support Mode: AC Vent Tidal Volume: 500 Sputum Amount: Moderate PEEP: 5.0 PIP: 25 Tube Feeding Amount: 60 I&O: Intake and Output 05/14/18 05/15/18 19:00 07:00 Intake Total 1306.667 ml 1260 ml Output Total 480 ml 650 ml Balance 826.667 ml 610 ml Free Water 200 ml 100 ml IV Total 386.667 ml 440 ml Tube Feeding 720 ml 720 ml Output Urine Total 480 ml 650 ml # Voids 1 Labs: Laboratory Tests Test 05/15/18 04:00 White Blood Count 6.0 K/UL (4.8-10.8) Red Blood Count 2.90 M/UL (4.70-6.10) L Hemoglobin 8.3 G/DL (14.2-18.0) L Hematocrit 25.4 % (42.0-52.0) L Mean Corpuscular Volume 87 FL (80-99) Mean Corpuscular Hemoglobin 28.8 PG (27.0-31.0) Mean Corpuscular Hemoglobin Concent 32.9 G/DL (32.0-36.0) Red Cell Distribution Width 14.4 % (11.6-14.8) Platelet Count 318 K/UL (150-450) Mean Platelet Volume 6.8 FL (6.5-10.1) Neutrophils (%) (Auto) 66.2 % (45.0-75.0) Lymphocytes (%) (Auto) 22.3 % (20.0-45.0) Monocytes (%) (Auto) 4.2 % (1.0-10.0) Eosinophils (%) (Auto) 6.3 % (0.0-3.0) H Basophils (%) (Auto) 1.0 % (0.0-2.0) Sodium Level 134 MMOL/L (136-145) L Potassium Level 4.5 MMOL/L (3.5-5.1) Chloride Level 102 MMOL/L (98-107) Carbon Dioxide Level 26 MMOL/L (21-32) Anion Gap 6 mmol/L (5-15) Blood Urea Nitrogen 12 mg/dL (7-18) Creatinine 0.6 MG/DL (0.55-1.30) Estimat Glomerular Filtration Rate > 60 mL/min (>60) Glucose Level 107 MG/DL (74-106) H Calcium Level 9.3 MG/DL (8.5-10.1) Leodan Bojorquez MD May 15, 2018 09:47
[2018-05-15] MEDS: HydrALAZINE 10mg Tab GT SCH ×2 (09:48→21:18)
[2018-05-15] MEDS: Valproic Acid 250mg/5ml Liquid GT SCH ×2 (09:51→21:20)
[2018-05-15] MEDS: levETIRAcetam 500mg/5ml Liquid GT SCH ×2 (09:51→21:20)
[2018-05-15] MEDS: Heparin 5000 units/ml inj SUBQ SCH ×2 (09:57→21:23)
[2018-05-15 12:00] VITALS: BP 158/92
[2018-05-15] MEDS ORDERED: Vancomycin 750mg/NS 250ml IVPB SCH (12:00)
--- NOTE | 2018-05-15 13:00 | Infectious Diseases Prog Note ---
Assessment/Plan Assessment/Plan Oral bleeding 2ry to dental abscess and OM -CT maxillo facial: Evidence of large apical root abscess/osteomyelitis involving the apical roots of the left maxillary canine tooth and first premolar. Evidence of extensive dental disease elsewhere, as described. Right mastoid disease. Suggestion of skin thickening of the right lower lip and bilateral preauricular regions. Correlate with clinical findings -ESR 114 CRP 3.4 Probable sepsis upon admission, SP -CXR: Bilateral pleural effusion -sp cx MDR PsA (S Cefepime, Ceftazidime, Genta, Imi), MDR PsA #2 (S Genta, Imi ) (likely colonizer as no obvious infiltrate, consolidation on CXR) Pyuria/bacteriuria -u/a wbc 15-20 nit +, leuk est +3; Ucx 10-20K PsA (S Zosyn, Cefepim) (low count, suspect colonizer) Recent PNA 02/2018, s/p rx -CXR 02/16: Continued demonstration of right lower lung zone opacity. Questionable trace left pleural effusion. -sp cx p S. marcenses (R amp, otherwise S), MDR PSA (S aminoglycosies) chronic respiratory failure on tracheostomy cardiac arrest COPD DM2 PEG seizure disorder bedbound nonverbal hypertension hypoxic encephalopathy Plan: -Continue IV Vancomycin and IV Unasyn d# for dental abscess/OM ( may consider DC Vanco , if Cx are negative for MRSA ) -upon discharge can transition to IV Ceftriaxone 2g daily (until 06/18) and PO Clindamycin 600mg tid until 05/29, followed by PO Flagyl 500mg tid until 06/28 -ENT recommends repeat CT in 1 week and proceed with drainage if not improved. -02/24 SP INH Tobra #10 -68 Cefepime #10 -6/ SP IV Vanco #3 -02/12 SP Flagyl x1 -02/11/18 SP IV Vanco and Zosyn #7 -f/u cx -Monitor CBC/BMP, temperatures -trach/peg care -aspiration precautions -ENT f/u Discussed with RN Subjective Allergies: Coded Allergies: ACETAMINOPHEN (Verified Allergy, Unknown, 12/16/17) Subjective afebrile no leukocytosis awaiting ENT eval Bcx NTD Objective Vital Signs Last 24 Hour Vital Signs Date Time Temp Pulse Resp B/P (MAP) Pulse Ox O2 Delivery O2 Flow Rate FiO2 05/15/18 12:00 Mechanical Ventilator 05/15/18 11:05 53 20 35 05/15/18 09:48 151/88 05/15/18 09:00 51 151/88 05/15/18 08:30 51 18 35 05/15/18 08:00 35 05/15/18 08:00 51 05/15/18 08:00 Mechanical Ventilator 05/15/18 07:49 97.0 65 19 151/88 (109) 100 97.0 05/15/18 06:45 65 20 35 05/15/18 05:21 54 19 35 05/15/18 04:00 Mechanical Ventilator 05/15/18 04:00 97.0 69 20 146/89 (108) 100 97.0 05/15/18 04:00 35 05/15/18 04:00 54 05/15/18 03:18 52 18 35 05/15/18 01:17 58 19 35 05/15/18 00:00 59 05/15/18 00:00 35 05/15/18 00:00 97.3 60 18 128/65 (86) 100 97.3 05/15/18 00:00 Mechanical Ventilator 05/14/18 23:07 56 18 35 05/14/18 21:24 63 19 35 05/14/18 20:25 150/75 05/14/18 20:25 88 150/75 05/14/18 20:00 97.3 71 21 150/70 (96) 100 97.3 05/14/18 20:00 Mechanical Ventilator 05/14/18 20:00 35 05/14/18 20:00 59 05/14/18 19:15 67 21 35 05/14/18 16:57 63 20 35 05/14/18 16:00 78 05/14/18 16:00 35 05/14/18 16:00 Mechanical Ventilator 05/14/18 16:00 97.0 64 20 147/90 (109) 100 97.0 05/14/18 14:54 72 23 35 05/14/18 13:07 71 20 35 Height (Feet): 5 Height (Inches): 6.00 Weight (Pounds): 183 Objective General Appearance: no apparent distress, alert, non-toxic HEENT: normocephalic, atraumatic, bilateral eye PERRLp Trach in place. Enlarged, area on upper gums with purple color and L. upper canine tooth dislodged but still attached. Neck: full range of motion Respiratory: chest non-tender, normal breath sounds, no respiratory distress Cardiovascular # regular rate, rhythm, no edema Gastrointestinal: normal bowel sounds, non tender, soft, non-distended, no guarding, no rebound, other - PEG Musculoskeletal: other - Contracted Neurologic: alert, responsive, other - At baseline Skin: warm/dry, well hydrated, other - See RN exam Laboratory Tests Test 05/15/18 04:00 White Blood Count 6.0 K/UL (4.8-10.8) Red Blood Count 2.90 M/UL (4.70-6.10) L Hemoglobin 8.3 G/DL (14.2-18.0) L Hematocrit 25.4 % (42.0-52.0) L Mean Corpuscular Volume 87 FL (80-99) Mean Corpuscular Hemoglobin 28.8 PG (27.0-31.0) Mean Corpuscular Hemoglobin Concent 32.9 G/DL (32.0-36.0) Red Cell Distribution Width 14.4 % (11.6-14.8) Platelet Count 318 K/UL (150-450) Mean Platelet Volume 6.8 FL (6.5-10.1) Neutrophils (%) (Auto) 66.2 % (45.0-75.0) Lymphocytes (%) (Auto) 22.3 % (20.0-45.0) Monocytes (%) (Auto) 4.2 % (1.0-10.0) Eosinophils (%) (Auto) 6.3 % (0.0-3.0) H Basophils (%) (Auto) 1.0 % (0.0-2.0) Sodium Level 134 MMOL/L (136-145) L Potassium Level 4.5 MMOL/L (3.5-5.1) Chloride Level 102 MMOL/L (98-107) Carbon Dioxide Level 26 MMOL/L (21-32) Anion Gap 6 mmol/L (5-15) Blood Urea Nitrogen 12 mg/dL (7-18) Creatinine 0.6 MG/DL (0.55-1.30) Estimat Glomerular Filtration Rate > 60 mL/min (>60) Glucose Level 107 MG/DL (74-106) H Calcium Level 9.3 MG/DL (8.5-10.1) Current Medications Medications (Trade) Dose Ordered Sig/Marciano Route PRN Reason Start Time Stop Time Status Last Admin Dose Admin Albuterol/ Ipratropium (Albuterol/ Ipratropium) 3 ml Q4H PRN HHN Shortness of Breath 05/13/18 11:00 05/18/18 10:59 Ampicillin Sodium/ Sulbactam Sodium 3 gm/Sodium Chloride 110 ml @ 220 mls/hr Q6H IVPB 05/09/18 20:00 05/16/18 19:59 05/15/18 09:48 Carvedilol (Coreg) 6.25 mg EVERY 12 HOURS GT 05/09/18 21:00 06/08/18 20:59 05/14/18 20:25 Clonidine HCl (Catapres Tab) 0.1 mg Q6H PRN GT For High Blood Pressure 05/09/18 13:45 06/08/18 13:44 Dextrose (Dextrose 50%) STAT PRN IV Hypoglycemia 05/09/18 13:45 06/08/18 13:44 Heparin Sodium (Porcine) (Heparin 5000 units/ml) 5,000 units EVERY 12 HOURS SUBQ 05/09/18 21:00 06/08/18 20:59 05/15/18 09:57 Hydralazine HCl (Apresoline) 10 mg Q12HR GT 05/09/18 21:00 06/08/18 20:59 05/15/18 09:48 Lansoprazole (Prevacid) 30 mg DAILY GT 05/14/18 09:00 06/13/18 08:59 05/15/18 09:52 Levetiracetam (Keppra) 1,000 mg Q12HR GT 05/09/18 21:00 06/08/18 20:59 05/15/18 09:51 Lorazepam (Ativan 2mg/ml 1ml) 2 mg Q2H PRN IV For Anxiety 05/09/18 13:45 05/16/18 13:44 Morphine Sulfate (Morphine Sulfate) 4 mg Q4H PRN IVP Severe Pain (Pain Scale 7-10) 05/09/18 13:45 05/16/18 13:44 Ondansetron HCl (Zofran) 4 mg Q6H PRN IVP Nausea & Vomiting 05/09/18 13:45 06/08/18 13:44 Polyethylene Glycol (Miralax) 17 gm DAILYPRN PRN GT Constipation 05/14/18 08:45 06/13/18 08:44 Valproic Acid (Depakene) 250 mg Q12HR GT 05/14/18 09:00 06/13/18 08:59 05/15/18 09:51 Vancomycin HCl (Vanco rx to dose) 1 ea DAILY PRN MISC PER PHARMACY 05/09/18 14:15 06/08/18 14:14 Vancomycin/Sodium Chloride 250 ml @ 166.667 mls/hr Q12H IVPB 05/15/18 12:00 05/20/18 11:59 Melody Suarez M.D. May 15, 2018 13:00
[2018-05-15] MEDS ORDERED: Heparin 2000 units/Ns 1000ml INJ ONE (13:15)
[2018-05-15] MEDS ORDERED: Lidocaine 1% Plain 30 ml INJ ONE (13:15)
--- NOTE | 2018-05-15 14:00 | Diagnostic Imaging Report ---
APPROVED REPORT CPT Code: 98668 Present Symptoms Comments: BILATERAL LEGS PAIN. BILATERAL: Imaging reveals a patent deep venous system bilaterally. There is no evidence of thrombus within the femoral, popliteal or tibial segments. The greater saphenous veins are also within normal limits. Doppler indicates normal spontaneous flow within these segments.
--- NOTE | 2018-05-15 15:10 | General Progress Note ---
Assessment/Plan Problem List: (1) Oral bleeding ICD Codes: K13.79 - Other lesions of oral mucosa SNOMED: 06722595 (2) Hypertension ICD Codes: I10 - Essential (primary) hypertension SNOMED: 45876616 (3) UTI (urinary tract infection) ICD Codes: N39.0 - Urinary tract infection, site not specified SNOMED: 15744846 (4) Chronic respiratory failure ICD Codes: J96.10 - Chronic respiratory failure, unspecified whether with hypoxia or hypercapnia SNOMED: 33572563 (5) Anemia ICD Codes: D64.9 - Anemia, unspecified SNOMED: 729203381 (6) Feeding by G-tube ICD Codes: Z93.1 - Gastrostomy status SNOMED: 415217997, 103813910 Status: stable, progressing Assessment/Plan vent abx transfuse prn ent eval dc if clear Subjective Constitutional: Reports: weakness Allergies: Coded Allergies: ACETAMINOPHEN (Verified Allergy, Unknown, 12/16/17) All Systems: reviewed and negative except above Subjective trach vent altered Objective Last 24 Hour Vital Signs Date Time Temp Pulse Resp B/P (MAP) Pulse Ox O2 Delivery O2 Flow Rate FiO2 05/15/18 12:30 58 19 35 05/15/18 12:00 96.1 74 19 158/92 (114) 100 96.1 05/15/18 12:00 Mechanical Ventilator 05/15/18 12:00 35 05/15/18 11:05 53 20 35 05/15/18 09:48 151/88 05/15/18 09:00 51 151/88 05/15/18 08:30 51 18 35 05/15/18 08:00 35 05/15/18 08:00 51 05/15/18 08:00 Mechanical Ventilator 05/15/18 07:49 97.0 65 19 151/88 (109) 100 97.0 05/15/18 06:45 65 20 35 05/15/18 05:21 54 19 35 05/15/18 04:00 Mechanical Ventilator 05/15/18 04:00 97.0 69 20 146/89 (108) 100 97.0 05/15/18 04:00 35 05/15/18 04:00 54 05/15/18 03:18 52 18 35 05/15/18 01:17 58 19 35 05/15/18 00:00 59 05/15/18 00:00 35 05/15/18 00:00 97.3 60 18 128/65 (86) 100 97.3 05/15/18 00:00 Mechanical Ventilator 05/14/18 23:07 56 18 35 05/14/18 21:24 63 19 35 05/14/18 20:25 150/75 05/14/18 20:25 88 150/75 05/14/18 20:00 97.3 71 21 150/70 (96) 100 97.3 05/14/18 20:00 Mechanical Ventilator 05/14/18 20:00 35 05/14/18 20:00 59 05/14/18 19:15 67 21 35 05/14/18 16:57 63 20 35 05/14/18 16:00 78 05/14/18 16:00 35 05/14/18 16:00 Mechanical Ventilator 05/14/18 16:00 97.0 64 20 147/90 (109) 100 97.0 Intake and Output 05/14/18 05/15/18 19:00 07:00 Intake Total 1306.667 ml 1260 ml Output Total 480 ml 650 ml Balance 826.667 ml 610 ml Free Water 200 ml 100 ml IV Total 386.667 ml 440 ml Tube Feeding 720 ml 720 ml Output Urine Total 480 ml 650 ml # Voids 1 Laboratory Tests 05/15/18 04:00: White Blood Count 6.0, Red Blood Count 2.90L, Hemoglobin 8.3L, Hematocrit 25.4L , Mean Corpuscular Volume 87, Mean Corpuscular Hemoglobin 28.8, Mean Corpuscular Hemoglobin Concent 32.9, Red Cell Distribution Width 14.4, Platelet Count 318, Mean Platelet Volume 6.8, Neutrophils (%) (Auto) 66.2, Lymphocytes (% ) (Auto) 22.3, Monocytes (%) (Auto) 4.2, Eosinophils (%) (Auto) 6.3H, Basophils (%) (Auto) 1.0, Sodium Level 134L, Potassium Level 4.5, Chloride Level 102, Carbon Dioxide Level 26, Anion Gap 6, Blood Urea Nitrogen 12, Creatinine 0.6, Estimat Glomerular Filtration Rate > 60, Glucose Level 107H, Calcium Level 9.3 Height (Feet): 5 Height (Inches): 6.00 Weight (Pounds): 183 General Appearance: lethargic EENT: normal ENT inspection Neck: normal alignment Cardiovascular: normal peripheral pulses, normal rate, regular rhythm Respiratory/Chest: chest wall non-tender, lungs clear, normal breath sounds Abdomen: normal bowel sounds, non tender, soft Extremities: normal inspection Edema: no edema noted Arm (L), no edema noted Arm (R), no edema noted Leg (L), no edema noted Leg (R), no edema noted Pedal (L), no edema noted Pedal (R), no edema noted Generalized Neurologic: motor weakness Skin: normal pigmentation, warm/dry Yosef Garcia DO May 15, 2018 15:10
--- NOTE | 2018-05-15 15:29 | Diagnostic Imaging Report ---
Indications: Needs long-term IV access Technique: Procedure performed at bedside. Procedural timeout performed. Ultrasound confirms patent compressible left basilic vein. Total sterile technique, including sterile probe cover and sterile gel, sterile gloves, hand hygiene, hat, mask,, sterile gown, large sterile drape, and preparation with 2% chlorhexidine utilized. Local anesthesia with 1% lidocaine. Under real-time ultrasound guidance, puncture basilic vein using 21-gauge needle, passage 0.018 guidewire, exchange for 5 Nepali peel-away sheath. 5 Nepali Bard dual-lumen power PICC cut to 51 cm. It was inserted through the peel-away sheath. Peel-away sheath and guidewire removed. Catheter fixed to the skin. Both catheter ports aspirated and flushed. Patient tolerated procedure well, without immediate complication. Followup chest x-ray obtained, documents catheter coursing cephalad in expected region of the left internal jugular vein. The catheter was partially withdrawn, a guidewire with a shaped curve automated reinserted, and the catheter was and reinserted. Follow-up radiographs demonstrated initially catheter tip in the mid right atrium. Catheter was pulled back slightly, and a final chest radiograph demonstrates satisfactory catheter tip position in the high right atrium Impression: Successful bedside placement of left arm PICC under sonographic guidance, as described above.
[2018-05-15 16:00] VITALS: BP 135/80
[2018-05-15] MEDS: Vancomycin 750mg/NS 250ml IVPB SCH (16:21)
[2018-05-15 20:00] VITALS: BP 138/95
[2018-05-15] MEDS ORDERED: Dyna-Hex 2% Top Sol 2oz TOPIC SCH (20:00)
[2018-05-15] MEDS: Dyna-Hex 2% Top Sol 2oz TOPIC SCH (21:18)
[2018-05-16] VITALS (7 sets, daily range): BP systolic 119–152; BP diastolic 69–90
[2018-05-16] MEDS: Ampicillin/Sulbactam Sod 3 GM in NS 110 ML IVPB SCH ×4 (03:17→21:53)
[2018-05-16] MEDS: Vancomycin 750mg/NS 250ml IVPB SCH ×2 (04:52→16:43)
[2018-05-16 06:49] LABS: BASOPHILS % (AUTO) 0.3 % (0.0-2.0); HEMATOCRIT 27.8 % (42.0-52.0); HEMOGLOBIN 9.5 G/DL (14.2-18.0); LYMPHOCYTES % (AUTO) 18.1 % (20.0-45.0); MEAN CORPUSCULAR VOLUME 87 FL (80-99); MONOCYTES % (AUTO) 4.1 % (1.0-10.0); NEUTROPHILS % (AUTO) 73.6 % (45.0-75.0); PLATELET COUNT 311 K/UL (150-450); RED BLOOD COUNT 3.21 M/UL (4.70-6.10); RED CELL DISTRIBUTION WIDTH 14.3 % (11.6-14.8); WHITE BLOOD COUNT 7.8 K/UL (4.8-10.8)
[2018-05-16 07:19] LABS: ALANINE AMINOTRANSFERASE 26 U/L (12-78); ALBUMIN 2.9 G/DL (3.4-5.0); ALBUMIN/GLOBULIN RATIO 0.7 (1.0-2.7); ALKALINE PHOSPHATASE 136 U/L (46-116); ANION GAP 8 mmol/L (5-15); ASPARTATE AMINO TRANSFERASE 21 U/L (15-37); BILIRUBIN,TOTAL 0.3 MG/DL (0.2-1.0); BLOOD UREA NITROGEN 13 mg/dL (7-18); CALCIUM 9.4 MG/DL (8.5-10.1); CARBON DIOXIDE 23 MMOL/L (21-32); CHLORIDE 100 MMOL/L (98-107); CREATININE 0.5 MG/DL (0.55-1.30); PHOSPHORUS 3.3 MG/DL (2.5-4.9); POTASSIUM 4.4 MMOL/L (3.5-5.1); SODIUM 131 MMOL/L (136-145)
[2018-05-16] MEDS: Carvedilol 6.25mg Tab GT SCH ×2 (09:00→21:00)
--- NOTE | 2018-05-16 09:35 | General Progress Note ---
Assessment/Plan Assessment/Plan # Anemia of chronic disease. Has been in the 7-9 range, hemolysis panel has been reviewed --> Anemia panel has been reviewed, currently does not require iron. Will trend CBC as needed. --> Continue to monitor for stability. --> Hgb goal above 7. Transfuse as needed. --> Current Hgb of 8.2, iron indices are wnl # Anemia due to oral bleeding due to dental abscess --> abx as per ID service --> currently improved --> appreciate ent eval as needed # UTI. Pt on IV abx. # Respiratory failure. Remains on trach and vent. # Hypertension. Pt on several BP meds. Greatly appreciate consultation. The time the note was entered does not necessarily correspond to the time the patient was seen. Subjective Constitutional: Denies: no symptoms, chills, diaphoresis, fever, malaise, weakness, other HEENT: Denies: no symptoms, eye pain, blurred vision, tearing, double vision, ear pain, ear discharge, nose pain, nose congestion, throat pain, throat swelling, mouth pain, mouth swelling, other Cardiovascular: Denies: no symptoms, chest pain, edema, irregular heart rate, lightheadedness, palpitations, syncope, other Respiratory: Denies: no symptoms, cough, orthopnea, shortness of breath, SOB with excertion, SOB at rest, sputum, stridor, wheezing, other Gastrointestinal/Abdominal: Denies: no symptoms, abdomen distended, abdominal pain, black stools, tarry stools, blood in stool, constipated, diarrhea, difficulty swallowing, nausea, poor appetite, poor fluid intake, rectal bleeding , vomiting, other Genitourinary: Denies: no symptoms, burning, discharge, frequency, flank pain, hematuria, incontinence, pain, urgency, other Neurologic/Psychiatric: Denies: no symptoms, anxiety, depressed, emotional problems, headache, numbness, paresthesia, pre-existing deficit, seizure, tingling, tremors, weakness, other Endocrine: Denies: no symptoms, excessive sweating, flushing, intolerance to cold, intolerance to heat, increased hunger, increased thirst, increased urine, unexplained weight gain, unexplained weight loss, other Hematologic/Lymphatic: Denies: no symptoms, anemia, easy bleeding, easy bruising, other Allergies: Coded Allergies: ACETAMINOPHEN (Verified Allergy, Unknown, 12/16/17) Subjective Pt remains obtunded and on vent. No acute events. H/H stable, transfer pending, labs reviewed, on abx Objective Last 24 Hour Vital Signs Date Time Temp Pulse Resp B/P (MAP) Pulse Ox O2 Delivery O2 Flow Rate FiO2 05/16/18 08:56 48 18 30 05/16/18 07:18 52 26 30 05/16/18 05:29 56 24 30 05/16/18 04:00 35 05/16/18 04:00 Mechanical Ventilator 05/16/18 04:00 40 05/16/18 04:00 97.2 43 11 133/69 (90) 100 97.2 05/16/18 03:30 40 18 30 05/16/18 01:07 43 05/16/18 01:04 51 21 30 05/16/18 00:00 97.7 48 12 152/90 (110) 100 97.7 05/16/18 00:00 Mechanical Ventilator 05/15/18 23:03 56 20 30 05/15/18 21:18 138/95 05/15/18 21:00 48 138/95 05/15/18 20:45 48 18 30 05/15/18 20:00 50 05/15/18 20:00 97.1 50 18 138/95 (109) 100 97.1 05/15/18 20:00 35 05/15/18 20:00 Mechanical Ventilator 05/15/18 19:30 50 18 30 05/15/18 16:55 60 22 35 05/15/18 16:00 95.2 64 20 135/80 (98) 100 95.2 05/15/18 16:00 Mechanical Ventilator 05/15/18 16:00 35 05/15/18 16:00 53 05/15/18 15:01 69 23 35 05/15/18 12:30 58 19 35 05/15/18 12:00 96.1 74 19 158/92 (114) 100 96.1 05/15/18 12:00 Mechanical Ventilator 05/15/18 12:00 35 05/15/18 11:05 53 20 35 05/15/18 09:48 151/88 Intake and Output 05/15/18 05/16/18 19:00 07:00 Intake Total 860 ml 1379.067 ml Output Total 1000 ml 850 ml Balance -140 ml 529.067 ml Free Water 200 ml 150 ml IV Total 409.067 ml Tube Feeding 660 ml 720 ml Other 100 ml Output Urine Total 1000 ml 850 ml # Bowel Movements 1 Laboratory Tests 05/16/18 05:33: White Blood Count 7.8, Red Blood Count 3.21L, Hemoglobin 9.5L, Hematocrit 27.8L , Mean Corpuscular Volume 87, Mean Corpuscular Hemoglobin 29.7, Mean Corpuscular Hemoglobin Concent 34.2, Red Cell Distribution Width 14.3, Platelet Count 311, Mean Platelet Volume 6.5, Neutrophils (%) (Auto) 73.6, Lymphocytes (% ) (Auto) 18.1L, Monocytes (%) (Auto) 4.1, Eosinophils (%) (Auto) 4.0H, Basophils (%) (Auto) 0.3, Sodium Level 131L, Potassium Level 4.4, Chloride Level 100, Carbon Dioxide Level 23, Anion Gap 8, Blood Urea Nitrogen 13, Creatinine 0.5L, Estimat Glomerular Filtration Rate > 60, Glucose Level 109H, Calcium Level 9.4, Phosphorus Level 3.3, Magnesium Level 2.0, Total Bilirubin 0.3, Aspartate Amino Transf (AST/SGOT) 21, Alanine Aminotransferase (ALT/SGPT) 26, Alkaline Phosphatase 136H, Total Protein 7.0, Albumin 2.9L, Globulin 4.1, Albumin/Globulin Ratio 0.7L Height (Feet): 5 Height (Inches): 6.00 Weight (Pounds): 183 General Appearance: lethargic EENT: TMs normal Neck: supple Cardiovascular: regular rhythm Respiratory/Chest: no respiratory distress Abdomen: no organomegaly Extremities: non-tender Edema: 1+ Leg (L), 1+ Leg (R) Edema: mild edema Neurologic: responsive Fermín Alberto MD May 16, 2018 09:35
--- NOTE | 2018-05-16 09:58 | Pulmonolgy Critical Care Note ---
Critical Care - Asmt/Plan Problems: (1) Acute on chronic respiratory failure (2) Aspiration pneumonia (3) Pleural effusion (4) Oral abscess (5) Feeding by G-tube (6) Vegetative state Respiratory: monitor respiratory rate, adjust FIO2, CXR Cardiac: continue to monitor HR/BP Renal: F/U I&O Infectious Disease: check cultures Gastrointestinal: continue feedings/current rate Endocrine: monitor blood sugar, check HgA1C Neurologic: PRN Ativan Affect: PRN ativan Time Spent (Minutes): 40 Notes Reviewed: 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 with: nurses, consultants, case management assistantdigital marketing project manager - Objective Last 24 Hour Vital Signs Date Time Temp Pulse Resp B/P (MAP) Pulse Ox O2 Delivery O2 Flow Rate FiO2 05/16/18 08:56 48 18 30 05/16/18 07:18 52 26 30 05/16/18 05:29 56 24 30 05/16/18 04:00 35 05/16/18 04:00 Mechanical Ventilator 05/16/18 04:00 40 05/16/18 04:00 97.2 43 11 133/69 (90) 100 97.2 05/16/18 03:30 40 18 30 05/16/18 01:07 43 05/16/18 01:04 51 21 30 05/16/18 00:00 97.7 48 12 152/90 (110) 100 97.7 05/16/18 00:00 Mechanical Ventilator 05/15/18 23:03 56 20 30 05/15/18 21:18 138/95 05/15/18 21:00 48 138/95 05/15/18 20:45 48 18 30 05/15/18 20:00 50 05/15/18 20:00 97.1 50 18 138/95 (109) 100 97.1 05/15/18 20:00 35 05/15/18 20:00 Mechanical Ventilator 05/15/18 19:30 50 18 30 05/15/18 16:55 60 22 35 05/15/18 16:00 95.2 64 20 135/80 (98) 100 95.2 05/15/18 16:00 Mechanical Ventilator 05/15/18 16:00 35 05/15/18 16:00 53 05/15/18 15:01 69 23 35 05/15/18 12:30 58 19 35 05/15/18 12:00 96.1 74 19 158/92 (114) 100 96.1 05/15/18 12:00 Mechanical Ventilator 05/15/18 12:00 35 05/15/18 11:05 53 20 35 Status: obtunded Condition: critical HEENT: atraumatic Lungs: clear Heart: regular Abdomen: non-tender, active bowel sounds, feeding tube Extremities: edema Decubiti: location Critical Care - Subjective ROS Limited/Unobtainable: Yes Condition: critical EKG Rhythm: Sinus Rhythm FI02: 30 Vent Support Breath Rate: 18 Vent Support Mode: AC Vent Tidal Volume: 500 Sputum Amount: Scant PEEP: 5.0 PIP: 25 Tube Feeding Amount: 60 I&O: Intake and Output 05/15/18 05/16/18 19:00 07:00 Intake Total 860 ml 1379.067 ml Output Total 1000 ml 850 ml Balance -140 ml 529.067 ml Free Water 200 ml 150 ml IV Total 409.067 ml Tube Feeding 660 ml 720 ml Other 100 ml Output Urine Total 1000 ml 850 ml # Bowel Movements 1 CXR: PEGGY Labs: Laboratory Tests Test 05/16/18 05:33 White Blood Count 7.8 K/UL (4.8-10.8) Red Blood Count 3.21 M/UL (4.70-6.10) L Hemoglobin 9.5 G/DL (14.2-18.0) L Hematocrit 27.8 % (42.0-52.0) L Mean Corpuscular Volume 87 FL (80-99) Mean Corpuscular Hemoglobin 29.7 PG (27.0-31.0) Mean Corpuscular Hemoglobin Concent 34.2 G/DL (32.0-36.0) Red Cell Distribution Width 14.3 % (11.6-14.8) Platelet Count 311 K/UL (150-450) Mean Platelet Volume 6.5 FL (6.5-10.1) Neutrophils (%) (Auto) 73.6 % (45.0-75.0) Lymphocytes (%) (Auto) 18.1 % (20.0-45.0) L Monocytes (%) (Auto) 4.1 % (1.0-10.0) Eosinophils (%) (Auto) 4.0 % (0.0-3.0) H Basophils (%) (Auto) 0.3 % (0.0-2.0) Sodium Level 131 MMOL/L (136-145) L Potassium Level 4.4 MMOL/L (3.5-5.1) Chloride Level 100 MMOL/L (98-107) Carbon Dioxide Level 23 MMOL/L (21-32) Anion Gap 8 mmol/L (5-15) Blood Urea Nitrogen 13 mg/dL (7-18) Creatinine 0.5 MG/DL (0.55-1.30) L Estimat Glomerular Filtration Rate > 60 mL/min (>60) Glucose Level 109 MG/DL (74-106) H Calcium Level 9.4 MG/DL (8.5-10.1) Phosphorus Level 3.3 MG/DL (2.5-4.9) Magnesium Level 2.0 MG/DL (1.8-2.4) Total Bilirubin 0.3 MG/DL (0.2-1.0) Aspartate Amino Transf (AST/SGOT) 21 U/L (15-37) Alanine Aminotransferase (ALT/SGPT) 26 U/L (12-78) Alkaline Phosphatase 136 U/L (46-116) H Total Protein 7.0 G/DL (6.4-8.2) Albumin 2.9 G/DL (3.4-5.0) L Globulin 4.1 g/dL Albumin/Globulin Ratio 0.7 (1.0-2.7) L Leodan Bojorquez MD May 16, 2018 09:58
[2018-05-16] MEDS: Heparin 5000 units/ml inj SUBQ SCH ×2 (10:57→21:17)
[2018-05-16] MEDS: levETIRAcetam 500mg/5ml Liquid GT SCH ×2 (10:58→21:15)
[2018-05-16] MEDS: Valproic Acid 250mg/5ml Liquid GT SCH ×2 (10:58→21:15)
[2018-05-16] MEDS: HydrALAZINE 10mg Tab GT SCH ×2 (10:59→21:15)
[2018-05-16] MEDS ORDERED: NS 275ml ONE ×2 (12:44)
[2018-05-16] MEDS ORDERED: Tubing IV Secondary IV ONE ×2 (12:44)
--- NOTE | 2018-05-16 15:00 | Consultation ---
DATE OF CONSULTATION: 05/16/2018 INITIAL PSYCHIATRIC CONSULTATION CONSULTING PHYSICIAN: Danika Fuller M.D. REQUESTING PHYSICIAN: Yosef Garcia D.O. HISTORY OF PRESENT ILLNESS: The patient is a 72-year-old male patient. He is from [facility], but he has increased oral bleeding and he is confused and lethargic. His cognition has declined below baseline. He does have some mood lability and agitation worsened by stress of his medical illness. That is why, there is daily psychiatric consultation because this patient has mood lability, agitation, and altered mental status, which is worsened by stress of his medical illness. ALLERGIES: Tylenol. SOCIAL HISTORY: The patient lives in [facility]. Financially supported by [employer] and Medicare. PSYCHIATRIC HISTORY: Major depression with psychotic features, rule out pseudodementia, rule out dementia with psychotic features. SUBSTANCE ABUSE HISTORY: Denies drug and alcohol use. MEDICAL HISTORY: Includes respiratory failure, COPD, hypertension. MENTAL STATUS EXAMINATION: This is a 72-year-old male. Appearance is disheveled. Attitude, irritable and agitated. Affect, guarded and restricted. Intellect poor. Mood, depressed and anxious. Motor activity, psychomotor agitation. Attention span is poor. Orientation x2. Speech is poverty of speech. His insight and judgment is poor. DIAGNOSIS: Major depression with psychotic features, rule out dementia with psychosis. PLAN: My plan for this patient is I am going to treat this patient with a medication regimen consisting of Depakene syrup 250 mg per G-tube q.12 hours and then also Ativan to reduce the agitation at a dose of 2 mg q.2 hours p.r.n. anxiety. I encouraged him to interact appropriately with staff and other patients. Twenty minutes of supportive psychotherapy provided. Chart reviewed. Discussed with staff. Seen and assessed in his room. I would like to thank Dr. Yosef Garcia for this interesting consultation. Raj Allen JOB#: [id number] CC:
--- NOTE | 2018-05-16 18:00 | Infectious Diseases Prog Note ---
Assessment/Plan Assessment/Plan Oral bleeding 2ry to dental abscess and OM -CT maxillo facial: Evidence of large apical root abscess/osteomyelitis involving the apical roots of the left maxillary canine tooth and first premolar. Evidence of extensive dental disease elsewhere, as described. Right mastoid disease. Suggestion of skin thickening of the right lower lip and bilateral preauricular regions. Correlate with clinical findings -ESR 114 CRP 3.4 Probable sepsis upon admission, SP -CXR: Bilateral pleural effusion -sp cx MDR PsA (S Cefepime, Ceftazidime, Genta, Imi), MDR PsA #2 (S Genta, Imi ) (likely colonizer as no obvious infiltrate, consolidation on CXR) Pyuria/bacteriuria -u/a wbc 15-20 nit +, leuk est +3; Ucx 10-20K PsA (S Zosyn, Cefepim) (low count, suspect colonizer) Recent PNA 02/2018, s/p rx -CXR 02/16: Continued demonstration of right lower lung zone opacity. Questionable trace left pleural effusion. -sp cx p S. marcenses (R amp, otherwise S), MDR PSA (S aminoglycosies) chronic respiratory failure on tracheostomy cardiac arrest COPD DM2 PEG seizure disorder bedbound nonverbal hypertension hypoxic encephalopathy Plan: -Continue IV Vancomycin and IV Unasyn d# for dental abscess/OM -upon discharge can transition to IV Ceftriaxone 2g daily (until 06/18) and PO Clindamycin 600mg tid until 05/29, followed by PO Flagyl 500mg tid until 06/28 -ENT recommends repeat CT in 1 week and proceed with drainage if not improved. -02/24 SP INH Tobra #10 -6 Cefepime #10 -6/ SP IV Vanco #3 -02/12 SP Flagyl x1 -02/11/18 SP IV Vanco and Zosyn #7 -f/u cx -Monitor CBC/BMP, temperatures -trach/peg care -aspiration precautions -ENT f/u Discussed with RN Subjective Allergies: Coded Allergies: ACETAMINOPHEN (Verified Allergy, Unknown, 12/16/17) Subjective afebrile no leukocytosis awaiting ENT eval Bcx NTD Objective Vital Signs Last 24 Hour Vital Signs Date Time Temp Pulse Resp B/P (MAP) Pulse Ox O2 Delivery O2 Flow Rate FiO2 8/31/18 17:04 51 18 30 05/16/18 16:19 47 05/16/18 16:00 30 05/16/18 16:00 50 20 119/75 (90) 100 05/16/18 12:00 Mechanical Ventilator 05/16/18 12:00 30 05/16/18 12:00 97.6 42 20 138/73 (94) 100 97.6 05/16/18 12:00 40 05/16/18 10:59 124/73 05/16/18 10:52 54 20 30 05/16/18 09:00 39 124/73 05/16/18 08:56 48 18 30 05/16/18 08:00 36 05/16/18 08:00 Mechanical Ventilator 05/16/18 08:00 30 05/16/18 08:00 97.7 42 18 122/76 (91) 100 97.7 05/16/18 07:18 52 26 30 05/16/18 05:29 56 24 30 05/16/18 04:00 35 05/16/18 04:00 Mechanical Ventilator 05/16/18 04:00 40 05/16/18 04:00 97.2 43 11 133/69 (90) 100 97.2 05/16/18 03:30 40 18 30 05/16/18 01:07 43 05/16/18 01:04 51 21 30 05/16/18 00:00 97.7 48 12 152/90 (110) 100 97.7 05/16/18 00:00 Mechanical Ventilator 05/15/18 23:03 56 20 30 05/15/18 21:18 138/95 05/15/18 21:00 48 138/95 05/15/18 20:45 48 18 30 05/15/18 20:00 50 05/15/18 20:00 97.1 50 18 138/95 (109) 100 97.1 05/15/18 20:00 35 05/15/18 20:00 Mechanical Ventilator 05/15/18 19:30 50 18 30 Height (Feet): 5 Height (Inches): 6.00 Weight (Pounds): 183 Objective General Appearance: no apparent distress, alert, non-toxic HEENT: normocephalic, atraumatic, bilateral eye PERRLp Trach in place. Enlarged, area on upper gums with purple color and L. upper canine tooth dislodged but still attached. Neck: full range of motion Respiratory: chest non-tender, normal breath sounds, no respiratory distress Cardiovascular # regular rate, rhythm, no edema Gastrointestinal: normal bowel sounds, non tender, soft, non-distended, no guarding, no rebound, other - PEG Musculoskeletal: other - Contracted Neurologic: alert, responsive, other - At baseline Skin: warm/dry, well hydrated, other - See RN exam Laboratory Tests Test 05/16/18 05:33 White Blood Count 7.8 K/UL (4.8-10.8) Red Blood Count 3.21 M/UL (4.70-6.10) L Hemoglobin 9.5 G/DL (14.2-18.0) L Hematocrit 27.8 % (42.0-52.0) L Mean Corpuscular Volume 87 FL (80-99) Mean Corpuscular Hemoglobin 29.7 PG (27.0-31.0) Mean Corpuscular Hemoglobin Concent 34.2 G/DL (32.0-36.0) Red Cell Distribution Width 14.3 % (11.6-14.8) Platelet Count 311 K/UL (150-450) Mean Platelet Volume 6.5 FL (6.5-10.1) Neutrophils (%) (Auto) 73.6 % (45.0-75.0) Lymphocytes (%) (Auto) 18.1 % (20.0-45.0) L Monocytes (%) (Auto) 4.1 % (1.0-10.0) Eosinophils (%) (Auto) 4.0 % (0.0-3.0) H Basophils (%) (Auto) 0.3 % (0.0-2.0) Sodium Level 131 MMOL/L (136-145) L Potassium Level 4.4 MMOL/L (3.5-5.1) Chloride Level 100 MMOL/L (98-107) Carbon Dioxide Level 23 MMOL/L (21-32) Anion Gap 8 mmol/L (5-15) Blood Urea Nitrogen 13 mg/dL (7-18) Creatinine 0.5 MG/DL (0.55-1.30) L Estimat Glomerular Filtration Rate > 60 mL/min (>60) Glucose Level 109 MG/DL (74-106) H Calcium Level 9.4 MG/DL (8.5-10.1) Phosphorus Level 3.3 MG/DL (2.5-4.9) Magnesium Level 2.0 MG/DL (1.8-2.4) Total Bilirubin 0.3 MG/DL (0.2-1.0) Aspartate Amino Transf (AST/SGOT) 21 U/L (15-37) Alanine Aminotransferase (ALT/SGPT) 26 U/L (12-78) Alkaline Phosphatase 136 U/L (46-116) H Total Protein 7.0 G/DL (6.4-8.2) Albumin 2.9 G/DL (3.4-5.0) L Globulin 4.1 g/dL Albumin/Globulin Ratio 0.7 (1.0-2.7) L Current Medications Medications (Trade) Dose Ordered Sig/Marciano Route PRN Reason Start Time Stop Time Status Last Admin Dose Admin Albuterol/ Ipratropium (Albuterol/ Ipratropium) 3 ml Q4H PRN HHN Shortness of Breath 05/13/18 11:00 05/18/18 10:59 Ampicillin Sodium/ Sulbactam Sodium 3 gm/Sodium Chloride 110 ml @ 220 mls/hr Q6H IVPB 05/15/18 16:00 05/22/18 15:59 05/16/18 16:43 Carvedilol (Coreg) 6.25 mg EVERY 12 HOURS GT 05/09/18 21:00 06/08/18 20:59 05/14/18 20:25 Chlorhexidine Gluconate (Nancy-Hex 2%) 1 applic DAILY@2000 TOPIC 05/15/18 20:00 06/14/18 19:59 05/15/18 21:18 Clonidine HCl (Catapres Tab) 0.1 mg Q6H PRN GT For High Blood Pressure 05/09/18 13:45 06/08/18 13:44 Dextrose (Dextrose 50%) STAT PRN IV Hypoglycemia 05/09/18 13:45 06/08/18 13:44 Heparin Sodium (Porcine) (Heparin 5000 units/ml) 5,000 units EVERY 12 HOURS SUBQ 05/09/18 21:00 06/08/18 20:59 05/16/18 10:57 Hydralazine HCl (Apresoline) 10 mg Q12HR GT 05/09/18 21:00 06/08/18 20:59 05/16/18 10:59 Lansoprazole (Prevacid) 30 mg DAILY GT 05/14/18 09:00 06/13/18 08:59 05/16/18 10:58 Levetiracetam (Keppra) 1,000 mg Q12HR GT 05/09/18 21:00 06/08/18 20:59 05/16/18 10:58 Ondansetron HCl (Zofran) 4 mg Q6H PRN IVP Nausea & Vomiting 05/09/18 13:45 06/08/18 13:44 Polyethylene Glycol (Miralax) 17 gm DAILYPRN PRN GT Constipation 05/14/18 08:45 06/13/18 08:44 Valproic Acid (Depakene) 250 mg Q12HR GT 05/14/18 09:00 06/13/18 08:59 05/16/18 10:58 Vancomycin HCl (Vanco rx to dose) 1 ea DAILY PRN MISC PER PHARMACY 05/09/18 14:15 06/08/18 14:14 Vancomycin/Sodium Chloride 250 ml @ 166.667 mls/hr Q12H IVPB 05/15/18 16:00 05/20/18 15:59 05/16/18 16:43 Melody Suarez M.D. May 16, 2018 18:00
[2018-05-16] MEDS: Dyna-Hex 2% Top Sol 2oz TOPIC SCH (20:06)
--- NOTE | 2018-05-16 22:11 | Cardiology Progress Note ---
Assessment/Plan Assessment/Plan The patient is seen and examined, full consult note will be dictated. Objective Last 24 Hour Vital Signs Date Time Temp Pulse Resp B/P (MAP) Pulse Ox O2 Delivery O2 Flow Rate FiO2 05/16/18 21:15 135/79 05/16/18 21:00 48 135/79 05/16/18 21:00 50 18 30 05/16/18 20:00 30 05/16/18 20:00 49 05/16/18 20:00 Mechanical Ventilator 05/16/18 20:00 97.0 48 20 135/79 (97) 100 97.0 05/16/18 19:38 51 19 30 05/16/18 17:04 51 18 30 05/16/18 16:19 47 05/16/18 16:00 30 05/16/18 16:00 50 20 119/75 (90) 100 05/16/18 16:00 Mechanical Ventilator 05/16/18 12:00 Mechanical Ventilator 05/16/18 12:00 30 05/16/18 12:00 97.6 42 20 138/73 (94) 100 97.6 05/16/18 12:00 40 05/16/18 10:59 124/73 05/16/18 10:52 54 20 30 05/16/18 09:00 39 124/73 05/16/18 08:56 48 18 30 05/16/18 08:00 36 05/16/18 08:00 Mechanical Ventilator 05/16/18 08:00 30 05/16/18 08:00 97.7 42 18 122/76 (91) 100 97.7 05/16/18 07:18 52 26 30 05/16/18 05:29 56 24 30 05/16/18 04:00 35 05/16/18 04:00 Mechanical Ventilator 05/16/18 04:00 40 05/16/18 04:00 97.2 43 11 133/69 (90) 100 97.2 05/16/18 03:30 40 18 30 05/16/18 01:07 43 05/16/18 01:04 51 21 30 05/16/18 00:00 97.7 48 12 152/90 (110) 100 97.7 05/16/18 00:00 Mechanical Ventilator 05/15/18 23:03 56 20 30 Intake and Output 05/15/18 05/16/18 19:00 07:00 Intake Total 860 ml 1379.067 ml Output Total 1000 ml 850 ml Balance -140 ml 529.067 ml Free Water 200 ml 150 ml IV Total 409.067 ml Tube Feeding 660 ml 720 ml Other 100 ml Output Urine Total 1000 ml 850 ml # Bowel Movements 1 Laboratory Tests Test 05/16/18 05:33 White Blood Count 7.8 K/UL (4.8-10.8) Red Blood Count 3.21 M/UL (4.70-6.10) L Hemoglobin 9.5 G/DL (14.2-18.0) L Hematocrit 27.8 % (42.0-52.0) L Mean Corpuscular Volume 87 FL (80-99) Mean Corpuscular Hemoglobin 29.7 PG (27.0-31.0) Mean Corpuscular Hemoglobin Concent 34.2 G/DL (32.0-36.0) Red Cell Distribution Width 14.3 % (11.6-14.8) Platelet Count 311 K/UL (150-450) Mean Platelet Volume 6.5 FL (6.5-10.1) Neutrophils (%) (Auto) 73.6 % (45.0-75.0) Lymphocytes (%) (Auto) 18.1 % (20.0-45.0) L Monocytes (%) (Auto) 4.1 % (1.0-10.0) Eosinophils (%) (Auto) 4.0 % (0.0-3.0) H Basophils (%) (Auto) 0.3 % (0.0-2.0) Sodium Level 131 MMOL/L (136-145) L Potassium Level 4.4 MMOL/L (3.5-5.1) Chloride Level 100 MMOL/L (98-107) Carbon Dioxide Level 23 MMOL/L (21-32) Anion Gap 8 mmol/L (5-15) Blood Urea Nitrogen 13 mg/dL (7-18) Creatinine 0.5 MG/DL (0.55-1.30) L Estimat Glomerular Filtration Rate > 60 mL/min (>60) Glucose Level 109 MG/DL (74-106) H Calcium Level 9.4 MG/DL (8.5-10.1) Phosphorus Level 3.3 MG/DL (2.5-4.9) Magnesium Level 2.0 MG/DL (1.8-2.4) Total Bilirubin 0.3 MG/DL (0.2-1.0) Aspartate Amino Transf (AST/SGOT) 21 U/L (15-37) Alanine Aminotransferase (ALT/SGPT) 26 U/L (12-78) Alkaline Phosphatase 136 U/L (46-116) H Total Protein 7.0 G/DL (6.4-8.2) Albumin 2.9 G/DL (3.4-5.0) L Globulin 4.1 g/dL Albumin/Globulin Ratio 0.7 (1.0-2.7) L Chris Yanez MD May 16, 2018 22:11
[2018-05-17] MEDS ORDERED: PREVACID30 MG GT (02:10)
[2018-05-17] MEDS ORDERED: UNASYN 3 GM VIAL3 GM IJ (02:10)
[2018-05-17] MEDS ORDERED: VANCOMYCIN750 MG IVPB (02:10)
[2018-05-17] MEDS ORDERED: LORAZEPAM2 MG/1 M1 IV (02:16)
[2018-05-17] MEDS ORDERED: MORPHINE 22 MG/1 ML IV (02:16)
[2018-05-17] MEDS ORDERED: ZOFRAN 4 MG4 MG/2 ML IV (02:16)
--- NOTE | 2018-05-20 09:27 | Discharge Summary ---
Discharge Summary Discharge Summary _ DATE OF ADMISSION: 05/09/2018 DATE OF DISCHARGE: 05/16/2018 REASON FOR ADMISSION: 72 years old male, resident of half-way facility, with past medical history of ventilator dependent respiratory failure, tracheostomy status, dysphagia, G-tube, hypoxic encephalopathy, seizure disorder, COPD, hypertension , history of CVA, was sent from the half-way [facility] for evaluation of oral bleeding. At the facility staff was unable to control the bleeding , and patient subsequently was transferred to emergency department for further evaluation. Vital signs revealed mild bradycardia 53. No leukocytosis , hemoglobin 8.8, hematocrit 27.8. Urinalysis with pyuria, positive for leukocytes esterase and nitrate, moderate bacteria. BUN 29, creatinine 0.8. Sodium 132. Albumin 3.1. EKG revealed sinus bradycardia with left axis deviation. Maxillofacial CT scan revealed evidence of large apical abscess/osteomyelitis , involving the apical roots of the left maxillary canine tooth and first premolar. Evidence of extensive dental disease, Patient admitted with diagnosis of denral abscess/osteomyelitis, respiratory failure, probably sepsis, possible UTI, dysphagia, G tube . CONSULTANTS: tractor trailer driver Dr. Yanez pulmonary Dr. Bojorquez ID specialist Dr. Mendez brazer production line/oncologist Dr. Alberto psychiatrist Dr. Fuller ENT specialist/surgeon Dr. Degroot [facility] COURSE: Patient admitted. Patient started on IV fluids and empiric antibiotics. ID consult was requested. Urine culture revealed Pseudomonas aeruginosa with a low colony count. Blood culture were negative. Sputum culture revealed 2 different species of Pseudomonas aeruginosa. Antibiotic regimen provided as per ID specialist recommendations. Patient will need total treatment for 42 days for dental abscess/osteomyelitis. ENT specialist seen and evaluated the patient. Per ENT specialist , patient was improvement improving . Surgeon recommended to repeat CT scan in one week and proceed with the drainage if patient will not improved . However surgeon stated , that it was unlikely, given clinical improvement : no fever no leukocytosis and no further bleeding. Kier Pleater closely followed. Hemoglobin and hematocrit were closely monitored with goal to keep hemoglobin above 7. Anemia workup was consistent with anemia of chronic disease. hemoglobin and hematocrit were stable prior to discharge. Ventilator support and pulmonary toilet provided as per senior embedded software engineer recommendation. Chest x-ray revealed bilateral pleural effusion. Pulmonary toilet provided meticulously. Pro BNP 152. Patient started on G-tube feeding with strict aspiration reflux precaution. Patient was able to tolerate feeding. Seizure precautions were maintained. Keppra and Depakote were continued. Blood pressure was managed with a beta nancy and hydralazine, and remained stable. DVT and GI prophylaxis provided. Bowel regimen regimen instituted. Supportive care provided. Pain management was addressed as needed. Psychiatrist seen and evaluated patient , diagnosed patient with major depression with psychotic features. Psychiatrist optimized psychiatric medication regimen. Patient clinically improved , no further bleeding, hemoglobin and hematocrit stable. Patient was stable for discharge to half-way facility to complete 42 days pf antibiotic course as recommended by ID specialist. FINAL DIAGNOSES: Oral bleeding secondary to dental abscess/osteomyelitis Probable sepsis, present on admission Acute on chronic respiratory failure with VDRL and tracheostomy status Aspiration pneumonia Pleural effusion Dysphagia ,G-tube feeding Anemia of chronic disease Anemia secondary to oral bleeding due to dental abscess Seizure disorder COPD Hypertension Hypoxic encephalopathy Major depression with psychotic features DISCHARGE MEDICATIONS: List of medication was sent accepting facility DISCHARGE INSTRUCTIONS: Patient was discharged to the half-way facility. Follow up with medical doctor at the facility. I have been assigned to dictate discharge summary for this account. I was not involved in the patient's management. Monika Carpio NP May 20, 2018 09:27
== END 2018-05-16 12:45 | DRG 870 ==
LOC: EDBD 11:20 → EMR 11:44 → 2W 12:46 → EDBEDREQ 13:39
PROC: 5A1955Z Respiratory Ventilation, Greater than 96 Consecutive Hours (ICD-10-PCS; principal; 2018-05-09)
PROC: 02H633Z Insertion of Infusion Device into Right Atrium, Percutaneous Approach (ICD-10-PCS; 2018-05-15)
DX: A41.9 Sepsis, unspecified organism (principal); J69.0 Pneumonitis due to inhalation of food and vomit; J96.20 Acute and chronic respiratory failure, unspecified whether with hypoxia or hypercapnia; M86.9 Osteomyelitis, unspecified; G93.1 Anoxic brain damage, not elsewhere classified; Z43.1 Encounter for attention to gastrostomy; F32.3 Major depressive disorder, single episode, severe with psychotic features; N39.0 Urinary tract infection, site not specified; R40.3 Persistent vegetative state; K04.7 Periapical abscess without sinus; R13.10 Dysphagia, unspecified; D63.8 Anemia in other chronic diseases classified elsewhere; D50.0 Iron deficiency anemia secondary to blood loss (chronic); G40.909 Epilepsy, unspecified, not intractable, without status epilepticus; J44.9 Chronic obstructive pulmonary disease, unspecified; K21.9 Gastro-esophageal reflux disease without esophagitis; Z86.74 Personal history of sudden cardiac arrest; Z86.73 Personal history of transient ischemic attack (TIA), and cerebral infarction without residual deficits; I12.9 Hypertensive chronic kidney disease with stage 1 through stage 4 chronic kidney disease, or unspecified chronic kidney disease; N18.9 Chronic kidney disease, unspecified; Z88.6 Allergy status to analgesic agent; B96.5 Pseudomonas (aeruginosa) (mallei) (pseudomallei) as the cause of diseases classified elsewhere
CPT/HCPCS: 36415; 36569; 70486; 71045; 76937; 80048; 80053; 80069; 80202; 81003; 82378; 82607; 82746; 83540; 83550; 83615; 83735; 83880; 84100; 84443; 85007; 85025; 85044; 85060; 85610; 85651; 85730; 86140; 87040; 87070; 87081; 87086; 87181; 87205; 93005; 93970; 94002; 94003; 94664; 97803; 99285